=== PATIENT | female | born 1955 | race Hispanic/Latino ===

== ENCOUNTER 2017-05-06 10:00 | Outpatient (CLI) | payer MEDICARE, BC ==
[2017-05-06] MEDS ORDERED: Lidocaine 4% Topical Sol 50 ML BOT ONE (11:11)
[2017-05-06] MEDS ORDERED: Sodium Chloride 0.9% 15 ML NEB ONE (11:11)
--- NOTE | 2017-05-06 12:04 | PRG ---
DATE OF SERVICE: 05/06/2017 HISTORY: Ms. Vickie Fontenot is a very pleasant 62-year-old who presents to the [facility] for evaluation of an ulceration of the dorsum of the right foot. The patient stated at the time of her initial presentation to the Wound Center that approximately 1 month previously, her grandson jumped up in the air and the heel of his foot landed on the dorsum of the patient's right foot. She stated that the injury occurred in the evening and the following morning, she noted swelling over the dors um of her right foot. The patient was eventually seen by Dr. Mittal and placed on a course of p.o. antibiotics. She stated that the following week because of \\\\"leaking\\\\" associated with the lesio n of the dorsum of her right foot, she was seen in Urgent Care. She stated that the wound was clean ed. She stated that at a followup appointment in Urgent Care, she was told to keep an eye on her wo und. At the time, the patient was seen by Dr. Mittal. Ms. Fontenot was referred to the Wound Cent er for further evaluation and treatment. After being seen in the Wound Center, the patient was plac ed on dressing changes of Aquacel AG on a daily basis after cleansing and irrigation. The patient s tates that she has also applying antibiotic ointment to the wound at the time of her dressing change s. PHYSICAL EXAMINATION: VITAL SIGNS: Temperature 97.7, pulse 63, respirations 18, blood pressure 193/81, Accu-Chek 117. EXTREMITIES: An ulceration over the dorsum of the right foot is present which measures approximatel y 0.3 x 0.4 cm. The dimensions of the wound at the time of the patient's last visit were approximat yohannes 0.7 x 0.8 cm. Granulation tissue is visible within the wound margins. Necrotic and nonviable t issue present within the wound margins was debrided with an excisional full-thickness debridement wi th the use of a curette. No purulent drainage is associated with the wound. No cellulitis of the r ight foot is appreciated. No maceration of the skin of the periwound is noted. A dorsalis pedis pu lse is easily palpable on the right. No significant edema of the right foot is present on exam debora sandoval ASSESSMENT AND PLAN: 1. Ulceration of dorsum of right foot. Dressing changes of Aquacel AG will be continued on a daily basis after cleansing and irrigation. The patient has been instructed to discontinue the use of an tibiotic ointment at the time of dressing changes. I will see Ms. Fontenot again in one week. The patient understands and is in agreement with the preceding treatment plan. 2. Diabetes mellitus. The patient's Accu-Chek in clinic today is 117. The patient has been remind ed that for optimal wound healing, her blood glucoses should remain below 150. 3. Hypertension. 4. Coronary artery disease. 5. Osteoarthritis. 6. Chronic back pain. 7. End-stage renal disease. 8. Hypothyroidism. 9. Anemia. 10. Paroxysmal atrial fibrillation.
== END 2017-05-06 10:01 | disposition home or self-care (01) ==
LOC: WCC 10:00
PROVIDERS: ATTEND Family Medicine
DX: L97.519 Non-pressure chronic ulcer of other part of right foot with unspecified severity (principal); E11.621 Type 2 diabetes mellitus with foot ulcer; I12.0 Hypertensive chronic kidney disease with stage 5 chronic kidney disease or end stage renal disease; E11.22 Type 2 diabetes mellitus with diabetic chronic kidney disease; N18.6 End stage renal disease; E03.9 Hypothyroidism, unspecified; D63.1 Anemia in chronic kidney disease; I48.0 Paroxysmal atrial fibrillation; I25.10 Atherosclerotic heart disease of native coronary artery without angina pectoris; M19.90 Unspecified osteoarthritis, unspecified site
CPT/HCPCS: 11042; A4218; J2001

== ENCOUNTER 2017-05-07 08:38 | Emergency (ER) | payer MEDICARE, BC ==
[2017-05-07 09:48] LABS: #Eosinphils 0.1 thou/uL (0.0-0.7); #Monocytes 0.3 thou/uL (0.11-0.59); #Neutrophils 4.6 thou/uL (1.40-6.50); %Basophils 0.1 % (0.0-1.0); %Eosinophils 1.1 % (0.0-10.0); %Lymphocytes 17.2 % (21.0-51.0); %Monocytes 4.9 % (0.0-10.0); Hematocrit 35.7 % (36.0-47.0); Mean Platelet Volume 6.6 fL (7.4-10.4); Red Blood Cell (RBC) Count 3.39 mill/uL (4.20-5.40)
[2017-05-07 09:56] LABS: ALT (SGPT) 12 U/L (8-55); AST (SGOT) 20 U/L (5-34); Alkaline Phosphatase 132 U/L (40-150); Anion Gap 20 mmol/L (10-20); BUN (Urea Nitrogen) 67 mg/dL (9.8-20.1); Bilirubin, Total 0.4 mg/dL (0.2-1.2); Calc. Creatinine Clearance 0 mL/min (70-130); Calcium 9.2 mg/dL (7.8-10.44); Carbon Dioxide 23 mmol/L (23-31); Chloride 100 mmol/L (98-107); Estimated GFR-MDRD 5; Globulin 3.8 g/dL (2.4-3.5)
[2017-05-07 10:49] LABS: Lactic Acid - Sepsis 0.6 mmol/L (0.5-2.2)
--- NOTE | 2017-05-07 10:49 | RAD ---
LUMBAR SPINE 3 VIEWS: Date: 05/07/17 HISTORY: Back pain. FINDINGS/IMPRESSION: There are degenerative changes with levoscoliosis of the lumbar spine. There is compression of T12 v ertebral body, likely old. No subluxation is identified. Vascular calcifications are noted. POS: [facility]
[2017-05-07] MEDS ORDERED: Ondansetron HCl/PF 4 MG/2 ML Vial ONE (11:20)
[2017-05-07] MEDS ORDERED: cefTRIAXone\\ROCEPHIN 1 GM VIAL ONE (11:56)
[2017-05-07] MEDS ORDERED: Sodium Chloride 0.9% 100 ML ONE (11:57)
== END 2017-05-07 13:00 | disposition home or self-care (01) ==
LOC: ERS 08:38
DX: N39.0 Urinary tract infection, site not specified (principal); E87.5 Hyperkalemia; I25.2 Old myocardial infarction; E11.9 Type 2 diabetes mellitus without complications; E03.9 Hypothyroidism, unspecified; E78.5 Hyperlipidemia, unspecified; I10 Essential (primary) hypertension; Z87.891 Personal history of nicotine dependence
CPT/HCPCS: 36415; 36416; 72100; 80053; 83605; 83690; 85025; 93005; 94760; 96365; 96375; 96376; J0696; J2270; J2405; J7050

== ENCOUNTER 2017-05-09 18:38 | Emergency (ER) | payer MEDICARE, BC ==
[2017-05-09 19:21] LABS: #Eosinphils 0.1 thou/uL (0.0-0.7); #Lymphocytes 1.3 thou/uL (1.20-3.40); #Monocytes 0.3 thou/uL (0.11-0.59); #Neutrophils 4.8 thou/uL (1.40-6.50); %Basophils 0.7 % (0.0-1.0); %Eosinophils 1.9 % (0.0-10.0); %Lymphocytes 19.1 % (21.0-51.0); Hematocrit 38.9 % (36.0-47.0); Mean Platelet Volume 6.6 fL (7.4-10.4); Red Blood Cell (RBC) Count 3.71 mill/uL (4.20-5.40); White Blood Cell (WBC) Count 6.6 thou/uL (4.8-10.8)
[2017-05-09 20:01] LABS: ALT (SGPT) 12 U/L (8-55); AST (SGOT) 19 U/L (5-34); Alkaline Phosphatase 112 U/L (40-150); Anion Gap 18 mmol/L (10-20); BUN (Urea Nitrogen) 53 mg/dL (9.8-20.1); Bilirubin, Total 0.4 mg/dL (0.2-1.2); Calc. Creatinine Clearance 0 mL/min (70-130); Calcium 9.1 mg/dL (7.8-10.44); Carbon Dioxide 27 mmol/L (23-31); Chloride 97 mmol/L (98-107); Estimated GFR-MDRD 6; Globulin 3.7 g/dL (2.4-3.5); Lipase 5 U/L (8-78); Protein, Total 8.1 g/dL (6.0-8.3)
[2017-05-09 20:05] LABS: Troponin I 0.016 ng/mL (< 0.028)
[2017-05-09] MEDS ORDERED: Ondansetron HCl/PF 4 MG/2 ML Vial ONE (20:30)
--- NOTE | 2017-05-09 21:17 | RAD ---
ONE VIEW CHEST: Comparison: 10-07-16 History: Bilateral numbness, emesis, hypoglycemia. FINDINGS: Stable sternotomy wires and stable cardiac silhouette. The pulmonary vessels and hilum are normal. C ostophrenic angles are clear. Chronic changes, without consolidation or mass. No pneumothorax. Chron ic changes along the proximal right humerus. Posterior right 4th rib fracture. IMPRESSION: No acute cardiopulmonary process. POS: [facility]
== END 2017-05-09 20:55 | disposition home or self-care (01) ==
LOC: ERS 18:38
DX: R11.2 Nausea with vomiting, unspecified (principal); G62.9 Polyneuropathy, unspecified; I25.2 Old myocardial infarction; E11.9 Type 2 diabetes mellitus without complications; E03.9 Hypothyroidism, unspecified; E78.5 Hyperlipidemia, unspecified; I10 Essential (primary) hypertension; Z87.891 Personal history of nicotine dependence
CPT/HCPCS: 36416; 71010; 80053; 82553; 83690; 83735; 83880; 84484; 85025; 93005; 96374; J2405

== ENCOUNTER 2017-05-27 10:44 | Outpatient (CLI) | payer MEDICARE, BC ==
--- NOTE | 2017-05-27 13:31 | MRI ---
LUMBAR SPINE MRI: DATE: 05/27/17. PROVIDED CLINICAL HISTORY: Back pain. FINDINGS: Five lumbar vertebral bodies are noted. Vertebral body heights appear preserved. Lumbar alignment appears normal. No focal concerning regional marrow signal abnormality is evident. The conus medul [place] is normal in signal and terminates at an appropriate level. The visualized extraspinal soft t issues appear unremarkable. There is evidence for sclerosis involving each sacral alae, incompletel y visualized and incompletely characterized on the basis of this study, but possibly reflecting prio r sacral insufficiency fractures. No definite associated edema is evident. At L1-2, there is no significant central canal or foraminal narrowing apparent. At L2-3, there is no significant central canal or foraminal narrowing apparent. At L3-4, there is bilateral facet arthritis without significant central canal or foraminal narrowing apparent. At L4-5, there is disk desiccation and loss of disk space height with end plate degenerative change. There is a broad-based disk bulge and bilateral facet arthritis which combine to produce severe ce ntral canal narrowing. There is moderate right and mild left foraminal narrowing. At L5-S1, there is bilateral facet arthritis and a broad-based disk bulge. There is a synovial cyst emanating from the medial aspect of the L5-S1 facet joint to the left of midline which produces mod erate compression of the thecal sac. There is moderate to severe and mild right foraminal narrowing . IMPRESSION: 1. Lumbar disk and facet degenerative changes producing areas of canal and foraminal narrowing as d escribed above. 2. Areas of presumed sclerosis within each sacral ala may reflect sequelae of prior sacral insuffic iency fractures. Consider dedicated imaging of the pelvis as clinically indicated. POS: [facility]
== END 2017-05-27 10:45 | disposition home or self-care (01) ==
LOC: TBSIIMAG 10:44
PROVIDERS: ATTEND Orthopaedic Surgery
DX: M54.16 Radiculopathy, lumbar region (principal); M47.816 Spondylosis without myelopathy or radiculopathy, lumbar region; G95.89 Other specified diseases of spinal cord
CPT/HCPCS: 72148

== ENCOUNTER 2017-07-13 10:00 | Inpatient (IN) | payer MEDICARE, BC ==
[2017-07-13 10:54] VITALS: BMI 28.3
[2017-07-20] MEDS ORDERED: CEFAZOLIN/Water 2 GM/20 ML SYRINGE ONE (09:39)
[2017-07-20] MEDS ORDERED: Phenylephrine 10 MG/NS 250 ML 250 ML ONE (11:39)
[2017-07-20] MEDS ORDERED: Albumin 5% 500 ML ONE (11:39)
[2017-07-20] MEDS ORDERED: Bacitracin Zinc Ointment 30 gm TUBE ONE (11:43)
[2017-07-20] MEDS ORDERED: Sodium Chloride 0.9% 10 ML ONE (11:43)
[2017-07-20] MEDS ORDERED: Thrombin 5000 UNITS/5 ML VIAL ONE (11:43)
[2017-07-20] MEDS ORDERED: Fentanyl 250 MCG/5 ML VIAL ONE (12:00)
[2017-07-20] MEDS ORDERED: Meperidine HCl/PF 25 MG/ML VIAL SLOW IVP PRN (13:27)
[2017-07-20] MEDS ORDERED: Morphine Sulfate 2 MG/ML SYRINGE SLOW IVP PRN (13:27)
[2017-07-20] MEDS ORDERED: Promethazine HCl 25 MG/ML VIAL SLOW IVP PRN (13:27)
[2017-07-20] MEDS ORDERED: Ondansetron HCl/PF 4 MG/2 ML Vial IVP PRN (13:27)
[2017-07-20] MEDS ORDERED: HYDROmorphone 2 MG/ML VIAL SLOW IVP PRN (13:27)
[2017-07-20] MEDS ORDERED: Promethazine HCl 25 MG/ML VIAL IM PRN (13:27)
[2017-07-20] MEDS ORDERED: PHENYLEPHRINE-NS 100 MCG/ML 10 ML SYRINGE ONE (14:28)
[2017-07-20] MEDS ORDERED: Glycopyrrolate 0.2 MG/ML 5 ML SYRINGE ONE (14:28)
[2017-07-20] MEDS ORDERED: Vecuronium 10 MG VIAL ONE (14:28)
[2017-07-20] MEDS ORDERED: ePHEDrine/0.9% NaCl/PF SYRINGE 50 mg/10 ml ONE (14:28)
[2017-07-20] MEDS ORDERED: Ondansetron HCl/PF 4 MG/2 ML Vial ONE (14:28)
[2017-07-20] MEDS ORDERED: Lidocaine 1% PF 5 ML VIAL ONE (14:28)
[2017-07-20] MEDS ORDERED: Dexamethasone 20 MG/5 ML VIAL ONE (14:28)
[2017-07-20] MEDS ORDERED: Propofol 200 MG/20 ML VIAL ONE (14:28)
[2017-07-20] MEDS ORDERED: Fentanyl 100 MCG/2 ML VIAL ONE ×2 (14:38→16:08)
[2017-07-20] MEDS ORDERED: Acetaminophen/Codeine 30-300mg Tablet PO PRN (14:50)
[2017-07-20] MEDS ORDERED: Acetaminophen 325 MG TAB PO PRN (14:50)
[2017-07-20] MEDS ORDERED: traMADol HCl 50 MG TAB PO PRN (14:50)
[2017-07-20] MEDS ORDERED: Milk Of Magnesia 30 ML UDCUP PO PRN (14:50)
[2017-07-20] MEDS ORDERED: Bisacodyl 10 MG SUPP PR PRN (14:50)
[2017-07-20] MEDS ORDERED: Nitroglycerin 0.4 MG TAB (25 Tab Bottle) SL PRN (14:53)
[2017-07-20] MEDS ORDERED: Methocarbamol 500 MG TAB PO PRN (15:21)
[2017-07-20] MEDS ORDERED: Morphine 4 MG/ML VIAL ONE (17:35)
--- NOTE | 2017-07-20 18:43 | OP ---
DATE OF SERVICE: 07/20/2017 OR: 12. WOUND TYPE: Type 1 wound. SURGEON: Gregory Encarnacion M.D. TABLE TENDER: Alexx Hubbard PA-C. PREPROCEDURE DIAGNOSES: L4-L5 severe stenosis with low back and leg pain with L5-S1 synovial cyst wi th low back and leg pain. PROCEDURE: 1. L4-L5 laminectomy, partial facetectomy, and foraminotomies over the L4-L5 nerve roots. 2. L5-S1 laminectomy for synovial cyst resection. DESCRIPTION OF PROCEDURE: After informed consent was obtained from the patient, the patient was brou ght to OR 12. Proper patient pause and identification was carried out. [facility] and positioned prone on the operating room table. All appropriate points were padded. We identified the L4, L5, S1 dorsal spines and lamina, a linear jesse was made o jasvir this region and this area was sterilely cleansed, prepared, and draped. Proper patient pause and identification was carried out. The wound was then opened with a combination of sharp, monopolar an d blunt dissection. The L4, L5 and S1 dorsal spines and lamina were exposed. Localization film conf irmed our area of interest. We then performed an L4-L5 laminectomy, partial facetectomy, and foramin otomies over the L4-L5 nerve roots. We then turned our attention to the L5-S1 segment where there wa s a synovial cyst and L5-S1 laminectomy was performed and a left-sided synovial cyst was identified a nd freed to maximize decompression of the common dural tube and the nerve roots. We had excellent de compression from L4 all the way to S1. We maximized hemostasis throughout. The wound was then close d in anatomic layers following the sprinkling of vancomycin powder and after copious irrigation and m eticulous hemostasis. The patient then emerged from anesthesia.
[2017-07-20] MEDS: Morphine 4 MG/ML VIAL SLOW IVP PRN (18:53)
[2017-07-20] MEDS: HumaLOG 300 UNITS/3 ML VIAL SC SCH (18:53)
[2017-07-20] MEDS ORDERED: hydrALAZINE 20 MG/ML VIAL SLOW IVP PRN (19:12)
[2017-07-20] MEDS: Insulin Detemir 100 UNITS/ML 30 UNITS in Pre-Filled Syringe 1 EACH SC SCH (20:42)
[2017-07-20] MEDS: CEFAZOLIN/Water 2 GM/20 ML SYRINGE SLOW IVP SCH (20:42)
[2017-07-20] MEDS: Carvedilol 6.25 MG TAB PO SCH (20:43)
[2017-07-20] MEDS: Gabapentin 300 MG CAP PO SCH (20:43)
[2017-07-20] MEDS: Amlodipine 10 MG TAB PO SCH (20:43)
[2017-07-20] MEDS ORDERED: Non-Formulary Item 1 EACH (Insulin Glargine [Lantus Vial] 30 UNITS) SC SCH (21:00)
[2017-07-20] MEDS: Sodium Chloride 0.9% 1,000 ML IV SCH (21:03)
[2017-07-20] MEDS: HYDROcodone/Acetaminophen 7.5/325 mg Tablet PO PRN (22:21)
[2017-07-21] MEDS: Sodium Chloride 0.9% 1,000 ML IV SCH (02:12)
[2017-07-21] MEDS: CEFAZOLIN/Water 2 GM/20 ML SYRINGE SLOW IVP SCH (03:51)
[2017-07-21] MEDS: HYDROcodone/Acetaminophen 7.5/325 mg Tablet PO PRN ×3 (03:52→20:28)
[2017-07-21 05:33] LABS: #Basophils 0.1 thou/uL (0.0-0.2); #Lymphocytes 0.8 thou/uL (1.20-3.40); #Monocytes 0.4 thou/uL (0.11-0.59); %Eosinophils 0.1 % (0.0-10.0); %Lymphocytes 9.5 % (21.0-51.0); Hematocrit 32.1 % (36.0-47.0); Mean Platelet Volume 6.6 fL (7.4-10.4); Red Blood Cell (RBC) Count 3.06 mill/uL (4.20-5.40); White Blood Cell (WBC) Count 8.3 thou/uL (4.8-10.8)
[2017-07-21 05:44] LABS: Hemoglobin A1c 5.7 % (4.0-6.0)
[2017-07-21 05:52] LABS: Anion Gap 18 mmol/L (10-20); BUN (Urea Nitrogen) 51 mg/dL (9.8-20.1); Calc. Creatinine Clearance 9 mL/min (70-130); Calcium 9.1 mg/dL (7.8-10.44); Carbon Dioxide 22 mmol/L (23-31); Chloride 101 mmol/L (98-107); Estimated GFR-MDRD 6; Magnesium 1.9 mg/dL (1.6-2.6)
[2017-07-21] MEDS ORDERED: Dextrose 50% Abboject 50 ML SYRINGE SLOW IVP SCH (06:45)
[2017-07-21] MEDS ORDERED: HumaLOG 300 UNITS/3 ML VIAL IVP SCH (06:45)
[2017-07-21] MEDS ORDERED: Potassium Chloride 8 MEQ TAB PO SCH (06:45)
[2017-07-21] MEDS: Dextrose 5 % And 0.9 % NaCl 1,000 ML IV SCH ×2 (07:04→07:07)
[2017-07-21] MEDS: HumaLOG 300 UNITS/3 ML VIAL SC SCH ×3 (07:30→18:06)
[2017-07-21] MEDS: Levothyroxine Sodium 100 MCG TAB PO SCH (09:00)
--- NOTE | 2017-07-21 09:06 | PRG ---
DATE OF SERVICE: 07/21/2017 Ms. Fontenot is postoperative day 1 from L4-S1 decompression and synovial cyst removal. She is down at dialysis, now and as such, I am not able to see her this morning.
--- NOTE | 2017-07-21 12:04 | PDOC.PN ---
- Subjective Encounter Start Date: 07/21/17 Encounter Start Time: 07:00 Pt had elevated K+ today, due for HD, sent to HD here in the hospital prior to discharge. Did okay overnight, pain controlled, no F/C, no N/V/D/C. Deneis CP or SOB, no cough or sputum production. Discussed with Dr lockhart's PA, plan to discharge after HD 10 point ROS performed and neg for all systems except as per hPI - Objective Resuscitation Status: FULL MAR Reviewed: Yes Vital Signs & Weight: Vital Signs (12 hours) Temp Pulse Resp BP Pulse Ox 07/21/17 08:30 97.8 F 63 18 07/21/17 04:43 97.8 F 63 18 149/68 H 99 07/21/17 00:16 98.1 F 72 19 154/69 H 100 Weight Weight 165 lb I&O: 07/20/17 07/21/17 07/22/17 06:59 06:59 06:59 Intake Total 460 Balance 460 Result Diagrams: 07/21/17 05:09 07/21/17 05:09 Additional Labs: Accuchecks 07/20/17 07/20/17 18:53 17:42 POC Glucose 153 H 118 H Radiology Reviewed by me: Yes EKG Reviewed by me: Yes Phys Exam - Physical Examination Constitutional: NAD HEENT: PERRLA, moist MMs, sclera anicteric, oral pharynx no lesions Neck: no nodes, no JVD, supple, full ROM Respiratory: no wheezing, no rales, no rhonchi, clear to auscultation bilateral Cardiovascular: RRR, no rub HSM stable Gastrointestinal: soft, non-tender, no distention, positive bowel sounds Musculoskeletal: pulses present, edema present Neurological: non-focal, normal sensation, moves all 4 limbs Lymphatic: no nodes Psychiatric: normal affect, A&O x 3 Skin: no rash, normal turgor, cap refill <2 seconds Dx/Plan (1) Status post lumbar laminectomy Code(s): Z98.890 - OTHER SPECIFIED POSTPROCEDURAL STATES Status: Acute Comment: doing well, dispo per Neurosurgery (2) CAD (coronary artery disease) Code(s): I25.10 - ATHSCL HEART DISEASE OF [place] CORONARY ARTERY W/O ANG PCTRS Status: Chronic Qualifiers: Coronary Disease-Associated Artery/Lesion type: bypass graft [place] vs. transplanted heart: [place] heart Associated angina: without angina Qualified Code(s): I25.810 - Atherosclerosis of coronary artery bypass graft(s) without angina pectoris (3) Diabetes type 2, controlled Code(s): E11.9 - TYPE 2 DIABETES MELLITUS WITHOUT COMPLICATIONS Status: Chronic Qualifiers: Diabetes mellitus complication status: with circulatory complication Diabetes mellitus complication detail: with other circulatory complications Diabetes mellitus fpc insulin use: with manager terminal use Qualified Code(s) : E11.59 - Type 2 diabetes mellitus with other circulatory complications; Z79.4 - terminal worker (current) use of insulin; Z79.4 - [facility] (current) use of insulin ; Z79.4 - [facility] (current) use of insulin; Z79.4 - [facility] (current) use of insulin (4) Dyslipidemia Code(s): E78.5 - HYPERLIPIDEMIA, UNSPECIFIED Status: Chronic (5) ESRD (end stage renal disease) on dialysis Code(s): N18.6 - END STAGE RENAL DISEASE; Z99.2 - DEPENDENCE ON RENAL DIALYSIS Status: Chronic Comment: to hD this morning prior to D/C (6) Hypertension Code(s): I10 - ESSENTIAL (PRIMARY) HYPERTENSION Status: Chronic Qualifiers: Hypertension type: essential hypertension Qualified Code(s): I10 - Essential (primary) hypertension (7) Hypothyroidism Code(s): E03.9 - HYPOTHYROIDISM, UNSPECIFIED Status: Chronic Qualifiers: Hypothyroidism type: acquired Qualified Code(s): E03.9 - Hypothyroidism, unspecified (8) Paroxysmal atrial fibrillation Code(s): I48.0 - PAROXYSMAL ATRIAL FIBRILLATION Status: Chronic Comment: in NSR (9) Secondary hyperparathyroidism of renal origin Code(s): N25.81 - SECONDARY HYPERPARATHYROIDISM OF RENAL ORIGIN Status: Chronic - Plan cont current plan of care, PT/OT * . will sign off in anticiaption of D/C. If still here in the morning, will re- visit
[2017-07-21] MEDS: Carvedilol 6.25 MG TAB PO SCH ×2 (13:33→20:30)
[2017-07-21] MEDS: Fish Oil 1,000 MG CAP PO SCH (13:33)
[2017-07-21] MEDS: Gabapentin 300 MG CAP PO SCH ×3 (13:33→20:30)
[2017-07-21] MEDS: Amlodipine 10 MG TAB PO SCH ×2 (13:33→20:29)
[2017-07-21] MEDS: Folic Acid/Vit B Comp W-C PO SCH (13:33)
[2017-07-21] MEDS: Morphine 4 MG/ML VIAL SLOW IVP PRN (13:40)
--- NOTE | 2017-07-21 16:38 | CON ---
DATE OF CONSULTATION: 07/21/2017 TIME OF SERVICE: 1900. PRIMARY CARE PHYSICIAN: Dr. Fly Vargas. REQUESTING PHYSICIAN: Dr. Encarnacion. REASON FOR CONSULTATION: Medical management post-lumbar laminectomy. HISTORY OF PRESENT ILLNESS: Ms. Fontenot is a pleasant 62-year-old white female with history of obes ity, hypertension, coronary artery disease, diabetes, hypothyroidism, and paroxysmal atrial fibrillat ion who is postop day 0 from L4-L5 laminectomy, partial facetectomy, at L4-L5 foraminotomy as well as an L5-S1 laminectomy with synovial cyst resection. Currently, she is complaining of her left leg being numb and not feeling right. She denies any nause a. No fevers or chills. No chest pain or difficulty breathing. She does have history of end-stage renal disease on Wednesday, Wednesday, Wednesday hemodialysis, managed b y Dr. Coffey and sees Dr. Carlos for her heart issues. She denies any current complaints. PAST MEDICAL HISTORY: 1. Atrial fibrillation, paroxysmal. 2. Hypertension, essential. 3. Coronary artery disease, without angina. 4. Hyperlipidemia, unspecified. 5. Diabetes mellitus type 2, on long-term insulin. 6. Peripheral neuropathy. 7. Hypothyroidism. PAST SURGICAL HISTORY: 1. Bilateral cataracts. 2. Appendectomy. 3. Four-vessel CABG. 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 5. Right hip johnathan placement. 5. HD catheter placement and removal, and right forearm hemodialysis shunt creation. HOME MEDICATIONS: 1. [place] 3 tablets 1 daily. 2. Coreg 12.5 mg p.o. b.i.d. 3. Captopril 12.5 mg p.o. b.i.d. 4. Aspirin 81 mg daily. 5. Norvasc 5 mg p.o. b.i.d. 6. Amiodarone 100 mg daily. 7. Tylenol as needed. 8. Crestor 40 mg p.o. at bedtime. 9. Coumadin 5 mg p.o. q.p.m. 10. Tramadol as needed. 11. Methocarbamol 750 mg p.o. q.4 hours p.r.n. 12. Levothyroxine 100 mcg daily. 13. Lantus 30 units subcu at bedtime. 14. Humalog 12 units subcu a.c. 15. Nitroglycerin 0.4 mg sublingual p.r.n. chest pain. 16. Gabapentin 300 mg p.o. b.i.d. 17. Nephro-Gina 1 tablet daily. ALLERGIES: NKDA. FAMILY HISTORY: Negative for clotting or bleeding disorder, no immune dysfunction. SOCIAL HISTORY: She denies any alcohol, drug or tobacco use. REVIEW OF SYSTEMS: A 10-point review of systems was performed and negative for all other systems exc ept as stated as per HPI. PHYSICAL EXAMINATION: VITAL SIGNS: Temperature 97.9, pulse 75, blood pressure 181/75, respiratory rate 18, satting 100% on 2 liters nasal cannula. GENERAL: She is awake. She is alert. She is oriented x3. She is an obese white female, appears to be in no acute distress, although she does appear uncomfortable. HEENT: Normocephalic and atraumatic. Pupils equal, reactive bilaterally, mucous membranes are moist without visible lesions or thrush. NECK: Supple. She has no lymphadenopathy, JVD or thyromegaly. LUNGS: Clear anteriorly. She has no wheezes, no rales or rhonchi. CARDIOVASCULAR: She has normal S1 and S2. She does have a 2/6 holosystolic murmur best heard at the apex. ABDOMEN: Soft, it is nontender, nondistended. No rebound, rigidity or guarding with normoactive bow el sounds. EXTREMITIES: No cyanosis, no clubbing. She has trace edema in the left lower extremity. SKIN: Warm, moist well perfused. Her back has a postop dressing is clean, dry, and intact without a ny strike through. Her cranial nerves II-XII are grossly intact. Left leg is not moving well. Bila teral upper extremities and right leg have 5/5 strength. MUSCULOSKELETAL: Shows her large joints to be noninflamed within normal to inspection with no palpab le effusions. LABORATORY DATA: CBC showed a white count of major metabolic profile on 07/13/2017 showed sodium 140 , potassium 4.0, chloride 100, bicarbonate 32, BUN 37, creatinine 5.85, calcium 9.2, and glucose 165. CBC showed a white count of 4.7, hemoglobin 10.1, hematocrit 31.7, platelets of 205,000. INR is 1.3. ASSESSMENT AND PLAN: 1. Paroxysmal atrial fibrillation, currently in sinus rhythm. 2. Essential hypertension, controlled. 3. History of coronary artery disease, stable without angina. 4. Hyperlipidemia, on Crestor. 5. Diabetes mellitus type 2, on Lantus and NovoLog. There Peripheral neuropathy, on gabapentin. 6. Hypothyroidism on replacement levothyroxine. 7. End-stage renal disease on hemodialysis with Dr. Coffey. 8. Anemia of chronic renal disease, hemoglobin 10.1. We will watch this postoperatively. We will continue home medications. The [facility] Nurses call the neurosurgical PA due to the left leg c omplaints. We will manage her medical problems. We will follow along with you.
[2017-07-21] MEDS: Insulin Detemir 100 UNITS/ML 30 UNITS in Pre-Filled Syringe 1 EACH SC SCH (21:40)
[2017-07-22] MEDS: HYDROcodone/Acetaminophen 7.5/325 mg Tablet PO PRN ×2 (04:39→09:40)
[2017-07-22 08:12] VITALS: TEMP 98.6
[2017-07-22] MEDS: Carvedilol 6.25 MG TAB PO SCH (09:42)
[2017-07-22] MEDS: Gabapentin 300 MG CAP PO SCH (09:42)
[2017-07-22] MEDS: Amlodipine 10 MG TAB PO SCH (09:42)
[2017-07-22] MEDS: Folic Acid/Vit B Comp W-C PO SCH (09:42)
[2017-07-22] MEDS: Levothyroxine Sodium 100 MCG TAB PO SCH (09:43)
[2017-07-22] MEDS: Fish Oil 1,000 MG CAP PO SCH (09:43)
--- NOTE | 2017-07-22 09:50 | PRG ---
DATE OF SERVICE: 07/22/2017 Ms. Fontenot is postoperative day 1 from L4-S1 decompression and synovial cyst removal. She is doing well with certainly improvement in her leg pain. She has good strength in her lower extremity, she was dialyzed yesterday. She has met criteria for dismissal. We will dismiss her. We went over intr aoperative and postoperative issues.
--- NOTE | 2017-07-22 10:19 | PDOC.PN ---
- Subjective Encounter Start Date: 07/22/17 Encounter Start Time: 10:18 feelign better. pain controlled, left leg pain much better. no F/c, no n/V/D/ c, no CP or sOB, K+ post HD yesterday 3.0 seen by NSG today, cleared to go home 10 point ROs performed and neg for all systems except as per HPI - Objective MAR Reviewed: Yes Vital Signs & Weight: Vital Signs (12 hours) Temp Pulse Resp BP Pulse Ox 07/22/17 08:00 98.6 F 67 18 150/67 H 98 07/22/17 03:30 98.5 F 67 18 131/60 98 07/21/17 23:33 98.5 F 57 L 16 133/62 98 Weight Weight 168 lb 14.4 oz I&O: 07/21/17 07/22/17 07/23/17 06:59 06:59 06:59 Intake Total 460 480 230 Balance 460 480 230 Result Diagrams: 07/21/17 05:09 07/21/17 11:53 Additional Labs: Accuchecks 07/22/17 07/22/17 07/21/17 09:56 05:53 22:03 POC Glucose 205 H 158 H 177 H Radiology Reviewed by me: Yes EKG Reviewed by me: Yes Phys Exam - Physical Examination Constitutional: NAD HEENT: PERRLA, moist MMs, sclera anicteric, oral pharynx no lesions Neck: no nodes, no JVD, supple, full ROM Respiratory: no wheezing, no rales, no rhonchi, clear to auscultation bilateral Cardiovascular: RRR, no significant murmur, no rub Gastrointestinal: soft, non-tender, no distention, positive bowel sounds Musculoskeletal: no edema, pulses present Neurological: non-focal, normal sensation, moves all 4 limbs Lymphatic: no nodes Psychiatric: normal affect, A&O x 3 Skin: no rash, normal turgor, cap refill <2 seconds Dx/Plan (1) Status post lumbar laminectomy Code(s): Z98.890 - OTHER SPECIFIED POSTPROCEDURAL STATES Status: Acute Comment: doing well, discharge today (2) CAD (coronary artery disease) Code(s): I25.10 - ATHSCL HEART DISEASE OF [place] CORONARY ARTERY W/O ANG PCTRS Status: Chronic Qualifiers: Coronary Disease-Associated Artery/Lesion type: bypass graft [place] vs. transplanted heart: [place] heart Associated angina: without angina Qualified Code(s): I25.810 - Atherosclerosis of coronary artery bypass graft(s) without angina pectoris (3) Diabetes type 2, controlled Code(s): E11.9 - TYPE 2 DIABETES MELLITUS WITHOUT COMPLICATIONS Status: Chronic Qualifiers: Diabetes mellitus complication status: with circulatory complication Diabetes mellitus complication detail: with other circulatory complications Diabetes mellitus alf insulin use: with herbologist use Qualified Code(s) : E11.59 - Type 2 diabetes mellitus with other circulatory complications; Z79.4 - jail (current) use of insulin; Z79.4 - informatics spec (current) use of insulin ; Z79.4 - informatics spec (current) use of insulin; Z79.4 - jail (current) use of insulin (4) Dyslipidemia Code(s): E78.5 - HYPERLIPIDEMIA, UNSPECIFIED Status: Chronic (5) ESRD (end stage renal disease) on dialysis Code(s): N18.6 - END STAGE RENAL DISEASE; Z99.2 - DEPENDENCE ON RENAL DIALYSIS Status: Chronic Comment: HD yesterday, outpatient tomorrow. Follow with Dr Coffey as scheduled (6) Hypertension Code(s): I10 - ESSENTIAL (PRIMARY) HYPERTENSION Status: Chronic Qualifiers: Hypertension type: essential hypertension Qualified Code(s): I10 - Essential (primary) hypertension (7) Hypothyroidism Code(s): E03.9 - HYPOTHYROIDISM, UNSPECIFIED Status: Chronic Qualifiers: Hypothyroidism type: acquired Qualified Code(s): E03.9 - Hypothyroidism, unspecified (8) Paroxysmal atrial fibrillation Code(s): I48.0 - PAROXYSMAL ATRIAL FIBRILLATION Status: Chronic Comment: in NSR (9) Secondary hyperparathyroidism of renal origin Code(s): N25.81 - SECONDARY HYPERPARATHYROIDISM OF RENAL ORIGIN Status: Chronic - Plan cont current plan of care * . will sign off in anticipation of discharge
[2017-07-22] MEDS: HumaLOG 300 UNITS/3 ML VIAL SC SCH (11:59)
[2017-07-22 13:23] VITALS: BP 155/70
== END 2017-07-22 13:04 | disposition home or self-care (01) | DRG 515 ==
LOC: SURG A 07-20 08:42 → 2SE 07-21 08:11
PROVIDERS: ADMIT Surgery; ATTEND Surgery
PROC: 01NB0ZZ Release Lumbar Nerve, Open Approach (ICD-10-PCS; principal; 2017-07-20)
PROC: 5A1D70Z Performance of Urinary Filtration, Intermittent, Less than 6 Hours Per Day (ICD-10-PCS; 2017-07-21)
DX: M48.061 Spinal stenosis, lumbar region without neurogenic claudication (principal); N18.6 End stage renal disease; I12.0 Hypertensive chronic kidney disease with stage 5 chronic kidney disease or end stage renal disease; E11.42 Type 2 diabetes mellitus with diabetic polyneuropathy; N25.81 Secondary hyperparathyroidism of renal origin; E11.59 Type 2 diabetes mellitus with other circulatory complications; E03.9 Hypothyroidism, unspecified; I48.0 Paroxysmal atrial fibrillation; E78.5 Hyperlipidemia, unspecified; I25.10 Atherosclerotic heart disease of native coronary artery without angina pectoris; M71.38 Other bursal cyst, other site; M54.16 Radiculopathy, lumbar region; D63.1 Anemia in chronic kidney disease; Z79.4 Long term (current) use of insulin; Z95.1 Presence of aortocoronary bypass graft; Z95.5 Presence of coronary angioplasty implant and graft; Z99.2 Dependence on renal dialysis
CPT/HCPCS: 36415; 36416; 76000; 80048; 83036; 83735; 85025; 87340; A4216; G8978-GP-CL; G8979-GP-CJ; J1100; J1815; J2001; J2270; J2405; J2704; J3010; J3370; J3490; P9045

== ENCOUNTER 2017-07-13 10:23 | Outpatient (CLI) | payer MEDICARE, BC ==
[2017-07-13 11:23] LABS: Hematocrit 31.7 % (36.0-47.0); Mean Platelet Volume 6.5 fL (7.4-10.4); Red Blood Cell (RBC) Count 3.03 mill/uL (4.20-5.40); White Blood Cell (WBC) Count 4.7 thou/uL (4.8-10.8)
[2017-07-13 11:28] LABS: PTT 34.1 SEC (22.9-36.1); Prothrombin Time 16.8 SEC (12.0-14.7)
[2017-07-13 11:41] LABS: Anion Gap 12 mmol/L (10-20); BUN (Urea Nitrogen) 37 mg/dL (9.8-20.1); Calc. Creatinine Clearance 0 mL/min (70-130); Calcium 9.2 mg/dL (7.8-10.44); Carbon Dioxide 32 mmol/L (23-31); Chloride 100 mmol/L (98-107); Estimated GFR-MDRD 7
== END 2017-07-13 10:24 | disposition home or self-care (01) ==
LOC: LABBT 10:23
PROVIDERS: ATTEND Surgery
DX: Z01.818 Encounter for other preprocedural examination (principal); M48.061 Spinal stenosis, lumbar region without neurogenic claudication; M54.16 Radiculopathy, lumbar region
CPT/HCPCS: 80048; 85027; 85610; 85730

== ENCOUNTER → 2017-08-21 | Day surgery (SDC) | payer MEDICARE, BC ==
[~2017-08-21] MED LIST: Bacitracin Zinc 1 Packet ONE; Lidocaine 1% w/Epinephrine 1:100K 20 ML VIAL ONE
== END ==
LOC: ER/OP 16:31
PROVIDERS: ATTEND Physician Assistant
DX: Z51.89 Encounter for other specified aftercare (principal); E66.9 Obesity, unspecified; I25.10 Atherosclerotic heart disease of native coronary artery without angina pectoris; E03.9 Hypothyroidism, unspecified; I48.0 Paroxysmal atrial fibrillation; E11.22 Type 2 diabetes mellitus with diabetic chronic kidney disease; I12.0 Hypertensive chronic kidney disease with stage 5 chronic kidney disease or end stage renal disease; N18.6 End stage renal disease; E78.5 Hyperlipidemia, unspecified; E11.42 Type 2 diabetes mellitus with diabetic polyneuropathy; D63.1 Anemia in chronic kidney disease; Z99.2 Dependence on renal dialysis; Z79.01 Long term (current) use of anticoagulants; Z79.82 Long term (current) use of aspirin; Z79.4 Long term (current) use of insulin; Z79.899 Other long term (current) drug therapy; Z98.42 Cataract extraction status, left eye; Z98.41 Cataract extraction status, right eye; Z95.1 Presence of aortocoronary bypass graft; Z90.49 Acquired absence of other specified parts of digestive tract; Z98.890 Other specified postprocedural states; Z87.891 Personal history of nicotine dependence
CPT/HCPCS: J2001

== ENCOUNTER 2017-11-09 09:11 | Outpatient (CLI) | payer MEDICARE, BC | END 2017-11-09 09:12 | disposition home or self-care (01) | LOC: BICMAMMO 09:11 | PROVIDERS: ATTEND Family Medicine | DX: Z12.31 Encounter for screening mammogram for malignant neoplasm of breast (principal); R92.1 Mammographic calcification found on diagnostic imaging of breast | CPT/HCPCS: 77063; 77067 ==

== ENCOUNTER 2018-01-11 13:33 | Inpatient (IN) | payer MEDICARE, BC ==
[2018-01-11 14:12] LABS: #Eosinphils 0.1 thou/uL (0.0-0.7); #Lymphocytes 1.2 thou/uL (1.20-3.40); #Monocytes 0.5 thou/uL (0.11-0.59); #Neutrophils 2.2 thou/uL (1.40-6.50); %Basophils 0.5 % (0.0-1.0); %Lymphocytes 29.1 % (21.0-51.0); %Monocytes 11.9 % (0.0-10.0); %Neutrophils 56.6 % (42.0-75.0); Hemoglobin 9.4 g/dL (12.0-16.0); Mean Corpuscular HGB CONC 33.8 g/dL (32.0-36.0); Mean Corpuscular Hemoglobin 34.4 pg (27.0-31.0); Mean Platelet Volume 7.2 fL (7.4-10.4); Platelet Count 168 thou/uL (130-400); RBC Distribution Width 14.5 % (11.5-14.5); Red Blood Cell (RBC) Count 2.72 mill/uL (4.20-5.40)
[2018-01-11] MEDS ORDERED: metroNIDAZOLE 500 MG in Premix Bag 1 BAG IVPB SCH ×2 (14:15→23:59)
[2018-01-11 14:38] LABS: ALT (SGPT) 18 U/L (8-55); AST (SGOT) 27 U/L (5-34); Albumin 3.6 g/dL (3.4-4.8); Alkaline Phosphatase 74 U/L (40-150); Anion Gap 22 mmol/L (10-20); BUN (Urea Nitrogen) 78 mg/dL (9.8-20.1); Bilirubin, Total 0.4 mg/dL (0.2-1.2); CK (CPK) 150 U/L (29-168); Calc. Creatinine Clearance 0 mL/min (70-130); Calcium 8.4 mg/dL (7.8-10.44); Carbon Dioxide 17 mmol/L (23-31); Chloride 107 mmol/L (98-107); Estimated GFR-MDRD 3; Globulin 3.3 g/dL (2.4-3.5); Glucose 134 mg/dL (80-115); Lipase 37 U/L (8-78); Protein, Total 6.9 g/dL (6.0-8.3); Sodium 141 mmol/L (136-145)
[2018-01-11] MEDS ORDERED: ISOVUE-370 76%-LOCM 1 ML ONE (15:08)
--- NOTE | 2018-01-11 15:42 | CT ---
CT ABDOMEN AN PELVIS WITH CONTRAST: 01/11/18 Multiple axial tomograms obtained through the abdomen and pelvis with IV enhancement. Oral contrast w as not administered. INDICATIONS: Abdominal pain. Diarrhea. FINDINGS: Lung bases clear. Liver, spleen, pancreas and adrenal glands unremarkable. Both kidneys show cortical thinning. No hydronephrosis or urinary calculus identified. Urinary bladder is mildly distended. There is mild urinary bladder wall thickening. Small bowel loops are normal caliber. Evidence of mild mural thickening involving the terminal ileum and cecum. This is nonspecific but enteritis or colitis cannot be excluded. There is diverticulosis of the left colon and sigmoid. Nonspecific haziness is seen in the lower left descending colon and upper sigmoid. This could potentially represent early changes of diverticulitis . There is no evidence of focal abscess or extraluminal fluid. Patient appears to be post hysterectomy. The aorta is calcified but normal caliber. Deformity of the left pubic bone and pubic symphysis suggests old fracture. Degenerative changes of the hips with prio r internal fixation of the right hip. IMPRESSION: 1. Mild mural thickening involving the terminal ileum and cecum. Enteritis or colitis not exclud ed. 2. Diverticulosis of the left colon and sigmoid. Nonspecific haziness in the lower left colon an d upper sigmoid could potentially represent early changes of diverticulitis. No evidence of focal div erticulitis, extraluminal fluid, abscess, or extraluminal gas identified. 3. Mild urinary bladder wall thickening. Rule out cystitis. 4. Bilateral renal cortical thinning. Correlate with renal function tests. POS: [facility]
[2018-01-11] MEDS ORDERED: Dextrose 50% Abboject 50 ML SYRINGE SLOW IVP PRN (16:16)
[2018-01-11] MEDS ORDERED: Nitroglycerin 0.4 MG TAB (25 Tab Bottle) PO PRN (16:16)
[2018-01-11] MEDS ORDERED: Dextrose 5% in Water 1,000 ML IV PRN (16:16)
[2018-01-11] MEDS ORDERED: Loperamide HCl 2 MG CAP PO PRN (16:16)
[2018-01-11] MEDS ORDERED: Insulin Regular 300 UNITS/3 ML VIAL SC PRN (16:16)
[2018-01-11] MEDS ORDERED: Calcium Carbonate 500 MG ChewTAB PO PRN (16:16)
[2018-01-11] MEDS ORDERED: Ondansetron ODT 4 MG TAB PO PRN (16:16)
[2018-01-11] MEDS ORDERED: Ondansetron HCl/PF 4 MG/2 ML Vial IVP PRN (16:16)
[2018-01-11] MEDS ORDERED: Sodium Chloride 0.9% 1,000 ML IV SCH (16:30)
[2018-01-11 16:40] LABS: Prothrombin Time 32.6 SEC (12.0-14.7)
[2018-01-11 16:41] LABS: PTT 87.5 SEC (22.9-36.1)
[2018-01-11] MEDS ORDERED: Warfarin Sodium 5 MG TAB PO SCH (17:00)
--- NOTE | 2018-01-11 17:19 | HP ---
DATE OF ADMISSION: 01/11/2018 PRIMARY CARE PHYSICIAN: Fly Vargas D.O. PRIMARY MUSIC JOURNALIST: Dr. Nitin Coffey. CHIEF COMPLAINT: Diarrhea of 1-week duration. HISTORY OF PRESENT ILLNESS: The patient is a 62-year-old white female with end-stage renal disease o n hemodialysis, paroxysmal atrial fibrillation on anticoagulation, hypertension, diabetes mellitus ty pe 2, and coronary artery disease who presented to the hospital with diarrhea of 1-week duration. Th e diarrhea is profuse, watery, associated with abdominal cramping. It is foul smelling without any b lood. She also had some nausea without any vomiting. She denies eating outside; however, she had ma de some salad approximately 8-9 days ago. She was also on clindamycin for 1 week, 15 days ago. She denies any fever or chills. Denies any weight loss or change in bowel habits prior to this. PAST MEDICAL HISTORY: 1. Paroxysmal atrial fibrillation, on warfarin. 2. Hypertension. 3. Coronary artery disease. 4. Hyperlipidemia. 5. Diabetes mellitus type 2. 6. Hypothyroidism. 7. End-stage renal disease, on hemodialysis. 8. Chronic anemia of renal insufficiency. PAST SURGICAL HISTORY: 1. Coronary artery bypass grafting. 2. Bilateral cataract surgery. 3. Appendectomy. 4. Back surgery. 5. Right hip surgery. 6. Dialysis access. 7. Coronary stent placement. ALLERGIES: No known drug allergies. CURRENT HOME MEDICATIONS: Patient does not remember all of her home medications. She states that sh bar takes captopril, carvedilol, amiodarone, fish oil, warfarin, Lantus, Humalog, and gabapentin. SOCIAL HISTORY: Patient currently ambulates with the help of a cane. She currently makes her own de cision with the help of her family. No current use of smoking, alcohol or drug use. FAMILY HISTORY: Negative for GI malignancies or heart disease. REVIEW OF SYSTEMS: The following complete review of systems was negative, unless otherwise mentioned in the HPI or below: Constitutional: Weight loss or gain, ability to conduct usual activities. Sk in: Rash, itching. Eyes: Double vision, pain. ENT/Mouth: Nose bleeding, neck stiffness, pain, te nderness. Cardiovascular: Palpitations, dyspnea on exertion, orthopnea. Respiratory: Shortness of breath, wheezing, cough, hemoptysis, fever or night sweats. Gastrointestinal: Poor appetite, abdom inal pain, heartburn, nausea, vomiting, constipation, or diarrhea. Genitourinary: Urgency, frequenc y, dysuria, nocturia. Musculoskeletal: Pain, swelling. Neurologic/Psychiatric: Anxiety, depressio n. Allergy/Immunologic: Skin rash, bleeding tendency. PHYSICAL EXAMINATION: VITAL SIGNS: Temperature 98.1, respirations 18, pulse rate of 60, blood pressure of 118/42 with O2 s aturation of 96% on room air. GENERAL: A 62-year-old female, ill appearing. HEENT: Head atraumatic, normocephalic. Sclerae anicteric. Dry mucous membranes. No oral lesion. NECK: Supple, no JVD appreciated. No carotid bruit. LUNGS: Show decreased air entry at bilateral bases with scattered rales, no wheezing or significant use of accessory muscles of respiration. HEART: S1, S2 present. No significant rubs or gallops. Healed midline scar from previous CABG. A 2/6 systolic murmur over the mitral area. ABDOMEN: Soft. There is generalized tenderness, without any rebound, guarding, no costovertebral an gle tenderness. The tenderness was more pronounced in the left lower quadrant. SKIN: Warm and dry. LYMPH NODES: No palpable lymph nodes in the neck. PERIPHERAL VASCULAR: Radial pulses palpable bilaterally. MUSCULOSKELETAL: No joint swelling or tenderness. NEUROLOGIC: Grossly nonfocal, moves all four extremities. PSYCHIATRIC: Alert, awake, oriented x3. LYMPH NODES: No palpable lymph nodes in the neck. LABORATORY AND X-RAY FINDINGS: CBC showed WBC 4.0 with hemoglobin 9.4, hematocrit 27.7, platelets 16 8. INR is 3.0. Chemistry showed sodium 141, potassium 5, chloride 107, bicarbonate 17, BUN 78, crea tinine 13.92, glucose of 134. LFTs in normal range. CT scan of the abdomen and pelvis by my review showed changes consistent with colitis. It also showed left colon and sigmoid diverticulosis, suspec emma diverticulitis is also a possibility per radiologist. There was also mild urinary bladder wall t hickening. Telemetry monitoring by my review showed sinus rhythm. IMPRESSION: 1. Infectious colitis with suspected acute diverticulitis. Rule out Clostridium difficile colitis. 2. End-stage renal disease with last hemodialysis approximately 1 week ago. 3. Metabolic acidosis secondary to missed hemodialysis. 4. Dehydration. 5. Paroxysmal atrial fibrillation, on anticoagulation. INR is therapeutic. 6. Chronic anemia secondary to renal insufficiency. 7. Urinary bladder wall thickening, rule out cystitis. 8. Hypertension. 9. Coronary artery disease, status post coronary artery bypass graft. 10. Hyperlipidemia. 11. Diabetes mellitus type 2. 12. Hypothyroidism. PLAN: Patient will be monitored on the medical floor. I discussed with Dr. Nitin Coffey. She guille l undergo hemodialysis today. We will start her on ceftriaxone, Flagyl with oral vancomycin. GI guille l be consulted. Stool workup will be sent. We will add probiotics. We will start her on insulin sl iding scale. Lantus 20 units at bedtime. We will resume other home medications once confirmed. We will consult walking program. We will get vitals every 4 hourly. Plan of care was discussed with the patient in detail. She stated understanding.
[2018-01-11] MEDS ORDERED: cefTRIAXone\\ROCEPHIN 1 GM in Sodium Chloride 0.9% 100 ML IVPB SCH ×2 (18:00→23:30)
[2018-01-11] MEDS ORDERED: Vancomycin HCl 25 MG/ML Oral PO SCH (18:00)
[2018-01-11 18:20] LABS: HBSAg Index 0.25 S/CO (0-0.99); Hep B Surf Ag Non-Reactive S/CO (NonReactive)
[2018-01-11] MEDS ORDERED: Carvedilol 3.125 MG TAB PO SCH ×2 (21:00→23:45)
[2018-01-11] MEDS ORDERED: Famotidine 20 MG TAB PO SCH ×3 (21:00→23:45)
[2018-01-11] MEDS ORDERED: Insulin Glargine 20 UNITS in Pre-Filled Syringe 1 EACH SC SCH (21:00)
[2018-01-11] MEDS ORDERED: Amiodarone 200 MG TAB PO SCH ×2 (21:00→23:45)
[2018-01-11] MEDS ORDERED: Gabapentin 300 MG CAP PO SCH ×2 (21:00→23:45)
[2018-01-11] MEDS ORDERED: Warfarin Sodium 2.5 MG TAB PO SCH (23:45)
[2018-01-12] MEDS: cefTRIAXone\\ROCEPHIN 1 GM in Sodium Chloride 0.9% 100 ML IVPB SCH ×2 (00:57→23:17)
[2018-01-12] MEDS: Saccharomyces boulardii 250 MG CAP PO SCH ×3 (01:19→22:11)
[2018-01-12] MEDS: Vancomycin HCl 25 MG/ML Oral PO SCH ×4 (01:21→17:56)
[2018-01-12 02:34] LABS: Bilirubin Negative (Negative); Blood, Urine Moderate (Negative); Clarity CLEAR (Clear); Glucose, Urine (Dipstick) Negative (Negative); Leukocyte Trace (Negative); Nitrite Negative (Negative); Protein, Urine (Dipstick) 100 mg/dL (Neg-Trace); Specific Gravity, Urine 1.013 (1.002-1.036); Urobilinogen 0.2 mg/dL (0.2-1.0); pH, Urine 7.5 (5.0-9.0)
[2018-01-12 02:36] LABS: Bacteria/HPF 1+ HPF (None Seen); Hyaline Casts/LPF 0-3 HYALINE CAST LPF (0-3 Hyaline); Pathc Cast-AUWi Flag 0.29 (0-2.49); WBC/HPF 0-3 HPF (0-3)
[2018-01-12] MEDS: metroNIDAZOLE 500 MG in Premix Bag 1 BAG IVPB SCH ×3 (03:02→17:56)
[2018-01-12 04:59] LABS: #Eosinphils 0.1 thou/uL (0.0-0.7); #Lymphocytes 1.2 thou/uL (1.20-3.40); #Monocytes 0.4 thou/uL (0.11-0.59); #Neutrophils 2.1 thou/uL (1.40-6.50); %Lymphocytes 31.6 % (21.0-51.0); %Monocytes 10.6 % (0.0-10.0); %Neutrophils 54.8 % (42.0-75.0); Hemoglobin 9.4 g/dL (12.0-16.0); Mean Corpuscular HGB CONC 33.2 g/dL (32.0-36.0); Mean Corpuscular Hemoglobin 33.9 pg (27.0-31.0); Mean Platelet Volume 6.6 fL (7.4-10.4); Platelet Count 160 thou/uL (130-400); RBC Distribution Width 14.2 % (11.5-14.5); Red Blood Cell (RBC) Count 2.77 mill/uL (4.20-5.40); White Blood Cell (WBC) Count 3.8 thou/uL (4.8-10.8)
[2018-01-12 05:18] LABS: INR-International Normal Ratio 2.8; Prothrombin Time 31.1 SEC (12.0-14.7)
[2018-01-12 05:19] LABS: PTT 87.8 SEC (22.9-36.1)
[2018-01-12 05:26] LABS: ALT (SGPT) 21 U/L (8-55); AST (SGOT) 25 U/L (5-34); Albumin 3.3 g/dL (3.4-4.8); Alkaline Phosphatase 71 U/L (40-150); Anion Gap 14 mmol/L (10-20); BUN (Urea Nitrogen) 18 mg/dL (9.8-20.1); Bilirubin, Total 0.3 mg/dL (0.2-1.2); Calc. Creatinine Clearance 0 mL/min (70-130); Calcium 8.2 mg/dL (7.8-10.44); Carbon Dioxide 25 mmol/L (23-31); Chloride 104 mmol/L (98-107); Estimated GFR-MDRD 8; Globulin 2.8 g/dL (2.4-3.5); Glucose 57 mg/dL (80-115); Potassium 3.1 mmol/L (3.5-5.1); Protein, Total 6.1 g/dL (6.0-8.3); Sodium 140 mmol/L (136-145)
[2018-01-12] MEDS ORDERED: Dextrose 5 % And 0.9 % NaCl 1,000 ML IV SCH (06:00)
[2018-01-12] MEDS ORDERED: Potassium Chloride 20 MEQ TAB PO SCH ×2 (08:30→16:45)
[2018-01-12] MEDS: Carvedilol 3.125 MG TAB PO SCH ×2 (08:46→22:10)
[2018-01-12] MEDS ORDERED: Gabapentin 300 MG CAP PO SCH (09:00)
[2018-01-12 11:41] VITALS: BMI 31.4
[2018-01-12] MEDS ORDERED: FLUoxetine HCl 20 MG CAP ONE (12:16)
[2018-01-12] MEDS ORDERED: traMADol HCl 50 MG TAB PO PRN (16:30)
--- NOTE | 2018-01-12 16:33 | PDOC.PN ---
- Subjective Encounter Start Date: 01/12/18 Encounter Start Time: 11:00 Patient seen and examined for Gen weakness/Colitis/diarrhea. No new complaints. No overnight events. Feels gen weak. Diarrhea improving. Still has lower abd discomfort. - Objective Resuscitation Status: Resuscitation Status FULL:Full Resuscitation MAR Reviewed: Yes Vital Signs & Weight: Vital Signs (12 hours) Temp Pulse Resp BP Pulse Ox 01/12/18 11:00 97.9 F 61 16 125/67 96 01/12/18 08:00 98.1 F 62 16 96 01/12/18 07:58 98.1 F 62 16 127/68 96 Weight Admit Weight 189 lb 3.2 oz Weight 189 lb 3.2 oz Result Diagrams: 01/12/18 03:49 01/12/18 03:49 Additional Labs: Accuchecks 01/12/18 01/12/18 01/12/18 12:16 05:56 05:22 POC Glucose 136 H 201 H 62 L 01/12/18 01:05 POC Glucose 61 L Laboratory Tests 01/12/18 03:49 INR 2.8 Radiology Reviewed by me: Yes (CT abd - Colitis/ ?diverticulitis) Phys Exam - Physical Examination Constitutional: NAD Respiratory: no wheezing, no rales, no rhonchi, clear to auscultation bilateral Cardiovascular: RRR, no rub no heaves/pulsations Gastrointestinal: soft, no distention, positive bowel sounds lower abd tenderness, No rebound/guarding Musculoskeletal: no edema, pulses present Neurological: moves all 4 limbs Psychiatric: A&O x 3 Dx/Plan - Plan IMPRESSION: 1. Infectious colitis with suspected acute diverticulitis. Rule out Clostridium difficile colitis. 2. End-stage renal disease with last hemodialysis approximately 1 week ago. 3. Metabolic acidosis secondary to missed hemodialysis. 4. Dehydration. 5. Paroxysmal atrial fibrillation, on anticoagulation. INR is therapeutic. 6. Chronic anemia secondary to renal insufficiency. 7. Urinary bladder wall thickening, rule out cystitis. 8. Hypertension. 9. Coronary artery disease, status post coronary artery bypass graft. 10. Hyperlipidemia. 11. Diabetes mellitus type 2. 12. Hypothyroidism. 13. Hypokalemia PLAN: * Cont Ceftriaxone/Flagyl/PO Vancomycin * Await Stool w/u * Dialysis per Nephro * Cont low dose Coreg (Pt takes 12.5 BID) * Resume Captopril * Replace Potassium * AM labs * Cont other meds as below * Amlodipine on hold Review of Systems - Review of Systems Respiratory: negative: Cough, Dry, Shortness of Breath, Hemoptysis, SOB with Excertion, Pleuritic Pain, Sputum, Wheezing Cardiovascular: negative: chest pain, palpitations, orthopnea, paroxysmal nocturnal dyspnea, edema, light headedness, other - Medications/Allergies Allergies/Adverse Reactions: Allergies Allergy/AdvReac Type Severity Reaction Status Date / Time No Known Drug Allergies Allergy Verified 01/12/18 06:28 Medications: Current Medications Acetaminophen (Tylenol) 650 mg PO Q4H PRN PRN Reason: Headache/Fever or Pain Amiodarone HCl (Cordarone) 100 mg PO HS [facility] Calcium Carbonate (Tums) 1,000 mg PO Q4H PRN PRN Reason: Heartburn or Indigestion Captopril (Capoten) 12.5 mg PO DAILY [facility] Carvedilol (Coreg) 3.125 mg PO BID [facility] Last Admin: 01/12/18 08:46 Dose: 3.125 mg Dextrose/Water (Dextrose 50%) 25 gm SLOW IVP PRN PRN PRN Reason: Hypoglycemia Last Admin: 01/12/18 05:32 Dose: 25 gm Famotidine (Pepcid) 20 mg PO 2100 [facility] Gabapentin (Neurontin) 300 mg PO BID [facility] Last Admin: 01/12/18 08:46 Dose: 300 mg Gabapentin (Neurontin) 600 mg PO QAM [facility] Glucagon (Glucagon) 1 mg IM PRN PRN PRN Reason: Hypoglycemia Dextrose/Water (D5w) 1,000 mls @ 0 mls/hr IV .Q0M PRN; As Directed PRN Reason: Hypoglycemia Ceftriaxone Sodium 1 gm/ (Sodium Chloride) 100 mls @ 200 mls/hr IVPB Q24HR [facility] Last Admin: 01/12/18 00:57 Dose: 100 mls Metronidazole 500 mg/ Device 100 mls @ 100 mls/hr IVPB 0300,1100,1900 [facility] Last Admin: 01/12/18 12:10 Dose: 100 mls Insulin Glargine 10 units/ (Miscellaneous Medication) 0.1 mls @ 0 mls/hr SC HS [facility] Insulin Human Regular (Humulin R) 0 units SC .MODERATE SLIDING SC PRN PRN Reason: Moderate Correctional Scale Insulin Human Regular (Humulin R) 0 units SC .BEDTIME SLIDING SC PRN PRN Reason: Bedtime Correctional Scale Levothyroxine Sodium (Synthroid) 88 mcg PO 0600 [facility] Loperamide HCl (Imodium) 2 mg PO PRN PRN PRN Reason: Diarrhea/Loose Stools Miscellaneous Medication (Pharmacy To Dose) 0 each PO PRN PRN PRN Reason: WARFARIN Pharmacy to Dose Miscellaneous Medication (Pharmacy To Dose) 1 each IVPB ONE PRN PRN Reason: Pharmacy to dose Nitroglycerin (Nitrostat) 0.4 mg PO Q5MIN PRN PRN Reason: Chest Pain Non-Formulary Medication (Gabapentin [Gabapentin]) 300 mg PO QPM [facility] Non-Formulary Medication (Rosuvastatin Calcium [Crestor]) 40 mg PO HS [facility] Saccharomyces Boulardii (Florastor) 250 mg PO BID [facility] Last Admin: 01/12/18 08:46 Dose: 250 mg Sodium Chloride (Flush - Normal Saline) 10 ml IVF Q12HR [facility] Last Admin: 01/12/18 08:47 Dose: Not Given Sodium Chloride (Flush - Normal Saline) 10 ml IVF PRN PRN PRN Reason: Saline Flush Tramadol HCl (Ultram) 50 mg PO QID PRN PRN Reason: Mild-Moderate Pain (1-5) Vancomycin HCl (First Vancomycin) 250 mg PO Q6HR [facility] Last Admin: 01/12/18 12:18 Dose: 250 mg Warfarin Sodium (Coumadin) 5 mg PO 1700 [facility]
[2018-01-12 16:48] LABS: Potassium 4.2 mmol/L (3.5-5.1)
[2018-01-12] MEDS ORDERED: Warfarin Sodium 5 MG TAB PO SCH (17:00)
[2018-01-12] MEDS ORDERED: GoLYTELY 4,000 ml Bottle PO SCH (18:00)
--- NOTE | 2018-01-12 18:23 | CON ---
DATE OF CONSULTATION: 01/12/2018 HISTORY OF PRESENT ILLNESS: Patient is a 62-year-old female who presented with a one-week h istory of crampy abdominal pain. She had severe diarrhea without blood. She had no nausea, vomiting . She had no fever or chills. She has had no recent weight loss. She was seen by Dr. Green in 2016 at that time with vomiting blood and was recommended she undergo an EGD and colonoscopy that was not performed. She also had a history of polyps. PAST MEDICAL HISTORY: Significant for end-stage renal disease on hemodialysis, diabetes mellitus, hy pertension, atrial fibrillation on Coumadin, hyperlipidemia. PAST MEDICAL/SURGICAL HISTORY: Includes coronary artery bypass, appendectomy, back surgery, right hi p surgery, coronary stent placement. ALLERGIES: No known allergies. MEDICATIONS: Gabapentin 600 mg p.o. q.a.m., insulin 12 units subq before meals, gabapentin 300 mg p. o. q.p.m., amiodarone 100 mg p.o. at bedtime, Synthroid 88 mcg p.o. daily, Norvasc 5 mg p.o. b.i.d., Coreg 6.25 mg p.o. b.i.d., captopril 12.5 mg p.o. b.i.d., aspirin 81 mg p.o. daily, warfarin 5 mg p.o . q.p.m. SOCIAL HISTORY: She is a former smoker, does not drink. FAMILY HISTORY: Negative for GI or liver disease. REVIEW OF SYSTEMS: Constitutional: No fever, chills, no weight loss. Eyes: No blurred vision or d ouble vision. ENT: No sore throat or earaches. Cardiovascular: No chest pain or palpitation. Pul monary: No shortness of breath, cough, or wheezing. Skin: No rashes. GI: See above. : No hem aturia or dysuria. Musculoskeletal: No joint pain. Neurologic: No numbness or seizure activity. PHYSICAL EXAMINATION: VITAL SIGNS: Temperature 98.1, pulse 63, respiratory rate 18, blood pressure 145/72. HEENT: Unremarkable. NECK: Supple. CHEST: Clear. CARDIOVASCULAR: Regular rate and rhythm. ABDOMEN: Soft, nontender, without organomegaly or masses. EXTREMITIES: Normal. NEUROLOGIC: Nonfocal. LABORATORY DATA: Shows a white blood cell count of 5.3, hemoglobin 9.4, hematocrit 28.3 with MCV of 102. PT is 31.1 with an INR of 2.8. Chemistries: Potassium 3.1, creatinine 5.45, glucose 57. Abdo norma and pelvic CT showed mild mural thickening involving the terminal ileum, cecum. Diverticulosis on the left colon and sigmoid with some nonspecific haziness in the lower left colon and upper sigmo id, mild urinary bladder thickening. Stool for Giardia and cryptosporidium were negative. Stool for lactoferrin showed a positive result. Campylobacter and Shigella are negative. Stool culture is pe nding. Stool for C. difficile showed antigen and toxin negative. ASSESSMENT: 1. Severe crampy abdominal pain. 2. Abnormal CT and terminal ileum. 3. History of colon polyps. 4. End-stage renal disease, on hemodialysis. 5. Diabetes mellitus. RECOMMENDATIONS: Colonoscopy in a.m.
[2018-01-12] MEDS: Famotidine 20 MG TAB PO SCH (22:10)
[2018-01-12] MEDS: Rosuvastatin 20 MG TAB PO SCH (22:10)
[2018-01-12] MEDS: Gabapentin 300 MG CAP PO SCH (22:10)
[2018-01-12] MEDS: Insulin Glargine 10 UNITS in Pre-Filled Syringe 1 EACH SC SCH (22:11)
[2018-01-12] MEDS: Amiodarone 200 MG TAB PO SCH (23:18)
[2018-01-13] MEDS: Vancomycin HCl 25 MG/ML Oral PO SCH ×5 (00:29→21:06)
[2018-01-13] MEDS: metroNIDAZOLE 500 MG in Premix Bag 1 BAG IVPB SCH ×2 (03:29→12:01)
[2018-01-13 04:25] LABS: #Eosinphils 0.2 thou/uL (0.0-0.7); #Lymphocytes 1.5 thou/uL (1.20-3.40); #Monocytes 0.5 thou/uL (0.11-0.59); #Neutrophils 2.6 thou/uL (1.40-6.50); %Basophils 0.3 % (0.0-1.0); %Eosinophils 3.8 % (0.0-10.0); %Lymphocytes 31.4 % (21.0-51.0); %Monocytes 9.8 % (0.0-10.0); %Neutrophils 54.7 % (42.0-75.0); Hemoglobin 10.8 g/dL (12.0-16.0); Mean Corpuscular HGB CONC 33.4 g/dL (32.0-36.0); Mean Corpuscular Hemoglobin 34.4 pg (27.0-31.0); Mean Platelet Volume 6.4 fL (7.4-10.4); Platelet Count 195 thou/uL (130-400); RBC Distribution Width 14.3 % (11.5-14.5); Red Blood Cell (RBC) Count 3.16 mill/uL (4.20-5.40); White Blood Cell (WBC) Count 4.8 thou/uL (4.8-10.8)
[2018-01-13 04:27] LABS: INR-International Normal Ratio 3.4; Prothrombin Time 36.3 SEC (12.0-14.7)
[2018-01-13 04:40] LABS: Anion Gap 18 mmol/L (10-20); BUN (Urea Nitrogen) 18 mg/dL (9.8-20.1); Calc. Creatinine Clearance 11 mL/min (70-130); Calcium 8.3 mg/dL (7.8-10.44); Carbon Dioxide 22 mmol/L (23-31); Chloride 103 mmol/L (98-107); Estimated GFR-MDRD 6; Glucose 93 mg/dL (80-115); Potassium 3.8 mmol/L (3.5-5.1); Sodium 139 mmol/L (136-145)
[2018-01-13] MEDS: Carvedilol 3.125 MG TAB PO SCH ×2 (06:31→21:04)
[2018-01-13] MEDS: Levothyroxine Sodium 88 MCG TAB PO SCH (06:43)
[2018-01-13] MEDS: Gabapentin 300 MG CAP PO SCH ×2 (10:54→21:05)
[2018-01-13] MEDS: Saccharomyces boulardii 250 MG CAP PO SCH (10:54)
[2018-01-13] MEDS ORDERED: metroNIDAZOLE 500 MG/100 ML BAG ONE (11:34)
[2018-01-13] MEDS ORDERED: PROPOFOL 200 MG/20 ML VIAL ONE (14:41)
[2018-01-13] MEDS ORDERED: Lidocaine 1% PF 5 ML VIAL ONE (14:41)
[2018-01-13] MEDS ORDERED: Warfarin Sodium 2.5 MG TAB PO SCH (17:00)
--- NOTE | 2018-01-13 20:20 | OP ---
PREOPERATIVE DIAGNOSES: 1. Acute diarrheal illness for 5 days before admission. 2. CAT scan showing some possible inflammation in the ileum, cecum, and sigmoid colon. 3. Stool positive for lactoferrin, negative for C. difficile, negative for culture, negative for ova and parasite. POSTOPERATIVE DIAGNOSES: 1. Findings suggestive of acute colitis with submucosal hemorrhage in the sigmoid and descending col on. 2. Terminal ileum normal. 3. Diverticulosis coli without diverticulitis. 4. Biopsies taken randomly in the ascending, transverse, descending, and sigmoid colon and submitted to Pathology. RECOMMENDATIONS: Lactose-free diet, probiotic, and observation. I suspect this is an acute colitis and will resolve on its own. ANESTHESIA: TIVA. PROCEDURE IN DETAIL: After the patient was informed of the risks, benefits, and possible complicatio ns of endoscopy including perforation, reactions to medication, aspiration, informed consent was obta ined. The patient was brought to endoscopy suite, where she was sedated in gradual fashion. Once sh e was comfortable, a rectal exam was performed. The endoscope was advanced through the anal canal to the colon and cecum, which was identified by the ileocecal valve and appendiceal orifice. The termi nal ileum was entered and found to be normal. The scope was then slowly removed. There was no evide nce of ulcerations or erosions in the colon. There were some areas of loss of vascular pattern and s ome areas of submucosal edema and hemorrhage, which was mild in the sigmoid and descending colon. Ra ndom biopsies were taken from the ascending, transverse, sigmoid colon and submitted to Pathology. T erminal ileum was entered and found to be normal. Retroflexed views in the rectum were normal. The scope was removed. The patient tolerated the procedure well with no complications.
[2018-01-13] MEDS: Insulin Glargine 10 UNITS in Pre-Filled Syringe 1 EACH SC SCH (20:58)
[2018-01-13] MEDS: Famotidine 20 MG TAB PO SCH (21:03)
[2018-01-13] MEDS: Rosuvastatin 20 MG TAB PO SCH (21:03)
[2018-01-13] MEDS: Amiodarone 200 MG TAB PO SCH (21:05)
--- NOTE | 2018-01-13 21:53 | PDOC.PN ---
- Subjective Encounter Start Date: 01/13/18 Encounter Start Time: 15:00 Subjective: pt up in bed no complains - Objective Resuscitation Status: Resuscitation Status FULL:Full Resuscitation Vital Signs & Weight: Vital Signs (12 hours) Temp Pulse Resp BP BP Pulse Ox 01/13/18 20:00 98.8 F 70 20 146/58 H 95 01/13/18 16:10 97.3 F L 145/70 H 01/13/18 16:00 97.3 F L 65 20 97 01/13/18 15:40 97.3 F L 68 18 172/70 H 97 Weight Admit Weight 189 lb 3.2 oz Weight 179 lb 12.8 oz I&O: 01/12/18 01/13/18 01/14/18 06:59 06:59 06:59 Intake Total 1117 Balance 1117 Result Diagrams: 01/13/18 03:42 01/13/18 03:42 Additional Labs: Accuchecks 01/13/18 01/12/18 16:36 20:13 POC Glucose 109 155 H Phys Exam - Physical Examination HEENT: PERRLA, moist MMs, sclera anicteric, TM's clear, oral pharynx no lesions , 2+ tonsils Neck: no nodes, no JVD, supple, full ROM Respiratory: no wheezing, no rales, no rhonchi, wheezing present, clear to auscultation bilateral Cardiovascular: RRR, no significant murmur, no rub, gallop, irregular Gastrointestinal: soft mild tenderness on palpation of lower abd Musculoskeletal: no edema, pulses present, edema present Dx/Plan (1) Colitis Code(s): K52.9 - NONINFECTIVE GASTROENTERITIS AND COLITIS, UNSPECIFIED Status : Acute (2) Metabolic acidosis Code(s): E87.2 - ACIDOSIS Status: Acute (3) Dehydration Code(s): E86.0 - DEHYDRATION Status: Acute (4) Diabetes type 2, controlled Code(s): E11.9 - TYPE 2 DIABETES MELLITUS WITHOUT COMPLICATIONS Status: Chronic Qualifiers: Diabetes mellitus longterm insulin use: with 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 Infectious colitis with suspected acute diverticulitis. Rule out Clostridium difficile colitis. 2) metabolic acidosis 3) dehydration 4) ESRD 5) electrolyte abnormalities 6) paroxysmal afib PLAN: s/p colonosocpy which indicated acute colitis with some submucosal hemorrhage in sigmoid and descending colon * Cont Ceftriaxone/Flagyl/PO Vancomycin * Await Stool w/u * Dialysis per Nephro * Cont low dose Coreg (Pt takes 12.5 BID) * Resume Captopril * Replace Potassium * AM labs * Cont other meds as below * will resume amlodipine * on coumadin will ask pharmacy to dose Review of Systems - Review of Systems ENT: negative: Ear Pain, Ear Discharge, Nose Pain, Nose Discharge, Nose Congestion, Mouth Pain, Mouth Swelling, Throat Pain, Throat Swelling, Other Respiratory: negative: Cough, Dry, Shortness of Breath, Hemoptysis, SOB with Excertion, Pleuritic Pain, Sputum, Wheezing Cardiovascular: negative: chest pain, palpitations, orthopnea, paroxysmal nocturnal dyspnea, edema, light headedness, other Gastrointestinal: Abdominal Pain Genitourinary: negative: Dysuria, Frequency, Incontinence, Hematuria, Retention , Other - Medications/Allergies Allergies/Adverse Reactions: Allergies Allergy/AdvReac Type Severity Reaction Status Date / Time No Known Drug Allergies Allergy Verified 01/12/18 06:28 Medications: Current Medications Acetaminophen (Tylenol) 650 mg PO Q4H PRN PRN Reason: Headache/Fever or Pain Amiodarone HCl (Cordarone) 100 mg PO HS [facility] Last Admin: 01/13/18 21:05 Dose: 100 mg Calcium Carbonate (Tums) 1,000 mg PO Q4H PRN PRN Reason: Heartburn or Indigestion Captopril (Capoten) 12.5 mg PO DAILY [facility] Last Admin: 01/13/18 10:54 Dose: Not Given Carvedilol (Coreg) 3.125 mg PO BID [facility] Last Admin: 01/13/18 21:04 Dose: 3.125 mg Dextrose/Water (Dextrose 50%) 25 gm SLOW IVP PRN PRN PRN Reason: Hypoglycemia Last Admin: 01/12/18 05:32 Dose: 25 gm Famotidine (Pepcid) 20 mg PO 2100 [facility] Last Admin: 01/13/18 21:03 Dose: 20 mg Gabapentin (Neurontin) 600 mg PO QAM [facility] Last Admin: 01/13/18 10:54 Dose: Not Given Gabapentin (Neurontin) 300 mg PO QPM [facility] Last Admin: 01/13/18 21:05 Dose: 300 mg Glucagon (Glucagon) 1 mg IM PRN PRN PRN Reason: Hypoglycemia Dextrose/Water (D5w) 1,000 mls @ 0 mls/hr IV .Q0M PRN; As Directed PRN Reason: Hypoglycemia Insulin Glargine 10 units/ (Miscellaneous Medication) 0.1 mls @ 0 mls/hr SC [facility] Last Admin: 01/13/18 20:58 Dose: Not Given Insulin Human Regular (Humulin R) 0 units SC .MODERATE SLIDING SC PRN PRN Reason: Moderate Correctional Scale Insulin Human Regular (Humulin R) 0 units SC .BEDTIME SLIDING SC PRN PRN Reason: Bedtime Correctional Scale Levothyroxine Sodium (Synthroid) 88 mcg PO 0600 [facility] Last Admin: 01/13/18 06:43 Dose: Not Given Loperamide HCl (Imodium) 2 mg PO PRN PRN PRN Reason: Diarrhea/Loose Stools Miscellaneous Medication (Pharmacy To Dose) 0 each PO PRN PRN PRN Reason: WARFARIN Pharmacy to Dose Miscellaneous Medication (Pharmacy To Dose) 1 each IVPB ONE PRN PRN Reason: Pharmacy to dose Stop: 02/11/18 16:31 Nitroglycerin (Nitrostat) 0.4 mg PO Q5MIN PRN PRN Reason: Chest Pain Rosuvastatin Calcium (Crestor) 40 mg PO [facility] Last Admin: 01/13/18 21:03 Dose: 40 mg Saccharomyces Boulardii (Florastor) 250 mg PO DAILY [facility] Sodium Chloride (Flush - Normal Saline) 10 ml IVF Q12HR [facility] Last Admin: 01/13/18 21:06 Dose: 10 ml Sodium Chloride (Flush - Normal Saline) 10 ml IVF PRN PRN PRN Reason: Saline Flush Tramadol HCl (Ultram) 50 mg PO QID PRN PRN Reason: Mild-Moderate Pain (1-5) Last Admin: 01/13/18 21:08 Dose: 50 mg Vancomycin HCl (First Vancomycin) 125 mg PO QID [facility] Stop: 01/23/18 17:01 Last Admin: 01/13/18 21:06 Dose: 125 mg Warfarin Sodium (Coumadin) 2.5 mg PO 1700 [facility]
[2018-01-14 04:58] LABS: Prothrombin Time 43.1 SEC (12.0-14.7)
[2018-01-14 04:59] LABS: PTT 97.1 SEC (22.9-36.1)
[2018-01-14] MEDS: Levothyroxine Sodium 88 MCG TAB PO SCH (05:23)
[2018-01-14 05:26] LABS: INR-International Normal Ratio 4.3
--- NOTE | 2018-01-14 09:53 | PDOC.PN ---
- Subjective Encounter Start Date: 01/14/18 Encounter Start Time: 08:00 -: old records requested/rev Patient seen and examined for colitis. her diarrhoea reduced, no fever. No overnight events - Objective Resuscitation Status: Resuscitation Status FULL:Full Resuscitation MAR Reviewed: Yes Vital Signs & Weight: Vital Signs (12 hours) Temp Pulse Resp BP BP Pulse Ox 01/14/18 08:00 98.1 F 60 16 162/67 H 98 01/14/18 04:51 97.9 F 65 20 160/72 H 97 01/14/18 00:30 98.3 F 69 20 149/80 H 97 Weight Admit Weight 189 lb 3.2 oz Weight 175 lb 7.807 oz I&O: 01/13/18 01/14/18 01/15/18 06:59 06:59 06:59 Intake Total 1117 120 Balance 1117 120 Result Diagrams: 01/13/18 03:42 01/13/18 03:42 Additional Labs: Accuchecks 01/14/18 01/13/18 01/13/18 05:02 20:07 16:36 POC Glucose 144 H 193 H 109 Phys Exam - Physical Examination Constitutional: NAD HEENT: PERRLA, moist MMs, sclera anicteric Neck: no JVD, supple Respiratory: no wheezing, no rales, no rhonchi Cardiovascular: RRR, no significant murmur, no rub Gastrointestinal: soft, non-tender, no distention, positive bowel sounds Musculoskeletal: no edema, pulses present Neurological: non-focal, normal sensation, moves all 4 limbs Lymphatic: no nodes Psychiatric: normal affect, A&O x 3 Skin: no rash, normal turgor Dx/Plan (1) Colitis Code(s): K52.9 - NONINFECTIVE GASTROENTERITIS AND COLITIS, UNSPECIFIED Status : Acute (2) Dehydration Code(s): E86.0 - DEHYDRATION Status: Acute (3) Metabolic acidosis Code(s): E87.2 - ACIDOSIS Status: Acute (4) Supratherapeutic INR Code(s): R79.1 - ABNORMAL COAGULATION PROFILE Status: Acute (5) CAD (coronary artery disease) Code(s): I25.10 - ATHSCL HEART DISEASE OF [place] CORONARY ARTERY W/O ANG PCTRS Status: Chronic Qualifiers: Coronary Disease-Associated Artery/Lesion type: bypass graft [place] vs. transplanted heart: [place] heart Associated angina: without angina Qualified Code(s): I25.810 - Atherosclerosis of coronary artery bypass graft(s) without angina pectoris (6) Chronic anticoagulation Code(s): Z79.01 - SPECIMEN TRANSPORTER (CURRENT) USE OF ANTICOAGULANTS Status: Chronic (7) Diabetes type 2, controlled Code(s): E11.9 - TYPE 2 DIABETES MELLITUS WITHOUT COMPLICATIONS Status: Chronic Qualifiers: Diabetes mellitus clinical quality rn insulin use: with group home use Diabetes mellitus complication status: with circulatory complication Diabetes mellitus complication detail: with other circulatory complications Qualified Code(s): E11.59 - Type 2 diabetes mellitus with other circulatory complications; Z79.4 - classified advertising supervisor (current) use of insulin; Z79.4 - [facility] (current) use of insulin; Z79.4 - [facility] (current) use of insulin; Z79.4 - [facility] (current) use of insulin (8) Diverticulosis of colon Code(s): K57.30 - DVRTCLOS OF LG INT W/O PERFORATION OR ABSCESS W/O BLEEDING Status: Chronic (9) Dyslipidemia Code(s): E78.5 - HYPERLIPIDEMIA, UNSPECIFIED Status: Chronic (10) ESRD (end stage renal disease) on dialysis Code(s): N18.6 - END STAGE RENAL DISEASE; Z99.2 - DEPENDENCE ON RENAL DIALYSIS Status: Chronic Comment: (11) Hypertension Code(s): I10 - ESSENTIAL (PRIMARY) HYPERTENSION Status: Chronic Qualifiers: Hypertension type: essential hypertension Qualified Code(s): I10 - Essential (primary) hypertension (12) Hypothyroidism Code(s): E03.9 - HYPOTHYROIDISM, UNSPECIFIED Status: Chronic Qualifiers: Hypothyroidism type: acquired Qualified Code(s): E03.9 - Hypothyroidism, unspecified (13) Macrocytic anemia Code(s): D53.9 - NUTRITIONAL ANEMIA, UNSPECIFIED Status: Chronic (14) Paroxysmal atrial fibrillation Code(s): I48.0 - PAROXYSMAL ATRIAL FIBRILLATION Status: Chronic Comment: in NSR (15) Secondary hyperparathyroidism of renal origin Code(s): N25.81 - SECONDARY HYPERPARATHYROIDISM OF RENAL ORIGIN Status: Chronic - Plan cont current plan of care, continue antibiotics * continue oral vancomycin * medication reviewed as below * symptomatic treatment * will plan for discharge tomorrow. Review of Systems - Review of Systems Eyes: negative: Pain, Vision Change, Conjunctivae Inflammation, Eyelid Inflammation, Redness, Other ENT: negative: Ear Pain, Ear Discharge, Nose Pain, Nose Discharge, Nose Congestion, Mouth Pain, Mouth Swelling, Throat Pain, Throat Swelling, Other Respiratory: negative: Cough, Dry, Shortness of Breath, Hemoptysis, SOB with Excertion, Pleuritic Pain, Sputum, Wheezing Cardiovascular: negative: chest pain, palpitations, orthopnea, paroxysmal nocturnal dyspnea, edema, light headedness, other Gastrointestinal: Diarrhea. negative: Nausea, Vomiting, Abdominal Pain, Constipation, Melena, Hematochezia, Other Genitourinary: negative: Dysuria, Frequency, Incontinence, Hematuria, Retention , Other Musculoskeletal: negative: Neck Pain, Shoulder Pain, Arm Pain, Back Pain, Hand Pain, Leg Pain, Foot Pain, Other Skin: negative: Rash, Lesions, Shabbir, Bruising, Other - Medications/Allergies Allergies/Adverse Reactions: Allergies Allergy/AdvReac Type Severity Reaction Status Date / Time No Known Drug Allergies Allergy Verified 01/12/18 06:28 Medications: Current Medications Acetaminophen (Tylenol) 650 mg PO Q4H PRN PRN Reason: Headache/Fever or Pain Amiodarone HCl (Cordarone) 100 mg PO HS [facility] Last Admin: 01/13/18 21:05 Dose: 100 mg Amiodarone HCl (Cordarone) 100 mg PO [facility] Amlodipine Besylate (Norvasc) 5 mg PO BID [facility] Calcium Carbonate (Tums) 1,000 mg PO Q4H PRN PRN Reason: Heartburn or Indigestion Captopril (Capoten) 12.5 mg PO DAILY [facility] Last Admin: 01/13/18 10:54 Dose: Not Given Carvedilol (Coreg) 3.125 mg PO BID [facility] Last Admin: 01/13/18 21:04 Dose: 3.125 mg Dextrose/Water (Dextrose 50%) 25 gm SLOW IVP PRN PRN PRN Reason: Hypoglycemia Last Admin: 01/12/18 05:32 Dose: 25 gm Famotidine (Pepcid) 20 mg PO 2100 [facility] Last Admin: 01/13/18 21:03 Dose: 20 mg Gabapentin (Neurontin) 600 mg PO QAM [facility] Last Admin: 01/13/18 10:54 Dose: Not Given Gabapentin (Neurontin) 300 mg PO QPM [facility] Last Admin: 01/13/18 21:05 Dose: 300 mg Glucagon (Glucagon) 1 mg IM PRN PRN PRN Reason: Hypoglycemia Dextrose/Water (D5w) 1,000 mls @ 0 mls/hr IV .Q0M PRN; As Directed PRN Reason: Hypoglycemia Insulin Glargine 10 units/ (Miscellaneous Medication) 0.1 mls @ 0 mls/hr SC [facility] Last Admin: 01/13/18 20:58 Dose: Not Given Insulin Human Regular (Humulin R) 0 units SC .MODERATE SLIDING SC PRN PRN Reason: Moderate Correctional Scale Insulin Human Regular (Humulin R) 0 units SC .BEDTIME SLIDING SC PRN PRN Reason: Bedtime Correctional Scale Levothyroxine Sodium (Synthroid) 88 mcg PO 0600 [facility] Last Admin: 01/14/18 05:23 Dose: 88 mcg Loperamide HCl (Imodium) 2 mg PO PRN PRN PRN Reason: Diarrhea/Loose Stools Miscellaneous Medication (Pharmacy To Dose) 0 each PO PRN PRN PRN Reason: WARFARIN Pharmacy to Dose Miscellaneous Medication (Pharmacy To Dose) 1 each IVPB ONE PRN PRN Reason: Pharmacy to dose Stop: 02/11/18 16:31 Miscellaneous Medication (Pharmacy To Dose) 1 each PO ONE PRN PRN Reason: Pharmacy to dose Stop: 02/12/18 22:01 Nitroglycerin (Nitrostat) 0.4 mg PO Q5MIN PRN PRN Reason: Chest Pain Rosuvastatin Calcium (Crestor) 40 mg PO [facility] Last Admin: 01/13/18 21:03 Dose: 40 mg Saccharomyces Boulardii (Florastor) 250 mg PO DAILY [facility] Sodium Chloride (Flush - Normal Saline) 10 ml IVF Q12HR [facility] Last Admin: 01/13/18 21:06 Dose: 10 ml Sodium Chloride (Flush - Normal Saline) 10 ml IVF PRN PRN PRN Reason: Saline Flush Tramadol HCl (Ultram) 50 mg PO QID PRN PRN Reason: Mild-Moderate Pain (1-5) Last Admin: 01/13/18 21:08 Dose: 50 mg Vancomycin HCl (First Vancomycin) 125 mg PO QID [facility] Stop: 01/23/18 17:01 Last Admin: 01/13/18 21:06 Dose: 125 mg
[2018-01-14] MEDS: Vancomycin HCl 25 MG/ML Oral PO SCH ×4 (09:54→20:41)
[2018-01-14] MEDS: Amlodipine 5 MG TAB PO SCH ×2 (09:55→20:33)
[2018-01-14] MEDS: Saccharomyces boulardii 250 MG CAP PO SCH (09:55)
[2018-01-14] MEDS: Gabapentin 300 MG CAP PO SCH ×2 (09:55→20:34)
[2018-01-14] MEDS: Carvedilol 3.125 MG TAB PO SCH ×2 (09:58→20:33)
[2018-01-14] MEDS ORDERED: Phytonadione 10 MG/ML AMP PO SCH (11:45)
[2018-01-14] MEDS: Insulin Regular 300 UNITS/3 ML VIAL SC PRN ×2 (12:31→17:11)
--- NOTE | 2018-01-14 12:32 | PRG ---
DATE OF SERVICE: 01/14/2018 SUBJECTIVE: The patient is continuing to have diarrhea. She has a small amount of blood with her di arrhea yesterday. She denies any abdominal pain. She is tolerating a diet fairly well. OBJECTIVE: VITAL SIGNS: Temperature 98.1, pulse 62, respiratory rate 16, blood pressure 158/72. CHEST: Clear. CARDIOVASCULAR: Regular rate and rhythm. ABDOMEN: Soft, nontender, without organomegaly or masses. LABORATORY DATA: Shows a PT of 43.1 with an INR of 4.3. White blood cell count of 4.5, hemoglobin 1 0.8, hematocrit 32.4. Dr. Mario's operative note showed finding suggestive of acute colitis with antunez bmucosal hemorrhage in the sigmoid and descending colon, normal terminal ileum and diverticulosis. H istopathology is pending. ASSESSMENT: 1. Infectious colitis. 2. Coagulopathy secondary to Coumadin. 3. End-stage renal disease. RECOMMENDATIONS: 1. We will give 5 mg of vitamin K orally. 2. Recheck PT, INR and CBC. 3. Hold Coumadin. 4. Continue p.o. vancomycin.
[2018-01-14] MEDS: Acetaminophen 325 MG TAB PO PRN (14:33)
[2018-01-14 18:45] LABS: Hemoglobin 10.2 g/dL (12.0-16.0)
[2018-01-14] MEDS: Famotidine 20 MG TAB PO SCH (20:33)
[2018-01-14] MEDS: Amiodarone 200 MG TAB PO SCH (20:33)
[2018-01-14] MEDS: Rosuvastatin 20 MG TAB PO SCH (20:33)
[2018-01-14] MEDS: Insulin Glargine 10 UNITS in Pre-Filled Syringe 1 EACH SC SCH (20:35)
[2018-01-14] MEDS ORDERED: Amiodarone 200 MG TAB PO SCH (21:00)
[2018-01-15 04:44] LABS: INR-International Normal Ratio 1.5; PTT 42.4 SEC (22.9-36.1); Prothrombin Time 18.9 SEC (12.0-14.7)
[2018-01-15 04:48] LABS: #Eosinphils 0.2 thou/uL (0.0-0.7); #Lymphocytes 1.5 thou/uL (1.20-3.40); #Monocytes 0.6 thou/uL (0.11-0.59); #Neutrophils 4.4 thou/uL (1.40-6.50); %Basophils 0.2 % (0.0-1.0); %Eosinophils 3.7 % (0.0-10.0); %Lymphocytes 22.1 % (21.0-51.0); %Monocytes 8.5 % (0.0-10.0); %Neutrophils 65.5 % (42.0-75.0); Hemoglobin 9.8 g/dL (12.0-16.0); Mean Platelet Volume 6.2 fL (7.4-10.4); Platelet Count 215 thou/uL (130-400); White Blood Cell (WBC) Count 6.7 thou/uL (4.8-10.8)
[2018-01-15] MEDS: Levothyroxine Sodium 88 MCG TAB PO SCH (05:30)
[2018-01-15 05:42] LABS: Anion Gap 14 mmol/L (10-20); BUN (Urea Nitrogen) 20 mg/dL (9.8-20.1); Calc. Creatinine Clearance 11 mL/min (70-130); Calcium 8.2 mg/dL (7.8-10.44); Carbon Dioxide 26 mmol/L (23-31); Chloride 105 mmol/L (98-107); Estimated GFR-MDRD 6; Glucose 149 mg/dL (80-115); Potassium 3.9 mmol/L (3.5-5.1); Sodium 141 mmol/L (136-145)
[2018-01-15] MEDS: Acetaminophen 325 MG TAB PO PRN ×2 (08:36→15:32)
--- NOTE | 2018-01-15 09:38 | PDOC.PN ---
- Subjective Encounter Start Date: 01/15/18 Encounter Start Time: 08:50 Patient seen and examined for colitis, diarrhoea is improving, she is asking for neurosurgeon to see for laminectomy site wound which is not healing. No new complaints. No overnight events - Objective Resuscitation Status: Resuscitation Status FULL:Full Resuscitation MAR Reviewed: Yes Vital Signs & Weight: Vital Signs (12 hours) Temp Pulse Resp BP Pulse Ox 01/15/18 08:00 97.1 F L 66 16 139/70 99 01/15/18 04:00 97.8 F 71 18 146/70 H 98 01/15/18 00:00 97.7 F 68 18 150/64 H 98 Weight Admit Weight 189 lb 3.2 oz Weight 173 lb 4.8 oz I&O: 01/14/18 01/15/18 01/16/18 06:59 06:59 06:59 Intake Total 120 300 Balance 120 300 Result Diagrams: 01/15/18 04:18 01/15/18 04:18 Additional Labs: Accuchecks 01/15/18 01/15/18 01/14/18 08:44 05:59 20:14 POC Glucose 128 H 150 H 190 H 01/14/18 01/14/18 16:26 11:14 POC Glucose 183 H 180 H Phys Exam - Physical Examination Constitutional: NAD HEENT: PERRLA, moist MMs, sclera anicteric Neck: no JVD, supple Respiratory: no wheezing, no rales, no rhonchi Cardiovascular: RRR, no significant murmur, no rub Gastrointestinal: soft, non-tender, no distention, positive bowel sounds Musculoskeletal: no edema, pulses present laminectomy site wound packed with dressing Neurological: non-focal, normal sensation, moves all 4 limbs Lymphatic: no nodes Psychiatric: normal affect, A&O x 3 Skin: no rash, normal turgor Dx/Plan (1) Colitis Code(s): K52.9 - NONINFECTIVE GASTROENTERITIS AND COLITIS, UNSPECIFIED Status : Acute (2) Dehydration Code(s): E86.0 - DEHYDRATION Status: Resolved (3) Metabolic acidosis Code(s): E87.2 - ACIDOSIS Status: Resolved (4) Supratherapeutic INR Code(s): R79.1 - ABNORMAL COAGULATION PROFILE Status: Resolved (5) CAD (coronary artery disease) Code(s): I25.10 - ATHSCL HEART DISEASE OF [place] CORONARY ARTERY W/O ANG PCTRS Status: Chronic Qualifiers: Coronary Disease-Associated Artery/Lesion type: bypass graft [place] vs. transplanted heart: [place] heart Associated angina: without angina Qualified Code(s): I25.810 - Atherosclerosis of coronary artery bypass graft(s) without angina pectoris (6) Chronic anticoagulation Code(s): Z79.01 - FPC (CURRENT) USE OF ANTICOAGULANTS Status: Chronic (7) Diabetes type 2, controlled Code(s): E11.9 - TYPE 2 DIABETES MELLITUS WITHOUT COMPLICATIONS Status: Chronic Qualifiers: Diabetes mellitus terminal carman insulin use: with terminal carman use Diabetes mellitus complication status: with circulatory complication Diabetes mellitus complication detail: with other circulatory complications Qualified Code(s): E11.59 - Type 2 diabetes mellitus with other circulatory complications; Z79.4 - 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; Z79.4 - care home (current) use of insulin; Z79.4 - care home (current) use of insulin; Z79.4 - care home (current) use of insulin (8) Diverticulosis of colon Code(s): K57.30 - DVRTCLOS OF LG INT W/O PERFORATION OR ABSCESS W/O BLEEDING Status: Chronic (9) Dyslipidemia Code(s): E78.5 - HYPERLIPIDEMIA, UNSPECIFIED Status: Chronic (10) ESRD (end stage renal disease) on dialysis Code(s): N18.6 - END STAGE RENAL DISEASE; Z99.2 - DEPENDENCE ON RENAL DIALYSIS Status: Chronic Comment: (11) Hypertension Code(s): I10 - ESSENTIAL (PRIMARY) HYPERTENSION Status: Chronic Qualifiers: Hypertension type: essential hypertension Qualified Code(s): I10 - Essential (primary) hypertension (12) Hypothyroidism Code(s): E03.9 - HYPOTHYROIDISM, UNSPECIFIED Status: Chronic Qualifiers: Hypothyroidism type: acquired Qualified Code(s): E03.9 - Hypothyroidism, unspecified (13) Macrocytic anemia Code(s): D53.9 - NUTRITIONAL ANEMIA, UNSPECIFIED Status: Chronic (14) Paroxysmal atrial fibrillation Code(s): I48.0 - PAROXYSMAL ATRIAL FIBRILLATION Status: Chronic Comment: in NSR (15) Secondary hyperparathyroidism of renal origin Code(s): N25.81 - SECONDARY HYPERPARATHYROIDISM OF RENAL ORIGIN Status: Chronic - Plan cont current plan of care, continue antibiotics * continue oral vancomycin * will consult neurosurgeon for lumbar wound which is not healing, wound care also recommended * medication reviewed as below * symptomatic treatment * HD as per nephrology. Review of Systems - Review of Systems Constitutional: negative: fever, chills, sweats, weakness, malaise, other Eyes: negative: Pain, Vision Change, Conjunctivae Inflammation, Eyelid Inflammation, Redness, Other ENT: negative: Ear Pain, Ear Discharge, Nose Pain, Nose Discharge, Nose Congestion, Mouth Pain, Mouth Swelling, Throat Pain, Throat Swelling, Other Respiratory: negative: Cough, Dry, Shortness of Breath, Hemoptysis, SOB with Excertion, Pleuritic Pain, Sputum, Wheezing Cardiovascular: negative: chest pain, palpitations, orthopnea, paroxysmal nocturnal dyspnea, edema, light headedness, other Gastrointestinal: Diarrhea. negative: Nausea, Vomiting, Abdominal Pain, Constipation, Melena, Hematochezia, Other Genitourinary: negative: Dysuria, Frequency, Incontinence, Hematuria, Retention , Other Musculoskeletal: negative: Neck Pain, Shoulder Pain, Arm Pain, Back Pain, Hand Pain, Leg Pain, Foot Pain, Other Skin: negative: Rash, Lesions, Shabbir, Bruising, Other Neurological: negative: Weakness, Numbness, Incoordination, Change in Speech, Confusion, Seizures, Other - Medications/Allergies Allergies/Adverse Reactions: Allergies Allergy/AdvReac Type Severity Reaction Status Date / Time No Known Drug Allergies Allergy Verified 01/12/18 06:28 Medications: Current Medications Acetaminophen (Tylenol) 650 mg PO Q4H PRN PRN Reason: Headache/Fever or Pain Last Admin: 01/15/18 08:36 Dose: 650 mg Amiodarone HCl (Cordarone) 100 mg PO HS [facility] Last Admin: 01/14/18 20:33 Dose: 100 mg Amlodipine Besylate (Norvasc) 5 mg PO BID [facility] Last Admin: 01/14/18 20:33 Dose: 5 mg Calcium Carbonate (Tums) 1,000 mg PO Q4H PRN PRN Reason: Heartburn or Indigestion Captopril (Capoten) 12.5 mg PO DAILY [facility] Last Admin: 01/14/18 09:58 Dose: 12.5 mg Carvedilol (Coreg) 3.125 mg PO BID [facility] Last Admin: 06/08/18 20:33 Dose: 3.125 mg Dextrose/Water (Dextrose 50%) 25 gm SLOW IVP PRN PRN PRN Reason: Hypoglycemia Last Admin: 01/12/18 05:32 Dose: 25 gm Famotidine (Pepcid) 20 mg PO 2100 [facility] Last Admin: 01/14/18 20:33 Dose: 20 mg Gabapentin (Neurontin) 600 mg PO QAM [facility] Last Admin: 01/14/18 09:55 Dose: 600 mg Gabapentin (Neurontin) 300 mg PO QPM [facility] Last Admin: 01/14/18 20:34 Dose: 300 mg Glucagon (Glucagon) 1 mg IM PRN PRN PRN Reason: Hypoglycemia Dextrose/Water (D5w) 1,000 mls @ 0 mls/hr IV .Q0M PRN; As Directed PRN Reason: Hypoglycemia Insulin Glargine 10 units/ (Miscellaneous Medication) 0.1 mls @ 0 mls/hr SC [facility] Last Admin: 01/14/18 20:35 Dose: 0.1 mls Insulin Human Regular (Humulin R) 0 units SC .MODERATE SLIDING SC PRN PRN Reason: Moderate Correctional Scale Last Admin: 01/14/18 17:11 Dose: 2 unit Insulin Human Regular (Humulin R) 0 units SC .BEDTIME SLIDING SC PRN PRN Reason: Bedtime Correctional Scale Levothyroxine Sodium (Synthroid) 88 mcg PO 0600 [facility] Last Admin: 01/15/18 05:30 Dose: 88 mcg Loperamide HCl (Imodium) 2 mg PO PRN PRN PRN Reason: Diarrhea/Loose Stools Miscellaneous Medication (Pharmacy To Dose) 0 each PO PRN PRN PRN Reason: WARFARIN Pharmacy to Dose Miscellaneous Medication (Pharmacy To Dose) 1 each IVPB ONE PRN PRN Reason: Pharmacy to dose Stop: 02/11/18 16:31 Miscellaneous Medication (Pharmacy To Dose) 1 each PO ONE PRN PRN Reason: Pharmacy to dose Stop: 02/12/18 22:01 Nitroglycerin (Nitrostat) 0.4 mg PO Q5MIN PRN PRN Reason: Chest Pain Rosuvastatin Calcium (Crestor) 40 mg PO [facility] Last Admin: 01/14/18 20:33 Dose: 40 mg Saccharomyces Boulardii (Florastor) 250 mg PO DAILY [facility] Last Admin: 01/14/18 09:55 Dose: 250 mg Sodium Chloride (Flush - Normal Saline) 10 ml IVF Q12HR [facility] Last Admin: 01/14/18 20:34 Dose: 10 ml Sodium Chloride (Flush - Normal Saline) 10 ml IVF PRN PRN PRN Reason: Saline Flush Tramadol HCl (Ultram) 50 mg PO QID PRN PRN Reason: Mild-Moderate Pain (1-5) Last Admin: 01/13/18 21:08 Dose: 50 mg Vancomycin HCl (First Vancomycin) 125 mg PO QID [facility] Stop: 01/23/18 17:01 Last Admin: 01/14/18 20:41 Dose: 125 mg
[2018-01-15] MEDS: Gabapentin 300 MG CAP PO SCH ×2 (10:29→20:36)
[2018-01-15] MEDS: Amlodipine 5 MG TAB PO SCH ×2 (10:29→20:35)
[2018-01-15] MEDS: Carvedilol 3.125 MG TAB PO SCH ×2 (10:29→20:35)
[2018-01-15] MEDS: Vancomycin HCl 25 MG/ML Oral PO SCH ×2 (10:30→13:57)
[2018-01-15] MEDS: Saccharomyces boulardii 250 MG CAP PO SCH (10:30)
[2018-01-15 14:29] LABS: Troponin I 0.021 ng/mL (< 0.028)
[2018-01-15] MEDS ORDERED: Mag-Al Plus 1200 MG/1200 MG/120 MG/30 ML UDCUP PO PRN (14:30)
[2018-01-15] MEDS: Insulin Regular 300 UNITS/3 ML VIAL SC PRN (16:59)
[2018-01-15 17:31] LABS: CKMB 1.7 ng/mL (0-6.6); Troponin I 0.018 ng/mL (< 0.028)
--- NOTE | 2018-01-15 18:45 | PRG ---
DATE OF SERVICE: 01/14/2018 SUBJECTIVE: Ms. Fontenot notes that she had one dark stool yesterday. Dr. Sousa informed me that her INR was elevated, so they went ahead and gave her some vitamin K in light of the biopsies that were taken for chronic diarrhea of unexplained etiology. She has had no further bleeding today or bowel m ovements today. She notes that on dialysis today, she begin to have chest pressure in her left chest . She has had an EKG performed and received some nitroglycerin although pain persists. She is not d iaphoretic or short of breath. MEDICATIONS: Tylenol, amiodarone, Norvasc, Tums, Pepcid, Neurontin, insulin sliding scale, rosuvasta tin, Florastor, and vancomycin 125 q.i.d. REVIEW OF SYSTEMS: She does not feel like this is reflux or heartburn. She has no regurgitation. PHYSICAL EXAMINATION: VITAL SIGNS: Temperature is 97, pulse 73, O2 sat 100% on room air, respirations 16, and blood pressu re 158/72. LUNGS: Clear. Chest wall is nontender. CARDIAC: Heart regular, without clicks or murmurs. ABDOMEN: Soft, nontender, without any palpable hepatosplenomegaly. EXTREMITIES: No clubbing, cyanosis or edema. LABORATORY STUDIES: White count 6.9, hemoglobin 9.8, platelet count 215. INR is 1.5 today. Sodium 141, potassium 3.9. BUN and creatinine are 20 and 6.6. Microbiology: Stool occult blood yesterday was negative. Stool studies on admission and parasite screen negative. Lactoferrin positive. Campy lobacter, Shiga toxins negative. Stool culture moderate normal stella. C. diff antigen toxin negativ e. Biopsies from colonoscopy showed acute colitis with no signs of pseudomembranes or chronic coliti s. There are no signs of granulomas. There are no signs of microscopic colitis such as lymphocytic or collagenous colitis. ASSESSMENT: 1. Chest pain. Patient has a cardiac history and is dialysis patient, I have asked the nurse to go and start her on oxygen and notify the hospitalist physician. If she does not have an improvement in her chest pain. We will go ahead and give her some Maalox now. Troponins have been ordered. 2. Diarrhea. This seems to be an antibiotic-associated diarrhea. She was on the antibiotics before she came in. We would continue the probiotic and we will stop the vancomycin. At this time, the C. diff has been negative. We will give her a little bit of Imodium as well.
[2018-01-15] MEDS: Famotidine 20 MG TAB PO SCH (20:35)
[2018-01-15] MEDS: Amiodarone 200 MG TAB PO SCH (20:35)
[2018-01-15] MEDS: Rosuvastatin 20 MG TAB PO SCH (20:35)
[2018-01-15] MEDS: Insulin Glargine 10 UNITS in Pre-Filled Syringe 1 EACH SC SCH (20:36)
[2018-01-15 20:50] LABS: CKMB 1.6 ng/mL (0-6.6); Troponin I 0.015 ng/mL (< 0.028)
[2018-01-16 04:18] LABS: #Eosinphils 0.3 thou/uL (0.0-0.7); #Monocytes 0.5 thou/uL (0.11-0.59); #Neutrophils 4.1 thou/uL (1.40-6.50); %Basophils 0.2 % (0.0-1.0); %Eosinophils 4.2 % (0.0-10.0); %Lymphocytes 29.3 % (21.0-51.0); %Monocytes 6.9 % (0.0-10.0); %Neutrophils 59.4 % (42.0-75.0); Hemoglobin 10.4 g/dL (12.0-16.0); INR-International Normal Ratio 1.2; Mean Corpuscular Hemoglobin 34.1 pg (27.0-31.0); Mean Platelet Volume 6.3 fL (7.4-10.4); PTT 32.6 SEC (22.9-36.1); Platelet Count 203 thou/uL (130-400); Prothrombin Time 15.3 SEC (12.0-14.7); RBC Distribution Width 13.9 % (11.5-14.5); Red Blood Cell (RBC) Count 3.04 mill/uL (4.20-5.40); White Blood Cell (WBC) Count 6.8 thou/uL (4.8-10.8)
[2018-01-16] MEDS: Levothyroxine Sodium 88 MCG TAB PO SCH (05:45)
[2018-01-16] MEDS ORDERED: Artificial Tears 18 DROP/0.9 ML EA EYE PRN (06:33)
[2018-01-16] MEDS ORDERED: Loratadine 10 MG TAB PO PRN (06:33)
[2018-01-16] MEDS ORDERED: Sodium Chloride 0.65% Nasal 44 ML BOT EA NARE PRN (06:33)
[2018-01-16] MEDS ORDERED: Diabetic Tussin 200 MG/10 ML UDCUP PO PRN (06:33)
[2018-01-16] MEDS ORDERED: hydrALAZINE 20 MG/ML VIAL SLOW IVP PRN (06:33)
[2018-01-16] MEDS ORDERED: Mag-Al 1200 mg/1200 mg/30 ML UDCUP PO PRN (06:33)
[2018-01-16] MEDS ORDERED: Eucerin (Mineral Oil/Petrolatum,White) 30 gm Jar TOP PRN (06:33)
[2018-01-16] MEDS ORDERED: Ondansetron ODT 4 MG TAB PO PRN (06:33)
[2018-01-16] MEDS ORDERED: Zolpidem Tartrate 5 MG TAB PO PRN (06:33)
[2018-01-16] MEDS ORDERED: Ondansetron HCl/PF 4 MG/2 ML Vial IVP PRN (06:33)
[2018-01-16] MEDS ORDERED: Chloraseptic Spray 180 ml Bottle PO PRN (06:33)
[2018-01-16 07:44] VITALS: BP 128/72
[2018-01-16] MEDS: Carvedilol 3.125 MG TAB PO SCH (08:44)
[2018-01-16] MEDS: Saccharomyces boulardii 250 MG CAP PO SCH (08:44)
[2018-01-16] MEDS: Gabapentin 300 MG CAP PO SCH (08:45)
[2018-01-16] MEDS: Amlodipine 5 MG TAB PO SCH (08:45)
--- NOTE | 2018-01-16 08:52 | PDOC.PN ---
- Subjective Encounter Start Date: 01/16/18 Encounter Start Time: 08:10 Patient seen and examined for colitis, no chest pain. No new complaints. No overnight events - Objective Resuscitation Status: Resuscitation Status FULL:Full Resuscitation MAR Reviewed: Yes Vital Signs & Weight: Vital Signs (12 hours) Temp Pulse Resp BP BP Pulse Ox 01/16/18 08:45 98 128/72 01/16/18 07:43 98 F 98 16 128/72 97 01/16/18 05:45 97.8 F 66 16 123/68 96 01/16/18 00:00 98 F 67 18 128/73 98 01/15/18 20:53 98 F 80 18 133/66 100 Weight Admit Weight 189 lb 3.2 oz Weight 170 lb 8 oz I&O: 01/15/18 01/16/18 01/17/18 06:59 06:59 06:59 Intake Total 300 4605 Output Total 5075 Balance 300 -470 Result Diagrams: 01/16/18 03:54 01/15/18 04:18 Additional Labs: Accuchecks 01/16/18 01/15/18 01/15/18 05:45 20:32 16:42 POC Glucose 162 H 234 H 187 H 01/15/18 01/13/18 08:44 03:30 POC Glucose 128 H 108 Phys Exam - Physical Examination Constitutional: NAD HEENT: PERRLA, moist MMs, sclera anicteric Neck: no JVD, supple Respiratory: no wheezing, no rales, no rhonchi Cardiovascular: RRR, no significant murmur, no rub Gastrointestinal: soft, non-tender, no distention, positive bowel sounds Musculoskeletal: no edema, pulses present Neurological: non-focal, normal sensation, moves all 4 limbs Psychiatric: normal affect, A&O x 3 Skin: no rash, normal turgor Dx/Plan (1) Colitis Code(s): K52.9 - NONINFECTIVE GASTROENTERITIS AND COLITIS, UNSPECIFIED Status : Acute (2) Dehydration Code(s): E86.0 - DEHYDRATION Status: Resolved (3) Metabolic acidosis Code(s): E87.2 - ACIDOSIS Status: Resolved (4) Supratherapeutic INR Code(s): R79.1 - ABNORMAL COAGULATION PROFILE Status: Resolved (5) CAD (coronary artery disease) Code(s): I25.10 - ATHSCL HEART DISEASE OF [place] CORONARY ARTERY W/O ANG PCTRS Status: Chronic Qualifiers: Coronary Disease-Associated Artery/Lesion type: bypass graft [place] vs. transplanted heart: [place] heart Associated angina: without angina Qualified Code(s): I25.810 - Atherosclerosis of coronary artery bypass graft(s) without angina pectoris (6) Chronic anticoagulation Code(s): Z79.01 - ASSISTED (CURRENT) USE OF ANTICOAGULANTS Status: Chronic (7) Diabetes type 2, controlled Code(s): E11.9 - TYPE 2 DIABETES MELLITUS WITHOUT COMPLICATIONS Status: Chronic Qualifiers: Diabetes mellitus senior living insulin use: with superintendent marine oil terminal use Diabetes mellitus complication status: with circulatory complication Diabetes mellitus complication detail: with other circulatory complications Qualified Code(s): E11.59 - Type 2 diabetes mellitus with other circulatory complications; Z79.4 - terminal worker (current) use of insulin; Z79.4 - terminal worker (current) use of insulin; Z79.4 - penitentiary (current) use of insulin; Z79.4 - terminal worker (current) use of insulin (8) Diverticulosis of colon Code(s): K57.30 - DVRTCLOS OF LG INT W/O PERFORATION OR ABSCESS W/O BLEEDING Status: Chronic (9) Dyslipidemia Code(s): E78.5 - HYPERLIPIDEMIA, UNSPECIFIED Status: Chronic (10) ESRD (end stage renal disease) on dialysis Code(s): N18.6 - END STAGE RENAL DISEASE; Z99.2 - DEPENDENCE ON RENAL DIALYSIS Status: Chronic Comment: (11) Hypertension Code(s): I10 - ESSENTIAL (PRIMARY) HYPERTENSION Status: Chronic Qualifiers: Hypertension type: essential hypertension Qualified Code(s): I10 - Essential (primary) hypertension (12) Hypothyroidism Code(s): E03.9 - HYPOTHYROIDISM, UNSPECIFIED Status: Chronic Qualifiers: Hypothyroidism type: acquired Qualified Code(s): E03.9 - Hypothyroidism, unspecified (13) Macrocytic anemia Code(s): D53.9 - NUTRITIONAL ANEMIA, UNSPECIFIED Status: Chronic (14) Paroxysmal atrial fibrillation Code(s): I48.0 - PAROXYSMAL ATRIAL FIBRILLATION Status: Chronic Comment: in NSR (15) Secondary hyperparathyroidism of renal origin Code(s): N25.81 - SECONDARY HYPERPARATHYROIDISM OF RENAL ORIGIN Status: Chronic - Plan cont current plan of care * pt will need to follow up with neurosurgeon for lambar wound * medication reviewed as below * symptomatic treatment * stable for discharge today. Review of Systems - Review of Systems Eyes: negative: Pain, Vision Change, Conjunctivae Inflammation, Eyelid Inflammation, Redness, Other ENT: negative: Ear Pain, Ear Discharge, Nose Pain, Nose Discharge, Nose Congestion, Mouth Pain, Mouth Swelling, Throat Pain, Throat Swelling, Other Respiratory: negative: Cough, Dry, Shortness of Breath, Hemoptysis, SOB with Excertion, Pleuritic Pain, Sputum, Wheezing Cardiovascular: negative: chest pain, palpitations, orthopnea, paroxysmal nocturnal dyspnea, edema, light headedness, other Gastrointestinal: negative: Nausea, Vomiting, Abdominal Pain, Diarrhea, Constipation, Melena, Hematochezia, Other Genitourinary: negative: Dysuria, Frequency, Incontinence, Hematuria, Retention , Other Musculoskeletal: negative: Neck Pain, Shoulder Pain, Arm Pain, Back Pain, Hand Pain, Leg Pain, Foot Pain, Other Skin: negative: Rash, Lesions, Shabbir, Bruising, Other - Medications/Allergies Allergies/Adverse Reactions: Allergies Allergy/AdvReac Type Severity Reaction Status Date / Time No Known Drug Allergies Allergy Verified 01/12/18 06:28 Medications: Current Medications Acetaminophen (Tylenol) 650 mg PO Q4H PRN PRN Reason: Headache/Fever or Pain Last Admin: 01/15/18 15:32 Dose: 650 mg Al Hydroxide/Mg Hydroxide (Maalox Plus) 30 ml PO DAILYPRN PRN PRN Reason: Heartburn or Indigestion Last Admin: 01/15/18 15:32 Dose: 30 ml Al Hydroxide/Mg Hydroxide (Maalox) 15 ml PO Q4H PRN PRN Reason: Heartburn or Indigestion Amiodarone HCl (Cordarone) 100 mg PO HS [facility] Last Admin: 01/15/18 20:35 Dose: 100 mg Amlodipine Besylate (Norvasc) 5 mg PO BID [facility] Last Admin: 01/16/18 08:45 Dose: 5 mg Artificial Tears (Tears Naturale) 0 drop EA EYE PRN PRN PRN Reason: Dry Eyes Calcium Carbonate (Tums) 1,000 mg PO Q4H PRN PRN Reason: Heartburn or Indigestion Last Admin: 01/15/18 21:16 Dose: 1,000 mg Carvedilol (Coreg) 3.125 mg PO BID [facility] Last Admin: 01/16/18 08:44 Dose: 3.125 mg Dextrose/Water (Dextrose 50%) 25 gm SLOW IVP PRN PRN PRN Reason: Hypoglycemia Last Admin: 01/12/18 05:32 Dose: 25 gm Famotidine (Pepcid) 20 mg PO 2100 [facility] Last Admin: 01/15/18 20:35 Dose: 20 mg Gabapentin (Neurontin) 600 mg PO QAM [facility] Last Admin: 01/16/18 08:45 Dose: 600 mg Gabapentin (Neurontin) 300 mg PO QPM [facility] Last Admin: 01/15/18 20:36 Dose: 300 mg Glucagon (Glucagon) 1 mg IM PRN PRN PRN Reason: Hypoglycemia Guaifenesin (Robitussin Sf) 200 mg PO Q4H PRN PRN Reason: Cough Hydralazine HCl (Apresoline) 10 mg SLOW IVP Q4H PRN PRN Reason: SBP Greater Than 170 Dextrose/Water (D5w) 1,000 mls @ 0 mls/hr IV .Q0M PRN; As Directed PRN Reason: Hypoglycemia Insulin Glargine 10 units/ (Miscellaneous Medication) 0.1 mls @ 0 mls/hr [facility] Last Admin: 01/15/18 20:36 Dose: 0.1 mls Insulin Human Regular (Humulin R) 0 units SC .MODERATE SLIDING SC PRN PRN Reason: Moderate Correctional Scale Last Admin: 01/15/18 16:59 Dose: 2 unit Insulin Human Regular (Humulin R) 0 units SC .BEDTIME SLIDING SC PRN PRN Reason: Bedtime Correctional Scale Last Admin: 01/15/18 20:37 Dose: 2 unit Levothyroxine Sodium (Synthroid) 88 mcg PO 0600 [facility] Last Admin: 01/16/18 05:45 Dose: 88 mcg Loperamide HCl (Imodium) 2 mg PO PRN PRN PRN Reason: Diarrhea/Loose Stools Last Admin: 01/15/18 21:15 Dose: 2 mg Loratadine (Claritin) 10 mg PO DAILYPRN PRN PRN Reason: Sinus Symptoms Mineral Oil/White Petrolatum (Eucerin Cream) 0 gm TOP BIDPRN PRN PRN Reason: Dry Skin Miscellaneous Medication (Pharmacy To Dose) 0 each PO PRN PRN PRN Reason: WARFARIN Pharmacy to Dose Miscellaneous Medication (Pharmacy To Dose) 1 each IVPB ONE PRN PRN Reason: Pharmacy to dose Stop: 02/11/18 16:31 Miscellaneous Medication (Pharmacy To Dose) 1 each PO ONE PRN PRN Reason: Pharmacy to dose Stop: 02/12/18 22:01 Nitroglycerin (Nitrostat) 0.4 mg PO Q5MIN PRN PRN Reason: Chest Pain Last Admin: 01/15/18 13:57 Dose: 0.4 mg Ondansetron HCl (Zofran Odt) 4 mg PO Q6H PRN PRN Reason: Nausea/Vomiting Ondansetron HCl (Zofran) 4 mg IVP Q6H PRN PRN Reason: Nausea/Vomiting Phenol (Chloraseptic [place] 180 Ml Bot) 0 ml PO PRN PRN PRN Reason: Sore Throat Rosuvastatin Calcium (Crestor) 40 mg PO HS [facility] Last Admin: 01/15/18 20:35 Dose: 40 mg Saccharomyces Boulardii (Florastor) 250 mg PO DAILY [facility] Last Admin: 01/16/18 08:44 Dose: 250 mg Sodium Chloride (Flush - Normal Saline) 10 ml IVF Q12HR [facility] Last Admin: 01/16/18 08:46 Dose: 10 ml Sodium Chloride (Flush - Normal Saline) 10 ml IVF PRN PRN PRN Reason: Saline Flush Sodium Chloride ([place] Nasal [place] 0.65%) 0 ml EA NARE QIDPRN PRN PRN Reason: Nasal Congestion Tramadol HCl (Ultram) 50 mg PO QID PRN PRN Reason: Mild-Moderate Pain (1-5) Last Admin: 01/13/18 21:08 Dose: 50 mg Zolpidem Tartrate (Ambien) 5 mg PO HSPRN PRN PRN Reason: Insomnia
[2018-01-16 09:39] VITALS: TEMP 98
--- NOTE | 2018-01-16 11:20 | DIS ---
DATE OF ADMISSION: 01/11/2018 DATE OF DISCHARGE: 01/16/2018 PRIMARY CARE PHYSICIAN: Fly Vargas D.O. DISCHARGE DISPOSITION: Home. PRIMARY DISCHARGE DIAGNOSES: 1. Acute colitis, ruled out infection. 2. Supratherapeutic INR, resolved. 3. Metabolic acidosis, corrected. 4. Dehydration, corrected. 5. Chest pain, ruled out acute coronary syndrome. SECONDARY DISCHARGE DIAGNOSES: Coronary artery disease, chronic anticoagulation, diabetes type 2, di verticulosis of colon, dyslipidemia, end-stage renal disease on hemodialysis, hypertension, hypothyro idism, macrocytic anemia, paroxysmal atrial fibrillation, secondary hyperparathyroidism of renal orig in. PRIMARY PROCEDURE/OPERATION: Colonoscopy was performed by Dr. Mario and finding suggestive of acute colitis with submucosal hemorrhage in sigmoid and descending colon, diverticulosis. Pathology repor t from biopsy came back as active colitis. Stool for infection workup came back negative. RADIOLOGICAL INVESTIGATION: Abdomen and pelvis CT scan on admission showed findings suggestive of co litis, diverticulosis. SIGNIFICANT LABORATORY DATA: WBC 6.8, hemoglobin 10.4, MCV 103, platelet 203. INR 1.2, sodium 141, potassium 3.9, BUN 20, creatinine 6.66. Cardiac enzymes negative x3. LFT normal. Urinalysis: Leuk ocyte esterase trace. Hepatitis B surface antigen negative. Stool for infection workup negative. DISCHARGE MEDICATIONS: Amiodarone 100 mg p.o. at bedtime, Norvasc 5 mg p.o. b.i.d., aspirin 81 mg p. o. daily, captopril 12.5 mg p.o. b.i.d., Coreg 6.25 mg p.o. b.i.d., gabapentin 600 mg in the morning and 300 mg in evening, Humalog insulin 12 units subcu a.c. as directed, Lantus insulin 30 units subcu taneously at bedtime, Synthroid 88 mcg p.o. daily, fish oil 1 capsule p.o. daily, Crestor 40 mg p.o. at bedtime, Florastor 250 mg p.o. daily, tramadol 50 mg p.o. q.i.d. p.r.n., warfarin 5 mg p.o. daily. CONTRAINDICATIONS: None. CODE STATUS: FULL CODE. INPATIENT CONSULTANTS: Dr. Mario was following while in hospital. TEST RESULTS PENDING ON DISCHARGE: None. ALLERGIES: No known drug allergy. DISCHARGE PLAN: Post hospital, the patient is instructed to follow up with Dr. Mario as instructed. The patient will make appointment with Dr. Fly Vargas. Dr. Kenny was consulted while in hospital because patient had lumbar wound. HOSPITAL COURSE: The patient is a 62-year-old female with above-mentioned medical problem who was ad mitted on 01/11/[address] Moo Vallejo. Please see his H&P for further detail. The patient was adm itted for diarrhea for about 1 week. She had a stool workup while in hospital, which was negative fo r any infection. Dr. Mario was consulted and he did a colonoscopy and colonoscopy finding was consi stent with colitis. She was started empirically on p.o. vancomycin, but subsequently Dr. Mario paris mmended to discontinue vancomycin as her stool for C. diff was negative. She was given antidiarrheal medication and probiotics with improvement. While in hospital, she was getting maintenance hemodialysis through Dr. Nitin Coffey. While in [facility], she also complained of chest pain and that is why we did EKG which was normal and cardiac etio logy ruled out with serial cardiac enzymes. She had supratherapeutic INR, which was corrected with v itamin K and subsequently we reinstituted warfarin therapy upon discharge. While in hospital, we con tinued all her home medication as well as upon discharge. At this point, her diarrhea significantly improving. Her infectious etiology ruled out. She does not need any antibiotic therapy upon dischar ge as per GI. The patient will follow up with credentialing analyst for further evaluation if needed. The patient is overall medically stable for discharge. She is ambulatory, tolerating p.o. well. The patient is seen and examined at bedside today. Please see my progress note from today for further d etail.
--- NOTE | 2018-01-16 11:56 | PRG ---
DATE OF SERVICE: 01/16/2018 NEUROSURGERY NOTE I personally interviewed and examined the patient and agree with documentation of PA-C dated . Briefly, Ms. Vickie Fontenot is the patient who underwent laminectomy with Dr. Encarnacion in 07/2017. She has had wound healing troubles and still has a dehiscence in the center of her wound measuring about a cm, which is being treated by the wound care team with a wet to dry packing. Our Neurosurgery team was consulted during this admission for colitis/gastritis to evaluate her wound . Thankfully, the neurological examination has been stable. The wound looks like it is being treated a ppropriately. A wound VAC could be used, as the wound care team thinks it would be beneficial. Dr. Encarnacion service will be back tomorrow to see her.
--- NOTE | 2018-01-17 12:47 | EKG ---
Test Reason : Blood Pressure : / mmHG Vent. Rate : 074 BPM Atrial Rate : 074 BPM P-R Int : 148 ms QRS Dur : 110 ms QT Int : 484 ms P-R-T Axes : 039 -30 047 degrees QTc Int : 537 ms Poor data quality, interpretation may be adversely affected Normal sinus rhythm Left axis deviation Incomplete left bundle branch block Moderate voltage criteria for LVH, may be normal variant Prolonged QT Abnormal ECG No previous ECGs available Confirmed by LACY BAIRES M.D. ([id number]), senior editor JAZZMINE HARRELL ([id number]) on 01/17/2018 12:46:53 PM Referred By: Confirmed By:LACY BAIRES M.D.
== END 2018-01-16 12:50 | disposition home or self-care (01) | DRG 391 ==
LOC: ERS 13:33 → T4-B 16:06
PROVIDERS: ADMIT Internal Medicine; ATTEND Internal Medicine
PROC: 5A1D70Z Performance of Urinary Filtration, Intermittent, Less than 6 Hours Per Day (ICD-10-PCS; 2018-01-11)
PROC: 0DBK8ZX Excision of Ascending Colon, Via Natural or Artificial Opening Endoscopic, Diagnostic (ICD-10-PCS; principal; 2018-01-13)
PROC: 0DBL8ZX Excision of Transverse Colon, Via Natural or Artificial Opening Endoscopic, Diagnostic (ICD-10-PCS; 2018-01-13)
PROC: 0DBN8ZX Excision of Sigmoid Colon, Via Natural or Artificial Opening Endoscopic, Diagnostic (ICD-10-PCS; 2018-01-13)
PROC: 0DBM8ZX Excision of Descending Colon, Via Natural or Artificial Opening Endoscopic, Diagnostic (ICD-10-PCS; 2018-01-13)
PROC: 5A1D70Z Performance of Urinary Filtration, Intermittent, Less than 6 Hours Per Day (ICD-10-PCS; 2018-01-13)
PROC: 5A1D70Z Performance of Urinary Filtration, Intermittent, Less than 6 Hours Per Day (ICD-10-PCS; 2018-01-15)
DX: K52.9 Noninfective gastroenteritis and colitis, unspecified (principal); N18.6 End stage renal disease; I12.0 Hypertensive chronic kidney disease with stage 5 chronic kidney disease or end stage renal disease; E87.2 Acidosis; N25.81 Secondary hyperparathyroidism of renal origin; T81.31XA Disruption of external operation (surgical) wound, not elsewhere classified, initial encounter; E11.22 Type 2 diabetes mellitus with diabetic chronic kidney disease; Z99.2 Dependence on renal dialysis; E86.0 Dehydration; I48.0 Paroxysmal atrial fibrillation; D63.1 Anemia in chronic kidney disease; I25.10 Atherosclerotic heart disease of native coronary artery without angina pectoris; E78.5 Hyperlipidemia, unspecified; E03.9 Hypothyroidism, unspecified; K57.30 Diverticulosis of large intestine without perforation or abscess without bleeding; R79.1 Abnormal coagulation profile; E87.6 Hypokalemia; R07.9 Chest pain, unspecified; Z87.891 Personal history of nicotine dependence; Z79.01 Long term (current) use of anticoagulants; Z79.4 Long term (current) use of insulin; Z79.899 Other long term (current) drug therapy; Z95.1 Presence of aortocoronary bypass graft; Z95.5 Presence of coronary angioplasty implant and graft; Y83.8 Other surgical procedures as the cause of abnormal reaction of the patient, or of later complication, without mention of misadventure at the time of the procedure
CPT/HCPCS: 36415; 36416; 74177; 80048; 80053; 81001; 82274; 82550; 82553; 83630; 83690; 84484; 85014; 85018; 85025; 85610; 85730; 87045; 87046; 87081; 87324; 87328; 87329; 87340; 87449; 87899; 88305; 90935; 93005; 93010; 94760; 96361; 96365; A4216; G0257; J0696; J1815; J2001; J2704; J3430; J7050

== ENCOUNTER 2018-03-10 19:47 | Inpatient (IN) | payer MEDICARE, BC ==
[2018-03-10 20:35] LABS: Hemoglobin 11.7 g/dL (12.0-16.0); Mean Corpuscular HGB CONC 32.3 g/dL (32.0-36.0); Mean Corpuscular Hemoglobin 33.6 pg (27.0-31.0); Mean Platelet Volume 6.7 fL (7.4-10.4); Platelet Count 176 thou/uL (130-400); Red Blood Cell (RBC) Count 3.48 mill/uL (4.20-5.40); White Blood Cell (WBC) Count 5.7 thou/uL (4.8-10.8)
[2018-03-10 20:55] LABS: Band 36 % (5-11); Lymphocytes 8 % (21-51); MDiff Complete? YES; Metamyelocyte 1 % (0-0); Monocytes 5 % (0-10); Neutrophil 50 % (42-75); PLT Morphology Comment Appears Adequate
[2018-03-10 20:57] LABS: Alcohol Less than 10 mg/dL (Less than 10); CK (CPK) 81 U/L (29-168); Salicylate Less than 8.0 mg/dL (15.0-30.0)
[2018-03-10 20:58] LABS: ALT (SGPT) 13 U/L (8-55); AST (SGOT) 21 U/L (5-34); Albumin 4.2 g/dL (3.4-4.8); Alkaline Phosphatase 55 U/L (40-150); Anion Gap 20 mmol/L (10-20); BUN (Urea Nitrogen) 30 mg/dL (9.8-20.1); Bilirubin, Total 0.6 mg/dL (0.2-1.2); Calc. Creatinine Clearance 0 mL/min (70-130); Calcium 9.6 mg/dL (7.8-10.44); Carbon Dioxide 24 mmol/L (23-31); Chloride 98 mmol/L (98-107); Estimated GFR-MDRD 5; Globulin 3.3 g/dL (2.4-3.5); Glucose 152 mg/dL (80-115); Potassium 4.1 mmol/L (3.5-5.1); Protein, Total 7.5 g/dL (6.0-8.3); Sodium 138 mmol/L (136-145)
[2018-03-10 21:00] LABS: CKMB 0.8 ng/mL (0-6.6); Troponin I 0.068 ng/mL (< 0.028)
--- NOTE | 2018-03-10 21:24 | CT ---
CT BRAIN WITHOUT CONTRAST: 03/10/18 HISTORY: Altered mental status. Patient on dialysis. FINDINGS: Comparison made with exam of 06/16/17. 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 The ventricular size is stable and the basilar cisterns patent. No evidence of acute infarct, hemorrhage, midline shift or abnormal extra-axial fluid collections are seen. The bony jose m rium is intact. The visualized paranasal sinuses are well aerated. IMPRESSION: No CT evidence of acute intracranial process. POS: [facility]
--- NOTE | 2018-03-10 21:44 | CT ---
CT ABDOMEN AND PELVIS WITHOUT CONTRAST: 03/10/18 HISTORY: Abdominal pain. Patient on dialysis. FINDINGS: Comparison is made with exam of 09/18/11. Absence of oral and IV contrast reduces the sensitivity of the exam, particularly for the evaluation of solid organs and bowel. The lung bases are unremarkable. No free air or free fluid is seen in the abdomen or pelvis. No calcified gallstones are identified. The kidneys are bilaterally atrophic. Punc botello calculus seen in the right kidney. No calculi seen in the left kidney, either ureter or the urin lorraine bladder. No hydroureteronephrosis noted on either side. There are vascular calcifications without evidence of aneurysmal dilatation of the abdominal aorta. T here are degenerative changes in the spine. There are postop changes with metallic hardware in the ri ght proximal femur. There is colonic diverticulosis without diverticulitis. There are old fractures o f the right superior and inferior pubic rami and the left medial pubic bone. IMPRESSION: 1. Punctate nonobstructing right renal calculus. 2. Colonic diverticulosis. POS: [facility]
--- NOTE | 2018-03-10 22:09 | RAD ---
PORTABLE CHEST ONE VIEW: 03/10/18 at 8:59 p.m. HISTORY: Altered mental status. FINDINGS: Comparison made with exam of 05/09/17. There are changes of median sternotomy. The heart size is normal. The lungs are expanded without foca l areas of consolidation, pneumothorax or pleural effusions. Chronic changes in the right proximal hu merus are again seen. IMPRESSION: No acute process. POS: [facility]
[2018-03-10 22:50] LABS: Bilirubin Negative (Negative); Blood, Urine Trace (Negative); Clarity CLEAR (Clear); Glucose, Urine (Dipstick) 100 mg/dL (Negative); Leukocyte Negative (Negative); Nitrite Negative (Negative); Protein, Urine (Dipstick) 300 mg/dL (Neg-Trace); Specific Gravity, Urine 1.011 (1.002-1.036); Urobilinogen 0.2 mg/dL (0.2-1.0)
[2018-03-10 22:52] LABS: Bacteria/HPF None Seen HPF (None Seen); Hyaline Casts/LPF 0-3 HYALINE CAST LPF (0-3 Hyaline); Pathc Cast-AUWi Flag 0.29 (0-2.49); RBC/HPF 0-3 HPF (0-3); Squamous Epithelial 0-3 HPF (0-3); WBC/HPF 0-3 HPF (0-3)
[2018-03-10] MEDS ORDERED: Cefepime 1 GM VIAL ONE (23:17)
[2018-03-10] MEDS ORDERED: Acetaminophen 500 MG TAB ONE (23:59)
[2018-03-11 00:16] LABS: Troponin I 0.099 ng/mL (< 0.028)
[2018-03-11] MEDS ORDERED: metroNIDAZOLE 500 MG in Premix Bag 1 BAG IVPB SCH (00:30)
[2018-03-11 02:52] LABS: Troponin I 0.101 ng/mL (< 0.028)
[2018-03-11] MEDS ORDERED: Acetaminophen 325 MG TAB PO PRN (03:12)
[2018-03-11] MEDS ORDERED: Ondansetron ODT 4 MG TAB SL PRN (03:12)
[2018-03-11] MEDS ORDERED: Ondansetron HCl/PF 4 MG/2 ML Vial IVP PRN (03:12)
[2018-03-11 03:27] VITALS: BMI 30.1
[2018-03-11] MEDS ORDERED: Vancomycin HCl 1 GM in Premix Bag 1 BAG IVPB SCH ×2 (08:00→08:30)
[2018-03-11] MEDS ORDERED: Bisacodyl 5 MG TAB PO PRN (08:03)
[2018-03-11] MEDS ORDERED: Acetaminophen 650 MG Suppository PR PRN (08:03)
[2018-03-11] MEDS ORDERED: Vancomycin HCl 1.25 GM in Sodium Chloride 0.9% 250 ML 250 ML IVPB SCH (08:30)
[2018-03-11] MEDS ORDERED: Vancomycin HCl 500 MG in Sodium Chloride 0.9% 100 ML IVPB SCH (08:30)
[2018-03-11] MEDS ORDERED: HOLD VANCOMYCIN FOR LEVEL >20 FS SCH (08:30)
[2018-03-11] MEDS ORDERED: Vancomycin HCl 750 MG in Sodium Chloride 0.9% 250 ML 250 ML IVPB SCH (08:30)
--- NOTE | 2018-03-11 09:50 | CON ---
DATE OF CONSULTATION: 03/11/2018 CARDIOLOGY CONSULTATION REASON FOR CONSULTATION: Slight increase in troponin levels in the setting of probable sepsis. HISTORY OF PRESENT ILLNESS: Ms. Fontenot is a 62-year-old woman who presented to the hospital last n ight predominantly with mental status changes. There is no chest pain or pressure. She has had diar gloria, vomiting and altered mental status. There is no chest pain or pressure initially, but then marilin arently when she was asked specifically, she did report some chest pain. Now she tells me she does n ot have chest pain, but her mental status still not normalized. She also complained of some abdomina l pain. Patient feels weak and fatigued. Does not answer many questions. REVIEW OF SYSTEMS: Patient is really unable to give me a review of systems other than saying she is not having chest pain or shortness of breath. Otherwise, her mental status has not recovered. PAST MEDICAL HISTORY: She has history of coronary artery bypass grafting. She subsequently underwen t cardiac catheterization in 2014 and was found to have patent internal mammary to the LAD, vein haley t to an obtuse marginal, vein graft to the posterior descending artery. She had an occluded graft to the diagonal branch. Medical therapy was appropriate. She has history of bypass surgery done here at this institution in 2011, I believe they will need to be confirmed. History of end-stage renal disease on dialysis. MEDICATIONS: Please see nursing notes. Currently, she is on multiple antibiotics. Previously had b een on aspirin. OTHER MEDICINES: 1. Levothyroxine. 2. Insulin. 3. Captopril. 4. Carvedilol. 5. Amlodipine. 6. Coumadin for paroxysmal atrial fibrillation. 7. Amiodarone. 8. Rosuvastatin. 9. Tramadol. PHYSICAL EXAMINATION: GENERAL: On examination, this is an ill-appearing 62-year-old woman who is unable to give me much hi story other than outlined above. VITAL SIGNS: Her blood pressure 130/60, pulse is 111, it is sinus on the monitor. EYES: Sclerae nonicteric. MOUTH: Mucous membranes moist. NECK: Supple, no lymphadenopathy. LUNGS: Clear anteriorly and laterally. CARDIAC: She is tachycardic for rest. There is no murmur, rub or gallop. ABDOMEN: Soft, nontender. She is obese. No hepatosplenomegaly. EXTREMITIES: Warm and dry. No clubbing or cyanosis. There is no edema. PERTINENT LABORATORY DATA: Hemoglobin is 11.7. Troponin 0.101. Lactic acid was 3. Hemoglobin is 1 1.7. IMAGING DATA: EKG, sinus tachycardia. No acute changes. ASSESSMENT: 1. Previous bypass surgery. 2. Catheterization in 2014 as outlined above, adequately vascularized. Medical therapy being approp riate. 3. End-stage renal disease. 4. Slight increased troponin level related to demand ischemia in the setting of end-stage renal dise ase. Demand ischemia is likely related to fever and sepsis. PLAN: 1. Continue antibiotics. 2. Echocardiogram to evaluate left ventricular function. 3. We will resume aspirin. 4. Resume other medicines, cardiac medicines as tolerated.
[2018-03-11] MEDS: metroNIDAZOLE 500 MG in Premix Bag 1 BAG IVPB SCH ×2 (10:24→18:18)
[2018-03-11] MEDS ORDERED: Cefepime 1 GM in Sodium Chloride 0.9% 100 ML IVPB SCH (12:00)
[2018-03-11] MEDS: Vancomycin HCl 25 MG/ML Oral PO SCH ×3 (12:43→21:14)
[2018-03-11] MEDS: Acetaminophen 325 MG TAB PO PRN ×2 (12:43→18:18)
--- NOTE | 2018-03-11 13:15 | HP ---
PRIMARY CARE PROVIDER: Dr. Fly Vargas. RESTAURANT AND BAR MANAGER: Dr. Nitin Coffey. CHIEF COMPLAINT: Altered mental status. HISTORY OF PRESENT ILLNESS: Ms. Fontenot is a pleasant 62-year-old lady who was seen at [facility] on 03/11/2018. Patient is unable to provide any significant history. She reports having diarrhea in the recent past . Otherwise, she does not know why she is in the hospital. She denies any shortness of breath. She reports having diarrhea for a few days. She also reports having chest pain, but is unable to descri be it further. She reports that she does not have chest pain at this time. She denies any nausea or vomiting. Collateral history was obtained from review of medical record. REVIEW OF SYSTEMS: All other systems reviewed and found to be negative. PAST MEDICAL HISTORY: Paroxysmal atrial fibrillation on warfarin, hypertension, coronary artery dise ase, dyslipidemia, diabetes mellitus type 2, hypothyroidism, end-stage renal disease on hemodialysis Wednesday, Wednesday, and Wednesday, chronic anemia of renal insufficiency. PAST SURGICAL HISTORY: Coronary artery bypass graft, bilateral cataract surgery, appendectomy, back surgery, right hip surgery, dialysis access and coronary stent placement. ALLERGIES: No known drug allergies. CURRENT MEDICATIONS: Amlodipine 5 mg 2 times a day, aspirin 81 mg daily, captopril 25 mg daily, carv edilol 6.25 mg 2 times a day, fish oil omega 1 capsule daily, Lantus insulin, dose unknown, levothyro xine 88 mcg daily. SOCIAL HISTORY: No history of tobacco use, alcohol use or recreational drug use. FAMILY HISTORY: Could not obtain. PHYSICAL EXAMINATION: GENERAL: Ms. Fontenot is sleepy, but arousable, not in acute distress. VITAL SIGNS: Blood pressure is 130/59, pulse 109, respiratory rate 18, and oxygen saturation 97% on room air. She has a temperature of 99.4 degrees Fahrenheit. The T-max in the emergency room was 103 .2 degrees Fahrenheit. EYES: No scleral icterus. No conjunctival pallor. ENT: Dry mucosal membranes, no oropharyngeal erythema or exudates. NECK: Supple, nontender. Trachea is midline. RESPIRATORY: Accessory muscles of breathing are not active. Chest wall movements are symmetric bila terally. LUNGS: Clear to auscultation without wheeze, rhonchi or crepitations. CARDIOVASCULAR: S1 and S2 are heard, tachycardic and regular. Peripheral pulses palpable. No carot id bruit, no pericardial rub. ABDOMEN: Mild diffuse tenderness, no guarding or rigidity, bowel sounds heard, no hepatomegaly, no s plenomegaly. SKIN: No rashes or subcutaneous nodules. NEUROLOGIC: Full neurologic examination not possible secondary to patient's noncooperation. No faci al droop. Deep tendon reflexes 2+. MUSCULOSKELETAL: The patient is moving all four extremities. LYMPHATIC: No cervical lymphadenopathy. PSYCHIATRIC: Unable to assess mood, affect and orientation to person, place or time. LABORATORY DATA AND IMAGING: Ms. Fontenot's labs and investigations were reviewed. I reviewed her e lectrocardiogram, which shows sinus tachycardia, no ST changes to suggest an acute coronary syndrome. I also reviewed her chest x-ray, which does not show any pulmonary infiltrates. She also had nonco ntrast CT scan of the brain, which did not reveal any acute intracranial process. She also had CT sc an of the abdomen and pelvis without contrast, which showed colonic diverticulosis, punctate nonobstr ucting right renal calculus. She has normal white count, but elevated bands of 36% and a neutrophil count of 50%, macrocytic anemia with hemoglobin 11.7, normal platelet count, indeterminate troponin I , normal electrolytes, elevated blood urea nitrogen of 30, elevated creatinine of 7.72 and an unremar kable liver profile. Urinalysis is positive for protein, glucose and blood. Plasma alcohol level is less than 10. ASSESSMENT AND PLAN: Ms. Fontenot is a pleasant 62-year-old lady who was seen at [facility] on 03/11/2018. Her problem list includes: 1. Acute encephalopathy: Ms. Fontenot is presenting with acute encephalopathy. At this point, diff erential is wide and includes metabolic as well as infectious causes. 2. Sepsis: The patient is presenting with sepsis. Source of infection is unknown at this time, cou ld be related to gastrointestinal, given history of diarrhea or could be related to bloodstream infec tion. She will be admitted to the hospital and started on broad spectrum antibiotics. We will check stool for Clostridium difficile infection. Blood cultures have been sent, we will follow cultures. We will start empiric broad spectrum antibiotics. 3. End-stage renal disease on dialysis. Nephrology service will be consulted for maintenance dialys is. 4. Elevated troponin: She has a history of coronary artery disease. Elevated troponin could be sec ondary to end-stage renal disease or demand ischemia. We will consult Cardiology Service for opinion . 5. Diabetes mellitus type 2: Start Accu-Cheks, insulin sliding scale. 6. Hypothyroidism: Continue Synthroid. 7. Hypertension: Monitor vital signs, titrate antihypertensives as needed. 8. Paroxysmal atrial fibrillation: The patient's home medications do not include warfarin at this t vickie. We will clarify home medications prior to restarting. Many thanks for allowing me to participate in your patient's care. Please feel free to contact me wi th any questions or concerns. LEVEL OF RISK: High. LEVEL OF COMPLEXITY: High.
[2018-03-11] MEDS ORDERED: Indomethacin 25 mg Capsule PO PRN (13:30)
[2018-03-11] MEDS ORDERED: Ibuprofen 200 MG TAB PO SCH (16:00)
[2018-03-11] MEDS ORDERED: Carvedilol 6.25 MG TAB PO SCH (17:00)
[2018-03-11] MEDS ORDERED: Gentamicin Sulfate 320 MG in Sodium Chloride 0.9% 100 ML IVPB SCH (17:45)
[2018-03-11] MEDS: Sevelamer Carbonate 800 MG TAB PO SCH (17:48)
[2018-03-11] MEDS ORDERED: tiZANidine HCl 4 MG TAB PO PRN (21:00)
[2018-03-11] MEDS: Amiodarone 200 MG TAB PO SCH (21:13)
[2018-03-11] MEDS: Gabapentin 300 MG CAP PO SCH (21:13)
[2018-03-11] MEDS: Rosuvastatin 10 MG TAB PO SCH (21:14)
[2018-03-11] MEDS ORDERED: Sodium Chloride 0.9% 250 ML 250 ML IVPB SCH (21:15)
[2018-03-11] MEDS: Carvedilol 6.25 MG TAB PO SCH (21:15)
[2018-03-11] MEDS ORDERED: Sodium Chloride 0.9% 250 ML IVPB SCH (21:45)
[2018-03-11] MEDS: Cefepime 0.5 GM, Admixture Fee 1 EACH in Sodium Chloride 0.9% 100 ML IVPB SCH (23:17)
--- NOTE | 2018-03-11 23:41 | CON ---
DATE OF CONSULTATION: 03/11/2018 REASON FOR CONSULTATION: Bacteremia, Clostridium difficile colitis. HISTORY OF PRESENT ILLNESS: A 62-year-old patient with history of atrial fibrillation, on warfarin; coronary artery disease; hypertension; type 2 diabetes; and end-stage renal disease, on hemodialysis through an AV fistula in the right upper extremity, admitted this time with altered mental status and diarrhea. There was some chest pain, which was not typical. There had been no nausea or vomiting. According to the history obtained at the emergency room from the family, she did have an episode of nausea and vomiting the night before and was found in bed at 6:00 p.m. yesterday with altered mental status. There was some reported abdominal pain as well, which had persisted since the night before. No headaches, no respiratory symptoms, no genitourinary symptoms. Some back pain. No joint symptoms outside the back area and no skin disorder. PAST MEDICAL HISTORY: Type 2 diabetes; end-stage renal disease, on hemodialysis with an AV fistula in right upper extremity; coronary artery disease; hyperlipidemia; prior DC; hypertension; L4-L5 laminectomy in 2017. ALLERGIES: None. CURRENT MEDICATIONS: Norvasc, aspirin, captopril, Coreg, Lantus insulin, levothyroxine. MEDICATIONS: Tylenol, Cordarone, Norvasc, Ecotrin, Dulcolax, Capoten, Coreg, cefepime, gabapentin, metronidazole, vancomycin sliding scale and oral vancomycin. FAMILY HISTORY: Noncontributory. SOCIAL HISTORY: Never a smoker. PHYSICAL EXAMINATION: VITAL SIGNS: T-max 103, blood pressure 140/60, pulse 115, respiratory rate 26, O2 sat 96%. GENERAL: When I arrived at the bedside, she was shivering with quite intense rigors. She was awake nonetheless and oriented. The patient still has some urinary output. She does not have a Esquivel catheter. The dialysis access is fistula. LYMPHATICS: No lymphadenopathy noticeable. HEENT: Ocular movements conjugate. Pupils are equal. Oral cavity moist with no lesions. NECK: Supple. No jugular vein distention. LUNGS: With symmetric air entry. No obvious crackles or wheezing. HEART: S1, S2 regular rate with a soft aortic murmur. No S3. ABDOMEN: Soft, nondistended. Some tenderness in the suprapubic area. She is able to move extremities on command. MUSCULOSKELETAL: No joint inflammatory activity. BACK: Some back tenderness in lower back region. EXTREMITIES: Pulses 1+ in dorsalis pedis. No clonus. NEUROLOGIC: Plantar responses are flexor. Awake, oriented, follows commands. LABORATORY DATA: White cell count 5.7, hemoglobin 11.7, platelets 176, 50% neutrophils, and 36% bands. Chemistry was not remarkable except for the creatinine is expected at 7.72, glucose 152. Remainder aspects of her chemistry are within normal limits. She did have some elevation of troponin as expected. Urinalysis obtained yesterday with essentially normal findings except for proteinuria and glycosuria. Toxicology was negative. Microbiology: We have now 2/2 sets of blood cultures positive for a gram-negative johnathan. The early identification attempt with Getonic was negative for various gram- negatives, so we are still waiting on the full identification, hopefully tomorrow. IMAGING STUDIES: Included an abdomen and pelvis CT scan. There is a punctate nonobstructing right renal calculus and colonic diverticulosis. Chest x-ray with no acute process. Brain CT scan with no CT evidence of an acute intracranial process. ASSESSMENT: 1. End-stage renal disease secondary to type 2 diabetes, on hemodialysis with an arteriovenous fistula. 2. Prior episode of colitis in January this year. At that time, she had a negative Clostridium difficile tests. Colonoscopy was done and showed colitis, with nonspecific biopsy results. All the assays and cultures were negative. 3. Gram-negative johnathan bacteremia associated with concurrent Clostridium difficile colitis. DISCUSSION: Quite unusual case in reference to these successive episodes of diarrhea with colitis documented in the first episode, now with a positive C. difficile assay which was negative first time around. In addition to that, she has this gram-negative johanthan, which will have to be further worked up for full identification. The identification may provide a clue as to what the origin of this organism is. The patients with C. difficile colitis will have increased permeability of the gastrointestinal mucosa and may experience episodes of bacteremia associated with the C. difficile colitis episode, but we will have to rule out other alternate intraabdominal inflammatory processes. May need a full CT of abdomen and pelvis with contrast depending on the identification of the organism and clinical progress. Other sources that could potentially be associated with this would include oral cavity-associated bacteria such as haemophilus species. Finally, a genitourinary tract source is not yet ruled out either, although cystitis is very unlikely. I find that genitourinary source a less tenable possibility. So basically, we are dealing with active C. diff with bacteremia, which may be related to the C. diff colitis or to an alternate process and we may need to carry out repeat CT abdomen and pelvis with contrast at this time pending on the identification of the organism. She is on cefepime. We will give her a dose of gentamicin until we get the final results of susceptibility profile of this organism. Discontinue vancomycin intravenously. Continue oral vancomycin and discontinue Flagyl. MTDD
[2018-03-12] MEDS ORDERED: Sodium Chloride 0.9% 500 ML IVPB SCH (00:15)
[2018-03-12] MEDS: metroNIDAZOLE 500 MG in Premix Bag 1 BAG IVPB SCH ×3 (00:54→16:37)
[2018-03-12] MEDS ORDERED: Sodium Chloride 0.9% 500 ML IV SCH (01:30)
[2018-03-12 06:02] LABS: Prothrombin Time 31.1 SEC (12.0-14.7)
[2018-03-12 06:24] LABS: Anion Gap 20 mmol/L (10-20); BUN (Urea Nitrogen) 23 mg/dL (9.8-20.1); Calc. Creatinine Clearance 13 mL/min (70-130); Calcium 7.9 mg/dL (7.8-10.44); Carbon Dioxide 21 mmol/L (23-31); Chloride 102 mmol/L (98-107); Estimated GFR-MDRD 8; Glucose 146 mg/dL (80-115); Potassium 3.4 mmol/L (3.5-5.1); Sodium 140 mmol/L (136-145)
[2018-03-12] MEDS: Levothyroxine Sodium 100 MCG TAB PO SCH (06:35)
[2018-03-12 07:51] LABS: Band 62 % (5-11); Hemoglobin 10.6 g/dL (12.0-16.0); Lymphocytes 15 % (21-51); MDiff Complete? YES; Mean Corpuscular HGB CONC 33.4 g/dL (32.0-36.0); Mean Corpuscular Hemoglobin 34.9 pg (27.0-31.0); Metamyelocyte 4 % (0-0); Monocytes 2 % (0-10); Neutrophil 16 % (42-75); Platelet Count 115 thou/uL (130-400); RBC Distribution Width 15.1 % (11.5-14.5); Red Blood Cell (RBC) Count 3.03 mill/uL (4.20-5.40); White Blood Cell (WBC) Count 3.4 thou/uL (4.8-10.8)
[2018-03-12] MEDS: Sevelamer Carbonate 800 MG TAB PO SCH ×3 (08:11→16:37)
[2018-03-12] MEDS: Vancomycin HCl 25 MG/ML Oral PO SCH ×4 (08:11→21:33)
[2018-03-12] MEDS: Fish Oil 1,000 MG CAP PO SCH (08:12)
[2018-03-12] MEDS: Carvedilol 6.25 MG TAB PO SCH ×2 (08:12→21:34)
[2018-03-12] MEDS: Aspirin 81 mg Enteric Coated Tablet PO SCH (08:12)
[2018-03-12] MEDS: Amlodipine 10 MG TAB PO SCH (08:12)
[2018-03-12] MEDS: Saccharomyces boulardii 250 MG CAP PO SCH (08:12)
[2018-03-12] MEDS: Acetaminophen 325 MG TAB PO PRN (08:12)
[2018-03-12] MEDS: Gabapentin 300 MG CAP PO SCH ×2 (08:13→21:34)
[2018-03-12] MEDS ORDERED: Aspirin 81 mg Enteric Coated Tablet PO SCH (09:00)
[2018-03-12] MEDS ORDERED: Calcium Carbonate 500 MG ChewTAB PO PRN (11:21)
[2018-03-12] MEDS ORDERED: Ondansetron ODT 4 MG TAB SL PRN (11:22)
[2018-03-12] MEDS: Calcium Carbonate 500 MG ChewTAB PO PRN (12:00)
[2018-03-12] MEDS ORDERED: Potassium Chloride 20 MEQ TAB PO SCH (12:00)
[2018-03-12] MEDS ORDERED: ISOVUE-370 76%-LOCM 1 ML ONE (12:06)
--- NOTE | 2018-03-12 15:57 | PRG ---
DATE OF SERVICE: 03/12/2018 SUBJECTIVE: Still does not feel yet back to baseline, has moderate pain in the suprapubic area. No respiratory symptoms. Some loose stool intermittently. OBJECTIVE: VITAL SIGNS: T-max 99.5-99.6, blood pressure 118/58, pulse 76, respirations 18 , O2 saturation 98%. SKIN: Slight erythema in the gluteal region. Otherwise, no skin lesions. Peripheral IV access and she is voiding spontaneously. GENERAL: Chronically ill appearing. No distress. HEENT: Ocular movements are conjugate. Oral cavity normal. NECK: Supple. LUNGS: With symmetric clear breath sounds. HEART: S1, S2, regular rate. ABDOMEN: Soft with tenderness in the suprapubic area. LABORATORY DATA: White cell count 3.4, hemoglobin 10.6, MCV 104, platelets 115, 000, 62% bands, 16% neutrophils. Sodium 140, creatinine 5.37. Microbiology with gram negative johnathan, 2 out of 2 sets of blood cultures. ASSESSMENT AND DISCUSSION: End-stage renal disease secondary to type 2 diabetes mellitus with an arteriovenous fistula for hemodialysis, prior episode of colitis with a negative Clostridium difficile test at that time and colonoscopy showing colitis with a nonspecific biopsy pattern and now with Gram- negative johnathan bacteremia, 2 out of 2 sets with concomitant Clostridium difficile colitis. In view of the worsening bandemia and the persistence of pain, we will go ahead and order a CT of abdomen and pelvis with IV and oral contrast to evaluate those changes. Wait for the final identification and susceptibility profile of the gram-negative johnathan to give us further clues as to the origin of this pathogen. RODOLFO
--- NOTE | 2018-03-12 19:35 | CT ---
ABDOMEN AND PELVIC CT WITH CONTRAST: 03/12/18 COMPARISON: Noncontrast CT two days prior. INDICATION: Abdominal pain, gram negative johnathan bacteremia. FINDINGS: Punctate right nephrolithiasis is again demonstrated without hydronephrosis. The kidneys remain marke dly atrophic. No adrenal mass. the liver and spleen are grossly unremarkable. no peripancreatic infla mmation. Bowel is incompletely assessed without enteric contrast administration. No evidence of ascit es or pneumoperitoneum. Mild bibasilar atelectasis is partially visualized. Moderate distention of th e gallbladder is stable. Exam is otherwise grossly stable to the recent noncontrasted CT. The incidentally imaged thoracolumbar spine is grossly stable with a chronic compression of the T12 v ertebral body and chronic posttraumatic sequela of the pelvis is also seen. Colonic diverticulosis is redemonstrated. IMPRESSION: 1. Moderate distention of the gallbladder. 2. Colonic diverticulosis. 3. Diffuse vascular disease and bilateral renal atrophy. POS: [facility]
[2018-03-12] MEDS: Amiodarone 200 MG TAB PO SCH (21:33)
[2018-03-12] MEDS: Rosuvastatin 10 MG TAB PO SCH (21:35)
[2018-03-12] MEDS: Cholestyramine/Aspartame 4 gm Packet PO SCH (23:27)
[2018-03-12] MEDS: Cefepime 0.5 GM, Admixture Fee 1 EACH in Sodium Chloride 0.9% 100 ML IVPB SCH (23:27)
--- NOTE | 2018-03-12 23:33 | PDOC.PN ---
- Subjective Encounter Start Date: 03/12/18 Encounter Start Time: 13:35 Subjective: Seen and examined. Very talkertive. - Objective MAR Reviewed: Yes Vital Signs & Weight: Vital Signs (12 hours) Temp Pulse Resp BP BP Pulse Ox 03/12/18 21:34 138/63 03/12/18 19:54 98.3 F 77 18 138/63 98 03/12/18 15:25 97.5 F L 75 16 115/56 L 98 Weight Weight 175 lb 6.4 oz I&O: 03/11/18 03/12/18 03/13/18 06:59 06:59 06:59 Intake Total 0 2080 1160 Output Total 1000 Balance 0 1080 1160 Result Diagrams: 03/12/18 05:44 03/12/18 05:44 Additional Labs: Accuchecks 03/12/18 03/12/18 03/12/18 21:30 17:02 11:08 POC Glucose 174 H 159 H 137 H 03/12/18 06:01 POC Glucose 134 H Dx/Plan (1) C. difficile colitis Status: Acute Comment: Continue antibiotics. (2) Bacteremia Code(s): R78.81 - BACTEREMIA Status: Acute Comment: on antibiotics. will follow with ID (3) CAD (coronary artery disease) Code(s): I25.10 - ATHSCL HEART DISEASE OF [place] CORONARY ARTERY W/O ANG PCTRS Status: Chronic Qualifiers: Qualified Code(s): I25.810 - Atherosclerosis of coronary artery bypass graft( s) without angina pectoris (4) Diabetes type 2, controlled Code(s): E11.9 - TYPE 2 DIABETES MELLITUS WITHOUT COMPLICATIONS Status: Chronic Qualifiers: (5) Dyslipidemia Code(s): E78.5 - HYPERLIPIDEMIA, UNSPECIFIED Status: Chronic (6) ESRD (end stage renal disease) on dialysis Code(s): N18.6 - END STAGE RENAL DISEASE; Z99.2 - DEPENDENCE ON RENAL DIALYSIS Status: Chronic Comment: (7) Hypertension Code(s): I10 - ESSENTIAL (PRIMARY) HYPERTENSION Status: Chronic Qualifiers: (8) Hypothyroidism Code(s): E03.9 - HYPOTHYROIDISM, UNSPECIFIED Status: Chronic Qualifiers: (9) Macrocytic anemia Code(s): D53.9 - NUTRITIONAL ANEMIA, UNSPECIFIED Status: Chronic (10) Secondary hyperparathyroidism of renal origin Code(s): N25.81 - SECONDARY HYPERPARATHYROIDISM OF RENAL ORIGIN Status: Chronic - Plan * . Review of Systems - Review of Systems Constitutional: negative: fever, chills, sweats, weakness, malaise, other Eyes: negative: Pain, Vision Change, Conjunctivae Inflammation, Eyelid Inflammation, Redness, Other ENT: negative: Ear Pain, Ear Discharge, Nose Pain, Nose Discharge, Nose Congestion, Mouth Pain, Mouth Swelling, Throat Pain, Throat Swelling, Other Respiratory: negative: Cough, Dry, Shortness of Breath, Hemoptysis, SOB with Excertion, Pleuritic Pain, Sputum, Wheezing Cardiovascular: negative: chest pain, palpitations, orthopnea, paroxysmal nocturnal dyspnea, edema, light headedness, other Gastrointestinal: negative: Nausea, Vomiting, Abdominal Pain, Diarrhea, Constipation, Melena, Hematochezia, Other Genitourinary: negative: Dysuria, Frequency, Incontinence, Hematuria, Retention , Other Musculoskeletal: negative: Neck Pain, Shoulder Pain, Arm Pain, Back Pain, Hand Pain, Leg Pain, Foot Pain, Other Skin: negative: Rash, Lesions, Shabbir, Bruising, Other Neurological: negative: Weakness, Numbness, Incoordination, Change in Speech, Confusion, Seizures, Other - Medications/Allergies Allergies/Adverse Reactions: Allergies Allergy/AdvReac Type Severity Reaction Status Date / Time No Known Drug Allergies Allergy Verified 03/11/18 03:29 Medications: Current Medications Acetaminophen (Tylenol) 650 mg PO Q4H PRN PRN Reason: Headache/Fever or Pain Last Admin: 03/12/18 08:12 Dose: 650 mg Acetaminophen (Tylenol) 650 mg SD Q4H PRN PRN Reason: Headache/Fever or Pain Amiodarone HCl (Cordarone) 100 mg PO [facility] Last Admin: 03/12/18 21:33 Dose: 100 mg Amlodipine Besylate (Norvasc) 10 mg PO DAILY [facility] Last Admin: 03/12/18 08:12 Dose: 10 mg Aspirin (Ecotrin) 81 mg PO DAILY [facility] Last Admin: 03/12/18 08:12 Dose: 81 mg Bisacodyl (Dulcolax) 10 mg PO DAILYPRN PRN PRN Reason: Constipation Calcium Carbonate (Tums) 500 mg PO Q4H PRN PRN Reason: 1ST LINE Calcium Carbonate (Tums) 1,000 mg PO Q4H PRN PRN Reason: 2ND LINE Last Admin: 03/12/18 12:00 Dose: 1,000 mg Captopril (Capoten) 12.5 mg PO BID [facility] Last Admin: 03/12/18 21:34 Dose: 12.5 mg Carvedilol (Coreg) 6.25 mg PO BID [facility] Last Admin: 03/12/18 21:34 Dose: 6.25 mg Cholestyramine Resin (Questran Light) 4 gm PO 1000,2200 [facility] Last Admin: 03/12/18 23:27 Dose: 4 gm Fish Oil (Fish Oil) 1,000 mg PO DAILY [facility] Last Admin: 03/12/18 08:12 Dose: 1,000 mg Gabapentin (Neurontin) 600 mg PO QAM [facility] Last Admin: 03/12/18 08:13 Dose: 600 mg Gabapentin (Neurontin) 300 mg PO QPM [facility] Last Admin: 03/12/18 21:34 Dose: 300 mg Metronidazole 500 mg/ Device 100 mls @ 100 mls/hr IVPB 0100,0900,1700 [facility] Last Admin: 03/12/18 16:37 Dose: 100 mls Cefepime HCl 0.5 gm/Miscellaneous Medication 1 each/ Sodium Chloride 100 mls @ 200 mls/hr IVPB 2359 [facility] Last Admin: 03/12/18 23:27 Dose: 100 mls Indomethacin (Indocin) 50 mg PO Q12H PRN PRN Reason: INFLAMMATION Levothyroxine Sodium (Synthroid) 100 mcg PO 0600 [facility] Last Admin: 03/12/18 06:35 Dose: 100 mcg Ondansetron HCl (Zofran Odt) 4 mg SL Q6H PRN PRN Reason: Nausea/Vomiting Last Admin: 03/12/18 12:01 Dose: 4 mg Rosuvastatin Calcium (Crestor) 10 mg PO HS [facility] Last Admin: 03/12/18 21:35 Dose: 10 mg Saccharomyces Boulardii (Florastor) 250 mg PO DAILY [facility] Last Admin: 03/12/18 08:12 Dose: 250 mg Sevelamer Carbonate (Renvela) 3,200 mg PO TID-WM [facility] Last Admin: 03/12/18 16:37 Dose: 3,200 mg Tizanidine HCl (Zanaflex) 4 mg PO TIDPRN PRN PRN Reason: MUSCLE SPASMS. Vancomycin HCl (First Vancomycin) 125 mg PO QID [facility] Last Admin: 03/12/18 21:33 Dose: 125 mg
[2018-03-13] MEDS: metroNIDAZOLE 500 MG in Premix Bag 1 BAG IVPB SCH ×2 (02:35→09:46)
[2018-03-13] MEDS: Levothyroxine Sodium 100 MCG TAB PO SCH (06:13)
[2018-03-13 08:32] LABS: Anion Gap 17 mmol/L (10-20); BUN (Urea Nitrogen) 42 mg/dL (9.8-20.1); Calc. Creatinine Clearance 9 mL/min (70-130); Carbon Dioxide 24 mmol/L (23-31); Chloride 98 mmol/L (98-107); Estimated GFR-MDRD 5; Glucose 146 mg/dL (80-115); Potassium 3.9 mmol/L (3.5-5.1); Sodium 135 mmol/L (136-145)
[2018-03-13 08:39] LABS: Band 23 % (5-11); Hemoglobin 9.5 g/dL (12.0-16.0); Lymphocytes 17 % (21-51); MDiff Complete? YES; Mean Corpuscular HGB CONC 33.8 g/dL (32.0-36.0); Mean Corpuscular Hemoglobin 35.3 pg (27.0-31.0); Metamyelocyte 1 % (0-0); Monocytes 6 % (0-10); Neutrophil 53 % (42-75); PLT Morphology Comment Appears Decreased; Platelet Count 109 thou/uL (130-400); Poikilocytosis SLIGHT = 6-15 cells (100X) (0-5/hpf); Red Blood Cell (RBC) Count 2.68 mill/uL (4.20-5.40); White Blood Cell (WBC) Count 4.2 thou/uL (4.8-10.8)
[2018-03-13] MEDS: Sevelamer Carbonate 800 MG TAB PO SCH ×3 (09:42→17:25)
[2018-03-13] MEDS: Amlodipine 10 MG TAB PO SCH (09:43)
[2018-03-13] MEDS: Aspirin 81 mg Enteric Coated Tablet PO SCH (09:43)
[2018-03-13] MEDS: Saccharomyces boulardii 250 MG CAP PO SCH (09:45)
[2018-03-13] MEDS: Fish Oil 1,000 MG CAP PO SCH (09:45)
[2018-03-13] MEDS: Carvedilol 6.25 MG TAB PO SCH ×2 (09:45→21:58)
[2018-03-13] MEDS: Gabapentin 300 MG CAP PO SCH ×2 (09:45→21:57)
[2018-03-13] MEDS: Vancomycin HCl 25 MG/ML Oral PO SCH ×4 (09:46→21:57)
[2018-03-13] MEDS: Cholestyramine/Aspartame 4 gm Packet PO SCH ×2 (11:31→21:55)
--- NOTE | 2018-03-13 15:34 | PRG ---
DATE OF SERVICE: 03/13/2018 SUBJECTIVE: Ms. Fontenot denies any chest pain, no abdominal pain, no diarrhea. PHYSICAL EXAMINATION: VITAL SIGNS: Essentially normal. LUNGS: Clear. HEART: S1 and S2, regular rate. No S3 or S4. ABDOMEN: Soft, not distended or tender. LABORATORY DATA: White cell count 4.2, hemoglobin 9.5, platelets 109,000, 23% bands and creatinine 7 .45. She is currently receiving cefepime, Flagyl, and oral vancomycin. Microbiology shows Salmonell a group C susceptible to all the antimicrobials tested, and C. difficile was positive again. Abdomen and pelvis CT, moderate distention of the gallbladder, colonic diverticulosis, vascular disease. Ec hocardiogram, not remarkable. ASSESSMENT AND DISCUSSION: End-stage renal disease, secondary to type 2 diabetes mellitus with AV fi stula for dialysis, previous episode of colitis with a negative workup and nonspecific colitis on pat hology specimen and now with Salmonella bacteremia and positive Clostridium difficile test. Previous studies have shown an increase in propensity of patients with Salmonella gastroenteritis to develop Clostridium difficile colonization. This may be at the base of the association in this patient. In this regard, she may have had Salmonella before and then developed a Clostridium difficile colonizati on following that. Usually, Salmonella gastroenteritis does not require treatment, but in this case, which is bacteremic, so she would require treatment. The duration of therapy is not more than 7 day s. She has received 4 days and has now 3 days to go to complete therapy. After that she should cont inue with her Clostridium difficile treatment. She will be at risk for recurrence of the Clostridium difficile infection. Of note, her gallbladder is distended and some patients do develop colonizatio n of the gallbladder by Salmonella enteritidis, although it is more common with typhoid types of infe ction. Switch her to Rocephin for another 2 days and then discontinue antimicrobials. Continue oral vancomycin. Discontinue Flagyl.
[2018-03-13] MEDS: cefTRIAXone\\ROCEPHIN 1 GM in Sodium Chloride 0.9% 100 ML IVPB SCH (16:34)
--- NOTE | 2018-03-13 18:25 | PDOC.PN ---
- Subjective Encounter Start Date: 03/13/18 Encounter Start Time: 18:25 Patient seen and examined at bedside. States that she is much better. Tolerating her diet. NAD. - Objective MAR Reviewed: Yes Vital Signs & Weight: Vital Signs (12 hours) Temp Pulse Resp BP BP Pulse Ox 03/13/18 16:46 98.2 F 76 18 147/67 H 98 03/13/18 11:35 97.8 F 73 18 120/56 L 98 03/13/18 09:45 132/58 L 03/13/18 09:43 72 132/58 L 03/13/18 08:25 98.3 F 72 18 132/58 L 92 L Weight Weight 167 lb 12.348 oz I&O: 03/12/18 03/13/18 03/14/18 06:59 06:59 06:59 Intake Total 2080 1160 500 Output Total 1000 Balance 1080 1160 500 Result Diagrams: 03/14/18 04:42 03/14/18 04:42 Additional Labs: Accuchecks 03/13/18 03/13/18 03/13/18 16:35 10:49 06:12 POC Glucose 275 H 153 H 175 H 03/12/18 21:30 POC Glucose 174 H EKG Reviewed by me: Yes (sinus @ 70's) Phys Exam - Physical Examination Constitutional: NAD HEENT: PERRLA, moist MMs, sclera anicteric Neck: no JVD Respiratory: no wheezing, no rales, no rhonchi Cardiovascular: RRR, no significant murmur Gastrointestinal: soft, non-tender, no distention, positive bowel sounds Musculoskeletal: pulses present Neurological: non-focal, normal sensation, moves all 4 limbs Psychiatric: normal affect, A&O x 3 Dx/Plan (1) C. difficile colitis Status: Acute Comment: Continue antibiotics. (2) Bacteremia Code(s): R78.81 - BACTEREMIA Status: Acute Comment: on antibiotics. will follow with ID (3) CAD (coronary artery disease) Code(s): I25.10 - ATHSCL HEART DISEASE OF [place] CORONARY ARTERY W/O ANG PCTRS Status: Chronic Qualifiers: (4) Diabetes type 2, controlled Code(s): E11.9 - TYPE 2 DIABETES MELLITUS WITHOUT COMPLICATIONS Status: Chronic Qualifiers: (5) Dyslipidemia Code(s): E78.5 - HYPERLIPIDEMIA, UNSPECIFIED Status: Chronic (6) ESRD (end stage renal disease) on dialysis Code(s): N18.6 - END STAGE RENAL DISEASE; Z99.2 - DEPENDENCE ON RENAL DIALYSIS Status: Chronic Comment: (7) Hypertension Code(s): I10 - ESSENTIAL (PRIMARY) HYPERTENSION Status: Chronic Qualifiers: (8) Hypothyroidism Code(s): E03.9 - HYPOTHYROIDISM, UNSPECIFIED Status: Chronic Qualifiers: (9) Macrocytic anemia Code(s): D53.9 - NUTRITIONAL ANEMIA, UNSPECIFIED Status: Chronic (10) Secondary hyperparathyroidism of renal origin Code(s): N25.81 - SECONDARY HYPERPARATHYROIDISM OF RENAL ORIGIN Status: Chronic - Plan * . Review of Systems - Review of Systems Constitutional: negative: fever, chills, sweats, weakness, malaise, other Eyes: negative: Pain, Vision Change, Conjunctivae Inflammation, Eyelid Inflammation, Redness, Other ENT: negative: Ear Pain, Ear Discharge, Nose Pain, Nose Discharge, Nose Congestion, Mouth Pain, Mouth Swelling, Throat Pain, Throat Swelling, Other Respiratory: negative: Cough, Dry, Shortness of Breath, Hemoptysis, SOB with Excertion, Pleuritic Pain, Sputum, Wheezing Cardiovascular: negative: chest pain, palpitations, orthopnea, paroxysmal nocturnal dyspnea, edema, light headedness, other Gastrointestinal: negative: Nausea, Vomiting, Abdominal Pain, Diarrhea, Constipation, Melena, Hematochezia, Other Genitourinary: negative: Dysuria, Frequency, Incontinence, Hematuria, Retention , Other Musculoskeletal: negative: Neck Pain, Shoulder Pain, Arm Pain, Back Pain, Hand Pain, Leg Pain, Foot Pain, Other Neurological: negative: Weakness, Numbness, Incoordination, Change in Speech, Confusion, Seizures, Other - Medications/Allergies Allergies/Adverse Reactions: Allergies Allergy/AdvReac Type Severity Reaction Status Date / Time No Known Drug Allergies Allergy Verified 03/11/18 03:29 Medications: Current Medications Acetaminophen (Tylenol) 650 mg PO Q4H PRN PRN Reason: Headache/Fever or Pain Last Admin: 03/12/18 08:12 Dose: 650 mg Acetaminophen (Tylenol) 650 mg [place] Q4H PRN PRN Reason: Headache/Fever or Pain Amiodarone HCl (Cordarone) 100 mg PO HS [facility] Last Admin: 03/13/18 21:57 Dose: 100 mg Amlodipine Besylate (Norvasc) 10 mg PO DAILY [facility] Last Admin: 03/13/18 09:43 Dose: 10 mg Aspirin (Ecotrin) 81 mg PO DAILY [facility] Last Admin: 03/13/18 09:43 Dose: 81 mg Bisacodyl (Dulcolax) 10 mg PO DAILYPRN PRN PRN Reason: Constipation Calcium Carbonate (Tums) 500 mg PO Q4H PRN PRN Reason: 1ST LINE Calcium Carbonate (Tums) 1,000 mg PO Q4H PRN PRN Reason: 2ND LINE Last Admin: 03/12/18 12:00 Dose: 1,000 mg Captopril (Capoten) 12.5 mg PO BID [facility] Last Admin: 03/13/18 21:57 Dose: 12.5 mg Carvedilol (Coreg) 6.25 mg PO BID [facility] Last Admin: 03/13/18 21:58 Dose: 6.25 mg Cholestyramine Resin (Questran Light) 4 gm PO 1000,2200 [facility] Last Admin: 03/13/18 21:55 Dose: 4 gm Fish Oil (Fish Oil) 1,000 mg PO DAILY [facility] Last Admin: 03/13/18 09:45 Dose: 1,000 mg Gabapentin (Neurontin) 600 mg PO QAM [facility] Last Admin: 03/13/18 09:45 Dose: 600 mg Gabapentin (Neurontin) 300 mg PO QPM [facility] Last Admin: 03/13/18 21:57 Dose: 300 mg Ceftriaxone Sodium 1 gm/ (Sodium Chloride) 100 mls @ 200 mls/hr IVPB Q24HR@ 1600 [facility] Last Admin: 03/13/18 16:34 Dose: 100 mls Indomethacin (Indocin) 50 mg PO Q12H PRN PRN Reason: INFLAMMATION Levothyroxine Sodium (Synthroid) 100 mcg PO 0600 [facility] Last Admin: 03/14/18 05:46 Dose: 100 mcg Ondansetron HCl (Zofran Odt) 4 mg SL Q6H PRN PRN Reason: Nausea/Vomiting Last Admin: 03/12/18 12:01 Dose: 4 mg Rosuvastatin Calcium (Crestor) 10 mg PO HS [facility] Last Admin: 03/13/18 21:57 Dose: 10 mg Saccharomyces Boulardii (Florastor) 250 mg PO DAILY [facility] Last Admin: 03/13/18 09:45 Dose: 250 mg Sevelamer Carbonate (Renvela) 3,200 mg PO TID-[facility] Last Admin: 03/13/18 17:25 Dose: 3,200 mg Tizanidine HCl (Zanaflex) 4 mg PO TIDPRN PRN PRN Reason: MUSCLE SPASMS. Vancomycin HCl (First Vancomycin) 125 mg PO QID [facility] Last Admin: 03/13/18 21:57 Dose: 125 mg
[2018-03-13] MEDS: Rosuvastatin 10 MG TAB PO SCH (21:57)
[2018-03-13] MEDS: Amiodarone 200 MG TAB PO SCH (21:57)
[2018-03-14] MEDS: Levothyroxine Sodium 100 MCG TAB PO SCH (05:46)
[2018-03-14 06:05] LABS: Anion Gap 16 mmol/L (10-20); BUN (Urea Nitrogen) 54 mg/dL (9.8-20.1); Calc. Creatinine Clearance 8 mL/min (70-130); Calcium 8.1 mg/dL (7.8-10.44); Carbon Dioxide 21 mmol/L (23-31); Chloride 99 mmol/L (98-107); Estimated GFR-MDRD 4; Glucose 163 mg/dL (80-115); Potassium 3.9 mmol/L (3.5-5.1); Sodium 132 mmol/L (136-145)
[2018-03-14 06:24] LABS: Band 20 % (5-11); Hemoglobin 9.2 g/dL (12.0-16.0); Lymphocytes 20 % (21-51); MDiff Complete? YES; Macrocytosis SLIGHT = 6-15 cells (100X) (0-5/hpf); Mean Corpuscular HGB CONC 33.2 g/dL (32.0-36.0); Mean Corpuscular Hemoglobin 34.7 pg (27.0-31.0); Mean Platelet Volume 8.2 fL (7.4-10.4); Monocytes 6 % (0-10); Neutrophil 52 % (42-75); PLT Morphology Comment Appears Decreased; Platelet Count 99 thou/uL (130-400); RBC Distribution Width 14.9 % (11.5-14.5); Reactive Lymphocytes 2 % (0-10); Red Blood Cell (RBC) Count 2.64 mill/uL (4.20-5.40); White Blood Cell (WBC) Count 4.2 thou/uL (4.8-10.8)
[2018-03-14] MEDS: Sevelamer Carbonate 800 MG TAB PO SCH ×3 (08:36→18:34)
[2018-03-14] MEDS: Fish Oil 1,000 MG CAP PO SCH (08:36)
[2018-03-14] MEDS: Amlodipine 10 MG TAB PO SCH (08:36)
[2018-03-14] MEDS: Gabapentin 300 MG CAP PO SCH ×2 (08:36→19:52)
[2018-03-14] MEDS: Carvedilol 6.25 MG TAB PO SCH ×2 (08:36→19:52)
[2018-03-14] MEDS: Vancomycin HCl 25 MG/ML Oral PO SCH ×4 (08:37→19:53)
[2018-03-14] MEDS: Aspirin 81 mg Enteric Coated Tablet PO SCH (08:37)
[2018-03-14] MEDS: Saccharomyces boulardii 250 MG CAP PO SCH (08:37)
[2018-03-14] MEDS: Cholestyramine/Aspartame 4 gm Packet PO SCH ×2 (10:09→20:07)
--- NOTE | 2018-03-14 11:08 | PDOC.PN ---
- Subjective Encounter Start Date: 03/14/18 Encounter Start Time: 11:07 Subjective: no diarrhea, etc - Objective Vital Signs & Weight: Vital Signs (12 hours) Temp Pulse Resp BP BP BP Pulse Ox 03/14/18 08:37 98.7 F 73 16 147/67 H 98 03/14/18 08:36 73 147/67 H 03/14/18 08:34 98.7 F 73 16 147/67 H 98 03/14/18 04:00 98.4 F 71 20 115/57 L 98 03/14/18 00:00 97.8 F 71 16 130/59 L 94 L Weight Weight 173 lb 1.006 oz I&O: 03/13/18 03/14/18 03/15/18 06:59 06:59 06:59 Intake Total 1160 1340 Balance 1160 1340 Result Diagrams: 03/14/18 04:42 03/14/18 04:42 Additional Labs: Accuchecks 03/14/18 03/13/18 05:45 16:35 POC Glucose 164 H 275 H Phys Exam - Physical Examination Neck: no JVD Respiratory: clear to auscultation bilateral Cardiovascular: RRR 2/6 sys murmur Gastrointestinal: soft, positive bowel sounds Musculoskeletal: no edema Dx/Plan (1) Pancytopenia Code(s): D61.818 - OTHER PANCYTOPENIA Status: Acute (2) ESRD (end stage renal disease) Code(s): N18.6 - END STAGE RENAL DISEASE Status: Acute (3) Bacteremia Code(s): R78.81 - BACTEREMIA Status: Acute Comment: on antibiotics. will follow with ID (4) C. difficile colitis Status: Acute Comment: Continue antibiotics. (5) CAD (coronary artery disease) Code(s): I25.10 - ATHSCL HEART DISEASE OF [place] CORONARY ARTERY W/O ANG PCTRS Status: Chronic Qualifiers: Coronary Disease-Associated Artery/Lesion type: [place] artery [place] vs. transplanted heart: [place] heart Associated angina: without angina Qualified Code(s): I25.10 - Atherosclerotic heart disease of [place] coronary artery without angina pectoris (6) Chronic anticoagulation Code(s): Z79.01 - HALFWAY (CURRENT) USE OF ANTICOAGULANTS Status: Chronic (7) Diabetes type 2, controlled Code(s): E11.9 - TYPE 2 DIABETES MELLITUS WITHOUT COMPLICATIONS Status: Chronic Qualifiers: Diabetes mellitus complication status: with kidney complications Diabetes mellitus complication detail: with chronic kidney disease Chronic kidney disease stage: on chronic dialysis (8) Dyslipidemia Code(s): E78.5 - HYPERLIPIDEMIA, UNSPECIFIED Status: Chronic - Plan cont iv antibx x 48hrs -: cont vancomycin po -: selected home meds * .
[2018-03-14] MEDS: cefTRIAXone\\ROCEPHIN 1 GM in Sodium Chloride 0.9% 100 ML IVPB SCH (18:34)
[2018-03-14] MEDS: Acetaminophen 325 MG TAB PO PRN (19:51)
[2018-03-14] MEDS: Amiodarone 200 MG TAB PO SCH (19:52)
[2018-03-14] MEDS: Rosuvastatin 10 MG TAB PO SCH (19:52)
[2018-03-14] MEDS: Calcium Carbonate 500 MG ChewTAB PO PRN (19:52)
[2018-03-15] MEDS: Levothyroxine Sodium 100 MCG TAB PO SCH (05:21)
[2018-03-15] MEDS: Vancomycin HCl 25 MG/ML Oral PO SCH ×3 (09:00→17:25)
[2018-03-15] MEDS: Sevelamer Carbonate 800 MG TAB PO SCH ×3 (10:06→17:25)
[2018-03-15] MEDS: Aspirin 81 mg Enteric Coated Tablet PO SCH (10:07)
[2018-03-15] MEDS: Carvedilol 6.25 MG TAB PO SCH (10:07)
[2018-03-15] MEDS: Saccharomyces boulardii 250 MG CAP PO SCH (10:07)
[2018-03-15] MEDS: Gabapentin 300 MG CAP PO SCH (10:07)
[2018-03-15] MEDS: Fish Oil 1,000 MG CAP PO SCH (10:07)
[2018-03-15] MEDS: Amlodipine 10 MG TAB PO SCH (10:08)
--- NOTE | 2018-03-15 10:15 | PDOC.PN ---
- Subjective Encounter Start Date: 03/15/18 Encounter Start Time: 10:14 Subjective: 1 episode loose stools - Objective MAR Reviewed: Yes Vital Signs & Weight: Vital Signs (12 hours) Temp Pulse Resp BP Pulse Ox 03/15/18 08:16 97.8 F 66 18 145/66 H 100 03/15/18 04:00 97.0 F L 64 18 127/61 100 Weight Weight 173 lb 1.006 oz I&O: 03/14/18 03/15/18 03/16/18 06:59 06:59 06:59 Intake Total 1340 Output Total 1999 Balance 134 -1999 Result Diagrams: 03/14/18 04:42 03/14/18 04:42 Additional Labs: Accuchecks 03/15/18 03/14/18 03/14/18 05:25 20:50 11:00 POC Glucose 174 H 174 H 216 H 03/14/18 03/13/18 03/13/18 05:45 22:01 20:50 POC Glucose 164 H 186 H 206 H Phys Exam - Physical Examination Neck: no JVD Respiratory: clear to auscultation bilateral Cardiovascular: RRR, no significant murmur Gastrointestinal: soft, non-tender, positive bowel sounds Musculoskeletal: no edema Dx/Plan (1) Pancytopenia Code(s): D61.818 - OTHER PANCYTOPENIA Status: Acute (2) ESRD (end stage renal disease) Code(s): N18.6 - END STAGE RENAL DISEASE Status: Acute (3) Bacteremia Code(s): R78.81 - BACTEREMIA Status: Acute Comment: on antibiotics. will follow with ID (4) C. difficile colitis Status: Acute Comment: Continue antibiotics. (5) CAD (coronary artery disease) Code(s): I25.10 - ATHSCL HEART DISEASE OF [place] CORONARY ARTERY W/O ANG PCTRS Status: Chronic Qualifiers: Coronary Disease-Associated Artery/Lesion type: [place] artery [place] vs. transplanted heart: [place] heart Associated angina: without angina Qualified Code(s): I25.10 - Atherosclerotic heart disease of [place] coronary artery without angina pectoris (6) Chronic anticoagulation Code(s): Z79.01 - RESIDENTIAL (CURRENT) USE OF ANTICOAGULANTS Status: Chronic (7) Diabetes type 2, controlled Code(s): E11.9 - TYPE 2 DIABETES MELLITUS WITHOUT COMPLICATIONS Status: Chronic Qualifiers: Diabetes mellitus complication status: with kidney complications Diabetes mellitus complication detail: with chronic kidney disease Chronic kidney disease stage: on chronic dialysis (8) Dyslipidemia Code(s): E78.5 - HYPERLIPIDEMIA, UNSPECIFIED Status: Chronic - Plan cont iv rocephin 1 more day -: cont po vancomycin -: cont captopril, coreg, amiodarone * .
[2018-03-15] MEDS: Cholestyramine/Aspartame 4 gm Packet PO SCH (12:52)
--- NOTE | 2018-03-15 17:08 | DIS ---
PRIMARY CARE PROVIDER: Dr. Fly Vargas. DATE OF ADMISSION: 03/11/2018 DATE OF DISCHARGE: 03/15/2018 FINAL DIAGNOSES: Clostridium difficile colitis, salmonella bacteremia, sensitive to ceftriaxone, end -stage renal disease on hemodialysis, pancytopenia, coronary artery disease, chronic anticoagulation, diabetes mellitus type 2, dyslipidemia, hypertension, hypothyroidism, and paroxysmal atrial fibrilla tion. DISCHARGE MEDICATIONS: Sevelamer 3200 mg 3 times a day, tizanidine 4 mg t.i.d. p.r.n., gabapentin 60 0 mg in the morning and 300 at bedtime, amlodipine 10 mg a day, Cordarone 10 mg at bedtime, Coreg 6.2 5 mg p.o. b.i.d., captopril 12.5 mg p.o. b.i.d., aspirin 81 mg a day, and Crestor 20 mg a day, fish o [place] omega 3 soft gel 1 cap daily, Synthroid 100 mcg a day, insulin glargine 30 units at bedtime, Couma din 7.5 mg a day, Florastor 250 mg a day, tramadol 50 mg 3 times a day, Rocephin 1 gram IV piggyback through 03/16/2018, which will be tomorrow, vancomycin 125 mg p.o. q.i.d., Zofran oral dissolving tab let 4 mg sublingual q.4 hours at bedtime p.r.n., and Tylenol 650 mg p.o. q.4 hours p.r.n. ALLERGIES: No known drug allergies. CODE STATUS: FULL. PENDING AT THE TIME OF DISCHARGE: Nothing. HOSPITAL COURSE: The patient admitted to [facility] through [facility]. S he was admitted with an altered mental status, some diarrhea. Chest x-ray showed no infiltrates. CT of the brain showed nothing remarkable. CT scan of the abdomen was done revealing normal white coun t, but bands 36% and a neutrophil count of 50%, indeterminate troponin, creatinine 7.7. The patient' s blood culture started. C. diff was started. IV antibiotics were started. Accu-Cheks, sliding sca le were started. Her INR was elevated and her warfarin was held. She was seen in consultation by Dr Karen Carlos, Cardiology, who recommended echocardiogram, continue aspirin, resume cardiac medicin es. Echocardiogram revealed EF of 50% to 55%, mild mitral regurgitation. Dr. Santiago Cherry, Infecti ous Disease saw the patient. The patient's blood cultures grew 2/2 salmonella, which eventually was determined to be sensitive to Rocephin. Her antibiotics for that point deescalated to Rocephin. She finishes her IV dose was suggested by Dr. Cherry tomorrow 03/16/2018. She was started on vancomycin 125 mg p.o. q.i.d. Her diarrhea improved dramatically. Her final electrolytes on 03/14/2018, sodium 132, potassium 3.9, CO2 of 21, BUN 54, creatinine 8.9. Blood sugars were modestly elevated in the 1 00-200 range. Her warfarin had not been restarted and I restarted it now discharge. She is being di scharged to rehab under the care of Dr. Yan, PT/OT etc. She will get her last dose of Rocephin at the rehab. She will need monitoring of PT/INR every other day over the next several days for her Coumadin. She will also require before meal and at bedtime Accu-Cheks for monitoring her diabet es. The patient has done quite well during her hospital stay. Currently, she is alert, oriented. C ardiorespiratory and abdominal exam is normal. Vital signs are stable. I have discussed transfer wi th her and she is agreeable. Thirty-five minutes preparing this discharge.
[2018-03-15] MEDS: cefTRIAXone\\ROCEPHIN 1 GM in Sodium Chloride 0.9% 100 ML IVPB SCH (17:25)
[2018-03-15 17:31] VITALS: BP 141/67; TEMP 98.5
== END 2018-03-15 19:10 | DRG 871 ==
LOC: ERS 19:47 → 2NO 23:00
PROVIDERS: ADMIT Hospitalist; ATTEND Hospitalist
PROC: 5A1D70Z Performance of Urinary Filtration, Intermittent, Less than 6 Hours Per Day (ICD-10-PCS; principal; 2018-03-11)
PROC: 5A1D70Z Performance of Urinary Filtration, Intermittent, Less than 6 Hours Per Day (ICD-10-PCS; 2018-03-14)
DX: A41.9 Sepsis, unspecified organism (principal); N18.6 End stage renal disease; G93.40 Encephalopathy, unspecified; I12.0 Hypertensive chronic kidney disease with stage 5 chronic kidney disease or end stage renal disease; A04.72 Enterocolitis due to Clostridium difficile, not specified as recurrent; A02.9 Salmonella infection, unspecified; N25.81 Secondary hyperparathyroidism of renal origin; D61.818 Other pancytopenia; I48.0 Paroxysmal atrial fibrillation; I25.10 Atherosclerotic heart disease of native coronary artery without angina pectoris; E78.5 Hyperlipidemia, unspecified; E03.9 Hypothyroidism, unspecified; E11.22 Type 2 diabetes mellitus with diabetic chronic kidney disease; Z99.2 Dependence on renal dialysis; D63.1 Anemia in chronic kidney disease; Z79.01 Long term (current) use of anticoagulants; Z79.82 Long term (current) use of aspirin; Z79.4 Long term (current) use of insulin; Z95.1 Presence of aortocoronary bypass graft; Z95.5 Presence of coronary angioplasty implant and graft
CPT/HCPCS: 36415; 36416; 51701; 70450; 71045; 74176; 74177; 80048; 80053; 80307; 81003; 81015; 82553; 83605; 83735; 84484; 85025; 85610; 87040; 87077; 87149; 87186; 87324; 87449; 87493; 93005; 93010; 93306; 96361; 96365; 96367; A4353; G8978-GP-CK; G8979-GP-CI; J0692; J0696; J1580; J3370; J7050; Q0162

== ENCOUNTER 2018-05-27 10:22 | Inpatient (IN) | payer MEDICARE, BC ==
[2018-05-27 11:09] LABS: #Eosinphils 0.1 thou/uL (0.0-0.7); #Lymphocytes 0.9 thou/uL (1.20-3.40); #Monocytes 0.2 thou/uL (0.11-0.59); #Neutrophils 3.2 thou/uL (1.40-6.50); %Basophils 0.5 % (0.0-1.0); %Eosinophils 3.2 % (0.0-10.0); %Monocytes 5.2 % (0.0-10.0); Hemoglobin 8.4 g/dL (12.0-16.0); Mean Corpuscular HGB CONC 32.6 g/dL (32.0-36.0); Mean Corpuscular Hemoglobin 32.1 pg (27.0-31.0); Mean Corpuscular Volume 98.3 fL (78.0-98.0); Mean Platelet Volume 7.4 fL (7.4-10.4); Platelet Count 201 thou/uL (130-400); Red Blood Cell (RBC) Count 2.61 mill/uL (4.20-5.40); White Blood Cell (WBC) Count 4.5 thou/uL (4.8-10.8)
[2018-05-27 11:14] LABS: INR-International Normal Ratio 3.4; Prothrombin Time 34.5 SEC (12.0-14.7)
[2018-05-27 11:15] LABS: PTT 93.5 SEC (22.9-36.1)
[2018-05-27 11:27] LABS: ALT (SGPT) 18 U/L (8-55); AST (SGOT) 21 U/L (5-34); Albumin 3.6 g/dL (3.4-4.8); Alkaline Phosphatase 111 U/L (40-150); Anion Gap 16 mmol/L (10-20); BUN (Urea Nitrogen) 52 mg/dL (9.8-20.1); Bilirubin, Total 0.7 mg/dL (0.2-1.2); CK (CPK) 111 U/L (29-168); Calc. Creatinine Clearance 0 mL/min (70-130); Calcium 8.8 mg/dL (7.8-10.44); Carbon Dioxide 25 mmol/L (23-31); Chloride 96 mmol/L (98-107); Estimated GFR-MDRD 5; Glucose 550 mg/dL (80-115); Potassium 4.3 mmol/L (3.5-5.1); Protein, Total 6.6 g/dL (6.0-8.3); Sodium 133 mmol/L (136-145)
[2018-05-27 11:32] LABS: Troponin I 0.019 ng/mL (< 0.028)
[2018-05-27] MEDS ORDERED: Insulin Regular 300 UNITS/3 ML VIAL ONE (12:06)
--- NOTE | 2018-05-27 15:01 | RAD ---
AP VIEW CHEST: HISTORY: Dyspnea. FINDINGS: AP view chest is obtained on 05/27/2018. Comparison is made to previous exam from 03/10/2018. AP view chest demonstrates sternotomy wires seen. Cardiomegaly is seen. Pulmonary vascular congesti on is noted. No evidence of effusion seen. No evidence of pneumothorax is seen. IMPRESSION: Cardiomegaly and pulmonary vascular congestion. There may be some component of diffuse airspace opac ities bilaterally and symmetrically. POS: [facility]
[2018-05-27] MEDS ORDERED: Dextrose 50% Abboject 50 ML SYRINGE SLOW IVP PRN (17:16)
[2018-05-27] MEDS ORDERED: Dextrose 5% in Water 1,000 ML IV PRN (17:16)
[2018-05-27 19:03] LABS: Troponin I 0.016 ng/mL (< 0.028)
[2018-05-27] MEDS: Acetaminophen 325 MG TAB PO PRN (19:44)
[2018-05-27] MEDS ORDERED: Famotidine 20 MG TAB PO SCH (21:00)
[2018-05-27 22:11] LABS: Actual Bicarbonate (HCO3a) 22.9 mEq/L (22-28); Base Excess (BEa) -1.5 mEq/L (-2.0 to +3.0); CO2 Tension 37.5 mmHg (35.0-45.0); Calcium, Ionized 1.11 mmol/L (1.12-1.30); Carboxyhemoglobin (COHb) 1.4 gm% (0.0-3.0); Hemoglobin (Hb) 9.9 g/dL (12.0-16.0); Potassium - ABG Lab 4.03 mmol/L (3.70-5.30)
[2018-05-27 22:12] LABS: O2 Tension (PaO2) 52.1 mmHg (> 80.0)
[2018-05-27 22:13] LABS: ALV-art Gradient 328.825 (0-20); Puncture Site L RADIAL
[2018-05-27] MEDS ORDERED: Fentanyl 100 MCG/2 ML VIAL ONE (22:28)
[2018-05-27] MEDS ORDERED: CCU Electrolyte Replacement 1 EACH IVPB SCH (22:49)
[2018-05-27] MEDS ORDERED: Norepinephrine 8 MG/0.9% NS 250 ML IVPB PRN (22:49)
[2018-05-27] MEDS ORDERED: Lacri-Lube Opth Oint 3.5 GM TUBE EA EYE PRN (22:49)
[2018-05-27] MEDS ORDERED: Ventilator Sedation Protocol 1 EACH FS SCH (22:56)
[2018-05-27 23:00] LABS: Actual Bicarbonate (HCO3a) 22.9 mEq/L (22-28); Base Excess (BEa) -1.3 mEq/L (-2.0 to +3.0); CO2 Tension 36.4 mmHg (35.0-45.0); Carboxyhemoglobin (COHb) 1.4 gm% (0.0-3.0); Hemoglobin (Hb) 10.7 g/dL (12.0-16.0); O2 Tension (PaO2) 85.2 mmHg (> 80.0); Potassium - ABG Lab 4.03 mmol/L (3.70-5.30); pH, Arterial 7.42 (7.35-7.45)
[2018-05-27] MEDS ORDERED: Fentanyl 100 MCG/2 ML VIAL SLOW IVP SCH (23:00)
[2018-05-27] MEDS ORDERED: methylPREDNISolone Sod Succ/PF 125 MG/2 ML VIAL IVP SCH (23:00)
[2018-05-27] MEDS ORDERED: Oseltamivir 6 MG/ML ORAL SUSP PO SCH (23:00)
[2018-05-27 23:05] LABS: Puncture Site LRA
[2018-05-27] MEDS ORDERED: Propofol 1,000 MG/100 ML VIAL IV ONE (23:08)
[2018-05-27] MEDS ORDERED: Potassium Chloride 40 MEQ in Premix Bag 1 BAG IVPB PRN (23:10)
[2018-05-27] MEDS ORDERED: Potassium Chloride 40 MEQ in Sodium Chloride 0.9% 250 ML 250 ML IVPB PRN (23:10)
[2018-05-27] MEDS ORDERED: Potassium Chloride 20 MEQ TAB PO PRN (23:10)
[2018-05-27] MEDS ORDERED: Potassium Phosphate 9 MMOL in Sodium Chloride 0.9% 100 ML IVPB PRN (23:10)
[2018-05-27] MEDS ORDERED: CCU ELECTROLYTE REPLACEMENT PROTOCOL FS PRN (23:10)
[2018-05-27] MEDS ORDERED: Magnesium 2 GM/NS 0.9% 100 ML 2 GM in Premix Bag 1 BAG IVPB PRN (23:10)
[2018-05-27] MEDS ORDERED: Potassium Phosphate 12 MMOL in Sodium Chloride 0.9% 250 ML 250 ML IV PRN (23:10)
[2018-05-27] MEDS ORDERED: Potassium Phosphate 15 MMOL in Sodium Chloride 0.9% 250 ML 250 ML IV PRN (23:10)
[2018-05-27] MEDS ORDERED: Magnesium Oxide 400 MG TAB PO PRN ×2 (23:10)
[2018-05-27] MEDS ORDERED: Propofol BOLUS 1,000 MG/100 ML VIAL IV PRN (23:11)
[2018-05-27] MEDS ORDERED: Fentanyl BOLUS 250 ML IVPB PRN (23:11)
[2018-05-27] MEDS ORDERED: fentaNYL Citrate/PF 2,000 MCG in Sodium Chloride 0.9% 60 ML IV SCH (23:11)
[2018-05-27] MEDS ORDERED: DISCONTINUE PREVIOUS NARCOTIC PAIN MEDICATIONS AND BENZODIAZEPINES FS SCH (23:11)
[2018-05-27] MEDS ORDERED: Heparin 5,000 UNITS/ML VIAL SC SCH (23:15)
[2018-05-27] MEDS: Heparin 5,000 UNITS/ML VIAL SC SCH (23:17)
[2018-05-27] MEDS: Propofol 1,000 MG/100 ML VIAL IV PRN (23:20)
--- NOTE | 2018-05-27 23:36 | RAD ---
CHEST ONE VIEW: 05/27/18 INDICATION: History of intubation. COMPARISON: Prior exam dated 05/27/18 at 1:44 p.m. FINDINGS: The patient has been intubated. The ET tube tip is seen 4 cm from the level of the rene. Gastric ca theter projects at the level of the left hemidiaphragm and beyond the field of view. There is worseni ng bilateral perihilar air space opacity suspicious for worsening edema. Cardiomegaly persists. There is small bilateral pleural effusions, left greater than right. IMPRESSION: 1. Interval intubation and gastric catheter placement. 2. Worsening bilateral pulmonary edema and small pleural effusions. POS: [facility]
[2018-05-28] MEDS: Lorazepam 2 MG/ML VIAL SLOW IVP PRN ×4 (00:35→22:48)
[2018-05-28 00:45] LABS: HBSAg Index 0.17 S/CO (0-0.99)
[2018-05-28 00:46] LABS: Hep B Surf Ag NonReactive S/CO (NonReactive)
[2018-05-28] MEDS ORDERED: Etomidate 20 MG/10 ML VIAL ONE (01:00)
[2018-05-28] MEDS ORDERED: Succinylcholine Chloride 20 MG/ML 10 ml SYRINGE FS ONE (01:00)
[2018-05-28] MEDS: methylPREDNISolone Sod Succ/PF 125 MG/2 ML VIAL IVP SCH ×2 (04:01→08:44)
[2018-05-28] MEDS: HumaLOG 300 UNITS/3 ML VIAL SC PRN ×4 (04:41→20:45)
[2018-05-28] MEDS: Propofol 1,000 MG/100 ML VIAL IV PRN (04:48)
--- NOTE | 2018-05-28 06:23 | PDOC.EVN ---
Event Note - Event Note Event Note: h&p dictation [id number]
[2018-05-28 06:37] LABS: ALV-art Gradient 323.125 (0-20); Actual Bicarbonate (HCO3a) 20.9 mEq/L (22-28); Base Excess (BEa) -1.2 mEq/L (-2.0 to +3.0); CO2 Tension 26.7 mmHg (35.0-45.0); Carboxyhemoglobin (COHb) 1.3 gm% (0.0-3.0); Hemoglobin (Hb) 10.4 g/dL (12.0-16.0); O2 Tension (PaO2) 71.3 mmHg (> 80.0); Potassium - ABG Lab 3.67 mmol/L (3.70-5.30); Puncture Site RRA; pH, Arterial 7.51 (7.35-7.45)
[2018-05-28 06:55] LABS: #Lymphocytes 0.6 thou/uL (1.20-3.40); #Neutrophils 6.6 thou/uL (1.40-6.50); %Basophils 0.3 % (0.0-1.0); %Eosinophils 0.3 % (0.0-10.0); %Lymphocytes 7.8 % (21.0-51.0); %Monocytes 0.4 % (0.0-10.0); %Neutrophils 91.2 % (42.0-75.0); Hemoglobin A1c 6.4 % (4.0-6.0); Mean Corpuscular HGB CONC 32.9 g/dL (32.0-36.0); Mean Corpuscular Hemoglobin 31.7 pg (27.0-31.0); Mean Corpuscular Volume 96.3 fL (78.0-98.0); Mean Platelet Volume 6.7 fL (7.4-10.4); Platelet Count 275 thou/uL (130-400); RBC Distribution Width 14.4 % (11.5-14.5); Red Blood Cell (RBC) Count 3.17 mill/uL (4.20-5.40); White Blood Cell (WBC) Count 7.2 thou/uL (4.8-10.8)
[2018-05-28 06:56] LABS: Anion Gap 22 mmol/L (10-20); BUN (Urea Nitrogen) 20 mg/dL (9.8-20.1); Calc. Creatinine Clearance 18 mL/min (70-130); Calcium 9.7 mg/dL (7.8-10.44); Carbon Dioxide 21 mmol/L (23-31); Cardiac Risk 3.9 (Less than 4.5); Chloride 97 mmol/L (98-107); Cholesterol 93 mg/dl (< 200 Desired); Estimated GFR-MDRD 12; Glucose 286 mg/dL (80-115); HDL Cholesterol 24 mg/dL (>60 Neg Risk); LDL Cholesterol, Calculated 17 mg/dL; Potassium 3.7 mmol/L (3.5-5.1); Sodium 136 mmol/L (136-145); Triglycerides 260 mg/dL (Less than 150)
--- NOTE | 2018-05-28 07:02 | PDOC.EVN ---
Event Note - Event Note Event Note: WARD ATTENDANT was called ~ 9:30pm Patient admitted for SOB, Cough, likely viral syndrome. Patient currently in respiratory distress. Saturation of 80's on non-rebreather. On evaluation: patient is in sever distress on non-rebreather, diaphoretic, using accessory muscles to breath. Course breath sound with wheezes bilaterally at anterior lung elaine with rales at the posterior lung bases. Vitals: BP 226/188 HR 92 O2 sat 92 on 100% fiO2 RR 35 Assessment and plan: Acute respiratory failure: - ABG ordered, solumedrol, duonebs treatment, basic labs, Tamiflu for viral syndrome, respiratory panel ordered, Transfer patient to ICU, Intubation, Central Service Tech called and acute hemodialysis scheduled after intubation, [facility] [employer] Operator made aware. critical care time ~ 75 mins.
[2018-05-28 07:09] LABS: INR-International Normal Ratio 2.6; Prothrombin Time 27.7 SEC (12.0-14.7)
[2018-05-28] MEDS: Aspirin 325 MG TAB PO SCH (08:44)
[2018-05-28] MEDS: Heparin 5,000 UNITS/ML VIAL SC SCH (08:44)
[2018-05-28] MEDS: Famotidine/PF 20 mg/2ml Vial SLOW IVP SCH (08:44)
--- NOTE | 2018-05-28 08:52 | PDOC.PN ---
- Subjective Encounter Start Date: 05/28/18 Encounter Start Time: 08:51 Ms. Fontenot was seen today in follow-up of acute respiratory failure. She is intubated and sedated. According to nursing staff she is responsive, and no problems noted. - Objective Resuscitation Status: Resuscitation Status FULL:Full Resuscitation MAR Reviewed: Yes Vital Signs & Weight: Vital Signs (12 hours) Temp Pulse Pulse Pulse Pulse Pulse Pulse 05/28/18 08:00 99.9 F H 05/28/18 07:47 05/28/18 06:52 82 05/28/18 06:00 05/28/18 04:00 98.9 F 05/28/18 02:34 93 05/28/18 02:00 05/28/18 01:00 98.7 F 05/27/18 22:52 119 H 05/27/18 22:30 05/27/18 21:51 91 95 98 96 96 Pulse Pulse Resp Resp Resp Resp Resp 05/28/18 08:00 16 05/28/18 07:47 16 05/28/18 06:52 05/28/18 06:00 21 H 05/28/18 04:00 18 05/28/18 02:34 05/28/18 02:00 16 05/28/18 01:00 05/27/18 22:52 05/27/18 22:30 16 05/27/18 21:51 102 H 95 36 H 34 H 36 H 36 H Resp Resp BP BP BP BP BP 05/28/18 08:00 05/28/18 07:47 05/28/18 06:52 149/73 H 05/28/18 06:00 05/28/18 04:00 05/28/18 02:34 204/78 H 05/28/18 02:00 05/28/18 01:00 05/27/18 22:52 191/97 H 05/27/18 22:30 05/27/18 21:51 38 H 36 H 226/88 H 222/88 H 183/85 H 221/95 H BP BP BP BP Pulse Ox Pulse Ox Pulse Ox 05/28/18 08:00 05/28/18 07:47 96 05/28/18 06:52 05/28/18 06:00 05/28/18 04:00 05/28/18 02:34 05/28/18 02:00 05/28/18 01:00 05/27/18 22:52 05/27/18 22:30 05/27/18 21:51 227/95 H 216/88 H 215/99 H 206/95 H 93 L 92 L Pulse Ox Pulse Ox Pulse Ox Pulse Ox Pulse Ox Pulse Ox 05/28/18 08:00 05/28/18 07:47 05/28/18 06:52 05/28/18 06:00 05/28/18 04:00 05/28/18 02:34 05/28/18 02:00 05/28/18 01:00 05/27/18 22:52 05/27/18 22:30 05/27/18 21:51 94 L 92 L 90 L 95 92 L 100 Weight Weight 170 lb 13.732 oz Most Recent Monitor Data Heart Rate from ECG 82 NIBP 114/59 NIBP BP-Mean 77 Respiration from ECG 16 SpO2 100 I&O: 05/27/18 05/28/18 05/29/18 06:59 06:59 06:59 Intake Total 182 Output Total 50 Balance 132 Result Diagrams: 05/28/18 06:31 05/28/18 06:31 Additional Labs: Accuchecks 05/28/18 05/27/18 05/27/18 04:37 21:09 14:50 POC Glucose 231 H 248 H 165 H 05/27/18 12:10 POC Glucose 435 H Radiology Reviewed by me: Yes (Cardiomegaly- Increased pulm. congestion) Phys Exam - Physical Examination HEENT: PERRLA, sclera anicteric Respiratory: no wheezing, clear to auscultation bilateral + rhonchi bilaterally, good air movement Cardiovascular: RRR, no significant murmur, no rub no gallop Gastrointestinal: soft, no distention, positive bowel sounds Musculoskeletal: no edema, pulses present Dx/Plan (1) Acute respiratory failure with hypoxemia Code(s): J96.01 - ACUTE RESPIRATORY FAILURE WITH HYPOXIA Status: Acute (2) Volume overload Code(s): E87.70 - FLUID OVERLOAD, UNSPECIFIED Status: Acute (3) Chronic anticoagulation Code(s): Z79.01 - LONGTERM (CURRENT) USE OF ANTICOAGULANTS Status: Chronic (4) Diabetes type 2, controlled Code(s): E11.9 - TYPE 2 DIABETES MELLITUS WITHOUT COMPLICATIONS Status: Chronic Qualifiers: Diabetes mellitus complication status: with kidney complications Diabetes mellitus complication detail: with chronic kidney disease Chronic kidney disease stage: on chronic dialysis (5) ESRD (end stage renal disease) on dialysis Code(s): N18.6 - END STAGE RENAL DISEASE; Z99.2 - DEPENDENCE ON RENAL DIALYSIS Status: Chronic Comment: (6) Hypertension Code(s): I10 - ESSENTIAL (PRIMARY) HYPERTENSION Status: Chronic Qualifiers: (7) Paroxysmal atrial fibrillation Code(s): I48.0 - PAROXYSMAL ATRIAL FIBRILLATION Status: Chronic Comment: in NSR - Plan * .Acute hypoxic respiratory failure- this is likely due to volume overload- She was dialyzed last night, and Chest X-ray does appear better- will also check a BNP to see if this is elevated, as well as Procalcitonin- to help determine if there is an infectious process as well. Await further recommendations from [facility]. Rapid Influenza screen was negative * DM- blood glucose is uncontrolled from IV steroids- will add a low dose long acting insulin * HTN- blood pressure is low normal * ESRD- continue as per Nephrology, and will discontinue the CCU electrolyte protocol * Nutritional support- may need to add tube feeds depending on how long she will require intubation * PAF- her heart rate is stable- and INR is in an acceptable range- continue to monitor PT/INR
[2018-05-28] MEDS: cefTRIAXone\\ROCEPHIN 1 GM in Sodium Chloride 0.9% 100 ML IVPB SCH (10:44)
--- NOTE | 2018-05-28 11:09 | RAD ---
FRONTAL VIEW CHEST: COMPARISON: Previous day. INDICATION: Evaluation of tube placement. FINDINGS: Endotracheal tube and enteric catheter remain, grossly stable. There i9s extensive opacification rem aining within the right lung, although slightly less confluent. Persistent patchy left perihilar opa city remains. There is right pleural fluid. No additional significant interval change. IMPRESSION: 1. Persistent bilateral parenchymal opacities, although slightly less confluent. 2. Progressing right pleural fluid. 3. Continued followup as warranted. POS: [facility]
--- NOTE | 2018-05-28 15:15 | CON ---
DATE OF CONSULTATION: 05/28/2018 DATE OF ADMISSION: 05/27/2018 INDICATION FOR CONSULTATION: A 63-year-old female with acute respiratory distress and volume overloa d. HISTORY OF PRESENT ILLNESS: This very unfortunate 63-year-old female who has end-stage renal disease and has been on hemodialysis on Wednesday, Wednesdays, Fridays, missed her dialysis yesterday because s he was not feeling well. She said she was hurting all over. She was short of breath. She thought s he was getting the flu. She then presented to the emergency room and was admitted to the hospital an d appears by chest x-ray that she has volume overload with congestive heart failure and also may have underlying right-sided pneumonia. I believe her flu evaluation done was negative for any acute flu syndrome. She has had a history of coronary artery disease in the past, underwent bypass surgery in 2011 with a MORENO to left anterior descending also saphenous vein graft to the obtuse marginal branch of the left circumflex, posterior descending artery of the right coronary artery and also saphenous v ein graft to a diagonal branch. She underwent cardiac catheterization in 2014, the bypasses were ope n except for there was a saphenous vein graft to the diagonal branch which was occluded. She has bee n doing relatively well from a cardiac standpoint. When she arrived at this time, EKG shows a sinus rhythm, but no acute changes. Her cardiac enzymes are negative. Her BNP was elevated at 1367. At t his time, she is on the ventilator. She has been intubated and appears to be relatively comfortable. She has a history of diabetes and this was very poorly controlled and her hypertension has improved . Last night, she did undergo dialysis and I believe several liters were removed, but she still by c hest x-ray appears to be wet this morning and remains on the ventilator. Her ABGs show a pH of 7.51, pCO2 of 26.5, pO2 of 71.3, and 93% saturation. PAST MEDICAL HISTORY: Significant for paroxysmal atrial fibrillation, hypertension, coronary artery disease, status post bypass surgery, dyslipidemia, type 2 diabetes, hypothyroidism, end-stage renal d isease, chronic anemia, kidney problems, due to her renal insufficiency. She has had bilateral catar act surgery, appendectomy, back surgery, right hip surgery. She has had dialysis accesses in the rig ht arm and she has had apparently some angioplasty and stent placements in the past. ALLERGIES: None. PRESENT MEDICATIONS: She has been recently just started on Rocephin for possible pneumonia. OTHER MEDICATIONS: Include methylprednisolone. She has also been given a dose of Tamiflu. She is o n aspirin 325 a day, Pepcid, heparin, Coumadin, Tylenol. She is on propofol. She has been given mag nesium as needed, p.r.n. medications. Previously, she was on REINIER inhibitors, beta blockers, insulin, Crestor, Coumadin and amiodarone. REVIEW OF SYSTEMS: Not obtainable at this time. SOCIAL HISTORY: She has children who are alive and well and are supportive care. There is no alcoho l or tobacco abuse at this time. FAMILY HISTORY: Noncontributory. PHYSICAL EXAMINATION: GENERAL: Reveals an elderly female who is in no acute distress at this time. She is slightly sedate d on the ventilator. VITAL SIGNS: Blood pressure 133/55, heart rate is 90 and regular, shows a sinus rhythm, temperature is 99.9, respiratory rate 16. HEENT: Shows head to be normocephalic and atraumatic. Carotid pulses are present. I did not hear a ny bruits. CHEST: Has right-sided rhonchi which are scattered coarse rales. CARDIOVASCULAR: Exam reveals a regular rate and rhythm with normal S1, S2. She has well-healed midl ine surgical incision after median sternotomy for bypass surgery. ABDOMEN: Obese with positive bowel sounds. EXTREMITIES: Show no clubbing, cyanosis or edema. She does have some mild discoloration on the righ t foot. Pedal pulses are present. NEUROLOGIC: The patient is somewhat sedated on the ventilator. SKIN: Warm and dry at this time. LABORATORY AND X-RAY FINDINGS: EKG shows normal sinus rhythm at this time, no acute ST segment zimmerman es are noted. Chest x-ray shows increased congestion, right-sided infiltrate which may be underlying pneumonia in conjunction with her congestive heart failure. Laboratory data showed a creatinine of 3.75, BUN is 20. Blood sugar was 286, earlier on admission was 550. Hemoglobin is 10 after dialysis . WBC is 7.2. Her LDL was 17, HDL 24, triglyceride level was 260. Her BNP was 1367, potassium 3.7. IMPRESSION: 1. Acute respiratory distress, most likely due to volume overload and also possible right-sided pneu monia. She has been given Rocephin. She is on dialysis. She may need further dialysis to alleviate the fluid. 2. History of chronic kidney disease for which she remains on dialysis for her end-stage renal disea se. We will continue this. 3. History of intermittent atrial fibrillation. She remains in sinus rhythm at this time. Once she is taking p.o., we will start her back on amiodarone. 4. Hypertension. This is stable at this time. 5. Anemia due to multifactorial, but mainly due to her end-stage renal disease. This is also stable at this time. 6. History of coronary artery disease, status post bypass surgery, possible stent placed in the past . This also remains stable at this time. Her enzymes are negative. She did not have any chest disc omfort when she presented, this may be just the shortness of breath and hopefully she will improve af ter she has had dialysis.
--- NOTE | 2018-05-28 15:42 | CON ---
DATE OF CONSULTATION: 05/28/2018 HISTORY OF PRESENT ILLNESS: Vickie Fontenot is a 63-year-old female, intubated on the vent. She pres ented last night to the ER with weakness, not feeling well. She missed her dialysis yesterday and ap parently was intubated with progressive respiratory failure. X-ray shows bilateral pulmonary edema. There is a daughter at the bedside, who is unable to give significant history. [facility] is able to give adequate history. Chest x-ray at 01:44 p.m. shows basically cephalization. X-ray subsequently did show worsening pulmo nary edema. Patient is a nonsmoker and nondrinker. She is weak, had a cough when she came in. Initial rapid influenza swab was negative. Dialysis on Wednesday, Wednesday and Fridays by Dr. Coffey. ADDITIONAL PAST MEDICAL HISTORY: As per the extensive previous medical records. It is pertinent for end-stage renal disease of longstanding duration, coronary artery disease, arthritis, previous MA, p revious hypothyroidism, hyperlipidemia, hypertension, hypothyroidism, diabetes. PAST SURGICAL HISTORY: Bypass and multiple hip surgeries done. ALLERGIES: Unknown. MEDICATIONS: List of medicines from home; captopril 12.5, Norvasc 10, gabapentin 300, Coreg 6.25, in sulin, Synthroid , Lantus 30, tizanidine 4, Cordarone 100. Otherwise, social history and family history unobtainable. PHYSICAL EXAMINATION: VITAL SIGNS: Sats are 100% on present vent settings 40% FiO2, pulse 75, blood pressure 155/61, respi ration 20. GENERAL APPEARANCE: She is still sedated, but minimally arousable. CHEST: Bilateral rhonchi and crackles. CARDIAC: Normal S1 and S2. No gallops. ABDOMEN: Soft. EXTREMITIES: No edema. IMAGING DATA: Chest x-ray still shows pulmonary edema. LABORATORY DATA: So far additional lab shows culture negative. She has Salmonella in 03/2018 in the blood culture and white count of 7,000, hemoglobin and hematocrit 10 and 30, platelet count 275, pO2 of 71, pCO2 26, pH of 7.51, rate of 16, creatinine is 3.75. IMPRESSION: 1. Respiratory failure, probably secondary to fluid overload from failure to dialyze. 2. Hypertension. 3. Diabetes. 4. Hypothyroidism. 5. Possibly pneumonia. PLAN: I started on empiric antibiotics until be able to assess her pulmonary status. She needs ongo ing dialysis, supportive care and neb treatments. We will follow. Forty-five minutes critical care time.
[2018-05-28] MEDS: Warfarin Sodium 2.5 MG TAB PO SCH (17:54)
[2018-05-28] MEDS ORDERED: Oseltamivir 6 MG/ML ORAL SUSP PO SCH (21:00)
[2018-05-28] MEDS: Haloperidol Lactate 5 MG/ML VIAL SLOW IVP PRN (21:33)
[2018-05-28] MEDS ORDERED: Metoprolol Tartrate 5 MG/5 ML VIAL IVP SCH (22:15)
[2018-05-28] MEDS ORDERED: Amiodarone HCl 450 MG, Admixture Fee 1 EACH in Dextrose 5% in Water 250 ML IVPB SCH (22:45)
[2018-05-29] MEDS: HumaLOG 300 UNITS/3 ML VIAL SC PRN ×4 (03:58→21:55)
[2018-05-29 05:17] LABS: #Lymphocytes 0.7 thou/uL (1.20-3.40); #Monocytes 0.3 thou/uL (0.11-0.59); #Neutrophils 12.7 thou/uL (1.40-6.50); %Basophils 0.1 % (0.0-1.0); %Eosinophils 0.1 % (0.0-10.0); %Monocytes 2.5 % (0.0-10.0); %Neutrophils 92.3 % (42.0-75.0); Hemoglobin 9.8 g/dL (12.0-16.0); Mean Corpuscular HGB CONC 32.2 g/dL (32.0-36.0); Mean Corpuscular Hemoglobin 31.8 pg (27.0-31.0); Mean Corpuscular Volume 98.7 fL (78.0-98.0); Mean Platelet Volume 7.1 fL (7.4-10.4); Platelet Count 325 thou/uL (130-400); RBC Distribution Width 15.1 % (11.5-14.5); White Blood Cell (WBC) Count 13.8 thou/uL (4.8-10.8)
[2018-05-29] MEDS: Haloperidol Lactate 5 MG/ML VIAL SLOW IVP PRN ×3 (05:38→17:41)
[2018-05-29 05:53] LABS: INR-International Normal Ratio 2.6; Prothrombin Time 27.8 SEC (12.0-14.7)
[2018-05-29 06:04] LABS: Anion Gap 23 mmol/L (10-20); BUN (Urea Nitrogen) 43 mg/dL (9.8-20.1); Calc. Creatinine Clearance 11 mL/min (70-130); Calcium 9.8 mg/dL (7.8-10.44); Carbon Dioxide 21 mmol/L (23-31); Chloride 100 mmol/L (98-107); Estimated GFR-MDRD 7; Glucose 363 mg/dL (80-115); Potassium 3.5 mmol/L (3.5-5.1); Sodium 140 mmol/L (136-145)
[2018-05-29] MEDS: Famotidine/PF 20 mg/2ml Vial SLOW IVP SCH (08:24)
--- NOTE | 2018-05-29 08:30 | EKG ---
Test Reason : WEAK Blood Pressure : / mmHG Vent. Rate : 054 BPM Atrial Rate : 054 BPM P-R Int : 188 ms QRS Dur : 112 ms QT Int : 562 ms P-R-T Axes : 014 -19 -21 degrees QTc Int : 532 ms Sinus bradycardia Minimal voltage criteria for LVH, may be normal variant Borderline ECG Confirmed by JAM PAULA ([id number]) on 05/29/2018 8:30:16 AM Referred By: Confirmed By:JAM PAULA
[2018-05-29] MEDS: Aspirin 325 MG TAB PO SCH (08:31)
--- NOTE | 2018-05-29 10:28 | RAD ---
CHEST 1 VIEW: HISTORY: Ventilated patient. COMPARISON: 05/28/2018. FINDINGS: Interval removal of endotracheal and nasogastric tubes. Sternotomy wires are noted. Normal cardiac silhouette. The pulmonary vessels are within normal limits. There are diffuse interstitial and alve olar infiltrates. No pneumothorax. IMPRESSION: 1. Diffuse interstitial and alveolar infiltrates. 2. Interval removal of nasogastric and endotracheal tubes. POS: [facility]
[2018-05-29] MEDS: Lorazepam 2 MG/ML VIAL SLOW IVP PRN ×3 (11:28→17:01)
[2018-05-29] MEDS ORDERED: Metoprolol Tartrate 5 MG/5 ML VIAL IVP SCH (11:54)
--- NOTE | 2018-05-29 11:56 | PDOC.PN ---
- Subjective Encounter Start Date: 05/29/18 Encounter Start Time: 11:54 Ms. Fontenot was seen today in follow-up of Acute respiratory failure. She has been extubated. She is a bit confused. She complains of being constipated. She denies chest pain or difficulty breathing. - Objective Resuscitation Status: Resuscitation Status FULL:Full Resuscitation MAR Reviewed: Yes Vital Signs & Weight: Vital Signs (12 hours) Temp Pulse Resp Pulse Ox 05/29/18 11:00 105 H 23 H 05/29/18 07:23 95 05/29/18 07:00 100.5 F H 05/29/18 06:42 115 H 28 H 05/29/18 04:00 99.1 F 96 05/29/18 00:00 99.1 F Weight Weight 160 lb 11.472 oz Most Recent Monitor Data Heart Rate from ECG 105 NIBP 200/93 NIBP BP-Mean 128 Respiration from ECG 24 SpO2 100 I&O: 05/28/18 05/29/18 05/30/18 06:59 06:59 06:59 Intake Total 182 471.6 Output Total 50 1 50 Balance 132 470.6 -50 Result Diagrams: 05/29/18 04:31 05/29/18 05:14 Additional Labs: Accuchecks 05/29/18 05/28/18 05/28/18 03:55 20:32 15:55 POC Glucose 377 H 280 H 315 H Phys Exam - Physical Examination HEENT: PERRLA Respiratory: no wheezing, no rales, clear to auscultation bilateral + coarse breath sounds at the bases Cardiovascular: no significant murmur, no rub, irregular Tachycardic, Gastrointestinal: soft, non-tender, no distention, positive bowel sounds Musculoskeletal: no edema, pulses present Neurological: moves all 4 limbs Deviation from normal: confused and a bit agitated Dx/Plan (1) Acute respiratory failure with hypoxemia Code(s): J96.01 - ACUTE RESPIRATORY FAILURE WITH HYPOXIA Status: Acute (2) Volume overload Code(s): E87.70 - FLUID OVERLOAD, UNSPECIFIED Status: Acute (3) Chronic anticoagulation Code(s): Z79.01 - CORRECTION (CURRENT) USE OF ANTICOAGULANTS Status: Chronic (4) Diabetes type 2, controlled Code(s): E11.9 - TYPE 2 DIABETES MELLITUS WITHOUT COMPLICATIONS Status: Chronic Qualifiers: Diabetes mellitus complication status: with kidney complications Diabetes mellitus complication detail: with chronic kidney disease Chronic kidney disease stage: on chronic dialysis (5) ESRD (end stage renal disease) on dialysis Code(s): N18.6 - END STAGE RENAL DISEASE; Z99.2 - DEPENDENCE ON RENAL DIALYSIS Status: Chronic Comment: (6) Hypertension Code(s): I10 - ESSENTIAL (PRIMARY) HYPERTENSION Status: Chronic Qualifiers: (7) Paroxysmal atrial fibrillation Code(s): I48.0 - PAROXYSMAL ATRIAL FIBRILLATION Status: Chronic Comment: in NSR - Plan * Acute respiratory failure- She has been extubated. This was likely related to volume overload. She is on empiric Rocephin for possible superimposed lung infection- Procalcitonin was in an equivocal ranger * ESRD- continue dialysis as per Nephrology * AFIB- HR is uncontrolled- she appears to have intermittent episodes of AFIB with RVR- She has been given Lopressor, and will give an additional dose now due to elevated heart rate. Will also re-start Amiodarone * Chronic anticoagulation- her INR is 2.6 today- continue coumadin- Pharmacy dosing * DM- uncontrolled- will re-start her Lantus, and continue SSI * HTN- blood pressure is uncontrolled- will re-start Coreg and Amlodipine
[2018-05-29] MEDS: cefTRIAXone\\ROCEPHIN 1 GM in Sodium Chloride 0.9% 100 ML IVPB SCH (14:41)
[2018-05-29] MEDS ORDERED: Metoprolol Tartrate 5 MG/5 ML VIAL IVP PRN (16:23)
[2018-05-29] MEDS: Warfarin Sodium 2.5 MG TAB PO SCH (17:27)
[2018-05-29] MEDS: Amiodarone 200 MG TAB PO SCH (21:50)
[2018-05-29] MEDS: Carvedilol 6.25 MG TAB PO SCH (21:50)
[2018-05-29] MEDS: Insulin Glargine 30 UNITS in Pre-Filled Syringe 1 EACH SC SCH (21:55)
[2018-05-29] MEDS: tiZANidine HCl 4 MG TAB PO PRN (22:07)
[2018-05-29] MEDS: Acetaminophen 325 MG TAB PO PRN (22:08)
[2018-05-30] MEDS: Haloperidol Lactate 5 MG/ML VIAL SLOW IVP PRN ×3 (01:01→17:48)
[2018-05-30 05:43] LABS: Prothrombin Time 23.2 SEC (12.0-14.7)
[2018-05-30 05:52] LABS: #Basophils 0.1 thou/uL (0.0-0.2); #Lymphocytes 1.2 thou/uL (1.20-3.40); #Monocytes 0.9 thou/uL (0.11-0.59); #Neutrophils 7.5 thou/uL (1.40-6.50); %Basophils 0.6 % (0.0-1.0); %Eosinophils 0.1 % (0.0-10.0); %Lymphocytes 12.2 % (21.0-51.0); %Monocytes 9.5 % (0.0-10.0); %Neutrophils 77.7 % (42.0-75.0); Hemoglobin 10.1 g/dL (12.0-16.0); Mean Corpuscular HGB CONC 31.7 g/dL (32.0-36.0); Mean Corpuscular Hemoglobin 31.3 pg (27.0-31.0); Mean Corpuscular Volume 98.6 fL (78.0-98.0); Mean Platelet Volume 7.1 fL (7.4-10.4); Platelet Count 298 thou/uL (130-400); RBC Distribution Width 15.4 % (11.5-14.5); Red Blood Cell (RBC) Count 3.24 mill/uL (4.20-5.40); White Blood Cell (WBC) Count 9.7 thou/uL (4.8-10.8)
[2018-05-30 05:55] LABS: Anion Gap 16 mmol/L (10-20); BUN (Urea Nitrogen) 29 mg/dL (9.8-20.1); Calc. Creatinine Clearance 14 mL/min (70-130); Calcium 9.8 mg/dL (7.8-10.44); Carbon Dioxide 26 mmol/L (23-31); Chloride 101 mmol/L (98-107); Estimated GFR-MDRD 10; Glucose 100 mg/dL (80-115); Potassium 3.4 mmol/L (3.5-5.1); Sodium 140 mmol/L (136-145)
--- NOTE | 2018-05-30 07:51 | PRG ---
DATE OF SERVICE: 05/30/2018 This morning she is awake and responsive, less agitated. She was given Haldol and Ativan for her con fusion. She says she is feeling better. No chest pain or difficulty breathing. PHYSICAL EXAMINATION: VITAL SIGNS: Her sats are 98 on supplemental oxygen, blood pressure 150/70, respirations 18, she is afebrile. CHEST: Chest reveals decreased breath sounds, no wheezing. CARDIAC: Normal S1, S2. ABDOMEN: Soft, no masses. Creatinine 4.3. White count 9000. Chest x-ray shows CHF. She is due for dialysis today. PLAN: Continue supportive care. Continue PT. Continue dialysis. She can probably be transferred o ny of the ICU when okay with Cardiology.
[2018-05-30] MEDS: Famotidine/PF 20 mg/2ml Vial SLOW IVP SCH (08:46)
[2018-05-30] MEDS: Levothyroxine Sodium 100 MCG TAB PO SCH (08:47)
[2018-05-30] MEDS: Aspirin 325 MG TAB PO SCH (08:47)
[2018-05-30] MEDS: tiZANidine HCl 4 MG TAB PO PRN ×2 (08:47→17:48)
--- NOTE | 2018-05-30 08:52 | HP ---
CHIEF COMPLAINT: Feeling weak and fatigue. HISTORY OF PRESENT ILLNESS: This is a 63-year-old female with a prior history of end-stage renal disease on Wednesday, Wednesday, Wednesday hemodialysis with Dr. Nitin Coffey, paroxysmal atrial fibrillation, coronary artery disease, insulin -dependent type 2 diabetes, who presents with a nonspecific chief complaint of generalized weakness and fatigue over the last week. The patient states that over the last week she has been feeling generally poorly with decreased oral intake, easy fatigability, and chest heaviness. She has been going to receive her hemodialysis since her last session was on Wednesday. She is unable to make her Wednesday appointment, because she was feeling so poorly and she was in the emergency department. The patient also notes that on Wednesday, she was told by one of the nurses when she was receiving dialysis that maybe she needs a blood transfusion because her blood level was so low and that she may feel better post-transfusion. The patient ultimately did not receive a blood product transfusion during dialysis and none so far during her hospital stay. The patient who presented today with specifically worsening chest heaviness and tightness with some shortness of breath during ambulation of short distances, which is atypical for her. The patient denies any known sick contacts. She does reside with her daughter and her three grandsons and who are actively ill at this point in time. REVIEW OF SYSTEMS: As per HPI. Constitutional: The patient denies any fevers , but does endorse intermittent chills over the last week with increasing frequency. Easy generalized fatigability as noted above. HEENT: Denies any new headaches, lightheadedness or dizziness. Denies any vision changes. Cardiovascular: Chest tightness and discomfort as above, typically worse with exertion and relieved with rest. Denies any left-sided arm numbness or tingling. Denies any lower extremity swelling. Respiratory: Increasing fatigability along with increased shortness of breath. The patient has had intermittent cough that has been nonproductive. Gastrointestinal: Decreased appetite with early satiety. Denies any black tarry stools or blood in her stools. Endorses self-limited episodes of diarrhea earlier on during the week, which is currently resolved. Denies any nausea or abdominal pain. Genitourinary: The patient states that she still does make some scant urine. Denies any dysuria or change in the amount of scant urine she is able to make. Musculoskeletal: No focal myalgias or arthralgias, just generalized weakness and fatigue as noted above. The remainder of the review of systems is otherwise negative. PAST MEDICAL AND SURGICAL HISTORY: As per HPI, significant for, 1. End-stage renal disease which the patient undergoes Wednesday, Wednesday, Wednesday hemodialysis with Dr. Coffey. 2. Paroxysmal atrial fibrillation with anticoagulation on warfarin. The patient states Dr. 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 3. Hypertension. 4. Insulin-dependent diabetes. 5. Hypothyroidism. 6. Status post coronary artery bypass graft. 7. Status post appendectomy. 8. Status post dialysis catheter placement. 9. Status post orthopedic surgery of the back and right hip. 10. Status post left heart catheterization with PCI. HOME MEDICATIONS: Please see the EMR for full details and the patient's list includes the following: Renvela 3200 mg p.o. t.i.d., captopril 12.5 mg p.o. b.i.d., amlodipine 10 mg p.o. daily, Gabapentin 300 mg p.o. q.p.m., carvedilol 6.25 mg p.o. b.i.d., Humalog 12 units subcu q.a.c., rosuvastatin 20 mg p.o. at bedtime, levothyroxine 100 mcg p.o. daily, Lantus insulin 30 units subcu at bedtime, tizanidine 4 mg p.o. t.i.d., Florastor 250 mg p.o. daily, tramadol 50 mg p.o. t.i.d. p.r.n., amiodarone 100 mg p.o. at bedtime. ALLERGIES: No known drug allergies. FAMILY HISTORY: The patient denies any known family history of other family members with significant cardiovascular disease or end-stage renal disease requiring hemodialysis. SOCIAL HISTORY: Patient denies any active tobacco, alcohol or illicit drug use. Patient is a former smoker who quit more than 10 years ago and her heaviest tobacco usage reports 5-6 cigarettes a day. The patient states she wishes to be full code and designates her daughter as her medical decision maker if she is unable to make her own medical decisions. PHYSICAL EXAMINATION: GENERAL: The patient is awake, conversant, appears uncomfortable, but no overt acute distress, sitting in hospital bed. VITAL SIGNS: Stable. Systolic blood pressure 150, respiration 16, satting 96% on 2 liters nasal cannula. HEENT: Normocephalic, atraumatic. Slightly dry mucous membranes. CARDIOVASCULAR: S1, S2. Soft heart tones. Pulses 2+ bilateral in upper extremities. RESPIRATORY: Diminished throughout with some scattered bilateral basilar crackles. Poor air movements. No conversational dyspnea. ABDOMEN: Positive bowel sounds, soft. Grossly nontender to palpation. IMAGING: On 05/27/2018, chest x-ray obtained at 1440. Impression " cardiomegaly and pulmonary vascular congestion". There may be some component of diffuse airspace opacities bilaterally and symmetrically. LABORATORY DATA: WBC 4.5, hemoglobin of 8.4, hematocrit 25.7, platelets of 201. PT 34.5, INR 3.4. Sodium 133, potassium 4.3, chloride 96, bicarbonate 25 , BUN is 52, creatinine is 7.46, glucose 550, calcium 8.8, total bilirubin 0.7, AST 21, ALT 18, alkaline phosphatase 18, creatinine kinase 111, troponin 0.019. Total protein 6.6, albumin 3.6. ASSESSMENT AND PLAN: A 63-year-old female who presented with a chief complaint of easy fatigability, shortness of breath and chest discomfort. 1. Easy fatigability, chest discomfort and shortness of breath with ambulation of 20 feet. Concern for possibility of cardiac etiology either episodic paroxysmal atrial fibrillation with lack of rate and rhythm control that is under diagnosed. The patient also has a known history of coronary artery disease, so there is always a concern that could be also there is a cardiovascular disease. The patient also reports a tobacco history, so the question is whether or not there is any diagnosed chronic obstructive pulmonary disease along with exacerbation is also present; however, the patient denies ever being diagnosed with chronic obstructive pulmonary disease in the past. Also, in the differential, there is a possibility of a viral mediated infection that is providing the patient's systemic symptoms over the last week. I am also concerned that since the patient received 500 mL of IV fluid in the emergency department post not receiving her standard hemodialysis that she is at risk for pulmonary edema. We will admit the patient to continue to closely monitor her hemodynamics. Check for influenza swab. Consult Cardiology. Consult Nephrology. 2. Diet: As tolerated, low sodium, renal, cardiac. 3. Activity as tolerated. 4. Deep venous thrombosis prophylaxis with heparin. 5. CODE STATUS: The patient is FULL CODE as well as the components of CPR, cardioversion, shocks, and ventilatory support including intubation, we discussed with the patient. RODOLFO
--- NOTE | 2018-05-30 09:33 | RAD ---
CHEST 1 VIEW: Date: 05/30/18 HISTORY: Ventilated patient. Altered mental status. COMPARISON: Radiograph prior day. FINDINGS: Heart size is enlarged. Mild edema, slightly worsening. Small left effusion. No pneumothorax. IMPRESSION: 1. Slight worsening pulmonary edema. 2. Subacute, likely healing fracture right humeral neck. POS: [facility]
--- NOTE | 2018-05-30 10:34 | PDOC.PN ---
- Subjective Encounter Start Date: 05/30/18 Encounter Start Time: 10:33 Ms. Fontenot was seen today in follow-up of respiratory failure. She is a bit confused. She does not have any complaints. She is currently undergoing dialysis. - Objective Resuscitation Status: Resuscitation Status FULL:Full Resuscitation MAR Reviewed: Yes Vital Signs & Weight: Vital Signs (12 hours) Temp Pulse Resp Pulse Ox 05/30/18 10:10 73 20 98 05/30/18 08:00 100 05/30/18 07:58 94 21 H 98 05/30/18 07:00 98.7 F 05/30/18 04:00 98.5 F 05/30/18 00:00 98.5 F Weight Weight 151 lb 7.321 oz Most Recent Monitor Data Heart Rate from ECG 122 NIBP 216/148 NIBP BP-Mean 170 Respiration from ECG 18 SpO2 100 I&O: 05/29/18 05/30/18 05/31/18 06:59 06:59 06:59 Intake Total 471.6 457 Output Total 1 52 Balance 470.6 405 Result Diagrams: 05/30/18 04:42 05/30/18 04:42 Additional Labs: Accuchecks 05/30/18 05/29/18 05/29/18 04:30 21:53 16:25 POC Glucose 97 301 H 236 H 05/29/18 12:24 POC Glucose 210 H Phys Exam - Physical Examination HEENT: PERRLA Respiratory: no wheezing, no rhonchi + rales at the bases, good air movement Cardiovascular: no significant murmur, no rub, irregular 2/6 systolic murmur Gastrointestinal: soft, non-tender, no distention, positive bowel sounds Musculoskeletal: edema present trace leg edema Dx/Plan (1) Acute respiratory failure with hypoxemia Code(s): J96.01 - ACUTE RESPIRATORY FAILURE WITH HYPOXIA Status: Acute (2) Volume overload Code(s): E87.70 - FLUID OVERLOAD, UNSPECIFIED Status: Acute (3) Chronic anticoagulation Code(s): Z79.01 - MIXER OPERATOR HOT METAL (CURRENT) USE OF ANTICOAGULANTS Status: Chronic (4) Diabetes type 2, controlled Code(s): E11.9 - TYPE 2 DIABETES MELLITUS WITHOUT COMPLICATIONS Status: Chronic Qualifiers: Diabetes mellitus complication status: with kidney complications Diabetes mellitus complication detail: with chronic kidney disease Chronic kidney disease stage: on chronic dialysis (5) ESRD (end stage renal disease) on dialysis Code(s): N18.6 - END STAGE RENAL DISEASE; Z99.2 - DEPENDENCE ON RENAL DIALYSIS Status: Chronic Comment: (6) Hypertension Code(s): I10 - ESSENTIAL (PRIMARY) HYPERTENSION Status: Chronic Qualifiers: (7) Paroxysmal atrial fibrillation Code(s): I48.0 - PAROXYSMAL ATRIAL FIBRILLATION Status: Chronic Comment: in NSR - Plan * Acute respiratory failure due to volume overload ( CHF with preserved EF ?)- her chest X-ray was reviewed by me. She appears to continue to have volume overload. She is receiving dialysis now. * Possible Pneumonia- continue Rocephin * AFIB on chronic anticoagulation- her heart rate is better * INR- is now 2.0- can re-start coumadin today * ESRD- continue Dialysis as per Nephrology * DM- better- continue SSI. * Agree with transfer out of the ICU
[2018-05-30] MEDS: cefTRIAXone\\ROCEPHIN 1 GM in Sodium Chloride 0.9% 100 ML IVPB SCH (15:10)
[2018-05-30] MEDS: Sevelamer Carbonate 800 MG TAB PO SCH ×2 (15:11→17:48)
[2018-05-30] MEDS: Carvedilol 6.25 MG TAB PO SCH ×2 (15:12→17:48)
[2018-05-30] MEDS: Amlodipine 10 MG TAB PO SCH (15:13)
[2018-05-30] MEDS: Warfarin Sodium 2.5 MG TAB PO SCH (17:49)
[2018-05-30] MEDS: Insulin Glargine 30 UNITS in Pre-Filled Syringe 1 EACH SC SCH (21:26)
[2018-05-30] MEDS: Rosuvastatin 20 MG TAB PO SCH (21:27)
[2018-05-30] MEDS: Amiodarone 200 MG TAB PO SCH (21:27)
[2018-05-30] MEDS: HumaLOG 300 UNITS/3 ML VIAL SC PRN (21:28)
[2018-05-31 05:52] LABS: INR-International Normal Ratio 1.4; Prothrombin Time 17.7 SEC (12.0-14.7)
[2018-05-31 06:35] VITALS: BMI 26.5
[2018-05-31] MEDS: Sevelamer Carbonate 800 MG TAB PO SCH ×3 (09:06→16:55)
[2018-05-31] MEDS: Amlodipine 10 MG TAB PO SCH (09:07)
[2018-05-31] MEDS: Levothyroxine Sodium 100 MCG TAB PO SCH (09:07)
[2018-05-31] MEDS: Carvedilol 6.25 MG TAB PO SCH ×2 (09:07→20:24)
[2018-05-31] MEDS: Famotidine/PF 20 mg/2ml Vial SLOW IVP SCH (09:08)
[2018-05-31] MEDS: Aspirin 325 MG TAB PO SCH (09:08)
--- NOTE | 2018-05-31 09:16 | PRG ---
DATE OF SERVICE: 05/31/2018 This morning she is awake, alert, responsive, still weak, still encephalopathic, but better. PHYSICAL EXAMINATION: VITAL SIGNS: Sats 97% on room air, blood pressure is 157/77, respiration rate 18. CHEST: Chest revealed no wheezing. CARDIAC: Normal S1, S2. ABDOMEN: Soft, no masses. IMPRESSION: 1. Congestive heart failure. 2. Chronic renal failure on dialysis. 3. Severe deconditioning. 4. Metabolic encephalopathy. PLAN: She has improved. X-ray are back to her baseline. She can be transferred out of the ICU to a n unmonitored bed. Discontinue antibiotics, PT. Continue dialysis. One-half hour critical care time.
--- NOTE | 2018-05-31 09:25 | PRG ---
DATE OF SERVICE: 05/31/2018 Ms. Fontenot is more awake and alert today. She is sitting up in bed, no complaints. PHYSICAL EXAMINATION: VITAL SIGNS: Heart rate is in the 80s. It looks like it is intermittently in sinus rhythm. LUNGS: Clear. CARDIAC: Normal S1, normal S2 with occasional premature contraction. ABDOMEN: Soft, nontender. EXTREMITIES: No edema. ASSESSMENT: 1. Atrial fibrillation appears to be paroxysmal. 2. Coronary artery disease, stable. 3. End-stage renal disease. PLAN: 1. Increase amiodarone to 200 mg at bedtime. 2. She is on Coumadin. 3. Reduce aspirin.
--- NOTE | 2018-05-31 09:41 | RAD ---
PORTABLE CHEST: History: CCU follow up. Comparison: 05-30-18 FINDINGS/IMPRESSION: Mild cardiomegaly with post op sternotomy change. Lungs appear well aerated and clear of focal infilt rate. No significant vascular congestion. No significant interval change. POS: [facility]
[2018-05-31] MEDS: cefTRIAXone\\ROCEPHIN 1 GM in Sodium Chloride 0.9% 100 ML IVPB SCH (12:30)
[2018-05-31] MEDS: HumaLOG 300 UNITS/3 ML VIAL SC PRN ×2 (12:30→16:55)
--- NOTE | 2018-05-31 12:48 | PDOC.PN ---
- Subjective Encounter Start Date: 05/31/18 Encounter Start Time: 12:47 Ms. Fontenot was seen today in follow-up of Acute respiratory distress. She is breathing much better. She is at her baseline mental status. She does not have any complaints other than feeling weak. - Objective Resuscitation Status: Resuscitation Status FULL:Full Resuscitation MAR Reviewed: Yes Vital Signs & Weight: Vital Signs (12 hours) Temp Pulse Resp BP BP Pulse Ox 05/31/18 12:00 98.8 F 05/31/18 10:24 84 23 H 95 05/31/18 09:07 70 157/77 H 05/31/18 08:00 98.6 F 98 05/31/18 06:32 70 18 05/31/18 04:00 98.7 F 05/31/18 03:03 100 05/31/18 02:00 73 16 147/74 H 95 05/31/18 01:00 98 15 151/68 H 96 Weight Weight 154 lb 12.232 oz Most Recent Monitor Data Heart Rate from ECG 77 NIBP 148/60 NIBP BP-Mean 89 Respiration from ECG 19 SpO2 97 I&O: 05/30/18 05/31/18 06/01/18 06:59 06:59 06:59 Intake Total 457 1140 340 Output Total 52 50 0 Balance 405 1090 340 Result Diagrams: 05/30/18 04:42 05/30/18 04:42 Additional Labs: Accuchecks 05/31/18 05/30/18 05/30/18 05:38 21:24 17:27 POC Glucose 97 197 H 134 H Phys Exam - Physical Examination HEENT: PERRLA Respiratory: no wheezing, no rales, clear to auscultation bilateral Cardiovascular: RRR, no significant murmur, no rub Gastrointestinal: soft, non-tender, no distention, positive bowel sounds Musculoskeletal: edema present trace pedal edema Neurological: non-focal, moves all 4 limbs Psychiatric: normal affect, A&O x 3 Dx/Plan (1) Acute respiratory failure with hypoxemia Code(s): J96.01 - ACUTE RESPIRATORY FAILURE WITH HYPOXIA Status: Acute (2) Volume overload Code(s): E87.70 - FLUID OVERLOAD, UNSPECIFIED Status: Acute (3) Chronic anticoagulation Code(s): Z79.01 - [facility] (CURRENT) USE OF ANTICOAGULANTS Status: Chronic (4) Diabetes type 2, controlled Code(s): E11.9 - TYPE 2 DIABETES MELLITUS WITHOUT COMPLICATIONS Status: Chronic Qualifiers: Diabetes mellitus complication status: with kidney complications Diabetes mellitus complication detail: with chronic kidney disease Chronic kidney disease stage: on chronic dialysis (5) ESRD (end stage renal disease) on dialysis Code(s): N18.6 - END STAGE RENAL DISEASE; Z99.2 - DEPENDENCE ON RENAL DIALYSIS Status: Chronic Comment: (6) Hypertension Code(s): I10 - ESSENTIAL (PRIMARY) HYPERTENSION Status: Chronic Qualifiers: (7) Paroxysmal atrial fibrillation Code(s): I48.0 - PAROXYSMAL ATRIAL FIBRILLATION Status: Chronic Comment: in NSR - Plan * Acute on chronic respiratory failure- improved * Volume overload- she is back to euvolemia * ? presumed Pneumonia- consider de-escalating antibiotics * AFIB- her heart rate is stable * DM- blood glucose is stable * INR- slightly sybtherapueatic- dosing per Pharmacy * She is stable for transfer out of the ICU .
[2018-05-31] MEDS: Ondansetron PF 4 MG/2 ML Vial IVP PRN (15:02)
[2018-05-31] MEDS ORDERED: Warfarin Sodium 5 MG TAB PO SCH (17:00)
[2018-05-31] MEDS: Insulin Glargine 30 UNITS in Pre-Filled Syringe 1 EACH SC SCH (20:24)
[2018-05-31] MEDS: Amiodarone 200 MG TAB PO SCH (20:25)
[2018-05-31] MEDS: Rosuvastatin 20 MG TAB PO SCH (20:25)
[2018-05-31] MEDS: Haloperidol Lactate 5 MG/ML VIAL SLOW IVP PRN (22:17)
[2018-06-01 04:48] LABS: INR-International Normal Ratio 1.4; Prothrombin Time 17.2 SEC (12.0-14.7)
[2018-06-01 04:52] LABS: Hemoglobin 11.3 g/dL (12.0-16.0); Platelet Count 306 thou/uL (130-400)
[2018-06-01 05:14] LABS: Anion Gap 17 mmol/L (10-20); BUN (Urea Nitrogen) 36 mg/dL (9.8-20.1); Calc. Creatinine Clearance 10 mL/min (70-130); Calcium 9.5 mg/dL (7.8-10.44); Carbon Dioxide 31 mmol/L (23-31); Chloride 97 mmol/L (98-107); Estimated GFR-MDRD 7; Glucose 113 mg/dL (80-115); Potassium 3.8 mmol/L (3.5-5.1); Sodium 141 mmol/L (136-145)
--- NOTE | 2018-06-01 08:28 | PRG ---
DATE OF SERVICE: 06/01/2018 SUBJECTIVE: This morning, she is less encephalopathic. OBJECTIVE: VITAL SIGNS: Sats are 97% on room air, respiration 20, temperature 97, blood pressure 150/75. CHEST: Reveals decreased breath sounds, no wheezing. CARDIAC: Normal S1, S2. No gallops. ABDOMEN: Soft, no masses. LABORATORY DATA: Creatinine is 5, H&H is stable. IMPRESSION: 1. Respiratory failure secondary to congestive heart failure, cardiomyopathy. 2. Encephalopathy. 3. Marked weakness. PLAN: She appears to be at her baseline. I would suggest continued aggressive PT and supportive car e. Eventually placement.
[2018-06-01] MEDS: Levothyroxine Sodium 100 MCG TAB PO SCH (11:25)
[2018-06-01] MEDS: Amlodipine 10 MG TAB PO SCH (11:25)
[2018-06-01] MEDS: Carvedilol 6.25 MG TAB PO SCH ×2 (11:27→21:08)
[2018-06-01] MEDS: Sevelamer Carbonate 800 MG TAB PO SCH ×3 (11:27→17:14)
--- NOTE | 2018-06-01 13:52 | PQF ---
CLINICAL DOCUMENTATION IMPROVEMENT CLARIFICATION FORM: ICD-10 Updated PLEASE DO AN ADDENDUM TO THE PROGRESS NOTE WITH ANY DOCUMENTATION UPDATES OR ADDITIONS AND CARRY THROUGH TO DC SUMMARY. THANK YOU. DATE: 06/01/18 Attn: Dr. Harman Please exercise your independent, professional judgment in responding to the clarification form. Clinical indicators are provided on the bottom of this form for your review Please check appropriate box(s): HEART FAILURE: A. TYPE: [ ] Systolic / HFrEF [ ] Diastolic / HFpEF [ ] Combined Systolic / Diastolic B. ACUITY [ ] Acute [ ] Acute on Chronic [ ] Chronic [ ] Other diagnosis [ ] Unable to determine In addition, please specify: Present on Admission (POA): [ ] Yes [ ] No [ ] Unable to determine For continuity of documentation, please document condition throughout progress notes and discharge summary. Thank You. CLINICAL INDICATORS - SIGNS / SYMPTOMS / LABS PULMONOLOGY PN 06/01/18: RESPIRATORY FAILURE SECONDARY TO CONGESTIVE HEART FAILURE, CARDIOMYOPATHY. PN 05/31/18: VOLUME OVERLOAD - SHE IS BACK TO EUVOLEMIA. RISKS: H&P 05/27: HX OF ESRD. PAF, CAD, IDDM. S/P CABG CHEST XRY: CARDIOMEGALY AND PULMONARY VASCULAR CONGESTION. TREATMENT: ICU ORDER 05/27: RESP: VENT CONTINUOUS CARDIOLOGY CONSULT: SHE MAY NEED FURTHER DIALYSIS TO ALLEVIATE THE FLUID. ORDER 05/29: COREG 6.25 MG PO BID -- Thank you, Radha (This form is maintained as a part of the permanent medical record) 2015 [employer]. All Rights Reserved Radha Rodriguez RN, BSN [email or web address] Office: [phone] MTDD
[2018-06-01] MEDS: Lorazepam 0.5 MG TAB PO PRN (13:57)
--- NOTE | 2018-06-01 15:24 | PDOC.PN ---
- Subjective Encounter Start Date: 06/01/18 Encounter Start Time: 15:23 Ms. Fontenot was seen today in follow-up of respiratory failure. She is breathing better, but had an episode of chest discomfort while on dialysis. she days it radiated into her back, and still has a little soreness as well. - Objective Resuscitation Status: Resuscitation Status FULL:Full Resuscitation MAR Reviewed: Yes Vital Signs & Weight: Vital Signs (12 hours) Temp Pulse Resp BP BP Pulse Ox 06/01/18 14:11 72 18 97 06/01/18 13:01 98.1 F 72 18 165/77 H 97 06/01/18 11:27 162/74 H 06/01/18 11:25 81 162/74 H 06/01/18 08:05 97.7 F 74 20 158/72 H 91 L 06/01/18 07:44 81 16 97 06/01/18 03:41 97.7 F 81 16 158/79 H 96 Weight Weight 154 lb 4 oz Most Recent Monitor Data Heart Rate from ECG 85 NIBP 171/63 NIBP BP-Mean 99 Respiration from ECG 16 SpO2 97 I&O: 05/31/18 06/01/18 06/02/18 06:59 06:59 06:59 Intake Total 1140 1160 Output Total 50 0 Balance 1090 1160 Result Diagrams: 06/01/18 04:00 06/01/18 04:00 Additional Labs: Accuchecks 06/01/18 06/01/18 05/31/18 11:36 05:38 19:45 POC Glucose 173 H 129 H 225 H 05/31/18 16:50 POC Glucose 195 H Phys Exam - Physical Examination Respiratory: no wheezing, no rales, no rhonchi, clear to auscultation bilateral Cardiovascular: RRR, no significant murmur, no rub Gastrointestinal: soft, non-tender, no distention, positive bowel sounds Musculoskeletal: edema present trace pedal edema Neurological: non-focal, moves all 4 limbs Dx/Plan (1) Acute respiratory failure with hypoxemia Code(s): J96.01 - ACUTE RESPIRATORY FAILURE WITH HYPOXIA Status: Acute (2) Volume overload Code(s): E87.70 - FLUID OVERLOAD, UNSPECIFIED Status: Acute Comment: This was likely due to CHF with preserved EF (3) Chronic anticoagulation Code(s): Z79.01 - CUSTODIAL (CURRENT) USE OF ANTICOAGULANTS Status: Chronic (4) Diabetes type 2, controlled Code(s): E11.9 - TYPE 2 DIABETES MELLITUS WITHOUT COMPLICATIONS Status: Chronic Qualifiers: Diabetes mellitus complication status: with kidney complications Diabetes mellitus complication detail: with chronic kidney disease Chronic kidney disease stage: on chronic dialysis (5) ESRD (end stage renal disease) on dialysis Code(s): N18.6 - END STAGE RENAL DISEASE; Z99.2 - DEPENDENCE ON RENAL DIALYSIS Status: Chronic Comment: (6) Hypertension Code(s): I10 - ESSENTIAL (PRIMARY) HYPERTENSION Status: Chronic Qualifiers: (7) Paroxysmal atrial fibrillation Code(s): I48.0 - PAROXYSMAL ATRIAL FIBRILLATION Status: Chronic Comment: in NSR (8) Heart failure with preserved ejection fraction Code(s): I50.30 - UNSPECIFIED DIASTOLIC (CONGESTIVE) HEART FAILURE Status: Acute - Plan * CHF exacerbation with preserved EF- compensated. Fluid removal with dialysis * Chest pain- EKG was done- reviewed, she may have a little deeper T wave inversion in in V1 and V2 as compared to her previous EKG- will trend her troponins * HTN- blood pressure is stable * DM- blood glucose is in acceptable range. * Paroxysmal AFIB- heart rate is stable- continue coumadin- INR is 1.4 today * Continue PT/OT * Hopefully home tomorrow if troponins are negative, and she is stable overnight
[2018-06-01] MEDS ORDERED: Warfarin Sodium 7.5 MG TAB PO SCH (17:00)
[2018-06-01] MEDS: HumaLOG 300 UNITS/3 ML VIAL SC PRN ×2 (17:17→21:09)
[2018-06-01] MEDS ORDERED: Nitroglycerin 2% Ointment 1 INCH/1 GM Packet TOP SCH (17:45)
[2018-06-01 19:45] LABS: Troponin I 0.114 ng/mL (< 0.028)
[2018-06-01] MEDS: Insulin Glargine 30 UNITS in Pre-Filled Syringe 1 EACH SC SCH (21:08)
[2018-06-01] MEDS: Rosuvastatin 20 MG TAB PO SCH (21:08)
[2018-06-01] MEDS: Amiodarone 200 MG TAB PO SCH (21:08)
[2018-06-01 21:29] LABS: Troponin I 0.081 ng/mL (< 0.028)
[2018-06-02] MEDS: Ondansetron PF 4 MG/2 ML Vial IVP PRN (04:44)
[2018-06-02 05:11] LABS: INR-International Normal Ratio 1.4; Prothrombin Time 17.6 SEC (12.0-14.7)
--- NOTE | 2018-06-02 06:00 | EKG ---
Test Reason : STAT Blood Pressure : / mmHG Vent. Rate : 092 BPM Atrial Rate : 092 BPM P-R Int : 166 ms QRS Dur : 100 ms QT Int : 400 ms P-R-T Axes : 061 -37 073 degrees QTc Int : 494 ms Normal sinus rhythm Poor baseline V2. Left axis deviation Nonspecific ST abnormality Prolonged QT Abnormal ECG When compared with ECG of 27-MAY-2018 10:33, (Unconfirmed) Vent. rate has increased BY 38 BPM T wave inversion no longer evident in Inferior leads Nonspecific T wave abnormality no longer evident in Anterior leads Confirmed by JAM PAULA ([id number]) on 06/02/2018 6:00:11 AM Referred By: Confirmed By:JAM PAULA
--- NOTE | 2018-06-02 06:01 | EKG ---
Test Reason : STAT Blood Pressure : / mmHG Vent. Rate : 093 BPM Atrial Rate : 093 BPM P-R Int : 170 ms QRS Dur : 100 ms QT Int : 408 ms P-R-T Axes : 041 -29 057 degrees QTc Int : 507 ms Normal sinus rhythm Nonspecific ST abnormality Prolonged QT Abnormal ECG When compared with ECG of 27-MAY-2018 21:04, (Unconfirmed) No significant change was found Confirmed by JAM PAULA ([id number]) on 06/02/2018 6:00:42 AM Referred By: Confirmed By:JAM PAULA
[2018-06-02] MEDS: Sevelamer Carbonate 800 MG TAB PO SCH ×3 (08:28→16:07)
[2018-06-02] MEDS: Nitroglycerin 2% Ointment 1 INCH/1 GM Packet TOP SCH ×2 (08:29→20:52)
[2018-06-02] MEDS: Amlodipine 10 MG TAB PO SCH (08:29)
[2018-06-02] MEDS: Carvedilol 6.25 MG TAB PO SCH ×2 (08:29→20:52)
[2018-06-02] MEDS: Levothyroxine Sodium 100 MCG TAB PO SCH (08:29)
[2018-06-02] MEDS ORDERED: Nitroglycerin 0.4 MG TAB (25 Tab Bottle) SL PRN (09:32)
--- NOTE | 2018-06-02 09:54 | PRG ---
DATE OF SERVICE: 06/02/2018 SUBJECTIVE: Ms. Fontenot is doing well today. She had an episode of angina during dialysis yesterda y. The dialysis had to be terminated. Reading the dialysis note, the blood pressure was not low at that point. She is doing well today. PHYSICAL EXAMINATION: VITAL SIGNS: Blood pressure 141/66, pulse is 60. LUNGS: Clear. CARDIAC: Normal S1, normal S2. ABDOMEN: Soft, nontender. EXTREMITIES: No edema. The troponin level was 0.114, likely not significant in view of the patient being on dialysis, end-st age renal disease, but indicative that this probably was an anginal episode. The patient did have pr evious bypass surgery and has had a cardiac catheterization done 07/2015 indicating the best treatmen t is medical therapy. ASSESSMENT: 1. Coronary artery disease. 2. Paroxysmal atrial fibrillation. 3. End-stage renal disease. 4. Episode of angina. PLAN: 1. Add p.r.n. nitroglycerin. 2. We will add daily nitrates. 3. Okay to proceed with dialysis, this is being planned.
--- NOTE | 2018-06-02 11:57 | PRG ---
DATE OF SERVICE: 06/02/2018 SUBJECTIVE: This morning, she is awake, alert, and responsive, in no distress. She is no longer confused or agitated. OBJECTIVE: VITAL SIGNS: Blood pressure 141/66, pulse 61, temperature 98, sats are 95% on room air. CHEST: No wheezing, no crackles. CARDIAC: Normal S1, S2. No gallops. ABDOMEN: Soft, no masses. IMPRESSION: 1. Respiratory failure, congestive heart failure, chronic obstructive pulmonary disease, pneumonia, pulmonary shaw. 2. Encephalopathy. Pulmonary shaw, much improved. 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 RODOLFO
[2018-06-02] MEDS: HumaLOG 300 UNITS/3 ML VIAL SC PRN ×2 (12:18→17:38)
--- NOTE | 2018-06-02 16:12 | PDOC.PN ---
- Subjective Encounter Start Date: 06/02/18 Encounter Start Time: 16:09 Ms. Fontenot was seen in today for follow-up of Chest pain and CHF exacerbation. She says the chest pain has improved. It is better with the nitropatch. She also feels less anxious. - Objective Resuscitation Status: Resuscitation Status FULL:Full Resuscitation MAR Reviewed: Yes Vital Signs & Weight: Vital Signs (12 hours) Temp Pulse Resp BP BP Pulse Ox 06/02/18 14:33 77 16 94 L 06/02/18 12:00 98.3 F 76 16 148/75 H 96 06/02/18 11:03 67 16 94 L 06/02/18 08:29 61 141/66 H 06/02/18 08:13 98.5 F 61 16 141/66 H 94 L 06/02/18 07:21 68 16 96 Weight Weight 154 lb 4 oz Most Recent Monitor Data Heart Rate from ECG 85 NIBP 171/63 NIBP BP-Mean 99 Respiration from ECG 16 SpO2 97 I&O: 06/01/18 06/02/18 06/03/18 06:59 06:59 06:59 Intake Total 1160 Output Total 0 Balance 1160 Result Diagrams: 06/01/18 04:00 06/01/18 04:00 Additional Labs: Accuchecks 06/02/18 06/02/18 06/01/18 12:03 04:48 21:09 POC Glucose 191 H 87 232 H 06/01/18 16:28 POC Glucose 245 H Phys Exam - Physical Examination HEENT: PERRLA, sclera anicteric Respiratory: no wheezing, no rales, no rhonchi, clear to auscultation bilateral Cardiovascular: RRR, no significant murmur, no rub Gastrointestinal: soft, non-tender, no distention, positive bowel sounds Musculoskeletal: edema present + pedal edema both lower extremities Neurological: non-focal, moves all 4 limbs Dx/Plan (1) Chest pain Code(s): R07.9 - CHEST PAIN, UNSPECIFIED Status: Acute (2) Heart failure with preserved ejection fraction Code(s): I50.30 - UNSPECIFIED DIASTOLIC (CONGESTIVE) HEART FAILURE Status: Acute (3) Acute respiratory failure with hypoxemia Code(s): J96.01 - ACUTE RESPIRATORY FAILURE WITH HYPOXIA Status: Acute (4) Volume overload Code(s): E87.70 - FLUID OVERLOAD, UNSPECIFIED Status: Acute Comment: This was likely due to CHF with preserved EF (5) Chronic anticoagulation Code(s): Z79.01 - LENGTH CONTROL TESTER (CURRENT) USE OF ANTICOAGULANTS Status: Chronic (6) Diabetes type 2, controlled Code(s): E11.9 - TYPE 2 DIABETES MELLITUS WITHOUT COMPLICATIONS Status: Chronic Qualifiers: Diabetes mellitus complication status: with kidney complications Diabetes mellitus complication detail: with chronic kidney disease Chronic kidney disease stage: on chronic dialysis (7) ESRD (end stage renal disease) on dialysis Code(s): N18.6 - END STAGE RENAL DISEASE; Z99.2 - DEPENDENCE ON RENAL DIALYSIS Status: Chronic Comment: (8) Hypertension Code(s): I10 - ESSENTIAL (PRIMARY) HYPERTENSION Status: Chronic Qualifiers: (9) Paroxysmal atrial fibrillation Code(s): I48.0 - PAROXYSMAL ATRIAL FIBRILLATION Status: Chronic Comment: in NSR - Plan * Chest pain- this has improved with nitropaste . Cardiology recommendations were noted * Acute on chronic CHF with preserved EF- she is clinically uevolemic * ESRD- continue Dialysis as per Nephrology * HTN- blood pressure is controlled * DM- blood glucose is a bit labile- but in an acceptable ranger * Hopefully home tomorrow.
[2018-06-02] MEDS ORDERED: Warfarin Sodium 10 MG TAB PO SCH (17:00)
[2018-06-02] MEDS: Rosuvastatin 20 MG TAB PO SCH (20:51)
[2018-06-02] MEDS: Amiodarone 200 MG TAB PO SCH (20:52)
[2018-06-02] MEDS: Insulin Glargine 30 UNITS in Pre-Filled Syringe 1 EACH SC SCH (20:53)
[2018-06-03] MEDS ORDERED: Melatonin 3 MG TAB PO SCH (00:45)
[2018-06-03] MEDS: Acetaminophen 325 MG TAB PO PRN (02:32)
[2018-06-03 06:00] LABS: Hemoglobin 10.5 g/dL (12.0-16.0); Platelet Count 261 thou/uL (130-400)
[2018-06-03 06:03] LABS: INR-International Normal Ratio 1.7
[2018-06-03] MEDS: Sevelamer Carbonate 800 MG TAB PO SCH ×2 (07:43→12:43)
[2018-06-03] MEDS: Levothyroxine Sodium 100 MCG TAB PO SCH (07:43)
--- NOTE | 2018-06-03 08:20 | PRG ---
DATE OF SERVICE: 06/03/2018 SUBJECTIVE: Ms. Fontenot is doing well today, no complaints. PHYSICAL EXAMINATION: VITAL SIGNS: Her blood pressure has been within normal limits. Last recorded 137/70. LUNGS: Clear. CARDIAC: Normal S1, normal S2. ASSESSMENT: 1. Coronary artery disease with intermittent angina. 2. End-stage renal disease. 3. Paroxysmal atrial fibrillation. PLAN: 1. Continue Coumadin aiming for INR of 2-3. She needs to follow up to [facility], she has been doing that prior to admission, she may have been going to the Coumadin C linic versus having the software test manager adjusted. I am not certain how she is doing that, but she needs to continue having Coumadin adjusted. 2. Go ahead and reduce the amiodarone back to 100 mg a day. Try to reduce risk of toxicity. The frederick montiel had very little atrial fibrillation during this hospitalization only with a slightly increased ventricular response.
--- NOTE | 2018-06-03 09:32 | PRG ---
DATE OF SERVICE: 06/03/2018 Ms. Fontenot is being dialyzed today. PHYSICAL EXAMINATION: VITAL SIGNS: Sats are 97% on room air, respiration rate 18, temperature 98, blood pressure 130/80. She is no longer confused. CHEST: Chest revealed decreased breath sounds, no wheezing. CARDIAC: Normal S1-S2. No gallops. ABDOMEN: Soft. No masses. INR is 1.7. IMPRESSION: 1. Respiratory failure. 2. Congestive heart failure. 3. Renal failure. 4. Encephalopathy. DISPOSITION: As per Nephrology, Cardiology. Pulmonary will follow at a distance.
[2018-06-03] MEDS: Lorazepam 0.5 MG TAB PO PRN (09:55)
[2018-06-03] MEDS: Nitroglycerin 2% Ointment 1 INCH/1 GM Packet TOP SCH (09:55)
[2018-06-03] MEDS: Carvedilol 6.25 MG TAB PO SCH (12:43)
[2018-06-03] MEDS: Amlodipine 10 MG TAB PO SCH (12:44)
[2018-06-03] MEDS: HumaLOG 300 UNITS/3 ML VIAL SC PRN (12:45)
[2018-06-03 12:50] VITALS: TEMP 97.6
--- NOTE | 2018-06-03 15:23 | PDOC.PN ---
- Subjective Encounter Start Date: 06/03/18 Encounter Start Time: 15:21 Ms. Fontenot was seen today in follow-up of CHF exacerbation. She is does not have any complaints, and wants to go home. - Objective Resuscitation Status: Resuscitation Status FULL:Full Resuscitation MAR Reviewed: Yes Vital Signs & Weight: Vital Signs (12 hours) Temp Pulse Resp BP BP BP Pulse Ox 06/03/18 12:44 89 140/68 06/03/18 12:43 140/68 06/03/18 12:40 97.6 F 89 18 140/68 96 06/03/18 07:44 98.1 F 73 18 146/70 H 96 06/03/18 06:07 74 14 97 06/03/18 04:00 98.0 F 74 20 104/73 97 Weight Weight 155 lb 2 oz Most Recent Monitor Data Heart Rate from ECG 85 NIBP 171/63 NIBP BP-Mean 99 Respiration from ECG 16 SpO2 97 I&O: 06/02/18 06/03/18 06/04/18 06:59 06:59 06:59 Intake Total 1310 Balance 1310 Result Diagrams: 06/03/18 04:02 06/01/18 04:00 Additional Labs: Accuchecks 06/03/18 06/03/18 06/02/18 12:40 04:28 19:54 POC Glucose 176 H 96 175 H 06/02/18 16:34 POC Glucose 156 H Phys Exam - Physical Examination HEENT: PERRLA Respiratory: no wheezing, no rales, no rhonchi, clear to auscultation bilateral Cardiovascular: RRR, no significant murmur, no rub Gastrointestinal: soft, non-tender, no distention, positive bowel sounds Musculoskeletal: edema present Psychiatric: normal affect, A&O x 3 Dx/Plan (1) Heart failure with preserved ejection fraction Code(s): I50.30 - UNSPECIFIED DIASTOLIC (CONGESTIVE) HEART FAILURE Status: Acute (2) Chest pain Code(s): R07.9 - CHEST PAIN, UNSPECIFIED Status: Resolved (3) Acute respiratory failure with hypoxemia Code(s): J96.01 - ACUTE RESPIRATORY FAILURE WITH HYPOXIA Status: Resolved (4) Volume overload Code(s): E87.70 - FLUID OVERLOAD, UNSPECIFIED Status: Resolved Comment: This was likely due to CHF with preserved EF (5) Chronic anticoagulation Code(s): Z79.01 - LOW HEEL BUILDER (CURRENT) USE OF ANTICOAGULANTS Status: Chronic (6) Diabetes type 2, controlled Code(s): E11.9 - TYPE 2 DIABETES MELLITUS WITHOUT COMPLICATIONS Status: Chronic Qualifiers: Diabetes mellitus complication status: with kidney complications Diabetes mellitus complication detail: with chronic kidney disease Chronic kidney disease stage: on chronic dialysis (7) ESRD (end stage renal disease) on dialysis Code(s): N18.6 - END STAGE RENAL DISEASE; Z99.2 - DEPENDENCE ON RENAL DIALYSIS Status: Chronic Comment: (8) Hypertension Code(s): I10 - ESSENTIAL (PRIMARY) HYPERTENSION Status: Chronic Qualifiers: (9) Paroxysmal atrial fibrillation Code(s): I48.0 - PAROXYSMAL ATRIAL FIBRILLATION Status: Chronic Comment: in NSR - Plan * Patient is clinically improved and euvolemic * Chest pain has resolved * She is stable for discharge home..
[2018-06-03 16:28] VITALS: BP 96/51
[2018-06-03] MEDS ORDERED: Amiodarone 200 MG TAB PO SCH (21:00)
--- NOTE | 2018-06-03 23:05 | DIS ---
DATE OF ADMISSION: 05/27/2018 DATE OF DISCHARGE: 06/03/2018 PRIMARY CARE PHYSICIAN: Fly Vargas D.O. DISCHARGE DISPOSITION: Home. PRIMARY DISCHARGE DIAGNOSES: 1. Acute on chronic heart failure with preserved ejection fraction. 2. Metabolic encephalopathy, resolved. 3. End-stage renal disease on hemodialysis. 4. Chronic atrial fibrillation. 5. Diabetes mellitus, type 2. CODE STATUS: FULL CODE. ALLERGIES: No known drug allergies. DISCHARGE MEDICATIONS: Include amlodipine 10 mg daily, aspirin 81 mg daily, carvedilol 6.25 mg twice a day, levothyroxine 100 mcg daily, Crestor 20 mg at bedtime, Renvela 3200 mg t.i.d., tizanidine 4 m g t.i.d. as needed, tramadol 50 mg t.i.d., acetaminophen 650 mg as needed, amiodarone 100 mg at bedti me, isosorbide mononitrate 30 mg daily, Zofran 4 mg sublingual p.r.n., Coumadin 7.5 mg daily. The frederick montiel was instructed to have the PT/INR checked on Wednesday at [facility], where she normally has her PT and INRs check. She has already an established patient. HOSPITAL COURSE: Ms. Fontenot is a 63-year-old female that presented to the emergency room with comp laints of shortness of breath, feeling weak and fatigued. She was found to be in respiratory failure secondary to volume overload. She was initially placed on BiPAP and was dialyzed. After removal of fluid with dialysis, she was able to be weaned off of BiPAP. Cardiology and Pulmonology were consul emma to rewinder operator helper in her management. She had what appeared to be fluid overload initially on chest x-r ay; however, a superimposed infiltrate could not be ruled out and for this reason she was treated emp irically with antibiotics. While in the ICU, she did have an episode of confusion thought to be due to metabolic encephalopathy likely due to the acute illness. This later resolved completely. She wa s dialyzed for the next several days with the cautious removal of fluid. Also seen with physical the rapy and occupational therapy for severe deconditioning, which also improved and her medications for coronary artery disease were altered or adjusted and she was placed on oral nitrates to aid in compla ints of chest pain which she had off and on during her hospital stay. Once stabilized, she was able to be discharged home in stable condition with close outpatient followup.
== END 2018-06-03 16:56 | disposition home or self-care (01) | DRG 208 ==
LOC: ERS 10:22 → OBSVTOIN 16:55 → 2SW 16:55 → CCU 22:21 → T4-A 05-31 18:37
PROVIDERS: ADMIT Internal Medicine; ATTEND Internal Medicine
PROC: 5A1935Z Respiratory Ventilation, Less than 24 Consecutive Hours (ICD-10-PCS; principal; 2018-05-27)
PROC: 5A1D70Z Performance of Urinary Filtration, Intermittent, Less than 6 Hours Per Day (ICD-10-PCS; 2018-05-27)
DX: J96.01 Acute respiratory failure with hypoxia (principal); I50.33 Acute on chronic diastolic (congestive) heart failure; G93.41 Metabolic encephalopathy; J18.9 Pneumonia, unspecified organism; I13.2 Hypertensive heart and chronic kidney disease with heart failure and with stage 5 chronic kidney disease, or end stage renal disease; Z99.2 Dependence on renal dialysis; E11.22 Type 2 diabetes mellitus with diabetic chronic kidney disease; Z79.899 Other long term (current) drug therapy; Z79.82 Long term (current) use of aspirin; Z79.01 Long term (current) use of anticoagulants; I25.10 Atherosclerotic heart disease of native coronary artery without angina pectoris; M19.90 Unspecified osteoarthritis, unspecified site; I25.2 Old myocardial infarction; E03.9 Hypothyroidism, unspecified; E78.5 Hyperlipidemia, unspecified; Z79.4 Long term (current) use of insulin; I48.0 Paroxysmal atrial fibrillation; D63.1 Anemia in chronic kidney disease; Z95.5 Presence of coronary angioplasty implant and graft
CPT/HCPCS: 36415; 36416; 71045; 80048; 80053; 80061; 82550; 82553; 82805; 83036; 83880; 84145; 84443; 84484; 85014; 85018; 85025; 85049; 85610; 85730; 86850; 86900; 86901; 87070; 87205; 87340; 87804; 90935; 93005; 93010; 94002; 94640; 94760; 96361; 96374; G0257; G8978-GP-CL; G8979-GP-CJ; J0282; J0696; J1630; J1644; J1815; J2060; J2405; J2704; J2920; J2930; J3010; J7050; J7070; J7620; S0028

== ENCOUNTER 2018-06-13 10:12 | Inpatient (IN) | payer MEDICARE, BC ==
[2018-06-13] MEDS ORDERED: Ondansetron PF 4 MG/2 ML Vial ONE (10:18)
[2018-06-13 10:58] LABS: ALT (SGPT) 40 U/L (8-55); AST (SGOT) 63 U/L (5-34); Albumin 2.9 g/dL (3.4-4.8); Alkaline Phosphatase 125 U/L (40-150); Anion Gap 19 mmol/L (10-20); BUN (Urea Nitrogen) 78 mg/dL (9.8-20.1); Bilirubin, Total 0.5 mg/dL (0.2-1.2); CK (CPK) 35 U/L (29-168); CKMB 2.7 ng/mL (0-6.6); Calc. Creatinine Clearance 0 mL/min (70-130); Calcium 8.6 mg/dL (7.8-10.44); Carbon Dioxide 16 mmol/L (23-31); Chloride 105 mmol/L (98-107); Estimated GFR-MDRD 5; Glucose 442 mg/dL (80-115); Magnesium 1.6 mg/dL (1.6-2.6); Phosphorus 5.2 mg/dL (2.3-4.7); Protein, Total 4.9 g/dL (6.0-8.3); Sodium 132 mmol/L (136-145); Troponin I Less than 0.010 ng/mL (< 0.028)
[2018-06-13 11:07] LABS: Potassium 7.6 mmol/L (3.5-5.1)
[2018-06-13] MEDS ORDERED: Naloxone HCl 0.4 mg/ml Vial ONE (11:11)
[2018-06-13] MEDS ORDERED: Insulin Regular 300 UNITS/3 ML VIAL ONE (11:14)
--- NOTE | 2018-06-13 11:21 | RAD ---
PORTABLE CHEST 1 VIEW: DATE: 06/13/2018. TIME: 9:33 p.m. HISTORY: Chest pain, bradycardia, hyperglycemia. FINDINGS: Comparison is made with the exam of 05/31/2018. Changes of median sternotomy are again seen. The heart is enlarged. There is mild pulmonary vascula r congestion. No lobar consolidation, pneumothoraces, or large effusions are seen. POS: C
[2018-06-13 11:22] LABS: #Basophils 0.1 thou/uL (0.0-0.2); #Eosinphils 0.1 thou/uL (0.0-0.7); #Lymphocytes 1.6 thou/uL (1.20-3.40); #Monocytes 0.4 thou/uL (0.11-0.59); #Neutrophils 4.8 thou/uL (1.40-6.50); %Basophils 0.9 % (0.0-1.0); %Eosinophils 1.8 % (0.0-10.0); %Lymphocytes 22.7 % (21.0-51.0); %Monocytes 5.7 % (0.0-10.0); %Neutrophils 68.9 % (42.0-75.0); MDiff Complete? YES; Macrocytosis SLIGHT = 6-15 cells (100X) (0-5/hpf); Mean Corpuscular HGB CONC 29.8 g/dL (32.0-36.0); Mean Corpuscular Hemoglobin 31.3 pg (27.0-31.0); Mean Platelet Volume 7.9 fL (7.4-10.4); PLT Morphology Comment Appears Adequate; Platelet Count 140 thou/uL (130-400); Polychromasia MODERATE = 3-4 cells (100X) (0-2/hpf); RBC Distribution Width 15.7 % (11.5-14.5); Red Blood Cell (RBC) Count 2.57 mill/uL (4.20-5.40)
[2018-06-13 11:24] LABS: Base Excess-Venous -6.8 mmol/L (0 (+/- 2.5)); Bicarbonate (HCO3v) 19.9 mmol/L (1.0-85.0); CO2 Tension (PvCO2) 44.4 mmHg (41.0-51.0); Calcium, Ionized 1.16 mmol/L (1.12-1.32); Hemoglobin - Calc 7.8 g/dL (12.0-18.0); O2 Tension (PvO2) 46.6 mmHg (35.0-45.0); Potassium 7.7 mmol/L (3.4-4.7); T. Carbon Dioxide 21.2 mmol/L (1.0-85.0); pH (Venous) 7.258 (7.35-7.45); vO2 Saturation-calc 75.5 % (94-98)
[2018-06-13] MEDS ORDERED: Albuterol Sulfate 2.5 mg/0.5 ml Neb ONE (11:24)
[2018-06-13] MEDS ORDERED: Albuterol Sulfate 2.5 mg/3 ml Neb ONE (11:24)
--- NOTE | 2018-06-13 11:55 | CT ---
BRAIN CT WITHOUT IV CONTRAST: HISTORY: A 63-year-old female with a history of altered mental status and bradycardia, hyperglycemia. FINDINGS: There is some atrophy and chronic white matter ischemic changes with some periventricular and centrum semiovale infarct changes which appear stable. IMPRESSION: Stable brain CT. 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 No mass or bleed or other acute process . POS: ANURADHA
[2018-06-13] MEDS ORDERED: Ondansetron ODT 4 MG TAB SL PRN (13:00)
[2018-06-13 13:29] LABS: INR-International Normal Ratio 3.2; Prothrombin Time 32.6 SEC (12.0-14.7)
[2018-06-13 13:47] LABS: INR-International Normal Ratio 3.3; PTT 45.2 SEC (22.9-36.1); Prothrombin Time 33.2 SEC (12.0-14.7)
[2018-06-13] MEDS ORDERED: Dextrose 50% Abboject 50 ML SYRINGE IVP PRN (14:35)
[2018-06-13] MEDS ORDERED: Dextrose 5% in Water 1,000 ML IV PRN (14:35)
[2018-06-13] MEDS: Sodium Chloride 0.9% 1,000 ML IV SCH (14:40)
[2018-06-13] MEDS ORDERED: Heparin 5,000 UNITS/ML VIAL SC SCH (15:00)
[2018-06-13] MEDS: HumaLOG 300 UNITS/3 ML VIAL SC PRN (15:47)
[2018-06-13] MEDS ORDERED: Insulin Glargine 12 UNITS in Pre-Filled Syringe 1 EACH SC SCH (16:00)
[2018-06-13] MEDS: Sevelamer Carbonate 800 MG TAB PO SCH (17:31)
--- NOTE | 2018-06-13 17:41 | CON ---
DATE OF CONSULTATION: 06/13/2018 SERVICE: Pulmonary Medicine. REASON FOR CONSULTATION: ICU patient. HISTORY OF PRESENT ILLNESS: The patient is a 63-year-old white female with past medical history significant for end-stage renal disease. She was in her usual state of health last night when she went to bed. This morning, she woke up and was found to be altered by family members. She had garbled speech. She was confused. Blood sugar was checked, which was elevated to 400. As such, EMS services were called to come to her house. When they arrived, her mentation was waxing and waning. Her heart rate was episodically in the 20s. As such, they gave her 0.5 mg of atropine and subsequently brought her to the emergency department. Pacer pads were placed, but she did not require any additional interventions. In the ER, her potassium was noted to be 7.7. She cannot provide additional elements of the history at this time. Currently, she is concerned about her grandchildren who are currently in school and well attentive. They do have rides to available pick them up. Her speech is less garbled than it was previously. PAST MEDICAL HISTORY: 1. End-stage renal disease. 2. Atrial fibrillation, paroxysmal. 3. Hypertension. 4. Type 2 diabetes mellitus. 5. Hypothyroidism. 6. Dyslipidemia. PAST SURGICAL HISTORY: 1. Coronary artery bypass graft. 2. Appendectomy. 3. Dialysis catheter placement. 4. Back surgery. 5. Hip surgery. 6. Left heart catheterization with history of PCI. ALLERGIES: No known drug allergies. MEDICATIONS: Lists of her inpatient medications were reviewed. No specific updates were made at this time. FAMILY HISTORY: Noncontributory. SOCIAL HISTORY: Negative for current alcohol, tobacco or illicit drug use. She has a [id number] history of smoking, but quit over 10 years ago. She has no exposure to chemicals, dust asbestos or tuberculosis, otherwise. REVEIW OF SYSTEMS: General, Head, Ears, Eyes, Nose, Throat, Cardiovascular, Respiratory, GI, , Musculoskeletal, Neurologic, and Skin are negative except as mentioned in the HPI. PHYSICAL EXAMINATION: VITAL SIGNS: Afebrile, pulse 72, blood pressure 144/68, respirations 15, saturation 99% on 2 liters nasal cannula. GENERAL: The patient is awake, alert, in no apparent distress. LUNGS: Excellent air entry. There is no prolonged expiratory phase, wheezing, rhonchi or crackles. HEART: Normal rate, regular. ABDOMEN: Soft, nontender, nondistended. Bowel sounds are positive. MUSCULOSKELETAL: No cyanosis or clubbing. There is no pitting in the bilateral lower extremities. NEUROLOGIC: Grossly nonfocal. She is moving all 4 extremities. Her speech is a little bit garbled, but the rate which she speaks, repetition, and understanding of speech is actually quite good. LABORATORY DATA: WBC 7.0, hemoglobin 8.0 and below baseline, however platelets 140. INR 3.3. PH 7.25, pCO2 of 44, pO2 of 46. Potassium 7.7, creatinine 8.14 , BUN 78, glucose 400, magnesium and phosphorus fall within the normal limits. Liver function studies are unremarkable otherwise. Troponin is negative, TSH is unremarkable. IMAGING DATA: 1. CT of the brain demonstrates no acute intracranial abnormality. 2. Chest x-ray demonstrates no acute cardiothoracic abnormality. ASSESSMENT: 1. Metabolic encephalopathy. 2. Hypokalemia. 3. Bradyarrhythmia secondary to #2. 4. End-stage renal disease. 5. Type 2 diabetes mellitus, DISCUSSION AND PLAN: Clinically, the patient is a little volume down. As such , I do agree with the IV fluids that are being initiated. She is currently on dialysis. She has not required any additional doses of atropine. Her heart rate is in the mid 70s and she demonstrates a narrow complex. We will watch her on telemetry over the next 24 hours and monitor for increasing signs of systemic inflammatory response. If we see these things, santa culture, empiric antibiotics will be considered. For now, we will put her back on her home dose long-acting insulin, and interrupt the heparin therapy. Pulmonary or Critical Care will continue to follow along in this location. 70 minutes have been devoted to this patient in various activities. I personally reviewed all imaging studies and laboratory data noted within this document. For fifty percent of this time, I was interacting with the patient at the bedside or coordinating care with the care team. For the remainder of the time I was immediately available to the patient in the hospital unit. RODOLFO
[2018-06-13] MEDS: Rosuvastatin 20 MG TAB PO SCH (20:06)
[2018-06-13] MEDS: Amiodarone 200 MG TAB PO SCH (20:07)
[2018-06-13] MEDS: Carvedilol 6.25 MG TAB PO SCH (20:07)
[2018-06-13] MEDS: Acetaminophen 325 MG TAB PO PRN (20:08)
[2018-06-13] MEDS ORDERED: tiZANidine HCl 4 MG TAB PO PRN (21:00)
[2018-06-14] MEDS: Sodium Chloride 0.9% 1,000 ML IV SCH (02:04)
[2018-06-14 03:53] LABS: INR-International Normal Ratio 2.7
[2018-06-14 03:56] LABS: #Eosinphils 0.1 thou/uL (0.0-0.7); #Lymphocytes 1.1 thou/uL (1.20-3.40); #Monocytes 0.4 thou/uL (0.11-0.59); #Neutrophils 4.1 thou/uL (1.40-6.50); %Basophils 0.8 % (0.0-1.0); %Eosinophils 2.5 % (0.0-10.0); %Lymphocytes 19.2 % (21.0-51.0); %Monocytes 6.2 % (0.0-10.0); %Neutrophils 71.4 % (42.0-75.0); Hemoglobin 8.6 g/dL (12.0-16.0); Mean Corpuscular HGB CONC 31.7 g/dL (32.0-36.0); Mean Corpuscular Hemoglobin 31.9 pg (27.0-31.0); Platelet Count 170 thou/uL (130-400); RBC Distribution Width 16.1 % (11.5-14.5); Red Blood Cell (RBC) Count 2.71 mill/uL (4.20-5.40); White Blood Cell (WBC) Count 5.7 thou/uL (4.8-10.8)
[2018-06-14 04:08] LABS: ALT (SGPT) 45 U/L (8-55); AST (SGOT) 51 U/L (5-34); Albumin 3.2 g/dL (3.4-4.8); Alkaline Phosphatase 116 U/L (40-150); Anion Gap 13 mmol/L (10-20); BUN (Urea Nitrogen) 25 mg/dL (9.8-20.1); Bilirubin, Total 0.4 mg/dL (0.2-1.2); Calc. Creatinine Clearance 17 mL/min (70-130); Calcium 8.4 mg/dL (7.8-10.44); Carbon Dioxide 26 mmol/L (23-31); Chloride 104 mmol/L (98-107); Estimated GFR-MDRD 11; Globulin 2.6 g/dL (2.4-3.5); Glucose 99 mg/dL (80-115); Potassium 4.5 mmol/L (3.5-5.1); Protein, Total 5.8 g/dL (6.0-8.3); Sodium 138 mmol/L (136-145)
[2018-06-14 04:09] LABS: Hemoglobin A1c 6.4 % (4.0-6.0)
[2018-06-14] MEDS: Warfarin Sodium 7.5 MG TAB PO SCH ×2 (06:37→16:33)
[2018-06-14] MEDS: Levothyroxine Sodium 100 MCG TAB PO SCH (06:37)
[2018-06-14 07:14] VITALS: BMI 33.5
[2018-06-14] MEDS: Sevelamer Carbonate 800 MG TAB PO SCH ×3 (08:09→16:33)
[2018-06-14] MEDS: Amlodipine 10 MG TAB PO SCH (08:56)
[2018-06-14] MEDS: Carvedilol 6.25 MG TAB PO SCH ×2 (08:56→20:27)
[2018-06-14] MEDS: Aspirin 81 mg Enteric Coated Tablet PO SCH (08:56)
[2018-06-14] MEDS ORDERED: Insulin Glargine 12 UNITS in Pre-Filled Syringe 1 EACH SC SCH (09:00)
[2018-06-14] MEDS ORDERED: Epoetin (ESRD) 20,000 UNITS/ML SC SCH (09:00)
[2018-06-14] MEDS: HumaLOG 300 UNITS/3 ML VIAL SC PRN (16:15)
--- NOTE | 2018-06-14 17:12 | RAD ---
SINGLE VIEW CHEST: Date: 06/14/18 COMPARISON: 06/13/18. HISTORY: Hypoxia and respiratory failure. FINDINGS: Single view of the chest shows an enlarged but stable cardiomediastinal silhouette. The patient is st atus post sternotomy. There is no evidence of consolidation, mass, or pleural effusion. IMPRESSION: Stable exam. POS: TPC
--- NOTE | 2018-06-14 17:39 | PRG ---
DATE OF SERVICE: 06/14/2018 SERVICE: Pulmonary Medicine. INTERVAL HISTORY: Overnight, the patient had increasing respiratory difficulties. She was placed on a Ventimask. This morning, she is breathing comfortably without accessory muscle use. Dialysis is going to be initiated today. Otherwise, there has been no interval change to her condition. PHYSICAL EXAMINATION: VITALS: Afebrile, pulse 77, blood pressure 143/77, respirations 15, saturation 97% on 50% FiO2. GENERAL: The patient is awake and alert. No apparent distress. LUNGS: Bilateral crackles are present. There is no prolonged expiratory phase or wheezing appreciat ed. HEART: Normal rate, regular. ABDOMEN: Soft, nontender, nondistended. Bowel sounds are positive. MUSCULOSKELETAL: No cyanosis or clubbing. There is trace pitting in the bilateral lower extremities . NEUROLOGIC: Grossly nonfocal. LABORATORY DATA: WBC 5.7, hemoglobin 8.6, platelets 170,000. INR 2.7. PH 7.25, pCO2 of 44, pO2 of 46. Basic metabolic profile is unremarkable except for creatinine of 4.12. Liver function studies a re unremarkable. Hemoglobin A1c 6.4, glucose 100. Blood cultures x2 are unremarkable. ASSESSMENT: 1. Metabolic encephalopathy, resolved. 2. Hyperkalemia, resolved. 3. Bradyarrhythmia, resolved. 4. Acute hypoxic respiratory failure secondary to volume overload. 5. End-stage renal disease. 6. Type 2 diabetes mellitus. PLAN: We will interrupt IV fluids. She will be on dialysis either today or tomorrow. In the meanti me, we will provide her with some oxygen. She remained in the ICU for the next 24 hours and if her o xygen requirements increase, noninvasive ventilation will be considered. In the meantime, work on mo bilizing her through time. Pulmonary Critical Care will continue to follow. I will get a repeat [facility] st x-ray.
--- NOTE | 2018-06-14 19:31 | HP ---
DATE OF ADMISSION: 06/13/2018 CHIEF COMPLAINT: High blood sugars. HISTORY OF PRESENT ILLNESS: This patient is a 63-year-old female who has end-stage renal diseases an d is on dialysis. The patient apparently is having some altered mental status at home. Her family w as apparently involved at that time and was able to check her blood sugar which read high on the mach ine. Subsequently, EMS was called and the patient was evaluated by paramedics. The patient was havi ng some altered mental status as reported. Her evaluation also revealed significant bradycardia. Jc montiel received a half dose of atropine and was brought to the emergency department. En route, appare ntly the patient did have some decline in her blood pressure after receiving some fentanyl and board operator al pacer pads placed with some external pacing, apparently, her heart rate got up to the 80s by the t vickie she arrived in the emergency department. There, the patient's assessment was significant for the finding of a potassium level of 7.7. The patient was still somewhat somnolent in the emergency depa rtment and was difficult to obtain significantly more history from the patient at that time. REVIEW OF SYSTEMS: Not obtainable given the patient's mental status. PAST MEDICAL HISTORY: Patient was just admitted to the hospital in May. She has a history of en d-stage renal disease on dialysis Wednesday, Wednesday, and Wednesday, followed by Dr. Nitin Coffey. His tory of paroxysmal atrial fibrillation with anticoagulation, followed by Dr. Carlos, hypertension, in sulin-dependent diabetes, hypothyroidism. PAST SURGICAL HISTORY: History of coronary artery bypass grafting, appendectomy, dialysis catheter p lacement, orthopedic surgery to back and right hip and a history of left heart catheterization with P CI. FAMILY HISTORY: Notable for coronary artery disease and renal disease. SOCIAL HISTORY: No alcohol, tobacco or drug use. She is a former smoker, but quit 10 years ago. Sh bar has been FULL CODE previously, will remain that way. Her daughter was previously identified as her surrogate decision maker. ALLERGIES: None. MEDICATIONS: Tramadol 50 mg t.i.d., tizanidine 4 mg t.i.d., warfarin 7.5 mg p.o. every day, Renvela 3200 mg p.o. t.i.d., Crestor 20 mg at bedtime, Zofran p.r.n., nitroglycerin p.r.n., Synthroid 100 mcg daily, isosorbide mononitrate 30 mg p.o. every day, Coreg 6.25 b.i.d., aspirin 81 mg every day, Norv asc 10 mg every day, amiodarone 10 mg at bedtime, Tylenol regular strength p.r.n. PHYSICAL EXAMINATION: VITAL SIGNS: Temperature is actually initially 96.6, pulse 58, respirations 24, O2 sat 100% on 2 lit ers nasal cannula. GENERAL APPEARANCE: Age appropriate female. She is a bit obtunded. She will answer questions, bit difficult to understand with some dysarthria. HEENT: Pupils are sluggish but is reactive. She has no OP lesions. NECK: Supple and symmetric. CARDIOVASCULAR: Azael but regular, without murmurs. LUNGS: Clear bilaterally, breathing is a bit shallow. ABDOMEN: Soft, nontender, nondistended, positive bowel sounds. No masses, no organomegaly. SKIN: Warm and dry without edema. LABORATORY DATA: White count 7.0, hemoglobin 8.0, MCV is 105, platelets 140. INR is 3.2. Sodium is 132, potassium 7.6, chloride 105, CO2 16, BUN 78, creatinine is 8.14, glucose 442, calcium 8.6, phos phorus 5.2, magnesium 1.6, AST 63, ALT 40, alkaline phosphatase 125. Troponin less than 0.01, albumi n 2.9. TSH 4.355. Chest x-ray, median sternotomy, mild pulmonary vascular congestion. Brain CT sta ble brain atrophy and bilateral old cortical infarct changes. IMPRESSION AND PLAN: 1. Severe bradycardia likely secondary to severe hyperkalemia. Patient's rate is presently somewhat recovered. She needs urgent dialysis in order to resolve the hyperkalemia. she has further bradyca rdia, would require external pacing or further atropine. 2. Severe hyperkalemia. The patient is followed by Dr. Nitin Coffey, he has been contacted for ar ranging urgent dialysis for the hyperkalemia now. 3. Metabolic encephalopathy. This appeared to be present prior to the administration of the fentany l, likely secondary to hyperkalemia and the bradycardia. Appears to be getting somewhat better. I w ill continue to monitor through dialysis. 4. End-stage renal disease, on hemodialysis as above. The patient will be receiving urgent dialysis . 5. Type 2 diabetes. We will continue Accu-Cheks, sliding scale as needed. 6. Hypertension. We will resume her meds as tolerated. 7. Dyslipidemia. We will continue her usual outpatient regimen.
[2018-06-14] MEDS: Rosuvastatin 20 MG TAB PO SCH (20:27)
[2018-06-14] MEDS: Amiodarone 200 MG TAB PO SCH (20:28)
[2018-06-15] MEDS: Nitroglycerin 0.4 MG TAB (25 Tab Bottle) SL PRN ×2 (04:29→04:44)
[2018-06-15] MEDS: HumaLOG 300 UNITS/3 ML VIAL SC PRN ×2 (04:48→08:42)
[2018-06-15] MEDS: Levothyroxine Sodium 100 MCG TAB PO SCH (05:04)
[2018-06-15 05:13] LABS: #Eosinphils 0.1 thou/uL (0.0-0.7); #Monocytes 0.4 thou/uL (0.11-0.59); #Neutrophils 2.9 thou/uL (1.40-6.50); %Basophils 0.4 % (0.0-1.0); %Eosinophils 2.8 % (0.0-10.0); %Lymphocytes 23.2 % (21.0-51.0); %Monocytes 7.8 % (0.0-10.0); %Neutrophils 65.9 % (42.0-75.0); Hemoglobin 8.1 g/dL (12.0-16.0); Mean Corpuscular HGB CONC 30.7 g/dL (32.0-36.0); Mean Corpuscular Hemoglobin 31.9 pg (27.0-31.0); Mean Platelet Volume 7.4 fL (7.4-10.4); Platelet Count 157 thou/uL (130-400); Red Blood Cell (RBC) Count 2.54 mill/uL (4.20-5.40); White Blood Cell (WBC) Count 4.4 thou/uL (4.8-10.8)
[2018-06-15 05:14] LABS: INR-International Normal Ratio 2.7; Prothrombin Time 28.8 SEC (12.0-14.7)
[2018-06-15 05:35] LABS: ALT (SGPT) 32 U/L (8-55); AST (SGOT) 27 U/L (5-34); Albumin 3.1 g/dL (3.4-4.8); Alkaline Phosphatase 97 U/L (40-150); Anion Gap 13 mmol/L (10-20); BUN (Urea Nitrogen) 38 mg/dL (9.8-20.1); Bilirubin, Total 0.5 mg/dL (0.2-1.2); Calc. Creatinine Clearance 12 mL/min (70-130); Calcium 8.3 mg/dL (7.8-10.44); Carbon Dioxide 24 mmol/L (23-31); Chloride 103 mmol/L (98-107); Estimated GFR-MDRD 7; Globulin 2.5 g/dL (2.4-3.5); Glucose 153 mg/dL (80-115); Potassium 4.7 mmol/L (3.5-5.1); Protein, Total 5.6 g/dL (6.0-8.3); Sodium 135 mmol/L (136-145)
--- NOTE | 2018-06-15 07:51 | PDOC.PN ---
- Subjective Encounter Start Date: 06/14/18 Encounter Start Time: 11:35 Feeling better. Still a little sleepy. - Objective Resuscitation Status: Resuscitation Status FULL:Full Resuscitation Vital Signs & Weight: Vital Signs (12 hours) Temp BP Pulse Ox 06/15/18 04:00 98.7 F 06/15/18 00:00 98.7 F 93 L 06/14/18 20:27 127/45 L 06/14/18 20:00 98.4 F 95 Weight Weight 175 lb 11.335 oz Most Recent Monitor Data Heart Rate from ECG 64 NIBP 133/51 NIBP BP-Mean 78 Respiration from ECG 23 SpO2 98 I&O: 06/14/18 06/15/18 06/16/18 06:59 06:59 06:59 Intake Total 1121 60 Output Total 895 415 Balance 226 -355 Result Diagrams: 06/15/18 04:45 06/15/18 04:45 Additional Labs: Accuchecks 06/15/18 06/14/18 06/14/18 04:45 20:31 16:01 POC Glucose 162 H 175 H 192 H Phys Exam - Physical Examination Constitutional: NAD Respiratory: no wheezing, no rales, no rhonchi, clear to auscultation bilateral Cardiovascular: RRR, no significant murmur Gastrointestinal: soft, non-tender, no distention, positive bowel sounds Musculoskeletal: no edema Dx/Plan (1) Symptomatic bradycardia Code(s): R00.1 - BRADYCARDIA, UNSPECIFIED Status: Acute Comment: Secondary to the hyperkalemia. Resolved with improved potassium. (2) Hyperkalemia Code(s): E87.5 - HYPERKALEMIA Status: Acute Comment: Required urgent HD. Improved. (3) ESRD (end stage renal disease) Code(s): N18.6 - END STAGE RENAL DISEASE Status: Acute Comment: Had urgent HD. Followed by Dr. Nitin Coffey. Continuing HD schedule. (4) CAD (coronary artery disease) Code(s): I25.10 - ATHSCL HEART DISEASE OF [place] CORONARY ARTERY W/O ANG PCTRS Status: Chronic Qualifiers: (5) Hypertension Code(s): I10 - ESSENTIAL (PRIMARY) HYPERTENSION Status: Chronic Qualifiers: Comment: Coreg, Norvasc. (6) Hypothyroidism Code(s): E03.9 - HYPOTHYROIDISM, UNSPECIFIED Status: Chronic Qualifiers: Comment: Levothyroxine. (7) Paroxysmal atrial fibrillation Code(s): I48.0 - PAROXYSMAL ATRIAL FIBRILLATION Status: Chronic Comment: in NSR. Had significant amount of ectopy when potassium was so high. Better now. Therapeutic INR. Continue warfarin. (8) Metabolic encephalopathy Code(s): G93.41 - METABOLIC ENCEPHALOPATHY Status: Acute Comment: Improved, but not entirely resolved. - Plan * Much better. Still slightly encephalopathic. HD again tomorrow. If improved , may be able to move out of unit and possibly discharge.
[2018-06-15] MEDS: Sevelamer Carbonate 800 MG TAB PO SCH ×3 (08:38→16:13)
[2018-06-15] MEDS: Aspirin 81 mg Enteric Coated Tablet PO SCH (08:40)
[2018-06-15] MEDS: Amlodipine 10 MG TAB PO SCH (08:40)
[2018-06-15] MEDS: Carvedilol 6.25 MG TAB PO SCH ×2 (08:41→20:39)
[2018-06-15] MEDS ORDERED: Heparin 10,000 UNITS/ 10 ML VIAL ONE (10:00)
--- NOTE | 2018-06-15 12:41 | EKG ---
Test Reason : Blood Pressure : / mmHG Vent. Rate : 067 BPM Atrial Rate : 067 BPM P-R Int : 154 ms QRS Dur : 090 ms QT Int : 450 ms P-R-T Axes : 035 -19 001 degrees QTc Int : 475 ms Normal sinus rhythm Poor anterior R wave progression When compared with ECG of 13-JUN-2018 11:27, (Unconfirmed) Sinus rhythm has replaced Atrial fibrillation Incomplete left bundle branch block is no longer Present Confirmed by DR. Migel PARIS ([id number]) on 06/15/2018 12:40:43 PM Referred By: TONY Confirmed By:DR. Migel PARIS
[2018-06-15] MEDS: traMADol HCl 50 MG TAB PO PRN ×2 (14:44→17:44)
[2018-06-15] MEDS ORDERED: PARoxetine 20 MG TAB PO SCH (15:00)
[2018-06-15 15:26] LABS: Troponin I 0.031 ng/mL (< 0.028)
[2018-06-15] MEDS: Warfarin Sodium 7.5 MG TAB PO SCH (16:14)
--- NOTE | 2018-06-15 16:46 | PDOC.PN ---
- Subjective Encounter Start Date: 06/15/18 Encounter Start Time: 02:30 Feeling better in general. She does not recall the events surrounding her admission. She had an episode of chest pain this morning around 6:30. No EKG changes per nursing. No change on the monitor. Pain migrated from the chest to the left upper abdomen/lower, lateral chest area. Still present. - Objective Resuscitation Status: Resuscitation Status FULL:Full Resuscitation Vital Signs & Weight: Vital Signs (12 hours) Temp Pulse Pulse Pulse BP BP BP 06/15/18 09:45 72 69 162/56 H 132/58 L 06/15/18 08:41 147/52 H 06/15/18 08:40 69 147/52 H 06/15/18 08:00 06/15/18 07:00 98.2 F Pulse Ox Pulse Ox Pulse Ox 06/15/18 09:45 95 93 L 06/15/18 08:41 06/15/18 08:40 06/15/18 08:00 96 06/15/18 07:00 Weight Weight 175 lb 11.335 oz Most Recent Monitor Data Heart Rate from ECG 75 NIBP 153/56 NIBP BP-Mean 88 Respiration from ECG 18 SpO2 97 I&O: 06/14/18 06/15/18 06/16/18 06:59 06:59 06:59 Intake Total 1121 60 480 Output Total 895 415 0 Balance 226 -355 480 Result Diagrams: 06/15/18 04:45 06/15/18 04:45 Additional Labs: Accuchecks 06/15/18 06/15/18 06/15/18 14:41 08:37 04:45 POC Glucose 147 H 193 H 162 H 06/14/18 20:31 POC Glucose 175 H Phys Exam - Physical Examination Constitutional: NAD Respiratory: no wheezing, no rales, no rhonchi, clear to auscultation bilateral Cardiovascular: RRR, no significant murmur Gastrointestinal: soft, non-tender, no distention, positive bowel sounds Musculoskeletal: no edema TTP in the Left lower, lateral ribs. Psychiatric: normal affect, A&O x 3 Dx/Plan (1) Symptomatic bradycardia Code(s): R00.1 - BRADYCARDIA, UNSPECIFIED Status: Acute Comment: Secondary to the hyperkalemia. Resolved with improved potassium. (2) Hyperkalemia Code(s): E87.5 - HYPERKALEMIA Status: Acute Comment: Required urgent HD. Improved. (3) ESRD (end stage renal disease) Code(s): N18.6 - END STAGE RENAL DISEASE Status: Acute Comment: Had urgent HD. Followed by Dr. Nitin Coffey. Continuing HD schedule. (4) CAD (coronary artery disease) Code(s): I25.10 - ATHSCL HEART DISEASE OF [place] CORONARY ARTERY W/O ANG PCTRS Status: Chronic Qualifiers: (5) Hypertension Code(s): I10 - ESSENTIAL (PRIMARY) HYPERTENSION Status: Chronic Qualifiers: Comment: Coreg, Norvasc. (6) Hypothyroidism Code(s): E03.9 - HYPOTHYROIDISM, UNSPECIFIED Status: Chronic Qualifiers: Comment: Levothyroxine. (7) Paroxysmal atrial fibrillation Code(s): I48.0 - PAROXYSMAL ATRIAL FIBRILLATION Status: Chronic Comment: in NSR. Had significant amount of ectopy when potassium was so high. Better now. Therapeutic INR. Continue warfarin. (8) Metabolic encephalopathy Code(s): G93.41 - METABOLIC ENCEPHALOPATHY Status: Acute Comment: Improved, but not entirely resolved. (9) Chest pain Code(s): R07.9 - CHEST PAIN, UNSPECIFIED Status: Resolved Comment: Atypical. Check troponins. - Plan cont current plan of care * Continue HD as scheduled. Likely move out of the CCU to floor. Increase activity.
--- NOTE | 2018-06-15 17:51 | PRG ---
DATE OF SERVICE: 06/15/2018 SERVICE: Pulmonary Medicine. INTERVAL HISTORY: The patient is doing fine from Respiratory standpoint, breathing comfortably. She is on 1-liter nasal cannula. Her saturations are just fine. She tolerated dialysis without difficulties. She has not been out of bed since she has been in the ICU for the past 2 days. Otherwise, there has been no interval change to her condition. PHYSICAL EXAMINATION: VITAL SIGNS: Afebrile, pulse 69, blood pressure 147/52, respirations 20, saturation 98% on 1 liter nasal cannula. GENERAL: The patient is awake, alert, in no apparent distress. LUNGS: Excellent air entry with no prolonged expiratory phase or wheezing present. HEART: Normal rate, regular. ABDOMEN: Soft, nontender, nondistended. Bowel sounds positive. MUSCULOSKELETAL: No cyanosis or clubbing. There is no pitting in the bilateral lower extremities. NEUROLOGIC: Grossly nonfocal. LABORATORY DATA: WBC 4.4, hemoglobin 8.1, platelets 157,000. INR 2.7, creatinine 5.99, BUN 38. Basic metabolic profile and liver function studies are essentially unremarkable. Blood cultures x2 are negative. IMAGING: Chest x-ray demonstrates no evidence of acute cardiopulmonary abnormality is present. ASSESSMENT: 1. Acute hypoxic respiratory failure, resolved. 2. Metabolic encephalopathy, resolved. 3. Bradyarrhythmia secondary to hyperkalemia, resolved. 4. End-stage renal disease. DISCUSSION AND PLAN: We will start mobilizing the patient. We will enlist the help of physical therapy and get her into a chair multiple times on a daily basis. We will transition her out of the ICU to the telemetry unit. From my perspective, if she remains stable until tomorrow, she will be a candidate for transition out of the hospital. Laboratory holiday will be provided. RODOLFO
[2018-06-15] MEDS: Rosuvastatin 20 MG TAB PO SCH (20:40)
[2018-06-15] MEDS: Acetaminophen 325 MG TAB PO PRN (20:40)
[2018-06-15] MEDS: Amiodarone 200 MG TAB PO SCH (20:40)
[2018-06-15 20:57] LABS: Troponin I 0.023 ng/mL (< 0.028)
[2018-06-16] MEDS: traMADol HCl 50 MG TAB PO PRN ×2 (02:38→14:14)
[2018-06-16 05:22] LABS: #Eosinphils 0.1 thou/uL (0.0-0.7); #Lymphocytes 0.7 thou/uL (1.20-3.40); #Monocytes 0.3 thou/uL (0.11-0.59); %Basophils 0.9 % (0.0-1.0); %Lymphocytes 23.3 % (21.0-51.0); %Monocytes 8.3 % (0.0-10.0); %Neutrophils 63.5 % (42.0-75.0); Hemoglobin 7.8 g/dL (12.0-16.0); Mean Corpuscular HGB CONC 31.8 g/dL (32.0-36.0); Mean Corpuscular Hemoglobin 31.9 pg (27.0-31.0); Mean Platelet Volume 7.4 fL (7.4-10.4); Platelet Count 144 thou/uL (130-400); RBC Distribution Width 15.4 % (11.5-14.5); Red Blood Cell (RBC) Count 2.46 mill/uL (4.20-5.40); White Blood Cell (WBC) Count 3.1 thou/uL (4.8-10.8)
[2018-06-16 05:48] LABS: Anion Gap 11 mmol/L (10-20); BUN (Urea Nitrogen) 16 mg/dL (9.8-20.1); Calc. Creatinine Clearance 20 mL/min (70-130); Calcium 8.1 mg/dL (7.8-10.44); Carbon Dioxide 27 mmol/L (23-31); Chloride 99 mmol/L (98-107); Estimated GFR-MDRD 13; Glucose 264 mg/dL (80-115); Potassium 3.8 mmol/L (3.5-5.1); Sodium 133 mmol/L (136-145)
[2018-06-16] MEDS: Levothyroxine Sodium 100 MCG TAB PO SCH (05:50)
[2018-06-16] MEDS: Amlodipine 10 MG TAB PO SCH (07:58)
[2018-06-16] MEDS: Sevelamer Carbonate 800 MG TAB PO SCH ×3 (07:58→17:33)
[2018-06-16] MEDS: Aspirin 81 mg Enteric Coated Tablet PO SCH (07:59)
[2018-06-16] MEDS: Carvedilol 6.25 MG TAB PO SCH (07:59)
[2018-06-16] MEDS: HumaLOG 300 UNITS/3 ML VIAL SC PRN (07:59)
[2018-06-16 08:57] LABS: INR-International Normal Ratio 3.3; Prothrombin Time 33.4 SEC (12.0-14.7)
[2018-06-16] MEDS ORDERED: PARoxetine 20 MG TAB PO SCH (09:00)
--- NOTE | 2018-06-16 14:56 | PRG ---
DATE OF SERVICE: 06/16/2018 SERVICE: Pulmonary Medicine. INTERVAL HISTORY: The patient is doing great from a respiratory standpoint. She denies any current chest pain, fevers, chills, nausea, vomiting or shortness of breath. Otherwise, there has been no in terval change in the patient's condition. She is actually breathing much improved and she has been w eaned down to room air. PHYSICAL EXAMINATION: VITAL SIGNS: Afebrile, pulse 66, blood pressure 170/73, respirations 15, saturation 95% on 4 liters nasal cannula. GENERAL: The patient is awake, alert, no apparent distress. LUNGS: Excellent air entry. There is no prolonged expiratory phase, wheezing, rhonchi, or crackles present. HEART: Normal rate, regular. ABDOMEN: Soft, nontender, nondistended. Bowel sounds are positive. MUSCULOSKELETAL: No cyanosis or clubbing. There is no pitting in the bilateral lower extremities. NEUROLOGIC: Grossly nonfocal. LABORATORY DATA: WBC 3.1, hemoglobin 7.8, and platelets 144,000. INR 3.3. Basic metabolic profile is essentially unremarkable with a down trending creatinine of 3.61. Troponin is 0.023. Blood cultu res x2 are unremarkable. ASSESSMENT: 1. Acute hypoxic respiratory failure, resolved. 2. Metabolic encephalopathy, resolved. 3. End-stage renal disease. 4. Bradyarrhythmia secondary to hyperkalemia, resolved. DISCUSSION AND PLAN: At this point, the patient has made a significant improvement and is essentiall y back to baseline. She has no further inpatient requirements for Pulmonary or Critical Care opinion , and I will sign off. Call with additional questions or concerns moving forward. Esquivel catheter ca n be removed today.
[2018-06-16 15:49] VITALS: BP 155/67; TEMP 98.6
[2018-06-16] MEDS: Acetaminophen 325 MG TAB PO PRN (16:18)
[2018-06-16] MEDS ORDERED: Warfarin Sodium 7.5 MG TAB PO SCH (17:00)
[2018-06-17] MEDS ORDERED: Lidocaine 5% Patch TD SCH (09:00)
[2018-06-17] MEDS ORDERED: Lidocaine Patch Removal TOP SCH (21:00)
== END 2018-06-16 18:35 | disposition home or self-care (01) | DRG 640 ==
LOC: ERS 10:12 → CCU 12:27 → 2NO 06-15 21:18
PROVIDERS: ADMIT Internal Medicine; ATTEND Internal Medicine
PROC: 5A1D70Z Performance of Urinary Filtration, Intermittent, Less than 6 Hours Per Day (ICD-10-PCS; 2018-06-13)
PROC: 5A1D70Z Performance of Urinary Filtration, Intermittent, Less than 6 Hours Per Day (ICD-10-PCS; principal; 2018-06-15)
DX: E87.5 Hyperkalemia (principal); N18.6 End stage renal disease; G93.41 Metabolic encephalopathy; J96.01 Acute respiratory failure with hypoxia; I12.0 Hypertensive chronic kidney disease with stage 5 chronic kidney disease or end stage renal disease; E11.22 Type 2 diabetes mellitus with diabetic chronic kidney disease; Z99.2 Dependence on renal dialysis; I48.0 Paroxysmal atrial fibrillation; Z79.01 Long term (current) use of anticoagulants; E03.9 Hypothyroidism, unspecified; Z95.1 Presence of aortocoronary bypass graft; Z87.891 Personal history of nicotine dependence; E78.5 Hyperlipidemia, unspecified
CPT/HCPCS: 36415; 36416; 70450; 71045; 80048; 80053; 82330; 82550; 82553; 82803; 83036; 83735; 84100; 84443; 84484; 85025; 85610; 85730; 87040; 90935; 93005; 93010; 94640; 96361; 96374; 96375; 96376; G0257; G8978-GP-CK; G8979-GP-CI; J1644; J1815; J2310; J2405; J7611; Q4081

== ENCOUNTER 2018-07-28 11:45 | Day surgery (SDC) | payer MEDICARE, BC ==
[2018-07-27 09:05] VITALS: BMI 27.9
--- NOTE | 2018-07-28 21:09 | OP ---
DATE OF PROCEDURE: 07/28/2018 PROCEDURES PERFORMED: Esophagogastroduodenoscopy with biopsy. PREPROCEDURE DIAGNOSES: 1. Severe iron deficiency anemia. 2. Chronic renal failure, on hemodialysis. 3. History of chronic Coumadin use for atrial fibrillation. 4. History of chronic Indocin use for gout. POSTPROCEDURE DIAGNOSES: 1. Exam to second portion of duodenum. 2. Grossly normal-appearing esophagus with a mildly irregular Z-line. 3. Mild erosive gastritis, distal body and antrum, biopsied. 4. Normal duodenum, biopsied. 5. No evidence of ulcer, mass, or active bleeding site. PROCEDURE IN DETAIL: Written informed consent was obtained. The patient was brought to the endoscopy suite. Total intravenous anesthesia was administered by Dr. Marco Antonio Lara. The patient was placed in the left lateral decubitus position. A bite block was inserted into the mouth. When adequate sedation was achieved, a Pentax video diagnostic gastroscope was introduced into the oral cavity and the esophagus was carefully intubated. The gastroscope was advanced under direct visualization to the second portion of the duodenum. Endoscopic findings revealed a grossly normal appearing esophagus with the Z-line estimated at 38 cm. It was mildly irregular. There was no evidence of esophageal ulcer or hiatal hernia. The stomach was entered and carefully examined. This included a careful retroflexed view of the cardia and fundus. Mild patchy erythema with some scattered superficial erosions was noted in the distal body and antrum. Biopsies were obtained for histology. There was no evidence of ulcer or active bleeding. The duodenum from the bulb to the second portion appeared normal. No angio-ectasias were identified. Biopsies were obtained in the proximal duodenum to evaluate for any microscopic changes. The stomach was decompressed as the endoscope was removed from the patient. She was transferred to the Day Stay surgery area for postprocedure monitoring. There were no immediate complications. RECOMMENDATIONS: 1. Resume previous diet and medications. 2. Cautioned the patient about the use of Indocin as it may increase her risk for gastrointestinal bleeding. 3. For ulcer prophylaxis, I suggested a low dose of Prilosec 20 mg daily. 4. Schedule video capsule endoscopy of the small intestine. 5. Follow up in GI clinic in about 6 weeks after the capsule endoscopy study is performed. Job ID: [id number]
[2018-07-28] MEDS ORDERED: PROPOFOL 200 MG/20 ML VIAL ONE (22:28)
== END 2018-07-28 15:40 | disposition home or self-care (01) ==
LOC: SDC 11:45
PROVIDERS: ATTEND Internal Medicine Gastroenterology
PROC: 0DB98ZX Excision of Duodenum, Via Natural or Artificial Opening Endoscopic, Diagnostic (ICD-10-PCS; principal; 2018-07-28)
PROC: 0DB68ZX Excision of Stomach, Via Natural or Artificial Opening Endoscopic, Diagnostic (ICD-10-PCS; 2018-07-28)
DX: K29.60 Other gastritis without bleeding (principal); D50.9 Iron deficiency anemia, unspecified; N18.9 Chronic kidney disease, unspecified; I48.91 Unspecified atrial fibrillation; M10.9 Gout, unspecified; Z99.2 Dependence on renal dialysis; Z79.01 Long term (current) use of anticoagulants; Z79.899 Other long term (current) drug therapy; Z79.4 Long term (current) use of insulin; Z79.82 Long term (current) use of aspirin
CPT/HCPCS: 36416; 88305; 88312; J2704

== ENCOUNTER 2018-09-29 13:37 | Outpatient (CLI) | payer MEDICARE, BC ==
--- NOTE | 2018-09-29 15:52 | ULT ---
LEFT LOWER EXTREMITY ARTERIAL DOPPLER: 09/29/18 HISTORY: M79.605 - left leg pain. COMPARISON: None. TECHNIQUE: Real time ward scale, color doppler and spectral analysis of the left lower extremity arterial system is performed. Common femoral artery peak systolic velocity 126 cm/s with biphasic waveform. Deep femoral artery peak systolic velocity is 107 cm/s with biphasic waveform. Proximal femoral artery peak systolic velocity is 74 cm/s with biphasic waveform. Mid femoral artery peak systolic velocity is 82 cm/s with biphasic waveform. Distal femoral artery peak systolic velocity is 106 cm/s with biphasic waveform. Popliteal artery peak systolic velocity is 122 cm/s with biphasic waveform and spectral broadening. Posterior tibial artery peak systolic velocity is 24 cm/s with biphasic waveform. The anterior tibial artery peak systolic velocity is 73 cm/s with biphasic waveform. Dorsalis pedis artery peak systolic velocity is 91 cm/s with spectral broadening. IMPRESSION: 1. Focal elevation of peak systolic velocity in dorsalis pedis artery suggesting of a hemodynami issac significant stenosis. 2. Abnormally low peak systolic velocity in the posterior tibial artery suggesting a hemodynamic ally significant stenosis. Conventional angiogram may be beneficial. POS: ANURADHA
== END 2018-09-29 13:38 | disposition home or self-care (01) ==
LOC: ULT 13:37
PROVIDERS: ATTEND Family Medicine
DX: M79.605 Pain in left leg (principal); R93.7 Abnormal findings on diagnostic imaging of other parts of musculoskeletal system
CPT/HCPCS: 93923

== ENCOUNTER 2018-11-24 12:31 | Outpatient (CLI) | payer MEDICARE, BC ==
--- NOTE | 2018-11-24 15:45 | MMO ---
Bilateral MAMMO Bilat Screen DDI+GENE. CLINICAL HISTORY: Patient is 63 years old and is seen for screening. The patient has no family history of breast cancer. The patient has no personal history of cancer. VIEWS: The views performed were: bilateral craniocaudal with tomosynthesis and bilateral mediolateral oblique with tomosynthesis. FILMS COMPARED: The present examination has been compared to prior imaging studies performed at [facility] on 01/09/2003, 06/23/2005, 09/15/2006, 10/11/2007, 12/13/2009, 12/18/2010, 12/30/2011, 01/17/2013, 01/29/2014, 05/21/2015, 10/19/2016 and 11/09/2017. MAMMOGRAM FINDINGS: There are scattered fibroglandular densities. Benign calcifications are noted bilaterally. There is a new mass like density in the left lower inner breast. In the right breast, there are no suspicious masses, calcifications or areas of architectural distortion. IMPRESSION: FINDING IN THE LEFT BREAST REQUIRES ADDITIONAL EVALUATION. SPOT COMPRESSION IS RECOMMENDED. AN ULTRASOUND EXAM IS RECOMMENDED. ADDITIONAL IMAGING. THE RESULTS OF THIS EXAM WERE SENT TO THE PATIENT. ACR BI-RADS Category 0 - Incomplete: Need additional imaging evaluation. [facility] will notify the patient of the need for additional imaging services. MAMMOGRAPHY NOTE: 1. A negative mammogram report should not delay a biopsy if a dominant of clinically suspicious mass is present. 2. Approximately 10% to 15% of breast cancers are not detected by mammography. 3. Adenosis and dense breasts may obscure an underlying neoplasm.
== END 2018-11-24 12:32 | disposition home or self-care (01) ==
LOC: BICMAMMO 12:31
PROVIDERS: ATTEND Family Medicine
DX: Z12.31 Encounter for screening mammogram for malignant neoplasm of breast (principal)
CPT/HCPCS: 77063; 77067

== ENCOUNTER 2018-11-25 13:42 | Observation (INO) | payer MEDICARE, BC ==
--- NOTE | 2018-11-25 13:58 | CT ---
CT Brain WO Con: 11/25/2018 12:00 AM CLINICAL HISTORY: Right facial droop, left arm drift. COMPARISON: 06/13/2018 FINDINGS: Hemorrhage: None. Ventricular system: Mild ex vacuo dilatation. Cerebral parenchyma: Multifocal deep white matter, and deep ward nuclei lacunar infarctions are prese nt, some of which have developed from comparison, 06/13/2018 exam. Midline shift: None. Mass: No mass effect. Calvarium: Normal. Visualized Paranasal sinuses: Clear. IMPRESSION: Multifocal deep white matter and deep ward nuclei lacunar infarction some of which are new from 2017 exam. Recommend noncontrast brain MRI for further evaluation Notification placed at 1351 hours to the ER physician, Brian Berg.
[2018-11-25 14:14] LABS: #Eosinphils 0.2 thou/uL (0.0-0.7); #Lymphocytes 0.9 thou/uL (1.20-3.40); #Monocytes 0.3 thou/uL (0.11-0.59); #Neutrophils 2.8 thou/uL (1.40-6.50); %Basophils 0.2 % (0.0-1.0); %Eosinophils 5.7 % (0.0-10.0); %Lymphocytes 21.9 % (21.0-51.0); %Monocytes 7.1 % (0.0-10.0); %Neutrophils 65.1 % (42.0-75.0); Hemoglobin 11.2 g/dL (12.0-16.0); Mean Corpuscular HGB CONC 32.1 g/dL (32.0-36.0); Mean Corpuscular Volume 99.8 fL (78.0-98.0); Mean Platelet Volume 6.9 fL (7.4-10.4); Platelet Count 145 thou/uL (130-400); RBC Distribution Width 14.4 % (11.5-14.5); Red Blood Cell (RBC) Count 3.51 mill/uL (4.20-5.40); White Blood Cell (WBC) Count 4.3 thou/uL (4.8-10.8)
[2018-11-25 14:21] LABS: PTT 41.7 SEC (22.9-36.1)
[2018-11-25 14:22] LABS: INR-International Normal Ratio 2.6
[2018-11-25 14:29] LABS: ALT (SGPT) 15 U/L (8-55); AST (SGOT) 18 U/L (5-34); Alkaline Phosphatase 89 U/L (40-150); Anion Gap 17 mmol/L (10-20); BUN (Urea Nitrogen) 20 mg/dL (9.8-20.1); Bilirubin, Total 0.5 mg/dL (0.2-1.2); Calc. Creatinine Clearance 0 mL/min (70-130); Calcium 9.3 mg/dL (7.8-10.44); Carbon Dioxide 26 mmol/L (23-31); Chloride 94 mmol/L (98-107); Estimated GFR-MDRD 10; Globulin 3.1 g/dL (2.4-3.5); Glucose 255 mg/dL (80-115); Potassium 4.1 mmol/L (3.5-5.1); Protein, Total 7.1 g/dL (6.0-8.3); Sodium 133 mmol/L (136-145)
[2018-11-25] MEDS ORDERED: Aspirin Chewable 81 MG TAB ONE (14:29)
[2018-11-25] MEDS ORDERED: hydrALAZINE 20 MG/ML VIAL SLOW IVP PRN (15:41)
[2018-11-25] MEDS ORDERED: Dextrose 5% in Water 1,000 ML IV PRN (15:58)
[2018-11-25] MEDS ORDERED: Dextrose 50% Abboject 50 ML SYRINGE SLOW IVP PRN (15:58)
[2018-11-25] MEDS ORDERED: HumaLOG 300 UNITS/3 ML VIAL SC PRN (15:58)
--- NOTE | 2018-11-25 16:24 | HP ---
PRIMARY CARE PROVIDER: Fly Vargas. CHIEF COMPLAINT: Weakness. HISTORY OF PRESENT ILLNESS: Ms. Fontenot is a pleasant 63-year-old lady at [facility] on November 25, 2018. She has hemodialysis on Wednesday, Wednesday, and Wednesday. She went for hemodialysis today. Hemodialysis was successfully completed. After the dialysis was over, dialysis staff noticed that she had left-sided weakness. The patient reports feeling left-sided weakness as well as left facial numbness. She also has a right-sided facial droop, but she reports that it is chronic, from prior stroke. Left arm weakness improved on the way to the emergency room. She also reports bilateral lower extremity numbness. At the Dialysis Center, she thought that her symptoms were secondary to hypoglycemia. She drank Sprite and took three candies. Symptoms did not improve. She also reports left-sided chest discomfort that she is unable to describe further. Discomfort lasted a few minutes. She took nitroglycerin. At this time, she denies having any chest discomfort. REVIEW OF SYSTEMS: All other systems reviewed and found to be negative. PAST MEDICAL HISTORY: End-stage renal disease, on hemodialysis; paroxysmal atrial fibrillation, on anticoagulation; hypertension; insulin-dependent diabetes mellitus; hypothyroidism. PAST SURGICAL HISTORY: Coronary artery bypass graft, appendectomy, dialysis catheter placement, back surgery, right hip surgery, cardiac catheterization with PCI. FAMILY HISTORY: Significant for coronary artery disease in her brother. SOCIAL HISTORY: The patient denies tobacco use, alcohol use, or recreational drug use. CODE STATUS: I discussed her code status. She is full code. ALLERGIES: NONE. CURRENT MEDICATIONS: 1. Amlodipine 5 mg two times a day. 2. Aspirin 81 mg daily. 3. Captopril 25 mg daily. 4. Carvedilol 6.25 mg 2 times a day. 5. Lantus insulin subcutaneously daily. 6. Levothyroxine 88 mcg daily. 7. [place]-3 fish oil one capsule daily. 8. Crestor 40 mg daily. 9. Humalog insulin 12 units three times a day. 10. Renvela two tablets three times a day. 11. Tramadol 50 mg 2 times a day. 12. Keflex 500 mg 3 times a day. 13. Tylenol No. 3 one to two tablets every 4 to 6 hours as needed. 14. Neurontin 600 mg 3 times a day. 15. Zanaflex 2 mg p.r.n. PHYSICAL EXAMINATION: GENERAL: On examination, Ms. Fontenot is awake and alert, not in acute distress. VITAL SIGNS: Blood pressure is 180/71, pulse 71, respiratory rate 14 and oxygen saturation 100% on room air. She is afebrile. EYES: No scleral icterus, no conjunctival pallor. ENT: Moist mucosal membranes. No oropharyngeal erythema or exudates. NECK: Supple, nontender, trachea is midline. RESPIRATORY: Accessory muscles of breathing are not active. Chest wall movements are symmetric bilaterally. Lungs are clear to auscultation without wheeze, rhonchi, or crepitations. CARDIOVASCULAR: S1 and S2 are heard, irregular. Pulses palpable. No carotid bruit. No pericardial rub. ABDOMEN: Soft, nontender, bowel sounds heard. NEUROLOGIC: She has right-sided facial droop. Otherwise, cranial nerves 2 through 12 are intact. No focal motor or sensory deficits. Power is 5/5 in all four extremities. Deep tendon reflexes are 2+, plantars downgoing bilaterally. MUSCULOSKELETAL: Power is 5/5 in all four extremities. The patient has reproducible tenderness over the left chest wall. SKIN: No rashes or subcutaneous nodules. LYMPHATIC: No cervical lymphadenopathy. PSYCHIATRIC: Normal mood, normal affect, the patient is oriented to person, place, and time. LABORATORY DATA: Ms. Fontenot's labs and investigations were reviewed. I reviewed her electrocardiogram, which shows atrial fibrillation with controlled ventricular response. No ST changes to suggest an acute coronary syndrome. I also reviewed noncontrast CT scan of the brain, which shows deep white matter and deep ward nuclei lacunar infarction. She has leukopenia with 4300 white cells, macrocytic anemia with hemoglobin 11.2, normal platelet count. INR 2.6, decreased sodium of 133, normal potassium, elevated creatinine of 4.25, normal blood urea nitrogen, unremarkable liver profile and mildly elevated CK of 171. ASSESSMENT AND PLAN: Ms. Fontenot is a pleasant 63-year-old lady, who was seen at [facility] on November 25, 2018. Her problem list includes: 1. Weakness: Ms. Fontenot is presenting with weakness. She also reportedly had slurred speech at Dialysis Center. Given her risk factors, she will be admitted to the hospital for ruling out stroke. We will order MRI of the brain, carotid Dopplers and 2D echocardiogram. We will consult Neurology Service. We will continue aspirin, Plavix, and warfarin. 2. End-stage renal disease, on dialysis: Ms. Fontenot completed her dialysis session today. She is not in volume overload at this time. We will continue to monitor. We will consult Nephrology if she needs dialysis while she is in the hospital. 3. Diabetes mellitus, type 2: We will start Accu-Cheks and insulin sliding scale. 4. Hypertension: We will monitor vital signs and titrate antihypertensives as needed. 5. Hypothyroidism: Continue Synthroid. Many thanks for allowing me to participate in your patient's care. Please feel free to contact me with any questions or concerns. LEVEL OF RISK: High. LEVEL OF COMPLEXITY: High. Job ID: [id number]
[2018-11-25] MEDS ORDERED: Warfarin Sodium 7.5 MG TAB PO SCH (17:00)
[2018-11-25 17:19] VITALS: BMI 28.5
[2018-11-25] MEDS: tiZANidine HCl 4 MG TAB PO PRN (21:27)
[2018-11-25] MEDS: traMADol HCl 50 MG TAB PO PRN (21:27)
[2018-11-26] MEDS: traMADol HCl 50 MG TAB PO PRN ×2 (03:26→10:00)
[2018-11-26 05:42] LABS: #Eosinphils 0.4 thou/uL (0.0-0.7); #Lymphocytes 1.4 thou/uL (1.20-3.40); #Monocytes 0.4 thou/uL (0.11-0.59); #Neutrophils 2.2 thou/uL (1.40-6.50); %Basophils 0.2 % (0.0-1.0); %Eosinophils 8.7 % (0.0-10.0); %Lymphocytes 31.1 % (21.0-51.0); %Monocytes 9.7 % (0.0-10.0); %Neutrophils 50.3 % (42.0-75.0); Hemoglobin 10.7 g/dL (12.0-16.0); Mean Corpuscular HGB CONC 33.5 g/dL (32.0-36.0); Mean Corpuscular Hemoglobin 33.1 pg (27.0-31.0); Mean Corpuscular Volume 98.7 fL (78.0-98.0); Mean Platelet Volume 7.2 fL (7.4-10.4); Platelet Count 139 thou/uL (130-400); RBC Distribution Width 14.3 % (11.5-14.5); Red Blood Cell (RBC) Count 3.22 mill/uL (4.20-5.40); White Blood Cell (WBC) Count 4.4 thou/uL (4.8-10.8)
[2018-11-26 06:01] LABS: Anion Gap 18 mmol/L (10-20); BUN (Urea Nitrogen) 32 mg/dL (9.8-20.1); Calc. Creatinine Clearance 12 mL/min (70-130); Calcium 8.7 mg/dL (7.8-10.44); Carbon Dioxide 25 mmol/L (23-31); Cardiac Risk 3.5 (Less than 4.5); Chloride 96 mmol/L (98-107); Cholesterol 108 mg/dl (< 200 Desired); Estimated GFR-MDRD 8; Glucose 121 mg/dL (80-115); HDL Cholesterol 31 mg/dL (>60 Neg Risk); LDL Cholesterol, Calculated 37 mg/dL; Potassium 5.9 mmol/L (3.5-5.1); Sodium 133 mmol/L (136-145); Triglycerides 199 mg/dL (Less than 150)
[2018-11-26] MEDS: tiZANidine HCl 4 MG TAB PO PRN (08:24)
[2018-11-26] MEDS ORDERED: Clopidogrel Bisulfate 75 MG TAB PO SCH (09:00)
[2018-11-26] MEDS ORDERED: Aspirin 81 mg Enteric Coated Tablet PO SCH (09:00)
--- NOTE | 2018-11-26 09:10 | ULT ---
CAROTID ULTRASOUND WITH GRAYSCALE AND DOPPLER DUPLEX COLORFLOW IMAGING SPECTRAL ANALYSIS PERFORMED: CLINICAL INDICATION: CVA. FINDINGS: There is scattered mild to moderate atherosclerotic calcification of the carotid arteries. PEAK SYSTOLIC VELOCITY (CM/S): Right CCA 59 Left CCA 89 Right ICA 125 Left ICA 103 There is antegrade flow within the visualized bilateral vertebral arteries. IMPRESSION: 1. Moderate stenosis of the right internal carotid artery. 2. No hemodynamically significant stenosis of the left internal carotid artery. POS: [facility]
[2018-11-26] MEDS ORDERED: Warfarin Sodium 7.5 MG TAB PO SCH (09:36)
[2018-11-26] MEDS ORDERED: Lorazepam 1 MG TAB PO SCH (09:45)
--- NOTE | 2018-11-26 11:49 | MRI ---
MRI Brain WO Con: 11/26/2018 3:42 PM CLINICAL HISTORY: Bilateral lower extremity weakness and upper extremity numbness. COMPARISON: Head CT previous day's referenced FINDINGS: Extra axial spaces: Mild prominence due to parenchymal volume loss. Hemorrhage: None. Ventricular system: Mild ex vacuo dilatation. Basal cisterns: Normal. Cerebral parenchyma: Microvascular ischemic changes. Midline shift: None. Cerebellum: Normal. Brainstem: Normal. Paranasal sinuses:Clear IMPRESSION:Multifocal white matter signal abnormalities indicative of microvascular ischemic disease, with superimposed lacunar infarctions. There is no acute territorial infarction.
[2018-11-26 11:52] VITALS: TEMP 98.4
--- NOTE | 2018-11-26 13:27 | DIS ---
DATE OF ADMISSION: 11/25/2018 DATE OF DISCHARGE: 11/26/2018 CONSULTING PHYSICIAN: Delio Franklin MD, Neurology. DISCHARGE DIAGNOSES: 1. Transient ischemic attack. 2. End-stage renal disease, on dialysis. 3. Type 2 diabetes mellitus. 4. Hypertension. 5. Hypothyroidism. HOSPITAL COURSE: Ms. Fontenot is a pleasant 63-year-old woman, who presented with left-sided weakness that occurred following dialysis on Wednesday. She had left facial numbness as well and has a history of residual right-sided facial droop from previous stroke. The patient has had complete resolution of her symptoms. She is on maximized therapy including Plavix 75 mg p.o. daily, warfarin 5 mg p.o. daily, and a baby aspirin daily. The patient has been compliant with her medications. She has undergone multiple investigations including a carotid ultrasound showing moderate stenosis of the right ICA. A CT brain showed multifocal deep white matter and deep ward nuclei lacunar infarction, some of which are new from an exam in June 2018. An MRI was advised. She has had an MRI of the brain done, which has shown multifocal white matter signal abnormalities indicative of microvascular ischemic disease with superimposed lacunar infarcts with no acute territorial infarction. The patient has been seen by Dr. Franklin, who advised the patient to continue on current medical therapy and felt there was no surgical intervention warranted for the moderate degree of stenosis involving the right CCA. She was cleared for discharge from a Neuro standpoint. The patient is doing very well today without any complaints. Her symptoms have improved significantly from yesterday. She has very mild numbness on the left side of her face and mild tingling in her left upper extremity. She is due for hemodialysis on Wednesday. Therefore, Nephrology consult not indicated at this present time. The patient has had lunch and has tolerated this without any difficulty. No nausea or vomiting. No difficulty swallowing. Denies having any chest pain, palpitations, or shortness of breath. No abdominal pain or cramping. REVIEW OF SYSTEMS: All other review of systems apart from those mentioned above in HPI are negative. PHYSICAL EXAMINATION: GENERAL: The patient appears well developed, well nourished. She is in no acute distress. VITAL SIGNS: Temperature 98.4, pulse 60, respirations 18, O2 saturation 99% on room air, and BP 176/75. HEENT: Normocephalic and atraumatic. Pupils are equal, round, and reactive to light. Sclerae are without icterus. Oropharynx is clear. NECK: Supple. LUNGS: Clear to auscultation bilaterally. CARDIAC: Regular rate and rhythm. ABDOMEN: Soft, nontender, and nondistended. Normoactive bowel sounds present. EXTREMITIES: Without edema. NEUROLOGIC: Alert and oriented x3. Notable right facial drooping, which is chronic. No focal deficits. SKIN: Without rash or jaundice. INVESTIGATIONS: As mentioned above in HPI. CONDITION: Stable at discharge. ACTIVITY: As tolerated. DIET: Heart healthy/diabetic diet. DISCHARGE MEDICATIONS: The patient advised to resume home medications including the current dose of Plavix and warfarin. She will continue with regular INR checks, the patient normally does for warfarin. FOLLOWUP: The patient will follow up with her primary care physician within 1 week. DISPOSITION: The patient medically cleared for discharge to home on 11/26/2018. The patient is seen and discussed with Dr. Garcia, who agrees with the plan of care as described above. Job ID: [id number]
--- NOTE | 2018-11-26 15:10 | CON ---
DATE OF CONSULTATION: 11/26/2018 CONSULTING PHYSICIAN: Hospitalist Services. IMPRESSION: 1. Transient ischemic attack with transient left-sided weakness and dysarthria. 2. Maximum medical therapy. PLAN: 1. Continue aspirin and Coumadin. 2. Echocardiogram. 3. MRI of the brain without contrast. HISTORY OF PRESENT ILLNESS: Ms. Fontenot is a 63-year-old white female with a past history of hypertension, diabetes, and end-stage renal disease on hemodialysis, who presented with left-sided weakness and dysarthria. Her INR was therapeutic at 2.6. She was admitted for further evaluation. Her symptoms cleared up last night. Carotid ultrasound shows some moderate stenosis on the right, which is not surgically significant. PAST MEDICAL HISTORY: As listed above. ALLERGIES: NONE. SOCIAL HISTORY: No tobacco or alcohol use. FAMILY HISTORY: Noncontributory. MEDICATIONS: Medication list was reviewed. REVIEW OF SYSTEMS: Ten-system review of systems is otherwise negative. PHYSICAL EXAMINATION: VITAL SIGNS: Blood pressure 186/77, pulse 69, respirations 18, and temperature 97.4. HEENT: Pupils are equal. Conjunctivae clear. Oropharynx clear. NECK: Supple. EXTREMITIES: No cyanosis. NEUROLOGIC: She is alert and appropriate. Her speech is fluent and clear. Her exam is nonfocal. SUMMARY: A 63-year-old woman with transient left-sided weakness, which appears to have cleared up. She is already on maximum medical therapy. I would continue her current treatment and she can be discharged at your discretion. Job ID: [id number]
[2018-11-26 15:40] VITALS: BP 160/70
[2018-11-26] MEDS ORDERED: Warfarin Sodium 5 MG TAB PO SCH (17:00)
== END 2018-11-26 16:35 | disposition home or self-care (01) ==
LOC: ERS 13:42 → 2SE 16:09
PROVIDERS: ADMIT Internal Medicine; ATTEND Internal Medicine
DX: G45.9 Transient cerebral ischemic attack, unspecified (principal); I13.11 Hypertensive heart and chronic kidney disease without heart failure, with stage 5 chronic kidney disease, or end stage renal disease; E11.22 Type 2 diabetes mellitus with diabetic chronic kidney disease; N18.6 End stage renal disease; E03.9 Hypothyroidism, unspecified; Z87.891 Personal history of nicotine dependence; Z79.4 Long term (current) use of insulin; Z79.82 Long term (current) use of aspirin; Z79.899 Other long term (current) drug therapy; Z99.2 Dependence on renal dialysis
CPT/HCPCS: 70450; 70551; 80048; 80053; 80061; 82550; 82962 ×2; 84484; 85025 ×2; 85610; 85730 ×2; 93005; 93306; 93880; 94760; 97139; 99291; G0378 ×2; 36415; 36416; J2997

== ENCOUNTER 2018-12-01 10:01 | Outpatient (CLI) | payer MEDICARE, BC ==
--- NOTE | 2018-12-01 11:38 | MMO ---
Left Breast MAMMO Unilat Diag DDI LT+GENE. CLINICAL HISTORY: Patient is 63 years old and is seen for diagnostic exam. The patient has no family history of breast cancer. The patient has no personal history of cancer. VIEWS: The views performed were: . FILMS COMPARED: The present examination has been compared to prior imaging studies performed at [facility] on 01/09/2003, 06/23/2005, 09/15/2006, 10/11/2007, 12/13/2009, 12/18/2010, 12/30/2011, 01/17/2013, 01/29/2014, 05/21/2015, 10/19/2016, 11/09/2017, 11/24/2018 and 12/01/2018. MAMMOGRAM FINDINGS: There are scattered fibroglandular densities. There is a new equal density, lobular mass measuring 14 millimeters seen in the anterior inner region of the left breast. IMPRESSION: NEW MASS IN THE LEFT BREAST IS SUSPICIOUS. AN ULTRASOUND-GUIDED BREAST BIOPSY IS RECOMMENDED. THE RESULTS OF THIS EXAM WERE SENT TO THE PATIENT. ACR BI-RADS Category 4 - Suspicious abnormality - biopsy should be considered MAMMOGRAPHY NOTE: 1. A negative mammogram report should not delay a biopsy if a dominant of clinically suspicious mass is present. 2. Approximately 10% to 15% of breast cancers are not detected by mammography. 3. Adenosis and dense breasts may obscure an underlying neoplasm.
--- NOTE | 2018-12-01 11:45 | ULT ---
SONOGRAM LEFT BREAST LIMITED: HISTORY: Left breast mass. FINDINGS: Sonographic evaluation of the 10 o'clock position left breast in region of palpable concern shows sca ttered fibroglandular densities. Two centimeters from the nipple, a lobular well-circumscribed predo minantly oval heterogeneous solid, predominantly hypoechoic mass measures up to 1.4 cm length x 1.1 c m width x 0.7 cm depth. Small cystic component. Posterior acoustic shadowing. No other masses are apparent. IMPRESSION: New heterogeneous solid mass at the 10 o'clock position left breast. BIRADS category 4, suspicious f indings. Tissue sampling is suggested. Findings were discussed with the patient and with Dr. Vargas. The patient is scheduled for sonograp hic-guided needle biopsy. CODE CR POS: ANURADHA
--- NOTE | 2018-12-01 14:01 | ULT ---
SONOGRAPHIC GUIDED LEFT BREAST MASS BIOPSY AND CLIP PLACEMENT: HISTORY: New left breast mass. FINDINGS: After explaining the procedure and answering all questions, the left breast was prepped and draped in the usual sterile fashion. Sterile technique, buffered local anesthesia, sonographic guidance, and an inferior medial approach were used to carefully advance the tip of a 14 biopsy needle to the level of the lobular hypoechoic mass. Position was confirmed with sonography. A total of three 14-gauge core biopsy specimens were obtained and eventually submitted to pathology for evaluation. A localiza tion clip was placed in the biopsy bed under sonographic control. The needle was removed. The patie nt tolerated the procedure well and was eventually dismissed in good condition. IMPRESSION: Technically successful sonographic-guided biopsy left breast mass. Pathology is pending. POS: ANURADHA
== END 2018-12-01 10:02 | disposition home or self-care (01) ==
LOC: BICMAMMO 10:01
PROVIDERS: ATTEND Family Medicine
DX: N61.0 Mastitis without abscess (principal); N63.22 Unspecified lump in the left breast, upper inner quadrant
CPT/HCPCS: 19083; 76642; 77065; 88305; 88341; 88342; G0279

== ENCOUNTER 2019-03-23 08:51 | Outpatient (CLI) | payer MEDICARE, BC ==
--- NOTE | 2019-03-23 10:34 | BD ---
Exam: DEXA Bone Density Indication: Osteoporosis screening. Comparison: 10-29-16 performed at [facility] [place] Lumbar Spine: BMD (g/cm2) L1 0.967 T-Score: -0.2 Z-Score: 1.4 L2 0.774 T-Score: -2.3 Z-Score: -0.5 L3 0.971 T-Score: -1.0 Z-Score: 0.9 L4 0.993 T-Score: -0.6 Z-Score: 1.3 L1-L4 0.934 T-Score: -1.0 Z-Score: 0.8 Femoral Neck: 0.536 T-Score: -2.8 Z-Score: 1.3 Total Femur: 0.624 T-Score: -2.6 Z-Score: -2.1 Impression: Based on WHO criteria, the patient's bone mineral density is osteoporotic. The bone mineral density o f the left hip region and left femoral neck region has declined from the previous examination dated . The patient is at high risk. POS: OFF
== END 2019-03-23 08:52 | disposition home or self-care (01) ==
LOC: BICMAMMO 08:51
PROVIDERS: ATTEND Physician Assistant
DX: M85.80 Other specified disorders of bone density and structure, unspecified site (principal); M81.0 Age-related osteoporosis without current pathological fracture
CPT/HCPCS: 77080

== ENCOUNTER 2019-05-11 11:28 | Observation (INO) | payer MEDICARE, BC ==
[2019-05-11 12:32] LABS: #Basophils 0.1 thou/uL (0.0-0.2); #Eosinphils 0.2 thou/uL (0.0-0.7); #Lymphocytes 0.8 thou/uL (1.20-3.40); #Monocytes 0.4 thou/uL (0.11-0.59); #Neutrophils 3.2 thou/uL (1.40-6.50); %Basophils 1.4 % (0.0-1.0); %Monocytes 8.1 % (0.0-10.0); %Neutrophils 68.6 % (42.0-75.0); Mean Corpuscular HGB CONC 31.7 g/dL (32.0-36.0); Mean Corpuscular Hemoglobin 34.9 pg (27.0-31.0); Mean Platelet Volume 7.8 fL (7.4-10.4); Platelet Count 132 thou/uL (130-400); RBC Distribution Width 16.4 % (11.5-14.5); Red Blood Cell (RBC) Count 2.85 mill/uL (4.20-5.40); White Blood Cell (WBC) Count 4.6 thou/uL (4.8-10.8)
[2019-05-11] MEDS ORDERED: hydrALAZINE 20 MG/ML VIAL ONE (12:32)
[2019-05-11 12:34] LABS: INR-International Normal Ratio 1.7; Prothrombin Time 19.9 SEC (12.0-14.7)
[2019-05-11 12:35] LABS: PTT 34.3 SEC (22.9-36.1)
[2019-05-11 12:50] LABS: Anisocytosis SLIGHT = 6-15 cells (100X) (0-5/hpf); Basophilic Stippling SLIGHT = 1-2 cells (100X) (None Seen); MDiff Complete? YES; Macrocytosis SLIGHT = 6-15 cells (100X) (0-5/hpf); Platelet Morphology Comment Appears Adequate; Polychromasia SLIGHT = 2-3 cells (100X) (0-2/hpf); Schistocytes SLIGHT = 2-5 cells (100X) (0-1/hpf); Spherocytes SLIGHT = 1-5 cells (100X) (None Seen)
[2019-05-11 12:51] LABS: ALT (SGPT) 25 U/L (8-55); AST (SGOT) 48 U/L (5-34); Albumin 3.8 g/dL (3.4-4.8); Alkaline Phosphatase 111 U/L (40-110); Anion Gap 16 mmol/L (10-20); BUN (Urea Nitrogen) 46 mg/dL (9.8-20.1); Bilirubin, Total 0.6 mg/dL (0.2-1.2); Calc. Creatinine Clearance 0 mL/min (70-130); Calcium 8.4 mg/dL (7.8-10.44); Carbon Dioxide 24 mmol/L (23-31); Chloride 104 mmol/L (98-107); Estimated GFR-MDRD 5; Globulin 2.6 g/dL (2.4-3.5); Glucose 69 mg/dL (80-115); Potassium 3.8 mmol/L (3.5-5.1); Protein, Total 6.4 g/dL (6.0-8.3); Sodium 140 mmol/L (136-145)
--- NOTE | 2019-05-11 13:23 | RAD ---
PORTABLE CHEST: Date: 05/11/19 HISTORY: Mental status change. COMPARISON: 06/14/18. FINDINGS/IMPRESSION: Mild cardiomegaly with postop sternotomy change. Mild vascular engorgement. Lungs otherwise appear cl ear. No evidence of acute process. POS: [facility]
--- NOTE | 2019-05-11 13:31 | CT ---
CT HEAD WITHOUT CONTRAST: Date: 05/11/19 INDICATINO: Mental status change. COMPARISON: CT head dated 11/25/18./ FINDINGS: Chronic ischemic white matter changes are again noted. There is increased lucency in the periventricu lar white matter on the left just above the left anterior horn when compared to the prior study. This may represent lacunar infarct in the white matter which has occurred since the prior study. It does not appear acute on today's exam. Numerous other lucencies throughout the white matter consistent wit h chronic ischemic white matter change and old lacunar infarcts. No evidence of acute cortical infarc t. No mass or hemorrhage apparent. IMPRESSION: Chronic ischemic changes. Evident of old lacunar infarcts. If there is evidence of new neurologic arnulfo nge, recommend MRI to assess for new lacunar infarcts that may not be apparent on CT. POS: ANURADHA
[2019-05-11 14:29] LABS: CKMB 7.4 ng/mL (0-6.6)
[2019-05-11 16:22] LABS: Troponin I 0.026 ng/mL (< 0.028)
[2019-05-11] MEDS ORDERED: Nitroglycerin 0.4 MG TAB 1 EACH ONE (16:52)
[2019-05-11] MEDS ORDERED: Nitroglycerin 2% Ointment 1 INCH/1 GM Packet ONE (17:39)
[2019-05-11 17:44] VITALS: BMI 29.8
[2019-05-11] MEDS ORDERED: tiZANidine HCl 4 MG TAB PO PRN (17:58)
[2019-05-11] MEDS ORDERED: Nitroglycerin 0.4 MG TAB (25 Tab Bottle) SL PRN (17:59)
[2019-05-11] MEDS: hydrALAZINE 20 MG/ML VIAL SLOW IVP PRN (18:12)
[2019-05-11] MEDS ORDERED: Dextrose 50% Abboject 50 ML SYRINGE SLOW IVP PRN (18:13)
[2019-05-11] MEDS ORDERED: Dextrose 5% in Water 1,000 ML IV PRN (18:13)
[2019-05-11] MEDS: traMADol HCl 50 MG TAB PO PRN (18:20)
[2019-05-11 18:35] LABS: Troponin I 0.023 ng/mL (< 0.028)
--- NOTE | 2019-05-11 19:34 | CT ---
CT BRAIN NONCONTRAST: DATE: 05/11/2019 7:17 PM HISTORY: 64-year-old female who just now experienced new onset left upper extremity weakness. This level 1 stroke alert protocol report was called by Dr. Henry to MERE Winkler at 7:28 AM on FINDINGS: There is no evidence of acute intra-axial or extra-axial hemorrhage. There is no midline shift or any other mass effect. There is no extra-axial fluid collection. There is no evidence of obstructive hydrocephalus. Calvarium is intact. Multiple small old lacunar infarctions are present, with involvem ent of bilateral basal ganglia and caudate bodies, right caudate head, and involvement of michael radiata and centrum semiovale. There is no significant interval change compared to 05/11/2019 at 12:48 PM earlier today. IMPRESSION: 1. No acute intracranial findings. 2. Multiple old lacunar infarctions of the bilateral corpus striatum and periventricular-deep cerebra l white matter.
[2019-05-11] MEDS ORDERED: Insulin Glargine 20 UNITS in Pre-Filled Syringe SC SCH (21:00)
[2019-05-11] MEDS ORDERED: Gabapentin 300 MG CAP PO SCH (21:00)
[2019-05-11] MEDS ORDERED: Rosuvastatin 10 MG TAB PO SCH (21:00)
[2019-05-11] MEDS: Nitroglycerin 2% Ointment 1 INCH/1 GM Packet TOP SCH (21:30)
[2019-05-11 22:20] LABS: Hep B Surf Ag Non-Reactive S/CO (NonReactive)
--- NOTE | 2019-05-11 22:38 | HP ---
CHIEF COMPLAINT: Elevated blood pressure. HISTORY OF PRESENT ILLNESS: This patient is a 64-year-old female with end-stage renal disease, on dialysis, followed by Dr. Coffey. The patient was sent today from Dr. Del Castillo's office where she was noted to have a blood pressure of 208/84. The patient reports that yesterday she awoke, not feeling well, having some stomach issues. She called dialysis to let them know she would not be attending and was told that she should watch her fluid intake and the next thing she remembered she was waking up lying sideways on her bed. She does not recall ending the conversation or lying down, but she said she felt better and went about the rest of her day. She was eating normally and had no further GI problems. Today, she was supposed to follow up with Dr. Del Castillo and this was going to be her 1st visit with her. When she was there she had a blood pressure of 174/68. They continued to monitor and her pressure went up to 208/84 and she was subsequently asked to come to the hospital for further evaluation. In the emergency department, her blood pressure was still running high. She received some nitroglycerin and her pressure got a little better, but came up again. She has subsequently felt some chest pressure and shortness of breath. She was given additional nitroglycerin and her chest pressure has improved, although her blood pressure has continued to climb. REVIEW OF SYSTEMS: The patient does not make urine. She denies any fever or cough. All other systems reviewed. All pertinent positives and negatives noted in history of present illness. PAST MEDICAL HISTORY: 1. Notable for end-stage renal disease, on dialysis. 2. Diabetes mellitus with some diabetic nephropathy. 3. Hyperlipidemia. 4. Anemia of chronic kidney disease. 5. Hypertension. 6. Coronary artery disease. 7. Paroxysmal atrial fibrillation on chronic anticoagulation. 8. Osteoarthritis. 9. Hypothyroidism. 10. Lumbar spondylosis. 11. Atrial fibrillation. 12. Peripheral vascular disease. 13. Sciatica. PAST SURGICAL HISTORY: Coronary artery bypass graft, appendectomy, dialysis catheter placement, back surgery, hip surgery, and coronary PCI. FAMILY HISTORY: Notable for coronary disease in her mother. SOCIAL HISTORY: Nonsmoker, nondrinker, nondrug user. She is full code. Her daughter is her surrogate decision maker. ALLERGIES: NONE. CURRENT MEDICATIONS: 1. Vitamin D 2000 units daily. 2. Warfarin 5 mg daily. 3. Aspirin 81 mg daily. 4. Lantus 20 mg at bedtime. 5. Coreg 6.25 mg b.i.d. 6. Captopril 12.5 mg b.i.d. 7. Amlodipine 10 mg daily. 8. Levothyroxine 100 mcg p.o. daily. 9. Tramadol 15 mg p.o. t.i.d. p.r.n. 10. Gabapentin 300 mg 2 p.o. q.a.m., 1 p.o. at bedtime. 11. Tizanidine 4 mg q.8 hours p.r.n. muscle spasms. 12. Rosuvastatin 10 mg daily. 13. Nephro-Gina 1 p.o. daily. PHYSICAL EXAMINATION: VITAL SIGNS: Most recent vitals, temperature 97.7, pulse 88, respirations 24, O2 saturation 95% on room air, BP is 239/107. GENERAL APPEARANCE: Age-appropriate female. She is currently very slightly uncomfortable, but in no distress. HEENT: MARTHA, no OP lesions. NECK: Supple and symmetric with no lymphadenopathy, JVD, or bruits. HEART: Regular rate and rhythm with a 2/6 murmur at the left upper sternal border. LUNGS: Clear to auscultation bilaterally with good chest wall expansion and air exchange. ABDOMEN: Soft, nontender, and nondistended. Positive bowel sounds. No masses. No organomegaly. EXTREMITIES: No cyanosis, clubbing, or edema. PSYCHIATRIC: Normal affect and behavior. NEUROLOGIC: The patient has spontaneous movement of all extremities with no focal deficits. LABORATORY DATA: White count 4.6, hemoglobin 10, platelets 132. INR 1.7. Sodium 140, potassium 3.4, chloride 104, CO2 24, BUN 46, creatinine 8.16, glucose 69, AST 48, ALT 25, alkaline phosphatase 111. CK was 7.4. Initial troponin 0.24 subsequent 0.03 and then 0.026, albumin 3.8. IMAGIN. Brain CT shows chronic microvascular disease with history of prior lacunar infarcts. No new changes. 2. Chest x-ray shows mild cardiomegaly, sternotomy wires, mild vascular engorgement. Lungs are otherwise clear. 3. EKG shows sinus rhythm at 66 beats per minute, some flattened T-waves, nonspecific. IMPRESSION AND PLAN: 1. Hypertensive urgency with some chest pain and mild pulmonary vascular congestion. I called Dr. Coffey and he agrees that this was likely related to the patient's missed dialysis. We will be setting up dialysis for her tonight so that we can manage the blood pressure. In the meantime, we will continue with p.r.n. nitroglycerins and p.r.n. hydralazine. 2. Loss of consciousness. The patient's story from yesterday in which she was on the phone with dialysis and woke up several hours later with not remembering any other events is unusual. It is possible with her GI symptoms, she had a vagal episode. She certainly has a history of prior BARREL MARKER ischemic events. She is already on maximal therapy. We will essentially need to reassess after she has had her dialysis and her blood pressure is better as to whether any further workup that needs to be performed. She did have a pretty full workup in November of this year without significant new findings and given that she was already on maximum medical therapy, no changes were made in her medical regimen. 3. End-stage renal disease, on dialysis as above. The patient will get dialysis tonight. 4. Diabetes mellitus. Continue with her usual home insulin regimen. We will do Accu-Cheks and sliding scale. 5. Baseline hypertension. Continue all of her usual home p.o. medications. 6. Hypothyroidism. Continue with levothyroxine. 7. Hyperlipidemia continue with the rosuvastatin. 8. Chronic back pain. Continue tizanidine and tramadol. Job ID: [id number]
[2019-05-12] MEDS: hydrALAZINE 20 MG/ML VIAL SLOW IVP PRN (04:11)
[2019-05-12] MEDS: Acetaminophen 325 MG TAB PO PRN ×2 (04:11→08:17)
[2019-05-12 04:51] LABS: Anion Gap 17 mmol/L (10-20); BUN (Urea Nitrogen) 17 mg/dL (9.8-20.1); Calc. Creatinine Clearance 16 mL/min (70-130); Calcium 8.5 mg/dL (7.8-10.44); Carbon Dioxide 23 mmol/L (23-31); Chloride 100 mmol/L (98-107); Estimated GFR-MDRD 10; Glucose 112 mg/dL (80-115); Potassium 4.6 mmol/L (3.5-5.1); Sodium 135 mmol/L (136-145)
[2019-05-12 04:57] LABS: #Eosinphils 0.1 thou/uL (0.0-0.7); #Lymphocytes 0.5 thou/uL (1.20-3.40); #Monocytes 0.3 thou/uL (0.11-0.59); #Neutrophils 2.4 thou/uL (1.40-6.50); %Basophils 0.6 % (0.0-1.0); %Eosinophils 2.3 % (0.0-10.0); %Lymphocytes 15.7 % (21.0-51.0); %Monocytes 9.3 % (0.0-10.0); %Neutrophils 72.1 % (42.0-75.0); Hemoglobin 10.6 g/dL (12.0-16.0); Mean Corpuscular HGB CONC 31.1 g/dL (32.0-36.0); Mean Corpuscular Hemoglobin 34.9 pg (27.0-31.0); Mean Platelet Volume 8.3 fL (7.4-10.4); Platelet Count 112 thou/uL (130-400); Platelet Morphology Comment Appears Decreased; RBC Distribution Width 16.9 % (11.5-14.5); Red Blood Cell (RBC) Count 3.04 mill/uL (4.20-5.40); White Blood Cell (WBC) Count 3.4 thou/uL (4.8-10.8)
[2019-05-12] MEDS ORDERED: Levothyroxine Sodium 100 MCG TAB PO SCH (06:00)
[2019-05-12] MEDS: HumaLOG 300 UNITS/3 ML VIAL SC PRN ×2 (06:13→13:52)
[2019-05-12] MEDS ORDERED: Carvedilol 6.25 MG TAB PO SCH (08:00)
[2019-05-12] MEDS: Nitroglycerin 2% Ointment 1 INCH/1 GM Packet TOP SCH (08:17)
[2019-05-12] MEDS ORDERED: Labetalol HCl 100 MG/20 ML VIAL SLOW IVP PRN (08:28)
[2019-05-12] MEDS ORDERED: cloNIDine 0.1 MG TAB PO PRN (08:28)
[2019-05-12] MEDS ORDERED: Amlodipine 10 MG TAB PO SCH (09:00)
[2019-05-12] MEDS ORDERED: Gabapentin 300 MG CAP PO SCH (09:00)
[2019-05-12] MEDS ORDERED: Aspirin 81 mg Enteric Coated Tablet PO SCH (09:00)
[2019-05-12] MEDS ORDERED: Folic Acid/Vit B Comp W-C PO SCH (09:00)
[2019-05-12] MEDS: Carvedilol 6.25 MG TAB PO SCH ×3 (09:30→16:48)
[2019-05-12] MEDS: traMADol HCl 50 MG TAB PO PRN (13:51)
[2019-05-12] MEDS ORDERED: Heparin 10,000 UNITS/1 ML VIAL ONE (15:00)
[2019-05-12 15:58] VITALS: TEMP 98.7
[2019-05-12 16:49] VITALS: BP 163/72
--- NOTE | 2019-05-15 07:55 | DIS ---
DATE OF ADMISSION: 05/11/2019 DATE OF DISCHARGE: 05/12/2019 DISCHARGE DISPOSITION: Home. FOLLOWUP: 1. Follow up with primary care physician at [facility] in 1 week. 2. Follow up with Dr. Nitin Coffey in 1 week for maintenance hemodialysis. Vital signs on the day of discharge showed blood pressure of 163/72 with a blood pressure earlier of 140/64. DISCHARGE MEDICATIONS: Same as admission medication. No changes in medications were made per Nephrology instruction. The patient was seen and examined on the day of discharge. Denies any new complaints. Feels significantly better after maintenance hemodialysis. BRIEF HOSPITAL COURSE: The patient is a 64-year-old female with end-stage renal disease, on hemodialysis, presented to the hospital with generalized weakness and dizziness. A workup was consistent with hypertensive crisis. Her blood pressure was 210/77. Please note, the patient had missed hemodialysis the day before admission. She received two sessions of hemodialysis after which her blood pressure stabilized. She is compliant with carvedilol as well as captopril. She was advised to be compliant with dialysis as well as antihypertensive medications. I discussed with Dr. Nitin Coffey, who recommended to continue the patient on the same antihypertensive medication. Dr. Coffey will adjust patient's hemodialysis for better blood pressure control. The patient has been cleared by Nephrology for discharge. FINAL DIAGNOSES: 1. Hypertensive urgency secondary to missed hemodialysis. 2. End-stage renal disease, on hemodialysis. 3. Diabetes mellitus type 2. 4. Hypothyroidism. 5. Hyperlipidemia. 6. Paroxysmal atrial fibrillation, on anticoagulation. INR on admission was 1.7. Repeat INR in 2 to 3 days is recommended. 7. Hyponatremia. 8. Elevated troponin secondary to demand ischemia/type 2 myocardial infarction. 9. Chronic anemia secondary to renal insufficiency. 10. Secondary hypoparathyroidism. PLAN: Plan of care was discussed with the patient in detail. She stated understanding. Job ID: [id number]
== END 2019-05-12 19:30 | disposition home or self-care (01) ==
LOC: ERS 11:28 → 2SW 17:33
PROVIDERS: ADMIT Internal Medicine; ATTEND Internal Medicine
DX: I16.0 Hypertensive urgency (principal); I12.0 Hypertensive chronic kidney disease with stage 5 chronic kidney disease or end stage renal disease; E11.21 Type 2 diabetes mellitus with diabetic nephropathy; E11.22 Type 2 diabetes mellitus with diabetic chronic kidney disease; N18.6 End stage renal disease; D63.1 Anemia in chronic kidney disease; I48.0 Paroxysmal atrial fibrillation; E03.9 Hypothyroidism, unspecified; E20.9 Hypoparathyroidism, unspecified; E78.5 Hyperlipidemia, unspecified; E87.1 Hypo-osmolality and hyponatremia; I21.A1 Myocardial infarction type 2; I25.10 Atherosclerotic heart disease of native coronary artery without angina pectoris; M19.90 Unspecified osteoarthritis, unspecified site; I73.9 Peripheral vascular disease, unspecified; Z79.01 Long term (current) use of anticoagulants; Z79.4 Long term (current) use of insulin; Z79.82 Long term (current) use of aspirin; Z79.899 Other long term (current) drug therapy; Z87.891 Personal history of nicotine dependence; Z95.1 Presence of aortocoronary bypass graft; Z99.2 Dependence on renal dialysis
CPT/HCPCS: 70450; 71045; 80048; 80053; 82553; 82962 ×2; 84484 ×2; 85025 ×2; 85610; 85730; 87340; 93005; 94760; 96374; 96376 ×2; 99285; G0378 ×3; 36415; 36416; 90935; G0257; J0360; J1644; J1815

== ENCOUNTER 2019-05-18 10:42 | Inpatient (IN) | payer MEDICARE, BC ==
[2019-05-18] MEDS ORDERED: Morphine 2 MG/ML SYRINGE ONE (13:32)
[2019-05-18] MEDS ORDERED: hydrALAZINE 20 MG/ML VIAL ONE ×2 (16:03→17:54)
[2019-05-18] MEDS ORDERED: Nitroglycerin 0.4 MG TAB (25 Tab Bottle) ONE (17:10)
[2019-05-18] MEDS ORDERED: cloNIDine 0.1 MG TAB ONE (17:59)
[2019-05-18 18:46] LABS: #Eosinphils 0.1 thou/uL (0.0-0.7); #Lymphocytes 1.1 thou/uL (1.20-3.40); #Monocytes 0.3 thou/uL (0.11-0.59); #Neutrophils 3.2 thou/uL (1.40-6.50); %Lymphocytes 24.1 % (21.0-51.0); %Monocytes 5.8 % (0.0-10.0); %Neutrophils 68.1 % (42.0-75.0); Mean Corpuscular HGB CONC 32.6 g/dL (32.0-36.0); Mean Corpuscular Hemoglobin 34.9 pg (27.0-31.0); Mean Platelet Volume 7.2 fL (7.4-10.4); Platelet Count 157 thou/uL (130-400); RBC Distribution Width 14.9 % (11.5-14.5); Red Blood Cell (RBC) Count 3.15 mill/uL (4.20-5.40); White Blood Cell (WBC) Count 4.6 thou/uL (4.8-10.8)
[2019-05-18 19:08] LABS: ALT (SGPT) 16 U/L (8-55); AST (SGOT) 31 U/L (5-34); Alkaline Phosphatase 101 U/L (40-110); Anion Gap 16 mmol/L (10-20); BUN (Urea Nitrogen) 34 mg/dL (9.8-20.1); Bilirubin, Total 0.7 mg/dL (0.2-1.2); CK (CPK) 74 U/L (29-168); Calc. Creatinine Clearance 12 mL/min (70-130); Calcium 9.2 mg/dL (7.8-10.44); Carbon Dioxide 27 mmol/L (23-31); Chloride 99 mmol/L (98-107); Estimated GFR-MDRD 8; Globulin 2.8 g/dL (2.4-3.5); Glucose 171 mg/dL (80-115); Potassium 5.3 mmol/L (3.5-5.1); Protein, Total 6.8 g/dL (6.0-8.3); Sodium 137 mmol/L (136-145)
[2019-05-18 19:12] LABS: CKMB 2.8 ng/mL (0-6.6); Troponin I 0.061 ng/mL (< 0.028)
--- NOTE | 2019-05-18 19:30 | CON ---
DATE OF CONSULTATION: REASON FOR CONSULTATION: Hypertension and chest pain. PRIMARY FOLDER TIER: Dr. Adriel Carlos. HISTORY OF PRESENT ILLNESS: Corie is a 64-year-old woman with past history of CAD, status bypass surgery, in addition to end-stage renal disease, recently was scheduled for an endoscopy and colonoscopy. This was successful. She developed chest pain shortly thereafter. Blood pressure was also in the 220s/90s. During my arrival, she was chest pain free, but her blood pressure remained elevated in the 220s. She was given hydralazine in addition to nitroglycerin as well as clonidine. PAST MEDICAL HISTORY: Paroxysmal atrial fibrillation, hypertension, CAD, hyperlipidemia, diabetes mellitus, hypothyroidism, previous anemia, cataract surgery, appendectomy, back surgery, and hip surgery. ALLERGIES: NONE. HOME MEDICATIONS: Include Coumadin, Tylenol, aspirin, magnesium, Crestor. REVIEW OF SYSTEMS: A 10-point review of systems is reviewed and as above, otherwise negative. PHYSICAL EXAMINATION: GENERAL: Patient is a pleasant female, who is in no acute distress. She does appear to be older than stated age. VITAL SIGNS: Blood pressure 220/93, pulse 80, respirations 20. NEUROLOGIC: The patient is alert and oriented x3 with no focal neurologic deficits. HEENT: Sclerae without icterus. Mouth has moist mucous membranes with normal pallor. NECK: No JVD. Carotid upstroke brisk. No bruits bilaterally. LUNGS: Clear to auscultation with unlabored respirations. BACK: No scoliosis or kyphosis. CARDIAC: Regular rate and rhythm with normal S1 and S2. No S3 or S4 noted. No significant rubs, murmurs, thrills, or gallops noted throughout the precordium. PMI is not displaced. There is no parasternal heave. ABDOMEN: Soft, nontender, nondistended. No peritoneal signs present. No hepatosplenomegaly. No abnormal striae. EXTREMITIES: 2+ femoral and 2+ dorsalis pedis pulses. No cyanosis, clubbing, or edema. SKIN: No gross abnormalities. PERTINENT LABORATORY DATA: Hemoglobin 11. IMPRESSION: 1. Hypertensive urgency. 2. Chest pain. 3. Coronary artery disease. 4. Status post bypass surgery. 5. End-stage renal disease. RECOMMENDATIONS: I have asked them to give IV hydralazine labetalol. We will also give her a dose of clonidine. We will try and place her on outpatient medication and make adjustments accordingly. Would likely need to stay overnight for close observation given the above. Job ID: [id number]
[2019-05-18] MEDS: traMADol HCl 50 MG TAB PO PRN (20:00)
[2019-05-18] MEDS ORDERED: Nitroglycerin 2% Ointment 1 INCH/1 GM Packet TOP SCH (20:00)
[2019-05-18] MEDS ORDERED: HumaLOG 300 UNITS/3 ML VIAL SC PRN ×2 (20:24)
[2019-05-18] MEDS ORDERED: niCARdipine 50 MG in Sodium Chloride 0.9% 250 ML 230 ML IVPB SCH (20:24)
[2019-05-18] MEDS ORDERED: Acetaminophen 325 MG TAB PO PRN (20:24)
[2019-05-18] MEDS ORDERED: Dextrose 5% in Water 1,000 ML IV PRN (20:24)
[2019-05-18] MEDS ORDERED: Dextrose 50% Abboject 50 ML SYRINGE SLOW IVP PRN (20:24)
--- NOTE | 2019-05-18 20:47 | OP ---
DATE OF PROCEDURE: 05/18/2019 PROCEDURE PERFORMED: Colonoscopy with biopsy. PREPROCEDURE DIAGNOSES: 1. Moderately severe anemia. 2. Occult blood in the stools. POSTPROCEDURE DIAGNOSES: 1. Exam to cecum; adequate bowel preparation. 2. Mildly redundant colon throughout. 3. No evidence of colitis, diverticulitis, or active gastrointestinal hemorrhage. Random biopsy obtained in the sigmoid colon for histology. 4. Diminutive rectal polyp, excised with cold biopsy forceps. 5. Small internal hemorrhoids. 6. Otherwise normal colonoscopy. PROCEDURE IN DETAIL: Written informed consent was obtained. Upon completion of the EGD, the patient was repositioned for the colonoscopy. Total intravenous anesthesia was administered by Dr. Morrison and associates. The patient was placed in the left lateral decubitus position. A digital rectal exam was performed that was remarkable for small external nonbleeding hemorrhoids. A Pentax video colonoscope was inserted through the anal canal and advanced under direct visualization to the cecum. Position in the cecum was verified by clear identification of the ileocecal valve. The quality of the bowel preparation was adequate. A small to moderate amount of opaque brown fecal liquid adhered to multiple areas of the colonic mucosa and required significant irrigation to wash the film away. There was fairly good visualization after irrigation. Endoscopic findings revealed somewhat pale appearing colonic mucosa with normal haustral folds. No vascular ectasia, ulcer, or diverticulitis was identified. Random biopsies were obtained in the sigmoid colon for histology given the patient's previous history of colitis involving the descending and sigmoid colon. There was no evidence of overt colitis. A diminutive rectal polyp approximately 2 mm in diameter was excised with cold forceps. A retroflex exam in the rectum demonstrated small internal hemorrhoids that were not actively bleeding. The colon was decompressed as the colonoscope was removed from the patient. She was transferred to the Day Stay surgery area for postprocedure monitoring. There were no immediate complications. RECOMMENDATIONS: 1. Await biopsy results. 2. Ask the patient to call me in 1 week for biopsy results. 3. Pending pathology results, may recommend a small bowel capsule endoscopy to the patient to complete the evaluation of the GI tract. 4. Follow up with Carmen in GI clinic in 3-4 weeks. Job ID: [id number]
[2019-05-18] MEDS: Carvedilol 6.25 MG TAB PO SCH (20:51)
[2019-05-18] MEDS: Amiodarone 200 MG TAB PO SCH (20:51)
--- NOTE | 2019-05-18 21:01 | OP ---
DATE OF PROCEDURE: 05/18/2019 PROCEDURE PERFORMED: Esophagogastroduodenoscopy with biopsy. PREPROCEDURE DIAGNOSES: 1. Anemia. 2. Occult blood in the stools. POSTPROCEDURE DIAGNOSES: 1. Exam to second portion of duodenum. 2. Mild body and antral gastritis, biopsied. 3. Grossly normal-appearing duodenum, biopsied. 4. Normal esophagus. 5. No evidence of gastric or duodenal ulcers. 6. No evidence of vascular ectasia or active bleeding in the upper gastrointestinal tract. DESCRIPTION OF PROCEDURE: Written informed consent was obtained. The patient was brought to the endoscopy suite. Total intravenous anesthesia was administered by Dr. Joshua Morrison and associates. The patient was placed in the left lateral decubitus position. A bite block was inserted into the mouth. A Pentax video diagnostic gastroscope was introduced into the oral cavity, and the esophagus was carefully intubated. The gastroscope was advanced under direct visualization to the second portion of the duodenum. Endoscopic findings revealed a normal-appearing esophagus. The motility appeared overall normal. The stomach was then entered and carefully examined. This included careful retroflexed view of the cardia and fundus. Mild diffuse gastritis was noted in the body and antrum, and biopsies were obtained for histology. Mucosal changes included mild congestion, patchy erythema, and a few superficial erosions. There was no evidence of ulcer or active bleeding. Biopsies were obtained for histology. Examination of the duodenum from the bulb to the second portion revealed grossly normal mucosa and no ulcers. Biopsies were obtained for histology. The stomach was then decompressed as the endoscope was completely removed from the patient. She was then repositioned for the colonoscopy. RECOMMENDATIONS: 1. Await biopsy results. 2. Ask the patient to call me in 1 week for biopsy results. 3. Follow up in GI Clinic with Carmen in 3 to 4 weeks. 4. Given her history of aspirin, indomethacin, and Coumadin use, we will ask the patient to take Prilosec 20 mg daily as ulcer prophylaxis. Job ID: [id number]
[2019-05-18] MEDS: Insulin Glargine 20 UNITS in Pre-Filled Syringe 1 EACH SC SCH (21:12)
[2019-05-18 21:44] LABS: CKMB 2.6 ng/mL (0-6.6); Troponin I 0.058 ng/mL (< 0.028)
[2019-05-18 21:50] VITALS: BMI 28.6
--- NOTE | 2019-05-18 22:53 | HP ---
PRIMARY CARE PHYSICIAN: Desiree Del Castillo MD. CHIEF COMPLAINT: Elevated blood pressure. HISTORY OF PRESENT ILLNESS: Ms. Fontenot is a pleasant 64-year-old female, who has a history of end-stage renal disease, diabetes, hypertension, and coronary artery disease. She is being admitted after she had elevated blood pressure after having an EGD and colonoscopy. The patient is currently asymptomatic other than having some pain from chronic back pain and leg pain. She denies any headache or shortness of breath. No visual changes. No chest pain. No nausea. No vomiting. The concern is that they had given her nitroglycerin and medication to help lower her blood pressure without much improvement. I checked her blood pressure manually in the room, it was 210/90. They also noticed a blood pressure of 238/90 in the observation unit and we will need to admit her for further treatment. REVIEW OF SYSTEMS: All systems were reviewed and are negative except for that mentioned in the history of present illness. PAST MEDICAL HISTORY: Significant for end-stage renal disease, on hemodialysis, diabetes mellitus, hyperlipidemia, hypertension, coronary artery disease, atrial fibrillation, chronic back pain. PAST SURGICAL HISTORY: She has had bypass surgery as well as dialysis catheter placed. ALLERGIES: NO KNOWN DRUG ALLERGIES. SOCIAL HISTORY: She is a nonsmoker and nondrinker. Code status is full code. FAMILY HISTORY: Significant for osteoarthritis and hypertension. CURRENT MEDICATIONS: Include: 1. Coumadin 5 mg daily. 2. Tramadol 50 mg t.i.d. 3. Tizanidine 4 mg t.i.d. as needed. 4. Renvela 3200 mg t.i.d. 5. Crestor 20 mg at bedtime. 6. Levothyroxine 100 mcg p.o. daily. 7. Lantus insulin 20 units subcu q.p.m. 8. Indomethacin 50 mg twice daily. 9. Gabapentin 300 mg 2 tablets once daily. 10. Carvedilol 6.25 mg twice daily. 11. Captopril 12.5 mg twice daily. 12. Aspirin 81 mg daily. 13. Norvasc 10 mg daily. 14. Amiodarone 100 mg q.p.m. PHYSICAL EXAMINATION: GENERAL: She is alert and oriented. She appears to be in no acute distress. VITAL SIGNS: Blood pressure was 238/90, heart rate 93, respiratory rate of 16, temperature is 97.9, and O2 saturation is 95% on room air. HEENT: Pupils are equal, round, and reactive to light. Extraocular muscles are intact. Her sclerae anicteric. Throat, no erythema, no exudates. NECK: No adenopathy, no bruits. LUNGS: She has rales bilaterally throughout much of the lung elaine. CARDIOVASCULAR: She has a normal S1, S2. There is no S3 or S4. No murmurs, clicks, or rubs. ABDOMEN: Soft, it is nontender, nondistended. Positive for bowel sounds. No rebound. No guarding. No organomegaly. EXTREMITIES: She has some bruising on both her upper and lower extremities. Trace pedal edema. NEUROLOGIC: The exam is grossly nonfocal. SKIN AND INTEGUMENT: Again skin changes with some bruising. LABORATORY DATA: White blood cell count is 4.6, hemoglobin 11, hematocrit is 33.7, and platelet count is 157. Sodium 137, potassium 5.3, chloride is 99, CO2 is 27, BUN of 34, creatinine 5.39, glucose is 171. Troponin is 0.61. ASSESSMENT: This is a pleasant 64-year-old female, who has extremely elevated blood pressure. She will need to be admitted to the ICU and placed on a Cardene drip as it will be difficult to control her blood pressure with concerns of it dropping precipitously, if she is given an excessive amount of p.r.n. medicines. 1. End-stage renal disease. Consult Dr. Coffey for her routine dialysis tomorrow. 2. Diabetes mellitus. We will continue her home medications as well as a sliding scale insulin. 3. Atrial fibrillation on chronic anticoagulation. I anticipate that her Coumadin was held. 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 We will be checking a PT/INR daily during her hospital stay. 4. Chronic low back pain. We will restart her tramadol and tizanidine for pain control. Job ID: [id number]
[2019-05-19] MEDS: Nitroglycerin 2% Ointment 1 INCH/1 GM Packet TOP SCH ×3 (05:46→20:40)
[2019-05-19] MEDS: Levothyroxine Sodium 100 MCG TAB PO SCH (05:46)
[2019-05-19 06:07] LABS: #Eosinphils 0.1 thou/uL (0.0-0.7); #Lymphocytes 0.7 thou/uL (1.20-3.40); #Monocytes 0.3 thou/uL (0.11-0.59); #Neutrophils 3.3 thou/uL (1.40-6.50); %Basophils 0.3 % (0.0-1.0); %Eosinophils 1.9 % (0.0-10.0); %Lymphocytes 15.9 % (21.0-51.0); %Monocytes 7.5 % (0.0-10.0); %Neutrophils 74.3 % (42.0-75.0); Hemoglobin 10.2 g/dL (12.0-16.0); Mean Corpuscular HGB CONC 32.7 g/dL (32.0-36.0); Mean Corpuscular Hemoglobin 34.9 pg (27.0-31.0); Mean Platelet Volume 7.4 fL (7.4-10.4); Platelet Count 158 thou/uL (130-400); Red Blood Cell (RBC) Count 2.93 mill/uL (4.20-5.40); White Blood Cell (WBC) Count 4.4 thou/uL (4.8-10.8)
[2019-05-19 06:14] LABS: INR-International Normal Ratio 1.2; Prothrombin Time 14.7 SEC (12.0-14.7)
[2019-05-19 06:31] LABS: Anion Gap 16 mmol/L (10-20); BUN (Urea Nitrogen) 41 mg/dL (9.8-20.1); Calc. Creatinine Clearance 11 mL/min (70-130); Calcium 8.8 mg/dL (7.8-10.44); Carbon Dioxide 24 mmol/L (23-31); Chloride 102 mmol/L (98-107); Estimated GFR-MDRD 7; Sodium 137 mmol/L (136-145)
[2019-05-19 06:42] LABS: Glucose 58 mg/dL (80-115)
--- NOTE | 2019-05-19 08:09 | PDOC.PULCN ---
Pulmonology Consult: HPI - Date of Consult Date: 05/19/19 Time: 07:00 - Consult Details Reason for Consult: Hypertensive urgency in the ICU Requesting Physician: Sekou Harman MD - History of Present Illness HPI: ASHLEY SUTTON is a 64 year-old F with a pmh of CAD, ESRD on HD, HTN, HLD who was seen today for an out patient EGD/colonoscopy for anemia and postitve occult stool. While during the procedure and there after, pt had elevated blood pressure was high as 238/90. This value was confirmed by a manual BP. She reports having a headache and chest pain at that time. She was admitted to the ICU for the initiation of a cardene drip to better titrate her BP. The pt reports no recent change in her medication, lifestyle, or dialysis. She currently denies headaches, chest pain, shortness of breath, nausea, vomiting, constipation, or diarrhea. Pulmonology Consult: ROS - Review of Systems Constitutional: negative: fever, chills, weakness Cardiovascular: negative: chest pain, palpitations, orthopnea Respiratory: exercise intolerance (mild fatiuge with exertion). negative: cough , chest soreness, chest tightness Pulmonology Consult: PMH Source: patient, other Past Medical History: ESRD on HD, HLD, HTN, CAD with 4 vessel CABG in 2011, paroxysmal atrial fibrillation - Social History Smoking Status: Never smoker Alcohol Use: none Pulmonology Consult: Meds - Medications MAR Reviewed: Yes Medications: Current Medications Acetaminophen (Tylenol) 650 mg PO Q4H PRN PRN Reason: Headache/Fever/Mild Pain (1-3) Last Admin: 05/18/19 21:44 Dose: 650 mg Amiodarone HCl (Cordarone) 100 mg PO QPM [facility] [place] Last Admin: 05/18/19 20:51 Dose: 100 mg Captopril (Capoten) 12.5 mg PO BID [facility] [place] Last Admin: 05/18/19 20:50 Dose: 12.5 mg Carvedilol (Coreg) 6.25 mg PO BID [facility] [place] Last Admin: 05/18/19 20:51 Dose: 6.25 mg Dextrose/Water (Dextrose 50%) 25 gm SLOW IVP PRN PRN PRN Reason: Hypoglycemia Famotidine (Pepcid) 20 mg PO DAILY [facility] [place] Gabapentin (Neurontin) 600 mg PO QAM [facility] Glucagon (Glucagon) 1 mg IM PRN PRN PRN Reason: Hypoglycemia Dextrose/Water (D5w) 1,000 mls @ 0 mls/hr IV .Q0M PRN PRN Reason: Hypoglycemia Nicardipine HCl 50 mg/ Sodium (Chloride) 250 mls @ 0 mls/hr IVPB INF [facility]; Protocol Last Admin: 05/18/19 21:00 Dose: 250 mls Insulin Glargine 20 units/ (Miscellaneous Medication) 0.2 mls @ 0 mls/hr SC HS [facility] Last Admin: 05/18/19 21:12 Dose: 0.2 mls Insulin Human Lispro (Humalog) 0 units SC .MODERATE SLIDING SC PRN PRN Reason: Moderate Correctional Scale Last Admin: 05/18/19 21:12 Dose: 4 unit Insulin Human Lispro (Humalog) 0 units SC .BEDTIME SLIDING SC PRN PRN Reason: Bedtime Correctional Scale Insulin Human Lispro (Humalog) 12 units SC TID-WM [facility] [place] Levothyroxine Sodium (Synthroid) 100 mcg PO 0600 [facility] [place] Last Admin: 05/19/19 05:46 Dose: 100 mcg Nitroglycerin (Nitro-Bid 2% Ointment) 0.5 inch TOP Q8HR [facility] Last Admin: 05/19/19 05:46 Dose: 0.5 inch Pneumococcal 13-Valent Conj Vacc (Prevnar) 0.5 ml IM .ONCE ONE Stop: 05/19/19 09:01 Tramadol HCl (Ultram) 50 mg PO Q12H PRN PRN Reason: Moderate Pain (4-6) Last Admin: 05/18/19 20:00 Dose: 50 mg - Allergies Allergies/Adverse Reactions: Allergies Allergy/AdvReac Type Severity Reaction Status Date / Time No Known Drug Allergies Allergy Verified 05/18/19 20:13 Pulmonology Consult: PE - Physical Exam Constitutional: NAD HEENT: PERRLA, moist MMs Neck: no JVD Cardiovascular: RRR Deviation from normal: 2/6 systolic murmur Respiratory: clear to auscultation anteriorly, clear to auscultation bilaterally Gastrointestinal: soft, non-tender, no distention, positive bowel sounds Musculoskeletal: no edema, pulses present Neurological: moves all 4 limbs Deviation from normal: left eye and lip droop Psychiatric: normal affect, A&O x 3 Skin: cap refill <2 seconds Pulmonology Consult: Results - Labs Result Diagrams: 05/19/19 11:18 05/19/19 05:25 Pulmonology Consult: A/P - Problem (1) Hypertensive emergency Code(s): I16.1 - HYPERTENSIVE EMERGENCY Status: Resolved (2) ESRD (end stage renal disease) Code(s): N18.6 - END STAGE RENAL DISEASE Status: Acute (3) Paroxysmal atrial fibrillation Code(s): I48.0 - PAROXYSMAL ATRIAL FIBRILLATION Status: Chronic (4) Chest pain Code(s): R07.9 - CHEST PAIN, UNSPECIFIED Status: Resolved - Time Time: 50% of the time was spent in coordination of care (as documented) at patient's floor/unit and/or counseling patient. Time with Patient: greater than 70 minutes - Plan Plan: Assessment: #Hypertensive Emergency -Headache and chest pain resolved this AM -Off of cardene drip this AM, if BP remains stable, pt can be transferred out of the ICU -Continue home medications for BP control #ESRD -Plan for dialysis today #DM2 -Continue home medications #Atrial fibrillation -Off of anticoagulation #Macrocytic anemia -occult blood in stool -Grossly negative EGD/ colonoscopy -Pending Vitamin B12, RBC folate, reticulocyte count, and peripheral smear #CAD -Continue home medications Brandon Rod DO PGY-2 Addendum - Physician - Physician Attestation Date/Time: 05/22/19 [id number] I personally performed or re-performed the physical examination and medical decision making. I have verified all student documentation or findings, including history, physical exam and/or medical decision making. 70 minutes have been devoted to this patient in various activities. I personally reviewed all imaging studies and laboratory data noted within this document. For fifty percent of this time, I was interacting with the patient at the bedside or coordinating care with the care team. For the remainder of the time I was immediately available to the patient in the hospital unit.
[2019-05-19] MEDS ORDERED: FLU VACC TS2019-20(65YR UP)/PF 180 MCG/0.5 ML SYRINGE IM ONE (09:00)
[2019-05-19] MEDS ORDERED: Prevnar 13-Val Conj/PF 0.5 ML SYRINGE IM ONE (09:00)
[2019-05-19] MEDS: Gabapentin 300 MG CAP PO SCH (10:24)
[2019-05-19] MEDS: Carvedilol 6.25 MG TAB PO SCH ×2 (10:25→20:34)
[2019-05-19] MEDS: HumaLOG 300 UNITS/3 ML VIAL SC SCH ×3 (10:25→18:13)
[2019-05-19] MEDS: Famotidine 20 MG TAB PO SCH (10:25)
[2019-05-19 11:27] LABS: Reticulocyte Count 2.6 % (0.5-1.5)
[2019-05-19 12:08] LABS: Band 5 % (5-11); Eosinophils 2 % (0-10); Hemoglobin 10.6 g/dL (12.0-16.0); Lymphocytes 12 % (21-51); MDiff Complete? YES; Macrocytosis SLIGHT = 6-15 cells (100X) (0-5/hpf); Mean Corpuscular HGB CONC 32.5 g/dL (32.0-36.0); Mean Corpuscular Hemoglobin 34.1 pg (27.0-31.0); Mean Platelet Volume 7.2 fL (7.4-10.4); Monocytes 1 % (0-10); Neutrophil 76 % (42-75); Platelet Count 156 thou/uL (130-400); Platelet Morphology Comment Appears Adequate; Polychromasia MODERATE = 3-4 cells (100X) (0-2/hpf); Reactive Lymphocytes 4 % (0-10); Schistocytes SLIGHT = 2-5 cells (100X) (0-1/hpf); Tear Drops SLIGHT = 2-5 cells (100X) (0-1/hpf); White Blood Cell (WBC) Count 3.4 thou/uL (4.8-10.8)
--- NOTE | 2019-05-19 13:52 | PDOC.HOSPP ---
- Subjective Encounter Date: 05/19/19 Encounter Time: 13:49 Subjective: Admitted with markedly elevated BP associuated with headache and chest pain which are all improvced. Patient also is off cardene infusion. - Objective Vital Signs & Weight: Vital Signs (12 hours) Temp BP Pulse Ox 05/19/19 10:25 219/89 H 05/19/19 10:24 173/74 H 05/19/19 07:00 98.6 F 05/19/19 04:00 95 05/19/19 03:00 97.7 F Weight Weight 166 lb 14.239 oz Most Recent Monitor Data Heart Rate from ECG 68 NIBP 163/72 NIBP BP-Mean 102 Respiration from ECG 15 SpO2 95 I&O: 05/18/19 05/19/19 05/20/19 06:59 06:59 06:59 Intake Total 106.3 Output Total 125 Balance 106.3 -125 Result Diagrams: 05/19/19 11:18 05/19/19 05:25 Additional Labs: Accuchecks 05/19/19 05/19/19 05/19/19 12:06 06:49 05:48 POC Glucose 133 H 95 64 L 05/18/19 21:10 POC Glucose 266 H Hospitalist ROS - Medication Medications: Active Medications Generic Name Dose Route Start Last Admin Trade Name Freq PRN Reason Stop Dose Admin Acetaminophen 650 mg 05/18/19 20:24 05/18/19 21:44 Tylenol PO 650 mg Q4H PRN Administration Headache/Fever/Mild Pain (1-3) Amiodarone HCl 100 mg 05/18/19 21:00 05/18/19 20:51 Cordarone PO 100 mg QPM [facility] Administration Captopril 12.5 mg 05/18/19 21:00 05/19/19 10:24 Capoten PO 12.5 mg BID [facility] Administration Carvedilol 6.25 mg 05/18/19 21:00 05/19/19 10:25 Coreg PO 6.25 mg BID [facility] Administration Famotidine 20 mg 05/19/19 09:00 05/19/19 10:25 Pepcid PO 20 mg DAILY [facility] Administration Gabapentin 600 mg 05/19/19 09:00 05/19/19 10:24 Neurontin PO 600 mg QAM [facility] Administration Nicardipine HCl 50 mg/ Sodium 250 mls @ 0 mls/hr 05/18/19 20:24 05/18/19 21: 00 Chloride IVPB 250 mls INF [facility] Administration Protocol Titrate Insulin Glargine 20 units/ 0.2 mls @ 0 mls/hr 05/18/19 21:00 05/18/19 21:12 Miscellaneous Medication SC 0.2 mls HS [facility] Administration Insulin Human Lispro 0 units 05/18/19 20:24 05/18/19 21:12 Humalog SC 4 unit .MODERATE SLIDING SC PRN Administration Moderate Correctional Scale Insulin Human Lispro 12 units 05/19/19 08:00 05/19/19 10:25 Humalog SC 12 unit TID-WM [facility] Administration Levothyroxine Sodium 100 mcg 05/19/19 06:00 05/19/19 05:46 Synthroid PO 100 mcg 0600 [facility] Administration Nitroglycerin 0.5 inch 05/19/19 06:00 05/19/19 05:46 Nitro-Bid 2% Ointment TOP 0.5 inch Q8HR [facility] Administration Tramadol HCl 50 mg 05/18/19 19:48 05/18/19 20:00 Ultram PO 50 mg Q12H PRN Administration Moderate Pain (4-6) - Exam General Appearance: awake alert Eye: anicteric sclera ENT: normocephalic atraumatic Neck: symmetric, no JVD Heart: RRR, murmur present Respiratory: no wheezes, no rales, no ronchi, normal chest expansion Gastrointestinal: soft, non-tender, non-distended, normal bowel sounds Extremities: no edema Neurological: cranial nerve grossly intact, no focal deficits Psychiatric: normal affect, A&O x 3 Hosp A/P (1) Hypertensive emergency Code(s): I16.1 - HYPERTENSIVE EMERGENCY Status: Acute (2) Demand ischemia of myocardium Code(s): I24.8 - OTHER FORMS OF ACUTE ISCHEMIC HEART DISEASE Status: Acute (3) Headache Code(s): R51 - HEADACHE Status: Acute (4) CAD (coronary artery disease) Code(s): I25.10 - ATHSCL HEART DISEASE OF [place] CORONARY ARTERY W/O ANG PCTRS Status: Chronic Qualifiers: (5) Diabetes type 2, controlled Code(s): E11.9 - TYPE 2 DIABETES MELLITUS WITHOUT COMPLICATIONS Status: Chronic Qualifiers: Diabetes mellitus complication status: with kidney complications Diabetes mellitus complication detail: with chronic kidney disease Chronic kidney disease stage: on chronic dialysis (6) ESRD (end stage renal disease) on dialysis Code(s): N18.6 - END STAGE RENAL DISEASE; Z99.2 - DEPENDENCE ON RENAL DIALYSIS Status: Chronic (7) Hypothyroidism Code(s): E03.9 - HYPOTHYROIDISM, UNSPECIFIED Status: Chronic Qualifiers: - Plan Restarted on usual antihypertensives and cardene weaned off Awaiting HD For Discharge after HD. Start protonix
--- NOTE | 2019-05-19 14:15 | DIS ---
DATE OF ADMISSION: 05/18/2019 DATE OF DISCHARGE: 05/19/2019 PRIMARY CARE PHYSICIAN: Fam Yao. DISCHARGE DIAGNOSES: 1. Acute accelerated hypertension. 2. Headache. 3. Chest pain. 4. Demand ischemia of the myocardium. 5. End-stage renal disease, on hemodialysis. 6. Atrial fibrillation. 7. Chronic anticoagulation with Coumadin. 8. History of coronary artery disease. 9. Diabetes mellitus. CONSULTATIONS: 1. Pulmonology. 2. Cardiology. HOSPITAL COURSE: A 64-year-old female with end-stage renal disease, on hemodialysis; atrial fibrillation, on chronic anticoagulation with Coumadin; hypertension; and diabetes; amongst others; who was admitted due to acute elevation in BP associated with headache and chest pain that started after endoscopic evaluation (EGD and colonoscopy being done for evaluation for anemia). The patient had held her usual antihypertensives as instructed by the GI physicians in preparation for endoscopic evaluation. Post-EGD and colonoscopy, the patient was noted to have acutely elevated blood pressure with systolic blood pressure up to 240s and this was associated with headache and chest pain. The patient was admitted to the ICU and started on Cardene infusion. She also was found to have elevated troponin, hence cardiology consult was obtained, and this was felt to be due to demand ischemia from accelerated hypertension. No intervention or further recommendation was made other than continuation of usual antihypertensives. Usual antihypertensives were started and blood pressure improved and Cardene drip was weaned off. Chest pain resolved and headache also improved significantly. The patient normally gets a hemodialysis on Wednesday, Wednesday, and Wednesday, and she is due for hemodialysis today. Nephrology consult has been requested and the patient will get hemodialysis today. She will be discharged after hemodialysis. PHYSICAL EXAMINATION: VITAL SIGNS: Temperature 98.6, pulse 68, respiratory rate 15, SpO2 of 95% on room air, and blood pressure is 163/72. GENERAL: Comfortable female, in no obvious distress. Afebrile. Anicteric. Acyanotic. HEENT: Normocephalic, atraumatic. Oral mucosa is moist. CARDIOVASCULAR: Regular rhythm and rate with normal heart sounds 1 and 2. Systolic murmur noted. RESPIRATORY: Fair air entry bilaterally with no obvious rhonchi or crackles or use of accessory muscles. GI: Full, soft, nontender, nondistended with normal bowel sounds. EXTREMITIES: Grossly normal looking, atraumatic with no obvious edema. PET TECHNOLOGIST: Conscious, alert, and oriented x3 with appropriate mental status. DISCHARGE DISPOSITION: Home. DISCHARGE CONDITION: Improved. DISCHARGE MEDICATIONS: Home medications were restarted. The patient also was started on Protonix 40 mg daily as recommended by GI. FOLLOWUP: 1. With PCP in 7 days. 2. With GI, Dr. Dr. Jennifer Green in 1 week. The patient is not to restart Coumadin until instructed by the GI physician since they did biopsies. This discharge took more than 33 minutes. Job ID: [id number]
[2019-05-19] MEDS ORDERED: Amlodipine 10 MG TAB PO SCH (16:15)
[2019-05-19] MEDS ORDERED: hydrALAZINE 20 MG/ML VIAL SLOW IVP SCH (17:45)
[2019-05-19] MEDS: traMADol HCl 50 MG TAB PO PRN (19:37)
[2019-05-19] MEDS ORDERED: Metoprolol Tartrate 5 MG/5 ML VIAL IVP PRN (19:48)
[2019-05-19] MEDS ORDERED: NIFEdipine XL 60 MG TAB PO SCH (20:00)
--- NOTE | 2019-05-19 20:14 | PRG ---
DATE OF SERVICE: 05/19/2019 SUBJECTIVE: Ms. Fontenot was taken off nicardipine, but her blood pressure is back up to 180/70 and she has some chest discomfort. OBJECTIVE: LUNGS: Clear. CARDIAC: Normal S1, normal S2. Heart rate is 91. ABDOMEN: Soft, nontender. EXTREMITIES: No edema. ASSESSMENT: 1. Uncontrolled hypertension. 2. End-stage renal disease, recent blood pressure still 200 systolic. PLAN: 1. Change to Procardia XL. 2. Metoprolol will be given. 3. Increase carvedilol to 12.5 mg twice a day. Job ID: [id number]
[2019-05-19] MEDS ORDERED: Metoprolol Tartrate 5 MG/5 ML VIAL ONE (20:29)
[2019-05-19] MEDS: Amiodarone 200 MG TAB PO SCH (20:32)
[2019-05-19] MEDS ORDERED: Metoprolol Tartrate 5 MG/5 ML VIAL IVP SCH (20:45)
[2019-05-19] MEDS: Insulin Glargine 20 UNITS in Pre-Filled Syringe 1 EACH SC SCH (21:19)
[2019-05-19] MEDS: Nitroglycerin 0.4 MG TAB (25 Tab Bottle) SL SCH ×2 (22:27→23:17)
[2019-05-20] MEDS: Levothyroxine Sodium 100 MCG TAB PO SCH (06:27)
[2019-05-20] MEDS: Nitroglycerin 2% Ointment 1 INCH/1 GM Packet TOP SCH ×2 (06:27→19:03)
[2019-05-20 07:15] LABS: INR-International Normal Ratio 1.2; Prothrombin Time 15.2 SEC (12.0-14.7)
[2019-05-20] MEDS ORDERED: NIFEdipine XL 60 MG TAB PO SCH (09:00)
[2019-05-20] MEDS: HumaLOG 300 UNITS/3 ML VIAL SC SCH ×2 (09:50→19:02)
[2019-05-20] MEDS: Famotidine 20 MG TAB PO SCH (09:52)
[2019-05-20] MEDS: Gabapentin 300 MG CAP PO SCH (09:52)
[2019-05-20] MEDS: Carvedilol 6.25 MG TAB PO SCH (09:53)
[2019-05-20 10:01] VITALS: BP 133/66
[2019-05-20 10:49] VITALS: TEMP 98.4
--- NOTE | 2019-05-20 11:39 | PRG ---
DATE OF SERVICE: 05/20/2019 SERVICE: Pulmonary Medicine. INTERVAL HISTORY: The patient is doing much better from a cardiovascular standpoint. Late yesterday evening, she had an increase in blood pressure once again. This was associated with some chest discomfort. She got some p.r.n. medication, and her discomfort improved when her blood pressure came back down. Otherwise, there has been no change to her condition. PHYSICAL EXAMINATION: VITAL SIGNS: Afebrile, pulse 70, blood pressure 142/62, respirations 27, and saturation 100% on room air. GENERAL: The patient is awake and alert, in no apparent distress. LUNGS: Very good air entry. No prolonged expiratory phase or wheezing is appreciated. HEART: Normal rate and regular. ABDOMEN: Soft, nontender, and nondistended. Bowel sounds are positive. MUSCULOSKELETAL: No cyanosis or clubbing. There is no pitting in the bilateral lower extremities. NEUROLOGIC: Grossly nonfocal. LABORATORY DATA: Retic count is 2.6. INR 1.2. Vitamin B12 of 246, which is at the lower limits of normal. Creatinine 5.98, potassium 5.0. Blood sugar ranges from 64 to 133. ASSESSMENT: 1. Hypertensive emergency, resolved. 2. End-stage renal disease. 3. Chest pain, once again resolved. DISCUSSION AND PLAN: The patient is stable for transition out of the ICU to the telemetry unit. If she remains in this location, I will continue to follow, but otherwise, she will have no further requirements from my opinion and I will sign off. Please call with additional questions or concerns through time. Job ID: [id number]
--- NOTE | 2019-05-22 11:33 | EKG ---
Test Reason : CHEST PAIN Blood Pressure : / mmHG Vent. Rate : 082 BPM Atrial Rate : 082 BPM P-R Int : 166 ms QRS Dur : 100 ms QT Int : 412 ms P-R-T Axes : 060 -36 014 degrees QTc Int : 481 ms Normal sinus rhythm Left axis deviation Abnormal ECG When compared with ECG of 11-MAY-2019 15:47, (Unconfirmed) OH interval has decreased Nonspecific T wave abnormality no longer evident in Lateral leads Confirmed by Ariana TOMLIN ([id number]) on 05/22/2019 11:32:52 AM Referred By: JEYSON Confirmed By:Ariana TOMLIN
[2019-05-22 17:11] LABS: Folate,Hemolysate 467.6 ng/mL (Not Estab.); Hematocrit 32.5 % (34.0-46.6); RBC Folate Test Component 1439 ng/mL (>498)
== END 2019-05-20 18:23 | disposition home or self-care (01) | DRG 304 ==
LOC: SDC 10:42 → OBSVTOIN 18:23 → 2SW 18:23 → CCU 20:24
PROVIDERS: ADMIT Internal Medicine; ATTEND Internal Medicine
PROC: 0DBN8ZX Excision of Sigmoid Colon, Via Natural or Artificial Opening Endoscopic, Diagnostic (ICD-10-PCS; principal; 2019-05-18)
PROC: 0DBP8ZX Excision of Rectum, Via Natural or Artificial Opening Endoscopic, Diagnostic (ICD-10-PCS; 2019-05-18)
PROC: 0DB78ZX Excision of Stomach, Pylorus, Via Natural or Artificial Opening Endoscopic, Diagnostic (ICD-10-PCS; 2019-05-18)
PROC: 0DB98ZX Excision of Duodenum, Via Natural or Artificial Opening Endoscopic, Diagnostic (ICD-10-PCS; 2019-05-18)
DX: I16.1 Hypertensive emergency (principal); N18.6 End stage renal disease; I24.8 Other forms of acute ischemic heart disease; E11.22 Type 2 diabetes mellitus with diabetic chronic kidney disease; D50.9 Iron deficiency anemia, unspecified; I25.10 Atherosclerotic heart disease of native coronary artery without angina pectoris; G89.29 Other chronic pain; I12.0 Hypertensive chronic kidney disease with stage 5 chronic kidney disease or end stage renal disease; M54.5 Low back pain; K64.8 Other hemorrhoids; K62.1 Rectal polyp; K29.60 Other gastritis without bleeding; E78.5 Hyperlipidemia, unspecified; D64.9 Anemia, unspecified; E66.9 Obesity, unspecified; I48.0 Paroxysmal atrial fibrillation; R07.9 Chest pain, unspecified; Z98.49 Cataract extraction status, unspecified eye; Z68.28 Body mass index [BMI] 28.0-28.9, adult; Z86.010 Personal history of colon polyps; Z99.2 Dependence on renal dialysis; Z90.49 Acquired absence of other specified parts of digestive tract; Z79.01 Long term (current) use of anticoagulants; Z95.1 Presence of aortocoronary bypass graft; Z79.899 Other long term (current) drug therapy; Z79.82 Long term (current) use of aspirin
CPT/HCPCS: 36415; 36416; 80048; 80053; 82550; 82553; 82607; 82747; 84484; 85025; 85046; 85060; 85610; 88305; 88312; 93005; 93010; J0360; J1815; J2270; J7050

== ENCOUNTER 2019-07-17 09:42 | Emergency (ER) | payer MEDICARE, BC ==
--- NOTE | 2019-07-17 10:38 | CT ---
CT Brain WO Con: 07/17/2019 10:13 AM CLINICAL HISTORY: Fall. IMAGING TECHNIQUE: Multiple CT images were obtained of the brain without IV contrast. COMPARISON: Prior exam dated May 11, 2019 FINDINGS: Brain: No acute infarct or hemorrhage is evident. No midline shift. There are remote lacunar infarc ts involving the basal ganglia bilaterally as well as the michael radiata bilaterally. There is mild chronic small vessel white matter ischemic change. Ventricles: Normal. No hydrocephalus.. Skull: Intact.. Visualized Paranasal sinuses: Clear.. Mastoid air cells:Clear. Extracranial soft tissues:There is a large right occipital scalp contusion. IMPRESSION: No acute intracranial abnormality. Large right occipital scalp contusion. Stable chronic ischemic change as above.
[2019-07-17] MEDS ORDERED: Adacel (T-DAP) 0.5 ML SYRINGE ONE (13:19)
== END 2019-07-17 14:10 | disposition home or self-care (01) ==
LOC: ERS 09:42
DX: S01.01XA Laceration without foreign body of scalp, initial encounter (principal); I25.2 Old myocardial infarction; E11.9 Type 2 diabetes mellitus without complications; E03.9 Hypothyroidism, unspecified; I10 Essential (primary) hypertension; E78.5 Hyperlipidemia, unspecified; Z87.891 Personal history of nicotine dependence; E78.00 Pure hypercholesterolemia, unspecified; Z79.82 Long term (current) use of aspirin; Z79.4 Long term (current) use of insulin; Z79.891 Long term (current) use of opiate analgesic; W10.9XXA Fall (on) (from) unspecified stairs and steps, initial encounter
CPT/HCPCS: 12002; 70450; 90471; 90715

== ENCOUNTER 2019-07-20 11:55 | Outpatient (CLI) | payer MEDICARE, BC ==
--- NOTE | 2019-07-20 12:46 | RAD ---
XR Lumbar Spine 2 Or 3 View: 07/20/2019 12:00 AM Fall with back pain COMPARISON: May 07, 2017 FINDINGS: Fracture: The wedge compression fracture of T12 is stable. Alignment: There is stable grade 1 anterolisthesis of L4 on L5 and L5 on S1. Degenerative Change: Advanced facet and disc degenerative disease at L4-5 and L5-S1 is stable. Soft tissues: There are scattered vascular calcifications involving the abdominal aorta. Visualized b owel gas pattern is unremarkable.. IMPRESSION: Stable lumbar spondylosis. Stable wedge compression fracture T12
== END 2019-07-20 11:56 | disposition home or self-care (01) ==
LOC: BICRAD 11:55
PROVIDERS: ATTEND Physician Assistant
DX: M54.5 Low back pain (principal); W19.XXXA Unspecified fall, initial encounter; M47.816 Spondylosis without myelopathy or radiculopathy, lumbar region; S22.080D Wedge compression fracture of T11-T12 vertebra, subsequent encounter for fracture with routine healing
CPT/HCPCS: 72100

== ENCOUNTER 2019-07-21 13:53 | Outpatient (CLI) | payer MEDICARE, BC ==
--- NOTE | 2019-07-21 14:29 | CT ---
CT BRAIN WITHOUT CONTRAST: Date: 07/21/19 HISTORY: Fall. Recent stitches on head and now has bruising on neck with weakness and unsteady gait. COMPARISON: 07/17/19. 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 Th e ventricular size is stable and the basilar cisterns are patent. No evidence of acute infarct, hemor rhage, midline shift, or abnormal extra-axial fluid collections are seen. The bony calvarium is intac t. The visualized paranasal sinuses and mastoid air cells are well aerated. There is a large right oc cipital scalp contusion which was also seen on the previous study. This appears larger compared to th e previous exam. IMPRESSION: No CT evidence of acute intracranial process. POS: [facility]
--- NOTE | 2019-07-21 14:41 | CT ---
Exam: CT cervical spine without contrast HISTORY: Trauma. Pain. COMPARISON: None FINDINGS: No craniocervical dissociation. Appropriate alignment of the lateral masses of C1 and C2. Intact odon toid process Appropriate alignment of the facets. Straightening of normal cervical lordosis may be due to patient position, muscle spasm or cervical co llar. 1.9 mm of anterolisthesis of C3 to upon C3. Soft tissue neck structures: No mass, lymphadenopathy or hematoma. No prevertebral soft tissue swelli ng. Upper mediastinum and lung apices: There is incompletely evaluated left-sided pleural effusion. There are posterior decompressive laminectomy changes at T3, incompletely evaluated Central spinal canal: There are varying degrees of central canal stenosis and neural foraminal narrow ing on the basis of degenerative change Vertebral bodies: Cervical spine vertebral body height is maintained. No fracture. IMPRESSION: No cervical spine fracture. Straightening of normal cervical lordosis as defined above. If there is c oncern for ligamentous injury, consider MRI. Additional findings as above.
== END 2019-07-21 13:54 | disposition home or self-care (01) ==
LOC: TBSIIMAG 13:53
PROVIDERS: ATTEND Physician Assistant
DX: S01.01XA Laceration without foreign body of scalp, initial encounter (principal); S09.90XD Unspecified injury of head, subsequent encounter; M54.2 Cervicalgia; M47.812 Spondylosis without myelopathy or radiculopathy, cervical region; M48.02 Spinal stenosis, cervical region; J90 Pleural effusion, not elsewhere classified; Z79.01 Long term (current) use of anticoagulants; Z98.890 Other specified postprocedural states; W19.XXXA Unspecified fall, initial encounter
CPT/HCPCS: 70450; 72125

== ENCOUNTER 2019-07-22 11:16 | Emergency (ER) | payer MEDICARE, BC ==
--- NOTE | 2019-07-22 12:29 | RAD ---
Exam: Chest 2 views: HISTORY: Pulmonary effusion, pleural effusion FINDINGS: Mild cardiomegaly. Postop midline sternotomy. Minimal blunting of the left costophrenic angle evidenc e for small left pleural effusion. Right lung appears unremarkable. Stable bony changes of the proximal right humerus. IMPRESSION: Evidence for small left pleural effusion. Cardiomegaly. Mild increased markings bilaterally but no co nfluent pneumonia or overt edema. Depending on concern, consideration for another short-term follow-up study should be considered.
== END 2019-07-22 13:19 | disposition home or self-care (01) ==
LOC: ERS 11:16
DX: J90 Pleural effusion, not elsewhere classified (principal); I25.2 Old myocardial infarction; I12.0 Hypertensive chronic kidney disease with stage 5 chronic kidney disease or end stage renal disease; N18.6 End stage renal disease; E11.22 Type 2 diabetes mellitus with diabetic chronic kidney disease; E03.9 Hypothyroidism, unspecified; E78.5 Hyperlipidemia, unspecified; E78.00 Pure hypercholesterolemia, unspecified; Z87.891 Personal history of nicotine dependence; Z79.899 Other long term (current) drug therapy; Z79.4 Long term (current) use of insulin; Z99.2 Dependence on renal dialysis; Z79.82 Long term (current) use of aspirin
CPT/HCPCS: 71046

== ENCOUNTER 2019-07-24 13:23 | Emergency (ER) | payer MEDICARE, BC ==
[2019-07-24] MEDS ORDERED: cloNIDine 0.1 MG TAB ONE (15:19)
[2019-07-24] MEDS ORDERED: Amlodipine 5 MG TAB ONE (16:10)
== END 2019-07-24 15:45 | disposition home or self-care (01) ==
LOC: ERS 13:23
DX: L76.21 Postprocedural hemorrhage of skin and subcutaneous tissue following a dermatologic procedure (principal); L76.31 Postprocedural hematoma of skin and subcutaneous tissue following a dermatologic procedure; I10 Essential (primary) hypertension; I25.2 Old myocardial infarction; E11.9 Type 2 diabetes mellitus without complications; E03.9 Hypothyroidism, unspecified; E78.5 Hyperlipidemia, unspecified; E78.00 Pure hypercholesterolemia, unspecified; G51.0 Bell's palsy; Z87.891 Personal history of nicotine dependence; Z79.4 Long term (current) use of insulin; Z79.891 Long term (current) use of opiate analgesic; Z79.82 Long term (current) use of aspirin; Z79.899 Other long term (current) drug therapy
CPT/HCPCS: 99283

== ENCOUNTER 2019-07-26 11:36 | Observation (INO) | payer MEDICARE, BC ==
[2019-07-26 13:04] LABS: Hemoglobin 12.2 g/dL (12.0-16.0); Mean Corpuscular HGB CONC 31.8 g/dL (32.0-36.0); Mean Corpuscular Hemoglobin 34.4 pg (27.0-31.0); Platelet Count 204 thou/uL (130-400); RBC Distribution Width 15.2 % (11.5-14.5); Red Blood Cell (RBC) Count 3.55 mill/uL (4.20-5.40); White Blood Cell (WBC) Count 9.3 thou/uL (4.8-10.8)
[2019-07-26 13:05] LABS: #Lymphocytes 0.9 thou/uL (1.20-3.40); #Monocytes 0.5 thou/uL (0.11-0.59); #Neutrophils 7.9 thou/uL (1.40-6.50); %Eosinophils 0.5 % (0.0-10.0); %Lymphocytes 9.7 % (21.0-51.0); %Monocytes 5.7 % (0.0-10.0); %Neutrophils 84.1 % (42.0-75.0)
[2019-07-26 13:06] LABS: MDiff Complete? YES; Macrocytosis SLIGHT = 6-15 cells (100X) (0-5/hpf); Platelet Morphology Comment Appears Adequate
[2019-07-26 13:08] LABS: INR-International Normal Ratio 3.5; PTT 56.6 SEC (22.9-36.1)
[2019-07-26 13:13] LABS: ALT (SGPT) 12 U/L (8-55); AST (SGOT) 19 U/L (5-34); Albumin 3.9 g/dL (3.4-4.8); Alkaline Phosphatase 147 U/L (40-110); Anion Gap 13 mmol/L (10-20); BUN (Urea Nitrogen) 39 mg/dL (9.8-20.1); Bilirubin, Total 1.2 mg/dL (0.2-1.2); Calc. Creatinine Clearance 0 mL/min (70-130); Calcium 9.4 mg/dL (7.8-10.44); Carbon Dioxide 31 mmol/L (23-31); Chloride 98 mmol/L (98-107); Estimated GFR-MDRD 6; Globulin 3.3 g/dL (2.4-3.5); Glucose 250 mg/dL (80-115); Potassium 4.3 mmol/L (3.5-5.1); Protein, Total 7.2 g/dL (6.0-8.3); Sodium 138 mmol/L (136-145)
[2019-07-26] MEDS ORDERED: Phytonadione 10 MG/ML AMP ONE (13:23)
[2019-07-26] MEDS ORDERED: Acetaminophen 500 MG TAB ONE (13:44)
--- NOTE | 2019-07-26 14:18 | CT ---
CT BRAIN WITHOUT CONTRAST: Date: 07/26/19 HISTORY: Fall. Head injury. FINDINGS: Comparison made with exam of 07/21/19. Changes of cortical atrophy and chronic small vessel ischemic disease and old basal ganglia infarctio ns are again seen. The ventricular size is stable and the basilar cisterns are patent. No evidence of acute infarct, hemorrhage, midline shift, or abnormal extra-axial fluid collections ar e seen. The bony calvarium is intact. The visualized paranasal sinuses and mastoid air cells are well aerated. The right occipital scalp contusion is again seen. IMPRESSION: No CT evidence of acute intracranial process. POS: [facility]
[2019-07-26] MEDS ORDERED: HumaLOG 300 UNITS/3 ML VIAL SC PRN ×2 (15:18)
[2019-07-26] MEDS ORDERED: Dextrose 50% Abboject 50 ML SYRINGE SLOW IVP PRN (15:18)
[2019-07-26] MEDS ORDERED: Dextrose 5% in Water 1,000 ML IV PRN (15:18)
--- NOTE | 2019-07-26 15:57 | RAD ---
XR Chest Pa Lat STANDARD HISTORY: CHF exacerbation COMPARISON: 07/22/2019 FINDINGS: Changes of median sternotomy are again seen. Mild cardiomegaly persists. There is mild pulm onary vascular congestion with small left pleural effusion. No pneumothoraces are seen. Chronic changes of the right proximal humerus are again noted.
--- NOTE | 2019-07-26 16:49 | HP ---
TIME OF ASSESSMENT: 1500 hours. CHIEF COMPLAINT: Headaches and bleeding occipital wound. HISTORY OF PRESENT ILLNESS: Ms. Fontenot is a 64-year-old woman, who presents to the emergency department due to persistent bleeding from a hit back, which she sustained after a mechanical fall on July 17, 2019. The patient apparently misstepped with her cane, lost her balance and fell backwards. She had 3 arcenio placed after attending the emergency department on July 17, 2019. According to the patient, she was given no instructions on stopping her anticoagulation. She is on aspirin and Coumadin for AFib. She was given a tetanus booster and underwent CT head imaging, which was notable for a large right occipital scalp contusion, but no intracranial abnormality. The patient was discharged home. She states she did not have any loss of consciousness and denies any preceding symptoms that would have caused a fall. She has been very cautious since then. She does, however, report having persistent headaches since her injury and has noted periorbital edema, specifically involving her eyelids. She returned to the emergency department on 07/23/2019, as instructed by her primary care physician due to undergoing a chest x-ray that demonstrated a small left pleural effusion and mild increased markings bilaterally with concern for fluid being risk control field representative of hemothorax given her recent injury. The patient was evaluated in the emergency department, and it was felt that the clinical suspicion was very low for this, therefore, no further imaging was done. It was at that time that she states she was advised to hold her Coumadin and aspirin. The patient since then has developed persistent bleeding from the wound, which has brought her back to the emergency department. Laboratory studies done have demonstrated a supratherapeutic INR of 3.5. She is recommended reversal of Coumadin and given vitamin K. Dr. Coffey was consulted by the ED physician, and she will be taken for her dialysis shortly. The patient has undergone a repeat CT of the head that shows no CT evidence of acute intracranial process. She does have a significantly elevated BNP of 6481.7. White count was 9.3, hemoglobin 12.2, hematocrit 38.3, platelets 204, and neutrophils 84.1%. Her vital signs are notable for an elevated blood pressure of 169/137. This was attributed to pain involving the hematoma and she was given 1 g of Tylenol. The patient underwent an EKG showing normal sinus rhythm with a heart rate of 81. The patient had an echo done recently in November 2018, showing an EF of 50% to 55% with a mildly dilated left atrium, mild mitral regurgitation, and mild-to- moderate tricuspid regurgitation. REVIEW OF SYSTEMS: At this present time, apart from the headache she denies having any other symptoms. Has not had any nausea or vomiting. Reports having a good appetite. Denies any fevers, chills, or sweats. No dizziness or lightheadedness. No chest pain, palpitations, or shortness of breath. No cough or hemoptysis. No urinary symptoms. She does report having issues with constipation and will typically have a bowel movement every 2 to 3 days and this was unchanged. All other review of systems are negative. PAST MEDICAL HISTORY: 1. History of IA in 2011. 2. Type 2 diabetes mellitus. 3. Hypothyroidism. 4. Hyperlipidemia. 5. Hypertension. 6. End-stage renal disease, on dialysis, Wednesday, Wednesday, Wednesday. 7. Guardado's palsy. 8. Atrial fibrillation, on anticoagulation. PAST SURGICAL HISTORY: 1. Hysterectomy. 2. Cataract surgery to right eye and left eye. 3. Appendectomy. 4. CABG x4. 5. Stent x1. 6. Vicente in right hip. 7. Dialysis catheter to right upper chest, removal. 8. Dialysis shunt to right arm. 9. Right rotator cuffs repair. 10. Right knee surgery. SOCIAL HISTORY: The patient lives with her family. She has a history of heavy alcohol use, but quit 20 years ago. Denies any tobacco use currently and quit more than 20 years ago. Denies any drug use. ALLERGIES: NO KNOWN DRUG ALLERGIES. CURRENT MEDICATIONS: 1. Amlodipine. 2. Aspirin. 3. Captopril. 4. Carvedilol. 5. Lantus. 6. Levothyroxine. 7. Humalog. 8. Tramadol. 9. Tizanidine. 10. Gabapentin. 11. Warfarin, on hold. PHYSICAL EXAMINATION: GENERAL: The patient appears well developed, well nourished, is in no acute distress. VITAL SIGNS: Temperature 98.7, pulse 84, respirations 20, O2 saturation 100% on room air, blood pressure 169/137. HEENT: Normocephalic and atraumatic. Occiput notable for a boggy hematoma. She does have blood, but it does not appear to be actively bleeding at this time. She has ecchymosis down the posterior neck and upper back. Some slight edema of eyelids, left greater than the right. NECK: Supple. Full range of motion. Oropharynx is clear. LUNGS: Clear to auscultation bilaterally. CARDIAC: Regular rate and rhythm. No chest wall tenderness or deformity. ABDOMEN: Soft, obese, nontender, nondistended. Normoactive bowel sounds present. No guarding or rigidity. No renal angle tenderness. EXTREMITIES: No lower leg swelling or edema. NEUROLOGIC: Alert and oriented x3. Speech normal. Answering questions appropriately and following commands. No neuro deficits on exam. SKIN: Warm and dry. INVESTIGATIONS: As mentioned above in the HPI. IMPRESSION AND PLAN: Ms. Fontenot is a very pleasant 64-year-old woman presenting with bleeding to an occipital laceration that was stapled on 07/17/2019, with a supratherapeutic INR. She is being admitted for the followin. Supratherapeutic INR with bleeding. Known atrial fibrillation (sees Dr. Carlos), has been off Coumadin x 2 days. Supratherapeutic INR of 3.5. Given vitamin K in the ED. I have consulted Dr. Carlos for guidance on Coumadin, she is concerned about stopping it. Repeat the INR with morning labs. 2. S/p fall. States it was mechanical. No associated symptoms. Has had echo recently. Orthostatic BPs ordered and UA/UCx. 3. Headache. Likely due to significantly elevated blood pressure and injury. Given Tylenol. We will continue to manage with analgesics. We will also manage BP. The patient is going to be taken for dialysis shortly. Wound Care consulted. It does not seem to be bleeding anymore. CT head without intracranial abnormality. 4. Hypertension. Blood pressure elevated at this present time. We will likely drop once she has fluid removed during dialysis. We will continue to monitor blood pressure and resume home medications once verified. P.r.n. hydralazine ordered. 5. CHF exacerbation. No overt evidence of fluid overload, though she did have evidence of pleural effusion on a chest x-ray done on 07/22/2019. We will repeat chest x -ray at this present time. Her BNP is elevated at 6481.7, and she has slight edema involving her eyelids. No lower extremity edema, and lung sounds are clear. Again, the patient will have fluid removed during dialysis today. We will repeat BNP with morning labs. Recent Echo in 11/2018 (as mentioned in HPI). Hold lasix for now. Fluid restriction. 6. Diabetes mellitus. Monitor blood glucose. Resume home medications once verified. Initiate insulin sliding scale. 7. End-stage renal disease. As mentioned, the patient has been seen by Dr. Coffey, and will continue with dialysis which she is due for today. 8. Gastrointestinal prophylaxis with famotidine. 9. Deep venous thrombosis prophylaxis. Mechanical SCDs. PT/OT consulted. 10. Code status full. Surrogate decision maker is her daughter, Alison Fontenot. The patient's case discussed with attending, who agrees with plan and care as described above. Job ID: [id number] MTDD
[2019-07-26 19:57] LABS: Lactic Acid 1.1 mmol/L (0.5-2.2)
[2019-07-26] MEDS ORDERED: tiZANidine HCl 4 MG TAB PO PRN (21:15)
[2019-07-26] MEDS ORDERED: Amiodarone 200 MG TAB PO SCH (21:30)
[2019-07-26] MEDS ORDERED: Gabapentin 300 MG CAP PO SCH (21:30)
[2019-07-26] MEDS: Acetaminophen 325 MG TAB PO PRN (22:40)
[2019-07-26] MEDS: hydrALAZINE 20 MG/ML VIAL SLOW IVP PRN (23:37)
[2019-07-26 23:47] VITALS: BMI 26.2
[2019-07-27] MEDS ORDERED: cloNIDine 0.1 MG TAB PO PRN (01:49)
[2019-07-27] MEDS ORDERED: Amlodipine 10 MG TAB PO SCH ×2 (03:30→09:00)
[2019-07-27] MEDS ORDERED: Carvedilol 6.25 MG TAB PO SCH ×4 (03:30→21:00)
[2019-07-27] MEDS: hydrALAZINE 20 MG/ML VIAL SLOW IVP PRN (04:25)
[2019-07-27 04:39] LABS: INR-International Normal Ratio 1.5; Prothrombin Time 17.6 SEC (12.0-14.7)
[2019-07-27 04:40] LABS: PTT 42.3 SEC (22.9-36.1)
[2019-07-27] MEDS ORDERED: Levothyroxine Sodium 100 MCG TAB PO SCH (06:00)
[2019-07-27] MEDS: Acetaminophen 325 MG TAB PO PRN (08:16)
[2019-07-27] MEDS: Sevelamer Carbonate 800 MG TAB PO SCH ×2 (08:18→12:06)
[2019-07-27] MEDS ORDERED: Gabapentin 300 MG CAP PO SCH (09:00)
[2019-07-27] MEDS ORDERED: Fish Oil 1,000 MG CAP PO SCH (09:00)
[2019-07-27] MEDS ORDERED: Amiodarone 200 MG TAB PO SCH (09:00)
--- NOTE | 2019-07-27 10:05 | PRG ---
DATE OF SERVICE: 07/27/2019 SUBJECTIVE: Ms. Fontenot recently had a fall with some head trauma. She has had a lot of bleeding from her scalp. She was on low-dose aspirin as well as Coumadin. The Coumadin level was reversed after she had increasing amounts of bleeding. She is feeling okay now. No chest pain or pressure. OBJECTIVE: VITAL SIGNS: Blood pressure high 180/75 and pulse 74 and regular. LUNGS: Clear. CARDIAC: Normal S1. Normal S2. ABDOMEN: Soft and nontender. LABORATORY DATA: On EKG, she is in sinus rhythm. ASSESSMENT: 1. Paroxysmal atrial fibrillation. 2. End-stage renal disease. 3. Hypertension. 4. Severe bleeding from her scalp on Coumadin. PLAN: 1. Would stop Coumadin at the present time, consider resuming in a few weeks. 2. Resume aspirin tomorrow. 3. Increase carvedilol. No other recommendations. Job ID: [id number]
--- NOTE | 2019-07-27 11:34 | PDOC.HOSPP ---
- Subjective Encounter Date: 07/27/19 Encounter Time: 11:20 Subjective: Patient with decreased oozing from wound in her scalp. INR 1.5 this AM. No other complaints. Ready to go home once wound dealt with. - Objective Vital Signs & Weight: Vital Signs (12 hours) Temp Pulse Pulse Pulse Resp BP BP 07/27/19 10:41 65 67 133/97 H 07/27/19 09:33 140/86 07/27/19 09:08 66 66 140/66 07/27/19 08:17 75 07/27/19 07:42 98.2 F 74 14 07/27/19 05:30 75 07/27/19 03:21 87 07/27/19 02:59 98.4 F 87 17 07/27/19 01:41 07/27/19 00:15 07/26/19 23:37 89 07/26/19 23:36 89 BP BP BP BP BP Pulse Ox 07/27/19 10:41 151/67 H 07/27/19 09:33 07/27/19 09:08 136/65 07/27/19 08:17 07/27/19 07:42 184/75 H 96 07/27/19 05:30 168/74 H 07/27/19 03:21 07/27/19 02:59 188/80 H 96 07/27/19 01:41 192/84 H 07/27/19 00:15 188/78 H 07/26/19 23:37 07/26/19 23:36 213/93 H 205/89 H 217/95 H Weight Weight 152 lb 9.6 oz I&O: 07/26/19 07/27/19 07/28/19 06:59 06:59 06:59 Intake Total 600 Balance 600 Result Diagrams: 07/26/19 12:35 07/26/19 12:35 Additional Labs: Accuchecks 07/27/19 07/27/19 07/26/19 10:48 05:32 21:15 POC Glucose 331 H 163 H 131 H Hospitalist ROS - Review of Systems Respiratory: denies: cough, dry, shortness of breath Cardiovascular: denies: chest pain, palpitations, orthopnea Gastrointestinal: denies: nausea, vomiting, abdominal pain Skin: reports: lesions - Medication Medications: Active Medications Generic Name Dose Route Start Last Admin Trade Name Freq PRN Reason Stop Dose Admin Acetaminophen 650 mg 07/26/19 22:30 07/27/19 08:16 Tylenol PO 650 mg Q6H PRN Administration Headache/Fever or Pain Amlodipine Besylate 10 mg 07/27/19 09:00 07/27/19 08:17 Norvasc PO 10 mg QAM KYLAH Administration Clonidine 0.1 mg 07/27/19 01:49 07/27/19 02:05 Catapres PO 0.1 mg Q4H PRN Administration SBP Greater Than 180 Fish Oil 520 mg 07/27/19 09:00 07/27/19 08:22 Fish Oil PO Not Given DAILY KYLAH Gabapentin 600 mg 07/27/19 09:00 07/27/19 08:15 Neurontin PO 600 mg BID KYLAH Administration Hydralazine HCl 10 mg 07/26/19 15:34 07/27/19 04:25 Apresoline SLOW IVP 10 mg Q4H PRN Administration SBP Greater Than 180 Levothyroxine Sodium 100 mcg 07/27/19 06:00 07/27/19 04:25 Synthroid PO 100 mcg 0600 KYLAH Administration Pantoprazole Sodium 40 mg 07/27/19 09:00 07/27/19 08:17 Protonix PO 40 mg DAILY KYLAH Administration Sevelamer Carbonate 2,400 mg 07/27/19 08:00 07/27/19 08:18 Renvela PO 2,400 mg TID-WM KYLAH Administration - Exam General Appearance: NAD ENT - other findings: Laceration to occiput with oozing, 3 more arcenio added with good hemostasi Heart: RRR, no murmur, no gallops, no rubs Respiratory: CTAB, no wheezes, no rales, no ronchi Gastrointestinal: soft, non-tender, non-distended, normal bowel sounds Musculoskeletal: normal tone, normal strength Psychiatric: normal affect, normal behavior, A&O x 3 Hosp A/P (1) Laceration of scalp with complication Code(s): S01.01XA - LACERATION WITHOUT FOREIGN BODY OF SCALP, INITIAL ENCOUNTER Status: Acute Plan: with hematoma, 3 more arcenio added with good control of bleeding, no signs of infection (2) ESRD (end stage renal disease) Code(s): N18.6 - END STAGE RENAL DISEASE Status: Chronic Plan: God dialysis yesterday (3) Headache Code(s): R51 - HEADACHE Status: Acute Plan: due to scalp laceration, will give some tramadol (4) Chronic anticoagulation Code(s): Z79.01 - CARCASS WASHER (CURRENT) USE OF ANTICOAGULANTS Status: Chronic Plan: Coumadin ok to hold for 2-3 weeks while lac and hematoma heals, can resume after that (5) Diabetes type 2, controlled Code(s): E11.9 - TYPE 2 DIABETES MELLITUS WITHOUT COMPLICATIONS Status: Chronic Qualifiers: Diabetes mellitus complication status: with kidney complications Diabetes mellitus complication detail: with chronic kidney disease Chronic kidney disease stage: on chronic dialysis (6) Paroxysmal atrial fibrillation Code(s): I48.0 - PAROXYSMAL ATRIAL FIBRILLATION Status: Chronic - Plan D/C home
[2019-07-27] MEDS ORDERED: traMADol HCl 50 MG TAB PO PRN (11:36)
[2019-07-27 11:43] VITALS: BP 133/97; TEMP 97.7
[2019-07-27] MEDS ORDERED: Insulin Glargine 12 UNITS in Pre-Filled Syringe 1 EACH SC SCH (21:00)
[2019-07-27] MEDS ORDERED: Rosuvastatin 20 MG TAB PO SCH (21:00)
--- NOTE | 2019-07-28 05:02 | DIS ---
DATE OF ADMISSION: 07/26/2019 DATE OF DISCHARGE: 07/27/2019 PRIMARY CARE PHYSICIAN: Dr. Desiree Del Castillo. REASON FOR ADMISSION: Supratherapeutic INR with bleeding scalp wound and hematoma. DISCHARGE DIAGNOSES: 1. Scalp laceration with hematoma, improved after stapling. 2. Supratherapeutic INR, resolved with vitamin K. 3. End-stage renal disease, on dialysis. 4. Diabetes mellitus, type 2. 5. Paroxysmal atrial fibrillation. PROCEDURES: CT of the brain without contrast showing no evidence of acute intracranial process, just the right occipital scalp contusion seen again. CONSULTATIONS: Cardiology, Dr. Carlos. SUMMARY OF HOSPITAL COURSE: This is a 64-year-old female with a history of paroxysmal atrial fibrillation, on long-term Coumadin. She had a fall, hit the back of her head with a laceration about 10 days ago. She had some arcenio placed, but continued on anticoagulation. She developed a worsening scalp hematoma and came back to the emergency room when it kept bleeding. Eventually, she was found to have a supratherapeutic INR. She was admitted, given vitamin K to reverse her Coumadin. She also had dialysis while she was in the hospital. This morning, her bleeding had slowed down. The INR was down to 1.5. Dr. Carlos did evaluate the patient and determined that she was safe to go off Coumadin for 2 to 3 weeks until healing of scalp wound is finished and then she can consider restarting at that time. Wound Care did evaluate the wound and determined that she needed a few more arcenio. I did get a stapler go and clean the wound with alcohol, though it was a bit of a flap and also that was actually healing well, not bleeding much. I did put one staple that to hold it down. The lower edge of the laceration was actually oozing a small amount of blood. I did place two more arcenio here with good hemostasis at the end. Patient was doing well after that. She is being discharged home. DISCHARGE MANAGEMENT: Discharged home. FOLLOWUP: Follow up with Dr. Del Castillo in 7 days for consideration of staple removal. ACTIVITY: As tolerated. DIET: Diabetic healthy-heart diet. MEDICATIONS: Stop Coumadin. Continue all other home medications. 1. Amiodarone 100 mg twice a day. 2. Amlodipine 10 mg daily. 3. Captopril 12.5 mg at night. 4. Carvedilol 12.5 mg daily. 5. Gabapentin 600 mg twice a day. 6. Levothyroxine 100 mcg daily. 7. Fish oil mg daily. 8. Omeprazole 20 mg daily. 9. Crestor 20 mg at night. 10. Renvela 2400 mg 3 times a day. 11. Tizanidine 4 mg 3 times a day as needed for pain. 12. Acetaminophen as needed. 13. Aspirin 81 mg daily. 14. Humalog 5 to 12 units subcu t.i.d. based on how much she eats. 15. Lantus 12 units subcu at night. 16. Tramadol as needed for pain. Job ID: [id number]
[2019-07-28] MEDS ORDERED: Amiodarone 200 MG TAB PO SCH (09:00)
== END 2019-07-27 14:59 | disposition home or self-care (01) ==
LOC: ERS 11:36 → T4-A 19:24 → 2SW 19:59
PROVIDERS: ADMIT Internal Medicine; ATTEND Internal Medicine
DX: S01.01XA Laceration without foreign body of scalp, initial encounter (principal); R79.1 Abnormal coagulation profile; I48.0 Paroxysmal atrial fibrillation; I13.2 Hypertensive heart and chronic kidney disease with heart failure and with stage 5 chronic kidney disease, or end stage renal disease; E11.22 Type 2 diabetes mellitus with diabetic chronic kidney disease; N18.6 End stage renal disease; I50.9 Heart failure, unspecified; I25.2 Old myocardial infarction; E03.9 Hypothyroidism, unspecified; E78.5 Hyperlipidemia, unspecified; Z87.891 Personal history of nicotine dependence; Z79.01 Long term (current) use of anticoagulants; Z79.4 Long term (current) use of insulin; Z79.82 Long term (current) use of aspirin; Z79.899 Other long term (current) drug therapy; Z95.5 Presence of coronary angioplasty implant and graft; Z99.2 Dependence on renal dialysis; W19.XXXA Unspecified fall, initial encounter
CPT/HCPCS: 70450; 71046; 80053; 82962 ×2; 83605; 83880; 84145; 85025; 85610 ×2; 85730 ×2; 93005; 96374; 96375; 96376; 97139 ×3; 97530; 99291; G0378 ×3; 36415; 36416; J0360; J3430

== ENCOUNTER 2019-09-27 08:03 | Emergency (ER) | payer MEDICARE, BC ==
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
--- NOTE | 2019-09-27 09:19 | RAD ---
RIGHT KNEE 4 VIEWS: Date: 09/27/2019 HISTORY: Joint pain. COMPARISON: None. FINDINGS: There is a moderate joint effusion. There is abnormal soft tissue edema at the tibial tuberosity inse rtion of the patellar tendon. Moderate enthesopathic changes of the quadriceps tendon and patellar te ndon at the patella. There is chondrocalcinosis of both menisci. Capsular calcifications are also present. Moderate vascul ar calcifications. Incomplete evaluation of the intramedullary nail of the femur. No acute displaced fracture is appreciated There is mild medial compartment joint space narrowing wit h moderate tricompartmental osteophytes. IMPRESSION: 1. Findings of chondrocalcinosis of the menisci. 2. No acute displaced fracture or malalignment. 3. Moderate joint effusion can be sequelae of underlying chondrocalcinosis. 4. Moderate medial compartment degenerative changes. 5. Abnormal soft tissue swelling of the patellar tendon insertion tibial tuberosity. This may be seq uelae of underlying bursitis versus tendinosis, less likely a tear. Recommend correlation with focal tenderness. POS: CET
[2019-09-27] MEDS ORDERED: traMADol HCl 50 MG TAB ONE (10:12)
== END 2019-09-27 11:01 | disposition home or self-care (01) ==
LOC: ERS 08:03
DX: S83.91XA Sprain of unspecified site of right knee, initial encounter (principal); I25.2 Old myocardial infarction; E11.9 Type 2 diabetes mellitus without complications; E03.9 Hypothyroidism, unspecified; E78.5 Hyperlipidemia, unspecified; I10 Essential (primary) hypertension; Z87.891 Personal history of nicotine dependence; Z79.82 Long term (current) use of aspirin; Z79.4 Long term (current) use of insulin; Z79.899 Other long term (current) drug therapy; V43.63XA Car passenger injured in collision with pick-up truck in traffic accident, initial encounter
CPT/HCPCS: 71046; 93005

== ENCOUNTER 2020-02-15 05:23 | Outpatient (CLI) | payer MEDICARE, BC, OTHER ==
[2020-02-15 16:37] LABS: #Eosinphils 0.1 thou/uL (0.0-0.7); #Lymphocytes 0.9 thou/uL (1.20-3.40); #Monocytes 0.3 thou/uL (0.11-0.59); #Neutrophils 2.9 thou/uL (1.40-6.50); %Basophils 0.8 % (0.0-1.0); %Eosinophils 2.9 % (0.0-10.0); %Lymphocytes 20.9 % (21.0-51.0); %Monocytes 6.5 % (0.0-10.0); %Neutrophils 68.9 % (42.0-75.0); Hemoglobin 11.4 g/dL (12.0-16.0); Mean Corpuscular HGB CONC 32.4 g/dL (32.0-36.0); Mean Corpuscular Hemoglobin 32.7 pg (27.0-31.0); Mean Platelet Volume 8.4 fL (7.4-10.4); Platelet Count 148 thou/uL (130-400); RBC Distribution Width 15.6 % (11.5-14.5); Red Blood Cell (RBC) Count 3.49 mill/uL (4.20-5.40); White Blood Cell (WBC) Count 4.2 thou/uL (4.8-10.8)
[2020-02-15 16:51] LABS: Anion Gap 17 mmol/L (10-20); BUN (Urea Nitrogen) 36 mg/dL (9.8-20.1); Calc. Creatinine Clearance 0 mL/min (70-130); Calcium 8.9 mg/dL (7.8-10.44); Carbon Dioxide 25 mmol/L (23-31); Chloride 102 mmol/L (98-107); Estimated GFR-MDRD 8; Glucose 167 mg/dL (80-115); Potassium 4.7 mmol/L (3.5-5.1); Sodium 139 mmol/L (136-145)
[2020-02-17 12:32] LABS: SARS-CoV-2 MS2 Positive; SARS-CoV-2 N Gene Negative; SARS-CoV-2 S Gene Negative; SARS-CoV-2 orf1ab Negative
== END 2020-02-15 05:24 | disposition home or self-care (01) ==
LOC: LABBT 05:23
PROVIDERS: ATTEND Specialist
DX: Z01.812 Encounter for preprocedural laboratory examination (principal); Z11.59 Encounter for screening for other viral diseases; N18.6 End stage renal disease; T82.898A Other specified complication of vascular prosthetic devices, implants and grafts, initial encounter
CPT/HCPCS: 80048; 85025; U0003; 87635

== ENCOUNTER 2020-02-15 10:19 | Outpatient (CLI) | payer MEDICARE, BC ==
--- NOTE | 2020-02-15 10:47 | RAD ---
Exam:2 views left HISTORY: Pain COMPARISON: None FINDINGS: Contour of the femoral head is maintained. Mild osteophyte formation along the superolatera l aspect of the acetabulum. No fracture. Mild bony mineralization. Chronic changes of the symphysis pubis. IMPRESSION: No fracture. Mild degenerative change with osteophyte formation along the superior latera l aspect of the acetabulum.
--- NOTE | 2020-02-15 10:49 | RAD ---
Left ankle 3 views: 02/15/2020 COMPARISON: None HISTORY: Lateral ankle pain, no history of injury FINDINGS: Corticated osseous fragmentation noted at the distal aspect of the medial and lateral malle javon suggesting prior fracture. There is joint space narrowing of the tibiotalar articulation. There is enthesophyte formation at the origin of the plantar aponeurosis. No displaced fracture or evidence of dislocation noted. There is significant vascular calcification overlying the soft tissues of the visualized calf. Signif icant subtalar joint degenerative change. IMPRESSION: Degenerative change and evidence of prior trauma. No acute fracture or dislocation.
== END 2020-02-15 10:20 | disposition home or self-care (01) ==
LOC: BICRAD 10:19
PROVIDERS: ATTEND Family Medicine
DX: M25.552 Pain in left hip (principal); M25.572 Pain in left ankle and joints of left foot; M19.072 Primary osteoarthritis, left ankle and foot; M25.752 Osteophyte, left hip; M16.12 Unilateral primary osteoarthritis, left hip
CPT/HCPCS: 73502; 73610; 80048; 85025; U0003; 87635

== ENCOUNTER 2020-02-20 09:37 | Day surgery (SDC) | payer MEDICARE, BC ==
--- NOTE | 2020-02-20 10:03 | HP ---
HISTORY OF PRESENT ILLNESS: Vickie Fontenot is a 64-year-old female, who I last saw on October 10, 2019, dictated history and physical, [facility] #[id number]. She has a right upper arm basilic vein transposition fistula performed on January 22, 2015. She has aneurysmal dilatation more prominent above the antecubital fossa, another segment more proximally. Plan at this time is to stage these, plan repair of the more prominent aneurysm around the antecubital fossa at this time and then return several months later to repair the other more proximal segment, so that she does not have to have a dialysis catheter. We will plan this as an outpatient. She dialyzes Wednesday, Wednesday, and Wednesday with [facility]. She is on Coumadin. Will hold her Coumadin 5 days prior. We will check a PT/INR on the day of surgery. We will plan this under regional or TIVA as an outpatient. CURRENT MEDICATIONS: 1. Coumadin 5 mg a day. 2. Humalog insulin. 3. Tizanidine 4 mg for muscle spasms three times a day p.r.n. 4. Gabapentin 300 mg two capsules in the morning and one capsule at night. 5. Levothyroxine 100 mcg a day. 6. Fish oil. 7. Vitamin D. 8. Aspirin 81 mg a day. 9. Omeprazole 20 mg. 10. Amlodipine 10 mg twice a day. 11. Insulin. 12. Tramadol p.r.n. 13. Captopril 12.5 mg b.i.d. 14. Carvedilol 6.25 mg a day. PAST MEDICAL HISTORY: Type 2 diabetes mellitus; history of coronary artery disease, stenting and bypass in the past; hypertension; end-stage renal disease on maintenance dialysis followed by Dr. Nitin Coffey, Wednesday, Wednesday, and Wednesday dialysis, dialyzes at [facility]; seasonal allergies; atrial fibrillation on chronic anticoagulation; osteopenia; PAD followed by Dr. Antunez. PAST SURGICAL HISTORY: Right knee surgery, right shoulder surgery, carpal tunnel release, T2 to T7 laminectomy and decompression and T2-T3 and T6-T7 fusion September 2008, appendectomy, removal of thoracic hardware and exploration July 2010, quadruple bypass in 2011, right arm fistula and HD catheter placement in November 2014, right arm basilic vein transposition fistula in January 2015, bilateral cataract removal, partial hysterectomy at age 30, and lumbar laminectomy in 2017. TOBACCO: None. ALCOHOL: None. REVIEW OF SYSTEMS: Otherwise, noncontributory. FAMILY HISTORY: Father of prostate cancer. Mother of diabetes, history of hypertension and heart disease. PHYSICAL EXAMINATION: VITAL SIGNS: pounds, 64 inches. Blood pressure 146/61, heart rate 66, and temperature 97.5 degrees. HEAD, EARS EYES, NOSE, AND THROAT: Unremarkable. LUNGS: Clear to auscultation. CARDIAC: Regular rate and rhythm without murmur or gallop. ABDOMEN: Soft and nontender. EXTREMITIES: Right upper arm fistula with aneurysmal dilatation antecubital fossa. 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 Plan repair, staged, to avoid hemodialysis catheter. Plan this under regional or TIVA. Hold her Coumadin 5 days preoperatively. Check a PT/INR on the day of visit. Job ID: [id number]
[2020-02-20 11:18] LABS: INR-International Normal Ratio 1.1
[2020-02-20] MEDS ORDERED: Bupivacaine HCl 0.5%/Epinephrine 1:200,000/PF 30 ml Vial ONE (11:40)
[2020-02-20] MEDS ORDERED: PROPOFOL 200 MG/20 ML VIAL ONE (12:23)
[2020-02-20] MEDS ORDERED: Lidocaine 1% w/Epinephrine 1:100K 20 ML VIAL ONE (12:27)
[2020-02-20] MEDS ORDERED: Heparin 5,000 UNITS/ML VIAL ONE (12:27)
[2020-02-20] MEDS ORDERED: Protamine Sulfate 50 MG/5 ML VIAL ONE (12:27)
[2020-02-20] MEDS ORDERED: Bupivacaine PF 0.5% 30 ML VIAL ONE (12:27)
[2020-02-20] MEDS ORDERED: Midazolam HCl 2 mg/2 ml Vial ONE (12:28)
[2020-02-20] MEDS ORDERED: Fentanyl 100 MCG/2 ML VIAL ONE ×2 (12:28→12:44)
[2020-02-20] MEDS ORDERED: PROPOFOL 60 ML ONE (12:44)
--- NOTE | 2020-02-20 15:37 | OP ---
DATE OF PROCEDURE: 02/20/2020 PREOPERATIVE DIAGNOSES: 1. End-stage renal disease. 2. Right arm dialysis fistula aneurysm, basilic vein transposition type fistula, established in 2015. POSTOPERATIVE DIAGNOSES: 1. End-stage renal disease. 2. Right arm dialysis fistula aneurysm, basilic vein transposition type fistula, established in 2014. PROCEDURE PERFORMED: Repair of more distal aneurysm in the antecubital area with possible plan stage future repair of more proximal aneurysms. ANESTHESIA: Regional and TIVA. DESCRIPTION OF PROCEDURE: The patient was taken to the operating room where under regional anesthesia, right upper extremity was prepared with ChloraPrep and draped in routine fashion. The patient was given 6000 units of heparin intravenously. An ellipse of skin excised from overlying the aneurysm and the aneurysm dissected free and after adequate heparin circulation time, proximal and distal fistula clamped with vascular clamps. Longitudinal venotomy made, excising the ellipse of the aneurysm wall along with overlying skin and then the skin excised from the transposition scar to avoid necrosis. Hemostasis was gained with the cautery. The aneurysm wall imbricated with continuous to-and-fro suture of 4-0 Prolene, releasing the clamps, noting good flow in the fistula. Subcutaneous tissue was approximated with 3-0 Monocryl, skin with subdermal 4-0 Monocryl, and [place] glue applied. An Christopher wrap applied. The patient tolerated the procedure well. Job ID: [id number]
== END 2020-02-20 15:28 | disposition home or self-care (01) ==
LOC: SDC 09:37
PROVIDERS: ATTEND Specialist
PROC: 03LY0CZ Occlusion of Upper Artery with Extraluminal Device, Open Approach (ICD-10-PCS; principal; 2020-02-20)
DX: T82.898A Other specified complication of vascular prosthetic devices, implants and grafts, initial encounter (principal); I12.0 Hypertensive chronic kidney disease with stage 5 chronic kidney disease or end stage renal disease; E11.22 Type 2 diabetes mellitus with diabetic chronic kidney disease; N18.6 End stage renal disease; I25.10 Atherosclerotic heart disease of native coronary artery without angina pectoris; J30.2 Other seasonal allergic rhinitis; I48.91 Unspecified atrial fibrillation; M85.80 Other specified disorders of bone density and structure, unspecified site; E11.51 Type 2 diabetes mellitus with diabetic peripheral angiopathy without gangrene; Z79.01 Long term (current) use of anticoagulants; Z79.4 Long term (current) use of insulin; Z79.82 Long term (current) use of aspirin; Z79.899 Other long term (current) drug therapy; Z95.1 Presence of aortocoronary bypass graft; Z99.2 Dependence on renal dialysis
CPT/HCPCS: 36415; 36416; 85610; 93005; 93010; J0690; J1644; J2250; J2704; J2720; J3010; S0020

== ENCOUNTER 2020-06-25 12:42 | Outpatient (CLI) | payer MEDICARE, BC ==
--- NOTE | 2020-06-25 14:39 | RAD ---
RIGHT HEEL 2 VIEWS: HISTORY: Residual foreign body in soft tissues, piece of glass was taken out previously with persistent pain f or several months. FINDINGS: Moderate vascular calcifications. Several centimeter diameter area of generalized increased soft tis alicia density and soft tissue fullness of the heel. No evidence for an overt opaque foreign body. No fracture or dislocation. Calcaneus, plantar, and Achilles enthesophytes. IMPRESSION: Some increased soft tissue fullness and increased soft tissue density. If there is remains clinical concern for a persistent foreign body, followup nonemergent MRI study might be considered. POS: [facility]
== END 2020-06-25 12:43 | disposition home or self-care (01) ==
LOC: BICRAD 12:42
PROVIDERS: ATTEND Podiatrist
DX: M79.5 Residual foreign body in soft tissue (principal)

== ENCOUNTER 2020-07-12 07:18 | Inpatient (IN) | payer MEDICARE, BC ==
[2020-07-12] MEDS ORDERED: Ondansetron PF 4 MG/2 ML Vial ONE (07:27)
[2020-07-12] MEDS ORDERED: Morphine 4 MG/ML VIAL ONE (07:27)
--- NOTE | 2020-07-12 07:50 | RAD ---
AP view of the pelvis INDICATION: Fall with pelvic pain COMPARISON: Prior exam dated February 05, 2011 and a left hip radiograph dated February 15, 2020 FINDINGS: Bones: There is diffuse osteopenia. There is a new highly comminuted left hip intertrochanteric fract ure. There is suspicion for fracture involving the left posterior wall and superior left acetabulum. There is healed deformity involving the left pubic body. There is instrumented healed rig ht hip fracture. Hips: Mild degenerative change of both hip joints. SI joints and symphysis pubis: Normal appearing. Intrapelvic contents: There are severe vascular calcifications seen involving the visualized vasculat ure. There is a moderate amount of retained stool within the colon. IMPRESSION: 1. Comminuted left intertrochanteric hip fracture. 2. Mildly comminuted left posterior wall and left superior acetabular fracture. Recommend considerati on for a CT of the pelvis for additional evaluation.
--- NOTE | 2020-07-12 07:51 | RAD ---
XR Hip Lt 2-3 View INDICATION: Fall with left-sided pain COMPARISON: Prior exam dated February 15, 2020 FINDINGS: Bones: There is a comminuted, mildly displaced left hip intertrochanteric fracture. There is lucency involving the posterior wall of left acetabulum suspicious for left acetabular fracture. Hip joint: There is mild degenerative change of the left hip. SI joints and symphysis pubis: There is healed deformity involving the left pubic body. There is mode rate degenerative change involving the left SI joint. Intrapelvic contents: Visualized bowel gas pattern is within normal limits. Surrounding soft tissues: There are severe vascular calcifications seen involving the visualized vasc ulature. IMPRESSION: 1. Left hip intertrochanteric fracture. 2. Suspicion for posterior wall left hip acetabular fracture. Recommend consideration for CT the pelv is.
[2020-07-12 08:14] LABS: INR-International Normal Ratio 1.9; PTT 43.4 sec (22.9-36.1); Prothrombin Time 22.1 sec (12.0-14.7)
--- NOTE | 2020-07-12 08:15 | CT ---
CT Brain WO Con: 07/12/2020 8:00 AM CLINICAL HISTORY: Fall on blood thinners. IMAGING TECHNIQUE: Multiple CT images were obtained of the brain without IV contrast. COMPARISON: Prior CT the brain dated July 26, 2019 FINDINGS: BRAIN: Evidence of acute infarct: None. Evidence of chronic ischemic change:Stable severe chronic ischemic change Evidence of intracranial hemorrhage: None. Evidence of brain volume loss:Stable diffuse generalized cerebral and cerebellar atrophy Evidence of midline shift: Third ventricle and septum pellucidum are midline. Ventricles: Normal. No hydrocephalus. SKULL: Intact. VISUALIZED PARANASAL SINUSES: Stable mucosal thickening within the sphenoid sinus. MASTOID AIR CELLS: Stable post procedural change of the right mastoid air cells. EXTRACRANIAL SOFT TISSUES: Normal. IMPRESSION: No acute intracranial abnormality.
--- NOTE | 2020-07-12 08:18 | CT ---
CT CERVICAL SPINE NONCONTRAST: DATE: 07/12/2020 HISTORY: cervical trauma: 65-year-old female status post fall COMPARISON: 07/21/2019 FINDINGS: There are no jumped or perched facets. There is no evidence of acute fracture. The vertebral body hei ghts are maintained. There is no prevertebral soft tissue swelling. Laminectomy defects at upper thoracic spine again noted. Once again, there is a left pleural effusion. The current one is larger t silva before, reaching the left apical pleural surface. No other interval change. Moderate degenerative disc disease at C5-6 and C6-C7. Loss of lordosis. IMPRESSION: No evidence of acute fracture or acute traumatic subluxation.
[2020-07-12 08:21] LABS: #Eosinphils 0.1 thou/uL (0.0-0.7); #Lymphocytes 0.8 thou/uL (1.20-3.40); #Monocytes 0.3 thou/uL (0.11-0.59); #Neutrophils 3.4 thou/uL (1.40-6.50); %Eosinophils 2.1 % (0.0-10.0); %Lymphocytes 17.2 % (21.0-51.0); %Monocytes 7.3 % (0.0-10.0); %Neutrophils 73.4 % (42.0-75.0); Hemoglobin 10.2 g/dL (12.0-16.0); Mean Corpuscular HGB CONC 31.7 g/dL (32.0-36.0); Mean Corpuscular Hemoglobin 32.8 pg (27.0-31.0); Mean Platelet Volume 7.7 fL (7.4-10.4); Platelet Count 101 thou/uL (130-400); RBC Distribution Width 15.1 % (11.5-14.5); Red Blood Cell (RBC) Count 3.11 mill/uL (4.20-5.40); White Blood Cell (WBC) Count 4.6 thou/uL (4.8-10.8)
[2020-07-12 08:29] LABS: Anion Gap 17 mmol/L (10-20); BUN (Urea Nitrogen) 36 mg/dL (9.8-20.1); Calc. Creatinine Clearance 0 mL/min (70-130); Carbon Dioxide 29 mmol/L (23-31); Chloride 101 mmol/L (98-107); Potassium 4.5 mmol/L (3.5-5.1); Sodium 142 mmol/L (136-145)
--- NOTE | 2020-07-12 08:29 | CT ---
EXAM: CT Pelvis WO Con DATE: 07/12/2020 8:20 AM INDICATION: Fall with left hip pain COMPARISON: Prior pelvic and left hip radiographs dated July 12, 2020 CT the abdomen and pelvis d ated March 12, 2018. FINDING: There is diffuse osteopenia There is a comminuted, mildly displaced left hip intertrochanter ic fracture. The suspected posterior wall and superior left acetabular fractures were likely related to prominent marginal osteophytes inducing some projected lucencies in this region on the com parison radiographs. No additional acute fracture is evident. There is healed deformity involving the left pubic body, right pubic body, right obturator ring and the instrumented right hip fracture. There is mild degenerative change of both SI joints. There has been interval healing of the previously seen right sacral fracture. There is worsening endplate osteolytic change and intervertebr al disc space widening at the L5-S1 intervertebral level which may reflect worsening Modic endplate degenerative changes; however, findings are suspicious for changes of subacute to chronic discitis os teomyelitis this is new from the comparison CT the abdomen and pelvis dated 03/12/2018. This is also new from a comparison lumbar spinal radiograph dated July 20, 2019. There is a new left L5 pars d efect. There is new grade 1 anterolisthesis of L5 on S1. There is colonic diverticulosis. There are severe vascular calcifications seen involving the visualized vasculature. There is mild free fluid in the pelvis. The bladder is decompressed. Reproductive structures are atrophied. IMPRESSION: 1. Comminuted, mildly displaced left hip intertrochanteric fracture. 2. No left-sided acetabular fracture identified. The lucencies seen within this region on the compari son radiographs were likely related to prominent marginal acetabular osteophytes from the patient's left hip osteoarthrosis. 3. Endplate irregularity and surrounding sclerosis at L5-S1 is new from comparison lumbar spinal radi ograph dated July 20, 2019 is suspicious for subacute to chronic discitis osteomyelitis. 4. Interval development of a left-sided L5 pars defect. There is new grade 1 anterolisthesis of L5 on S1. 5. Multiple healed pelvic and right hip fractures 6. Diffuse osteopenia.
[2020-07-12 08:30] LABS: ALT (SGPT) 7 U/L (8-55); AST (SGOT) 11 U/L (5-34); Albumin 3.9 g/dL (3.4-4.8); Alkaline Phosphatase 100 U/L (40-110); Bilirubin, Total 0.7 mg/dL (0.2-1.2); Calcium 8.5 mg/dL (7.8-10.44); Globulin 3.1 g/dL (2.4-3.5); Glucose 158 mg/dL (80-115)
--- NOTE | 2020-07-12 08:30 | RAD ---
Chest AP view INDICATION: History of mechanical fall at home COMPARISON: MARCH 18, 2020 FINDINGS: Lungs: There is new pleural parenchymal opacity involving the left lower hemithorax Cardiac silhouette: There is moderate cardiomegaly Pulmonary vasculature: There is [id number] pulmonary vascular congestion Pleural spaces: There is moderate left and tiny right pleural effusion Upper abdomen: No abnormality seen. Osseous structures: Midline sternotomy changes are stable. Additional findings: None. IMPRESSION: Findings of [id number] CHF. Subtle pleural-parenchymal opacities suspicious for pleural effusio n and left basilar atelectasis; however, component of pneumonia cannot be entirely excluded.
[2020-07-12 08:40] LABS: Magnesium 2.1 mg/dL (1.6-2.6); Phosphorus 4.3 mg/dL (2.3-4.7)
[2020-07-12 09:15] LABS: MDiff Complete? YES; Platelet Morphology Comment Appears Decreased; Polychromasia SLIGHT = 2-3 cells (100X) (0-2/hpf)
[2020-07-12 09:47] LABS: Anion Gap 16 mmol/L (10-20); BUN (Urea Nitrogen) 28 mg/dL (9.8-20.1); Calc. Creatinine Clearance 0 mL/min (70-130); Calcium 8.4 mg/dL (7.8-10.44); Carbon Dioxide 29 mmol/L (23-31); Chloride 101 mmol/L (98-107); Glucose 148 mg/dL (80-115); Potassium 4.3 mmol/L (3.5-5.1); Sodium 142 mmol/L (136-145)
[2020-07-12] MEDS ORDERED: Dextrose 50% Abboject 50 ML SYRINGE SLOW IVP PRN (10:34)
[2020-07-12] MEDS ORDERED: Dextrose 5% in Water 1,000 ML IV PRN (10:34)
[2020-07-12] MEDS ORDERED: Ondansetron PF 4 MG/2 ML Vial IVP PRN (10:34)
[2020-07-12] MEDS ORDERED: Morphine 2 MG/ML VIAL SLOW IVP PRN (10:34)
[2020-07-12] MEDS ORDERED: Acetaminophen/Codeine 30-300mg Tablet PO PRN (10:45)
[2020-07-12] MEDS: Acetaminophen/Codeine 30-300mg Tablet PO PRN ×2 (11:44→18:11)
[2020-07-12] MEDS: Acetaminophen 325 MG TAB PO SCH ×3 (11:44→23:28)
--- NOTE | 2020-07-12 13:19 | HP ---
TRAUMA SURGEON: Dr. Adrian. CONSULTING PHYSICIANS: Dr. Horan, Dr. Hoyos, and Dr. Coffey. HISTORY OF PRESENT ILLNESS: The patient is a 65-year-old female, who presented to the emergency department via EMS after a mechanical fall. The patient reported that she was trying to move a chair that her grandson had put in the path of their motel, when she subsequently lost her balance and fell onto her left side. She denies hitting her head or loss of consciousness. The patient is currently on Coumadin and aspirin for AFib. At the time of my evaluation, she complained of left-sided groin pain. She denied any neck or back pain, numbness and tingling in her bilateral upper and lower extremity, shortness of breath, cough, chest pain, nausea, vomiting, and diarrhea. The patient has a significant cardiac history. She has had cardiac stents, CABG. She is also on dialysis Wednesday, Wednesday, and Wednesday. Dr. Coffey is her emergency vehicle driver. Dr. Carlos is her ecotherapist. She was last seen by him about a year ago. The patient does endorse that she can only walk about 20 feet before becoming short of breath and that this has gotten worse within the past year. She also endorses paroxysmal nocturnal dyspnea and has to sleep with 2 pillows. She reports lying flat causes her to be short of breath. She denies swelling in her bilateral lower extremities. She also denies any pressure or chest pain recently. She does not have any chest pain with exertion. During my evaluation, the patient was having significant left-sided hip pain. She was on dialysis and tolerating that well. Last time the patient took Coumadin was the night before admission. REVIEW OF SYSTEMS: All additional 10-point review of systems negative except as indicated above. PAST MEDICAL HISTORY: Diabetes, CAD, cardiac stents, CABG, peripheral artery disease, status post MA, AFib, on Coumadin, ESRD on dialysis Wednesday, Wednesday, and Wednesday, osteopenia. SOCIAL HISTORY: The patient lives at home with her grandchildren. She uses a cane or a walker to get around. She denies tobacco, drug, and alcohol use. MEDICATIONS: Include: 1. Tylenol. 2. Amlodipine. 3. Aspirin. 4. Captopril. 5. Carvedilol. 6. Gabapentin. 7. Humulin. 8. Lantus. 9. Levothyroxine. 10. Fish oil. 11. Omeprazole. 12. Rosuvastatin. 13. Renvela. 14. Sevelamer carbonate. 15. Tizanidine 16. Tramadol. 17. Coumadin. ALLERGIES: NO KNOWN DRUG ALLERGIES. PHYSICAL EXAMINATION: VITAL SIGNS: Temperature 97.9, pulse 70, respirations 16, oxygen saturation 97% on 2 L nasal cannula, blood pressure 167/78. PRIMARY SURVEY: Airway intact. Adequate breath sounds bilaterally. 2+ pulses in bilateral radials, femorals, and DP's. GCS 15. Gross motor and sensation are intact. No lacerations or external bleeding. The patient does have a shortened and externally rotated left lower extremity. SECONDARY SURVEY: HEAD: Normocephalic and atraumatic. No gross palpable skull deformities or tenderness. EYES: Pupils are 3 to 2, equal, round, and reactive to light bilaterally. ENT: No signs of trauma. C-SPINE: No step-offs or deformity. Nontender. C-collar not in place. CHEST: Nontender. No crepitus, no abrasions, or ecchymosis noted. Equal chest movement. The patient has clear breath sounds in the bilateral upper lung elaine. Diminished breath sounds on the right and absent or almost no breath sounds in the left lower lung leaine. She also does have a new mid systolic murmur. ABDOMEN: Soft, nontender, nondistended. PELVIS: Stable to palpation, nontender. No abrasions or ecchymosis noted. RECTAL: Deferred. GENITOURINARY: Deferred. EXTREMITIES: Left lower extremity is shortened and externally rotated. No abrasions or ecchymosis noted. He does have pain in the anterior portion of the left thigh as well as the left groin. 2+ pulses in bilateral radials, femorals, and DP's. BACK/SPINE: No step-offs or deformity. Nontender. No abrasions or ecchymosis noted. NEUROLOGIC: 5/5 strength in the bilateral brake mechanic, plantar flexion and dorsiflexion. Gross normal sensation x4 extremities. LABORATORY FINDINGS: White count 4.6, hemoglobin 10.2, hematocrit 32.2, platelets 101. INR 1.9. PTT 43.4, PT 22.1. Sodium 142, potassium 4.3, chloride 101, bicarb 26, BUN 28, creatinine 4.88, glucose 148, phosphorus 4.3, magnesium 2.1. Total bilirubin 0.7, AST 11, ALT 7. DIAGNOSTIC FINDINGS: CT scan of the brain demonstrates no acute intracranial abnormality. X-ray of the left hip demonstrates left hip intertrochanteric fracture, suspicious for a posterior wall left hip acetabular fracture. Recommended consideration for CT of the pelvis. X-ray of the pelvis demonstrates comminuted left intertrochanteric hip fracture, mildly comminuted left posterior wall and left superior acetabular fracture. Recommended consideration for a CT of the pelvis for additional evaluation. CT of the C-spine demonstrates no evidence of acute fracture or acute traumatic subluxation. CT of the pelvis demonstrates comminuted, mildly displaced left hip intertrochanteric fracture. No left-sided acetabular fracture identified. The lucency seen within the region of the comparison radiographs was likely related to prominent marginal acetabular osteophytes from the patient's left hip osteoarthrosis. End plate irregularity and surrounding sclerosis of L5 through S1 are new from comparison lumbar spine radiographs dated July 20, 2019 is suspicious for subacute to chronic diskitis, osteomyelitis, interval development of left-sided L5 pars defect. There is new grade 1 anterolisthesis on L4. On S1, multiple healed pelvic and right hip fractures. Diffuse osteopenia. Chest x-ray demonstrates findings of [id number] CHF, subtle pleural parenchymal opacity suspicious for pleural effusion and left basilar atelectasis; however, component of pneumonia cannot be entirely excluded. ASSESSMENT: 1. Status post mechanical fall from standing on Coumadin. 2. Left intertrochanteric femur fracture. 3. History of atrial fibrillation, coronary artery disease, diabetes, cardiac stents, CABG, hypertension, peripheral artery disease, myocardial infarction, end-stage renal disease, on dialysis Wednesday, Wednesday, Wednesday, and osteopenia. 4. Newly discovered heart murmur with associated left pleural effusion. PLAN: The patient has been admitted to the Trauma Service. She will go to the regular surgical nursing floor. She is currently being dialyzed on her regular schedule. Dr. Coffey is her emergency vehicle driver and is managing her renal dysfunction. Dr. Horan has been consulted and would like to take the patient to the OR for fixation of the left intertrochanteric femur fracture. Dr. Hoyos has been consulted for preoperative evaluation due to the patient's significant cardiac history with newly discovered murmur and left pleural effusion. The patient also reports worsening dyspnea on exertion. She can only walk about 20 feet before becoming short of breath and having to take a break; also endorses paroxysmal nocturnal dyspnea and uses 2 pillows to sleep at night. There appears to be no signs of significant swelling or acute heart failure as she is comfortable on room air, as I am speaking to her. An echo has been ordered. We will also complete a BNP. We will repeat a coag panel post dialysis to re-evaluate her INR, which was 1.9 at the time of arrival. If necessary, the patient to receive vitamin K and FFP preoperatively. We will continue to re-evaluate. The patient can have a diabetic and high-protein renal diet and be n.p.o. at midnight. We will restart her home medications as clinically indicated once verified by nursing and the med rec. I will speak to Dr. Adrian, and we will evaluate her radiographs of the chest for possible left-sided chest tube placement if he finds appropriate; we may also complete a CT of the chest. I will update the patient on Dr. Adrian's recommendations after he has gotten out of the OR, and I have had an opportunity to discuss this case further with him. This patient will be discussed with Dr. Adrian after this dictation. Job ID: [id number]
[2020-07-12 15:10] VITALS: BMI 27.8
[2020-07-12] MEDS: Morphine 4 MG/ML VIAL SLOW IVP PRN (16:16)
[2020-07-12 17:07] LABS: INR-International Normal Ratio 1.9; Prothrombin Time 22.3 sec (12.0-14.7)
[2020-07-12] MEDS ORDERED: Phytonadione 5 MG in Sodium Chloride 0.9% 50 ML IVPB SCH (18:00)
--- NOTE | 2020-07-12 19:55 | CON ---
DATE OF CONSULTATION: 07/12/2020 HISTORY OF PRESENT ILLNESS: Ms. Fontenot is a 65-year-old female who was consulted by Trauma and Dr. Adrian about a ground-level fall. The patient was at her motel, was trying to move a chair and get up. The patient was laid, lost her balance and fell lying on her left side. The patient is currently on Coumadin and aspirin for history of atrial fibrillation. She is followed by Dr. Carlos. Outpatient, she is followed by Dr. Coffey for her Nephrology. She is on dialysis now on it for the last 10 years. The patient had a significant history of cardiac disease. The patient says she can only walk short distances without getting short of breath. She has a previous history of a right hip fracture treated by Dr. Villalobos 10 years ago. PAST MEDICAL HISTORY: Diabetes; coronary artery disease with history of coronary stents; coronary artery bypass graft; peripheral vascular disease; history of NH; atrial fibrillation, on chronic anticoagulation; end-stage renal disease, Wednesday, Wednesday, Wednesday; osteopenia. PAST SURGICAL HISTORY: Includes coronary biceps bypass graft, right hip fracture, previous stents. MEDICATIONS: 1. Tylenol. 2. Amlodipine. 3. Aspirin. 4. Captopril. 5. Carvedilol. 6. Gabapentin. 7. Humulin. 8. Lantus. 9. Levothyroxine. 10. Fish oil. 11. Omeprazole. 12. Rosuvastatin. 13. Renvela. 14. Sevelamer carbonate. 15. Tizanidine. 16. Tramadol. 17. Coumadin. ALLERGIES: NO KNOWN DRUG ALLERGIES. SOCIAL HISTORY: Lives at home with her grand children. Can walk for mobility. Denies tobacco, alcohol, or drug use. She is on dialysis for the last 10 years. REVIEW OF SYSTEMS: Negative except for above. PHYSICAL EXAMINATION: VITAL SIGNS: Temperature afebrile. Vital signs are stable. Oxygen saturation 97% on 2 L. GENERAL: Alert, oriented, resting comfortably in bed. EXTREMITIES: She has previous tracks from her vein harvest in the left leg. She has no effusion. She has sluggish refill. The patient has palpable pulses. She has pain with internal and external rotation of her hip. She had no open wounds. IMAGING DATA: X-rays of her left hip show a left intertrochanteric hip fracture. LABORATORY VALUES: H and H 10 and 32, platelets 101. INR 1.9. ASSESSMENT: 1. Status post ground-level fall, on Coumadin. 2. Left intertrochanteric fracture. 3. Multiple medical problems including atrial fibrillation and diabetes. 4. New heart murmur with pleural effusion. PLAN: The patient will need to have a trochanteric fixation nail placed in the left hip. I discussed with her the risks and benefits of surgery, pain, scar, bleeding, infection, damage to vital structures, decreased range of motion and strength, continued pain despite surgical intervention, failure of procedure, loss of life or limb, and potential risk of blood clots. She understood that she needs to have dialysis advanced. She needs to have her INR corrected. Cardiology is evaluating her as needed. She will be followed in-house. Pleural effusion will be managed by Trauma. Job ID: [id number]
--- NOTE | 2020-07-12 20:21 | CON ---
DATE OF CONSULTATION: HISTORY OF PRESENT ILLNESS: The patient is a pleasant 65-year-old woman, with a history of coronary artery disease, who had a fall and needs to undergo hip surgery. The patient has a long history of coronary artery disease. She previously underwent coronary artery bypass graft surgery x4 in 2011. She had suffered a myocardial infarction. The patient underwent a followup catheterization in 2014. She was found to have 3 or 4 patent coronary artery bypass grafts. She has subsequently done well. She has had no further chest discomfort.She does have end-stage renal disease and a history of atrial fibrillation. The patient was in her usual state of health when she had a fall. The patient denies having any PND or orthopnea. PAST MEDICAL HISTORY: 1. Coronary artery disease. 2. Diabetes mellitus. 3. Hypertension. 4. Dyslipidemia. 5. Thyroid disorder. PAST SURGICAL HISTORY: 1. Coronary artery bypass surgery. 2. AV fistula. 3. Cataract surgery. 4. Appendectomy. 5. Back surgery. 6. Hip surgery. SOCIAL HISTORY: Nonsmoker. MEDICATIONS: On admission, see nursing list. PHYSICAL EXAMINATION: VITAL SIGNS: Blood pressure 167/78, heart rate was 70. NECK: No jugular venous distention. LUNGS: Clear to auscultation. HEART: Regular rate and rhythm. Normal S1 and S2 with a 2/6 systolic murmur. ABDOMEN: Distended. EXTREMITIES: AV fistula. LABORATORY DATA: White blood cell count 4.6, hemoglobin 10.2, hematocrit 32.2, and platelets are 101. Sodium is 142, potassium 4.3, chloride 101, bicarbonate 29, BUN 28, creatinine 4.8, and glucose 148. EKG normal sinus rhythm, right bundle- branch block, left anterior fascicular block. IMPRESSION: 1. Status post hip fracture. 2. History of coronary artery bypass surgery with 3 or 4 patent grafts. 3. History of paroxysmal atrial fibrillation. 4. Diabetes mellitus. 5. Hypertension. 6. Dyslipidemia. PLAN: This patient presents with a hip fracture. She needs to undergo surgery. She appears to be hemodynamically stable. She has no angina. The patient is able to perform about 4 METS without having any discomfort. I will check the patient's echocardiogram. The patient appears to be at acceptable risk for undergoing noncardiac surgery. Job ID: [id number] [facility]
[2020-07-12] MEDS: Senokot S 8.6-50 MG TAB PO SCH (21:13)
[2020-07-12] MEDS: Rosuvastatin 20 MG TAB PO SCH (21:13)
[2020-07-12] MEDS: Carvedilol 6.25 MG TAB PO SCH (21:14)
[2020-07-12] MEDS: Famotidine/PF 20 mg/2ml Vial SLOW IVP SCH (21:14)
[2020-07-12 22:29] LABS: SARS-CoV-2 MS2 Positive; SARS-CoV-2 N Gene Negative; SARS-CoV-2 S Gene Negative; SARS-CoV-2 by NAA Not Detected (NotDetected); SARS-CoV-2 orf1ab Negative
[2020-07-13] MEDS: Morphine 4 MG/ML VIAL SLOW IVP PRN (05:10)
[2020-07-13] MEDS: Acetaminophen 325 MG TAB PO SCH ×4 (05:30→23:55)
[2020-07-13] MEDS: Levothyroxine Sodium 100 MCG TAB PO SCH (05:30)
[2020-07-13] MEDS: Acetaminophen/Codeine 30-300mg Tablet PO PRN ×2 (05:31→21:12)
[2020-07-13 06:02] LABS: #Eosinphils 0.1 thou/uL (0.0-0.7); #Lymphocytes 0.9 thou/uL (1.20-3.40); #Monocytes 0.6 thou/uL (0.11-0.59); #Neutrophils 3.6 thou/uL (1.40-6.50); %Basophils 0.5 % (0.0-1.0); %Eosinophils 2.4 % (0.0-10.0); %Lymphocytes 16.8 % (21.0-51.0); %Neutrophils 69.3 % (42.0-75.0); Hemoglobin 9.8 g/dL (12.0-16.0); Mean Corpuscular HGB CONC 30.8 g/dL (32.0-36.0); Mean Platelet Volume 7.7 fL (7.4-10.4); Platelet Count 114 thou/uL (130-400); RBC Distribution Width 14.9 % (11.5-14.5); Red Blood Cell (RBC) Count 3.07 mill/uL (4.20-5.40); White Blood Cell (WBC) Count 5.2 thou/uL (4.8-10.8)
[2020-07-13 06:05] LABS: INR-International Normal Ratio 1.4; PTT 36.9 sec (22.9-36.1); Prothrombin Time 17.5 sec (12.0-14.7)
[2020-07-13 06:18] LABS: Anion Gap 16 mmol/L (10-20); BUN (Urea Nitrogen) 19 mg/dL (9.8-20.1); Calc. Creatinine Clearance 15 mL/min (70-130); Calcium 8.9 mg/dL (7.8-10.44); Carbon Dioxide 29 mmol/L (23-31); Chloride 98 mmol/L (98-107); Glucose 157 mg/dL (80-115); Phosphorus 3.6 mg/dL (2.3-4.7); Sodium 138 mmol/L (136-145)
--- NOTE | 2020-07-13 07:00 | PRG ---
DATE OF SERVICE: 07/13/2020 The patient is currently on the surgical floor. She was admitted status post ground level fall when she sustained a left intertrochanteric femur fracture. She has a history of Coumadin use, which was reversed with vitamin K and plasma. Her INR this morning is less than 1.5 and is currently at 1.4. The patient has also been evaluated by Cardiology who agrees that she will be able to undergo surgery and appears to be at acceptable risk for undergoing noncardiac surgery. The patient will also undergo dialysis while here. The patient should be able to undergo her orthopedic procedure today. Job ID: [id number]
[2020-07-13] MEDS ORDERED: Fentanyl 100 MCG/2 ML VIAL ONE (07:29)
[2020-07-13] MEDS ORDERED: Ketamine 50 MG/ML (10ML VIAL) ONE (08:16)
[2020-07-13] MEDS ORDERED: Midazolam HCl 2 mg/2 ml Vial ONE (09:08)
[2020-07-13] MEDS ORDERED: Glycopyrrolate 0.2 MG/ML 5 ML SYRINGE ONE (09:37)
[2020-07-13] MEDS ORDERED: Ondansetron PF 4 MG/2 ML Vial ONE (09:37)
[2020-07-13] MEDS ORDERED: Dexamethasone 20 MG/5 ML VIAL ONE (09:37)
[2020-07-13] MEDS ORDERED: Rocuronium Bromide 10 MG/ML (10ML VIAL) ONE (09:37)
[2020-07-13] MEDS ORDERED: PHENYLEPHRINE-NS 100 MCG/ML 10 ML SYRINGE ONE (09:37)
[2020-07-13] MEDS ORDERED: PROPOFOL 200 MG/20 ML VIAL ONE (09:37)
[2020-07-13] MEDS ORDERED: SUGAMMADEX SODIUM 200 MG/2 ML VIAL ONE (10:03)
[2020-07-13] MEDS ORDERED: Ondansetron HCl/PF 4 MG/2 ML Vial IVP PRN (10:19)
[2020-07-13] MEDS: Senokot S 8.6-50 MG TAB PO SCH ×2 (10:54→21:04)
[2020-07-13] MEDS: Polyethylene Glycol 3350 17 GM Packet PO SCH (12:13)
[2020-07-13] MEDS: Gabapentin 300 MG CAP PO SCH (12:14)
[2020-07-13] MEDS: Amlodipine 10 MG TAB PO SCH (12:14)
[2020-07-13] MEDS: Carvedilol 6.25 MG TAB PO SCH ×2 (12:14→21:05)
--- NOTE | 2020-07-13 16:01 | PRG ---
DATE OF SERVICE: 07/13/2020 SUBJECTIVE: The patient was seen this afternoon postop status post fixation of her left intertrochanteric femur fracture by Dr. Horan. Upon my evaluation, the patient was easily arousable. GCS 15. Reports her pain is well controlled and has no questions. Nursing reported no acute events. OBJECTIVE: VITAL SIGNS: Temperature 98.2, pulse 62, respirations 16, oxygen saturation 99% on 2 L nasal cannula, and blood pressure 135/85. GENERAL: Well-appearing elderly female, lying in bed with no signs of acute distress. PULMONARY: Equal chest rise and fall. Clear breath sounds in bilateral upper lung elaine, diminished in the right lower, and absent in the left lower lung elaine. This has not changed from before. ABDOMEN: Soft, nontender, and nondistended. EXTREMITIES: 2+ pulses in all extremities. Gross motor and sensation are intact. No significant swelling noted. Fistula to right upper extremity unchanged from previous. NEUROLOGIC: GCS is 15. Pupils are equal, round, and reactive to light bilaterally. LABORATORY FINDINGS: White count 5.2, hemoglobin 9.8, hematocrit 31.9, and platelets 114. Sodium 138, potassium 5.0, chloride 98, bicarb 24, BUN 19, creatinine 4.26, glucose 156, phosphorus 3.6, and magnesium 2.0. DIAGNOSTIC FINDINGS: There are no new diagnostic findings to report. ASSESSMENT: 1. Status post mechanical fall from standing on Coumadin. 2. Left intertrochanteric femur fracture, status post repair. 3. New murmur and pleural effusion. 4. History of coronary artery disease; hypertension; atrial fibrillation; cardiac stents; coronary artery bypass grafting; peripheral artery disease; myocardial infarction; end-stage renal disease on dialysis Wednesday, Wednesday, Wednesday; and osteopenia. PLAN: Restart the patient's diabetic renal diet. Start physical and occupational therapy. Adjust pain medications as needed. I did advise that the patient should follow up with Dr. Carlos, who is her boilermaker assembly and erection about her new heart murmur and effusion. We will wait for the followup on the report of her echo. Cardiology has seen her preoperatively and reported it was safe for her to go to the OR. She will likely need placement in acute rehab facility. We will ask Case Management for working on placement. If her hemoglobin is stable tomorrow, we will restart her Coumadin with a bridge. This patient was discussed with Dr. Foreman before this dictation. Job ID: [id number]
[2020-07-13] MEDS: Insulin Regular 300 UNITS/3 ML VIAL SC PRN (18:38)
[2020-07-13] MEDS: Famotidine/PF 20 mg/2ml Vial SLOW IVP SCH (21:04)
[2020-07-13] MEDS: CEFAZOLIN 2 GM in Premix Bag 1 BAG IVPB SCH (21:05)
[2020-07-13] MEDS: Rosuvastatin 20 MG TAB PO SCH (21:05)
[2020-07-13] MEDS ORDERED: Melatonin 3 MG TAB PO PRN (22:59)
[2020-07-13] MEDS: traMADol HCl 50 MG TAB PO PRN (23:56)
[2020-07-14] MEDS: Cyclobenzaprine 10 MG TAB PO PRN ×2 (04:18→23:45)
--- NOTE | 2020-07-14 05:08 | PRG ---
DATE OF SERVICE: 07/14/2020 The patient is on the surgical floor. She is status post ground level fall, on Coumadin that required her reversal with vitamin K and fresh frozen plasma. This morning, she had an INR of 1.4, which allowed her to go to surgery with Orthopedics to undergo her procedure, which she tolerated well. Her vital signs are stable. She is afebrile. She is tolerating a diet and her pain is controlled. She will begin working with physical and occupational therapy and we will likely start bridging her back to her Coumadin today. Job ID: [id number]
[2020-07-14 05:33] LABS: #Lymphocytes 0.8 thou/uL (1.20-3.40); #Monocytes 0.5 thou/uL (0.11-0.59); #Neutrophils 4.3 thou/uL (1.40-6.50); %Eosinophils 0.2 % (0.0-10.0); %Lymphocytes 14.2 % (21.0-51.0); %Monocytes 9.1 % (0.0-10.0); %Neutrophils 76.5 % (42.0-75.0); Hemoglobin 8.2 g/dL (12.0-16.0); Mean Corpuscular HGB CONC 31.3 g/dL (32.0-36.0); Mean Corpuscular Hemoglobin 32.6 pg (27.0-31.0); Mean Platelet Volume 7.7 fL (7.4-10.4); Platelet Count 111 thou/uL (130-400); RBC Distribution Width 14.7 % (11.5-14.5); Red Blood Cell (RBC) Count 2.51 mill/uL (4.20-5.40); White Blood Cell (WBC) Count 5.6 thou/uL (4.8-10.8)
[2020-07-14] MEDS: CEFAZOLIN 2 GM in Premix Bag 1 BAG IVPB SCH (06:09)
[2020-07-14] MEDS: Levothyroxine Sodium 100 MCG TAB PO SCH (06:09)
[2020-07-14] MEDS: Acetaminophen 325 MG TAB PO SCH ×4 (06:09→23:44)
[2020-07-14 06:36] LABS: Anion Gap 20 mmol/L (10-20); BUN (Urea Nitrogen) 37 mg/dL (9.8-20.1); Calc. Creatinine Clearance 11 mL/min (70-130); Calcium 8.4 mg/dL (7.8-10.44); Carbon Dioxide 22 mmol/L (23-31); Chloride 98 mmol/L (98-107); Glucose 129 mg/dL (80-115); Magnesium 2.1 mg/dL (1.6-2.6); Phosphorus 5.1 mg/dL (2.3-4.7); Potassium 5.9 mmol/L (3.5-5.1); Sodium 134 mmol/L (136-145)
[2020-07-14] MEDS: Acetaminophen/Codeine 30-300mg Tablet PO PRN ×2 (08:40→19:05)
[2020-07-14] MEDS: Gabapentin 300 MG CAP PO SCH (08:42)
[2020-07-14] MEDS: Polyethylene Glycol 3350 17 GM Packet PO SCH (08:42)
[2020-07-14] MEDS: Carvedilol 6.25 MG TAB PO SCH ×2 (08:43→21:40)
[2020-07-14] MEDS: Amlodipine 10 MG TAB PO SCH (08:44)
[2020-07-14] MEDS: Senokot S 8.6-50 MG TAB PO SCH ×2 (08:44→21:41)
--- NOTE | 2020-07-14 12:38 | RAD ---
LEFT HIP: There are seven fluoroscopic images presented from OR. INDICATION: Intraoperative imaging during open reduction internal fixation. FINDINGS/IMPRESSION: These images demonstrate intramedullary johnathan in the femur and [id number] screw in the femoral neck. POS: AGW
--- NOTE | 2020-07-14 12:56 | OP ---
DATE OF PROCEDURE: 07/13/2020 PREOPERATIVE DIAGNOSES: Left subtrochanteric intertrochanteric hip fracture. MANAGER PSYCHIATRY: Jassi Kingston PA-C. ANESTHESIOLOGIST: Joaquin Gautam MD. ANESTHESIA: Patient received a general endotracheal intubation. ESTIMATED BLOOD LOSS: 200 mL. TOURNIQUET TIME: None. URINE OUTPUT: 100. The patient had 200 mL of IV fluids. ANTIBIOTICS: Ancef 2 g. IMPLANTS: The patient had a 90 mm TFNA fenestrated screw. An 11 x 360 mm left TFNA nail and a 5 mm x 14 mm distal locking screw. COMPLICATIONS: None. HISTORY OF PRESENT ILLNESS: Ms. Fontenot is a 65-year-old female, on dialysis, history of atrial fibrillation and coronary artery disease with history of a coronary artery bypass graft. The patient presented after a ground level fall with a left subtrochanteric extension. I discussed the risks and benefits of left long nail to include pain, scar, bleeding, infection, damage to vital structures, decreased range of motion or strength, fracture below the stem, need for further surgeries or procedure, nonunion, malunion, loss of life or limb, blood clot and risk of blood clots, pulmonary embolus. She understood the risks and benefits and elected to proceed. DESCRIPTION OF PROCEDURE: Time-out was performed designating the patient's left lower extremity as the operative site based on site, consent, and marking. After time-out, the patient was placed on fracture table. She had a Esquivel placed in the OR. She was pulled into traction, reduced under AP and lateral radiographs. Prepped and draped her left lower extremity, placed our skin incision, went down to the IT band and found the patient's trochanter, placed a guide pin under fluoroscopic guidance, being happy with the position on AP and lateral radiographs placeour opening reamer, we then placed the long johnathan down. We reamed up to a 12. We had measured a 380 mm nail. We chose a 360 mm nail, which is a little bit short. proximal to the patellar pole, we passed our nail. We moved distally, put our trocar down through skin, placed under AP and lateral radiographs placed our guide pin within the center position, reducing the femoral neck. We placed our guide pin in position, being happy with AP and lateral radiographs. We over drilled and placed a 90 mm fenestrated screwm we compressed the bone into position. We liked the AP and lateral radiographs, position of head, neck, and femur. We then removed our implant, moved distally, locked distally with a compression hole in the center to allow for 3 to 4 mm of compression. We washed. We closed with 0 and 2-0 and arcenio. The patient will be admitted back to Trauma, will be in-house overnight. Will potentially need long-term skilled. She has dialysis and multiple medical problems. Will need the care of Cardiology, Nephrology, Trauma and Orthopedics. My first assistant manager helped me with positioning of the patient reduction, radiographic evaluation, opening, reaming, implantation and closure of the holes. Job ID: [id number] MTDD
[2020-07-14] MEDS: Sevelamer Carbonate 800 MG TAB PO SCH ×2 (13:35→17:00)
[2020-07-14] MEDS: Insulin Regular 300 UNITS/3 ML VIAL SC PRN (17:47)
--- NOTE | 2020-07-14 18:12 | PRG ---
DATE OF SERVICE: 07/14/2020 SUBJECTIVE: The patient was seen this morning during rounds. She was resting comfortably and asleep. She was easily arousable. Bernal well controlled. Tolerating Diet. Will start working with PT today. OBJECTIVE: VITAL SIGNS: Temperature 97.4, pulse 63, respirations 18, oxygen saturation 100% on room air, and blood pressure 150/68. GENERAL: Well-appearing elderly female, lying in bed with no signs of acute distress. PULMONARY: Equal chest rise and fall. No signs of acute respiratory distress. The patient does have end-expiratory wheeze, which is resolved with albuterol treatment. ABDOMEN: Soft, nontender, nondistended. EXTREMITIES: 2+ pulses in all extremities. Gross motor and sensation are intact. No significant swelling noted NEUROLOGIC: GCS is 15. LABORATORY FINDINGS: White count 5.6, hemoglobin 8.2, hematocrit 26.2, platelets 111. Sodium 134, potassium 3.9, chloride 98, bicarb 22, BUN 37, creatinine 5.71, glucose 129, phosphorus , magnesium 2.1. DIAGNOSTIC FINDINGS: There are no new diagnostic findings to report. ASSESSMENT: 1. Status post mechanical fall from standing on Coumadin. 2. Left intertrochanteric femur fracture, status post repair. 3. History of coronary artery disease, hypertension, atrial fibrillation, cardiac stents, coronary artery bypass grafting, peripheral artery disease, myocardial infarction, end-stage renal disease, and orthopnea. PLAN: Continue current diet and pain regimen. We will restart the patient's home Renvela as a phos binder. The patient had over a 1 g drop in her hemoglobin. We will continue to hold her Coumadin until stable. We will likely start bridging her tomorrow. Continue work with Physical and Occupational Therapy. The patient is pending discharge to acute rehab facility. Job ID: [id number] [facility]
[2020-07-14] MEDS: Rosuvastatin 20 MG TAB PO SCH (21:41)
[2020-07-14] MEDS: Famotidine/PF 20 mg/2ml Vial SLOW IVP SCH (21:41)
[2020-07-15] MEDS: traMADol HCl 50 MG TAB PO PRN ×2 (02:20→17:20)
[2020-07-15] MEDS: Acetaminophen/Codeine 30-300mg Tablet PO PRN ×3 (03:18→22:31)
--- NOTE | 2020-07-15 05:14 | PRG ---
DATE OF SERVICE: The patient is currently on the surgical floor. She is status post ground level fall, in which she sustained a left subtrochanteric hip fracture. Today, she underwent TFNA screw placement. She tolerated that procedure well. She is due for dialysis this morning. She will begin working with Physical and Occupational Therapy and discuss placement with Case Management. Her pain is controlled. She is tolerating a diet. The nurses report no issues. Again, her vital signs are stable. She is afebrile. Job ID: [id number]
[2020-07-15 05:27] LABS: #Eosinphils 0.3 thou/uL (0.0-0.7); #Lymphocytes 0.9 thou/uL (1.20-3.40); #Monocytes 0.6 thou/uL (0.11-0.59); #Neutrophils 4.4 thou/uL (1.40-6.50); %Basophils 0.3 % (0.0-1.0); %Eosinophils 4.2 % (0.0-10.0); %Lymphocytes 13.9 % (21.0-51.0); %Monocytes 9.9 % (0.0-10.0); %Neutrophils 71.7 % (42.0-75.0); Hemoglobin 8.9 g/dL (12.0-16.0); Mean Corpuscular HGB CONC 32.1 g/dL (32.0-36.0); Mean Corpuscular Hemoglobin 33.7 pg (27.0-31.0); Mean Platelet Volume 7.7 fL (7.4-10.4); Platelet Count 103 thou/uL (130-400); RBC Distribution Width 14.6 % (11.5-14.5); Red Blood Cell (RBC) Count 2.65 mill/uL (4.20-5.40); White Blood Cell (WBC) Count 6.1 thou/uL (4.8-10.8)
[2020-07-15] MEDS: Acetaminophen 325 MG TAB PO SCH ×4 (05:42→23:49)
[2020-07-15] MEDS: Levothyroxine Sodium 100 MCG TAB PO SCH (05:42)
[2020-07-15 05:58] LABS: Anion Gap 21 mmol/L (10-20); BUN (Urea Nitrogen) 52 mg/dL (9.8-20.1); Calc. Creatinine Clearance 9 mL/min (70-130); Calcium 7.9 mg/dL (7.8-10.44); Carbon Dioxide 23 mmol/L (23-31); Chloride 95 mmol/L (98-107); Glucose 127 mg/dL (80-115); Magnesium 2.3 mg/dL (1.6-2.6); Phosphorus 6.5 mg/dL (2.3-4.7); Potassium 6.6 mmol/L (3.5-5.1); Sodium 132 mmol/L (136-145)
[2020-07-15] MEDS ORDERED: Warfarin Sodium 10 MG TAB PO SCH (08:30)
[2020-07-15] MEDS ORDERED: Heparin 25,000 units/D5W 500 ML IV SCH (08:30)
[2020-07-15] MEDS ORDERED: Heparin 10,000 UNITS/ 10 ML VIAL SLOW IVP SCH (08:30)
[2020-07-15 08:44] LABS: INR-International Normal Ratio 1.3; PTT 31.6 sec (22.9-36.1); Prothrombin Time 16.6 sec (12.0-14.7)
[2020-07-15] MEDS: Sevelamer Carbonate 800 MG TAB PO SCH ×3 (09:11→17:06)
[2020-07-15] MEDS: Aspirin 81 mg Enteric Coated Tablet PO SCH (09:12)
[2020-07-15] MEDS: Polyethylene Glycol 3350 17 GM Packet PO SCH (09:15)
[2020-07-15] MEDS: Amlodipine 10 MG TAB PO SCH (09:16)
[2020-07-15] MEDS: Gabapentin 300 MG CAP PO SCH (09:16)
[2020-07-15] MEDS: Senokot S 8.6-50 MG TAB PO SCH ×2 (09:17→21:03)
[2020-07-15] MEDS: Carvedilol 6.25 MG TAB PO SCH ×2 (09:17→21:02)
--- NOTE | 2020-07-15 15:19 | PRG ---
DATE OF SERVICE: 07/15/2020 SUBJECTIVE: The patient was seen this morning during rounds. She was sitting up in bed with no signs of acute distress. She reported that she needed to have a bowel movement. She is pending dialysis today where they are going to remove 2 L of fluid. The patient reports she slept well overnight. She was able to work with Physical Therapy and she stood up at the edge of the bed with a walker. States that she had breakfast and is tolerating her meals. OBJECTIVE: VITAL SIGNS: Temperature 97.9, pulse 60, respirations 16, oxygen saturation 96% on 2 L nasal cannula, blood pressure 149/74. GENERAL: Well-appearing elderly female, sitting up in bed with no signs of acute distress. PULMONARY: Equal chest rise and fall. Clear breath sounds bilaterally at the upper lung elaine, diminished in the right lower and absent in the left lower lung field. CARDIAC: Regular rate and rhythm. GI: Abdomen is soft, nontender, nondistended. EXTREMITIES: 2+ pulses in all extremities. Gross motor sensation is intact. No significant swelling noted. NEUROLOGIC: GCS is 15. LABORATORY FINDINGS: White count 6.1, hemoglobin 8.9, hematocrit 27.7, platelets 103. Sodium 132, potassium 6.6, chloride 95, bicarb 23, BUN 52, creatinine 7.14, glucose 127, phosphorus 6.5, magnesium 2.3. DIAGNOSTIC FINDINGS: There are no new diagnostic findings to report. ASSESSMENT: 1. Status post mechanical fall from standing, on Coumadin. 2. Left intertrochanteric femur fracture, status post repair. 3. New heart murmur and left lower lobe effusion. 4. History of coronary artery disease, hypertension, atrial fibrillation, cardiac stents, coronary artery bypass graft, peripheral artery disease, myocardial infarction. 5. End-stage renal disease, on dialysis Wednesday, Wednesday, Wednesday, and osteopenia. PLAN: Continue current diabetic renal diet. Continue physical and occupational therapy. The patient to have dialysis today where they will remove additional 2 L plus fluid. The patient being followed by Cardiology as well. Restarted home aspirin. We are bridging the patient's Coumadin with subcutaneous heparin. Repeat INR in the morning. Repeat blood work in the morning. Continue physical therapy. We have asked Case Management to find placement at acute rehab facility for the patient, who is also in agreement. This patient was seen and evaluated by Dr. Foreman and myself this morning during rounds. Job ID: [id number]
[2020-07-15] MEDS: Rosuvastatin 20 MG TAB PO SCH (21:02)
[2020-07-15] MEDS: Heparin 5,000 UNITS/ML VIAL SC SCH (21:06)
[2020-07-16] MEDS: Acetaminophen 325 MG TAB PO SCH ×3 (05:07→17:00)
[2020-07-16] MEDS: Levothyroxine Sodium 100 MCG TAB PO SCH (05:08)
[2020-07-16 05:45] LABS: PTT 27.1 sec (22.9-36.1)
[2020-07-16 05:49] LABS: INR-International Normal Ratio 1.3; Prothrombin Time 16.8 sec (12.0-14.7)
[2020-07-16 05:54] LABS: Hemoglobin 7.7 g/dL (12.0-16.0); Mean Corpuscular Hemoglobin 33.3 pg (27.0-31.0); Mean Platelet Volume 8.1 fL (7.4-10.4); Platelet Count 74 thou/uL (130-400); RBC Distribution Width 14.5 % (11.5-14.5); Red Blood Cell (RBC) Count 2.33 mill/uL (4.20-5.40); White Blood Cell (WBC) Count 4.7 thou/uL (4.8-10.8)
[2020-07-16 06:00] LABS: Anion Gap 18 mmol/L (10-20); BUN (Urea Nitrogen) 28 mg/dL (9.8-20.1); Calc. Creatinine Clearance 15 mL/min (70-130); Calcium 7.9 mg/dL (7.8-10.44); Carbon Dioxide 27 mmol/L (23-31); Chloride 96 mmol/L (98-107); Glucose 126 mg/dL (80-115); Phosphorus 4.4 mg/dL (2.3-4.7); Potassium 4.5 mmol/L (3.5-5.1); Sodium 136 mmol/L (136-145)
[2020-07-16 06:16] LABS: Band 1 % (5-11); Eosinophils 2 % (0-10); Lymphocytes 19 % (21-51); MDiff Complete? YES; Monocytes 9 % (0-10); Neutrophil 69 % (42-75); Platelet Morphology Comment Appears Decreased
[2020-07-16] MEDS: Heparin 5,000 UNITS/ML VIAL SC SCH (08:46)
[2020-07-16] MEDS: Amlodipine 10 MG TAB PO SCH (08:46)
[2020-07-16] MEDS: Aspirin 81 mg Enteric Coated Tablet PO SCH (08:46)
[2020-07-16] MEDS: Sevelamer Carbonate 800 MG TAB PO SCH ×3 (08:47→15:57)
[2020-07-16] MEDS: Senokot S 8.6-50 MG TAB PO SCH ×2 (08:47→20:25)
[2020-07-16] MEDS: Polyethylene Glycol 3350 17 GM Packet PO SCH (08:48)
[2020-07-16] MEDS: Gabapentin 300 MG CAP PO SCH ×3 (08:51→20:25)
[2020-07-16] MEDS: Carvedilol 6.25 MG TAB PO SCH ×2 (08:51→20:26)
[2020-07-16] MEDS ORDERED: Heparin 25,000 units/D5W 500 ML IV SCH (09:00)
[2020-07-16] MEDS ORDERED: Heparin 10,000 UNITS/ 10 ML VIAL SLOW IVP SCH (09:00)
[2020-07-16] MEDS: Cyclobenzaprine 10 MG TAB PO PRN (12:31)
[2020-07-16] MEDS: Acetaminophen/Codeine 30-300mg Tablet PO PRN (12:32)
[2020-07-16] MEDS ORDERED: Warfarin Sodium 7.5 MG TAB PO SCH (17:00)
[2020-07-16 19:17] VITALS: BP 118/59; TEMP 97.8
[2020-07-16] MEDS: Insulin Regular 300 UNITS/3 ML VIAL SC PRN (19:18)
[2020-07-16] MEDS: Rosuvastatin 20 MG TAB PO SCH (20:26)
[2020-07-16] MEDS ORDERED: Heparin 5,000 UNITS/ML VIAL SC SCH (21:00)
--- NOTE | 2020-07-17 01:14 | DIS ---
DATE OF ADMISSION: 07/12/2020 DATE OF DISCHARGE: 07/16/2020 ADMITTING PHYSICIAN: Marco Antonio Adrian MD. DISCHARGING PHYSICIAN: Raymond Foreman DO. CONSULTING PHYSICIANS: 1. Sylvain Horan MD, with Orthopedics. 2. William Hoyos MD, with Cardiology. ADMITTING DIAGNOSES: 1. Mechanical fall. 2. Left intertrochanteric femur fracture. 3. Atrial fibrillation, on Coumadin. 4. Coronary artery disease. 5. History of diabetes, hypertension, peripheral vascular disease, myocardial infarction, end-stage renal disease on Wednesday, Wednesday, Wednesday dialysis. 6. Left pleural effusion. DISCHARGING DIAGNOSES: 1. Mechanical fall, on Coumadin. 2. Left intertrochanteric femur fracture, status post ORIF. 3. Atrial fibrillation, bridging back to Coumadin. 4. End-stage renal disease, on Wednesday, Wednesday, Wednesday dialysis. 5. History of coronary artery disease, hypertension, CABG, peripheral vascular disease, osteopenia. OPERATIVE PROCEDURES: During stay on 07/13, the patient had ORIF of left femur fracture. HOSPITAL COURSE: The patient was admitted through the emergency department status post fall. She was admitted to the surgery anderson in the Trauma Service. Orthopedics was consulted as well as Nephrology and Cardiology. The patient was cleared by Cardiology for surgery. She went to the OR on hospital day #1, tolerated the procedure well. Dialysis was completed throughout her stay. She was resumed on her home medication. She tolerated diet, working with PT/OT, and she has been accepted to inpatient rehab in [facility]. She remained hemodynamically stable, passing urine and flatus. PHYSICAL EXAMINATION: On the day of discharge: VITAL SIGNS: Temperature is 98.3, blood pressure 131/63, heart rate is 60, respiratory rate is 12, 93% on room air. GENERAL: 65-year-old female, sitting up, she was tired secondary to working with PT. HEENT: Normocephalic, atraumatic. Trachea is midline. RESPIRATORY: Equal rise and fall. Bilateral breath sounds are clear, able to wean her off oxygen. CARDIOVASCULAR: Irregularly irregular rhythm, rate controlled. She has strong pulses. ABDOMEN: Soft. PELVIS: Stable. She does have surgery scar noted. Dry dressing. EXTREMITIES: Moves all extremities well. NEUROLOGIC: Alert and oriented. GCS 15. PSYCH: Normal mood and affect. LABORATORY DATA: From today, white blood cell count of 4.7, platelets are 74, hemoglobin and hematocrit are 7.7 and 24.2, respectively. Sodium is 136, potassium 4.5, chloride is 96, CO2 is 27, creatinine is 4.34, glucose is 126, phos is 4.4, magnesium is 2.0. The patient is being discharged to [facility]. MEDICATIONS ON DISCHARGE: She will continue her medications when she was here. Tylenol 325 every 6; Tylenol No.3 one tab every 6; Norvasc 10 mg daily; aspirin 81 mg daily; Capoten 12.5 mg nightly; carvedilol 12.5 mg b.i.d.; gabapentin 300 mg t.i.d.; we were bridging her with heparin drip, they are unable to take this, I have discussed with Dr. Kellen montez to go heparin 5000 units subcu t.i.d. as well as resuming Coumadin; levothyroxine 100 mcg daily; melatonin 3 mg nightly; Renvela 800 mg t.i.d.; bowel regimen; Crestor 20 mg daily; Protonix 40 mg daily; Zofran as needed; tramadol 50 mg as needed; warfarin 5 mg Wednesday, Wednesday, and Wednesday and 7.5 mg Wednesday, Wednesday, , and Wednesday. Again, updated the patient and the patient's family at bedside understand the plan coordinated with rehab screening. The patient was seen by Dr. Raymond Foreman. Plan was discussed with him and agrees with the same. Greater than 40 minutes was taken in discharge planning of this patient. Job ID: [id number]
[2020-07-17] MEDS ORDERED: Warfarin Sodium 5 MG TAB PO SCH (17:00)
== END 2020-07-16 21:46 | DRG 480 ==
LOC: ERS 07:18 → SJJU 09:52
PROVIDERS: ADMIT Surgery; ATTEND Surgery
PROC: 5A1D70Z Performance of Urinary Filtration, Intermittent, Less than 6 Hours Per Day (ICD-10-PCS; 2020-07-12)
PROC: 30233L1 Transfusion of Nonautologous Fresh Plasma into Peripheral Vein, Percutaneous Approach (ICD-10-PCS; 2020-07-12)
PROC: 30233K1 Transfusion of Nonautologous Frozen Plasma into Peripheral Vein, Percutaneous Approach (ICD-10-PCS; 2020-07-12)
PROC: 0QS734Z Reposition Left Upper Femur with Internal Fixation Device, Percutaneous Approach (ICD-10-PCS; principal; 2020-07-13)
DX: S72.142A Displaced intertrochanteric fracture of left femur, initial encounter for closed fracture (principal); N18.6 End stage renal disease; J90 Pleural effusion, not elsewhere classified; I12.0 Hypertensive chronic kidney disease with stage 5 chronic kidney disease or end stage renal disease; Z20.828 Contact with and (suspected) exposure to other viral communicable diseases; I25.10 Atherosclerotic heart disease of native coronary artery without angina pectoris; E11.51 Type 2 diabetes mellitus with diabetic peripheral angiopathy without gangrene; E11.22 Type 2 diabetes mellitus with diabetic chronic kidney disease; I48.91 Unspecified atrial fibrillation; M85.80 Other specified disorders of bone density and structure, unspecified site; R01.1 Cardiac murmur, unspecified; I48.0 Paroxysmal atrial fibrillation; E03.9 Hypothyroidism, unspecified; E78.5 Hyperlipidemia, unspecified; G51.0 Bell's palsy; W18.30XA Fall on same level, unspecified, initial encounter; Y92.59 Other trade areas as the place of occurrence of the external cause; Z90.710 Acquired absence of both cervix and uterus; I25.2 Old myocardial infarction; Z99.2 Dependence on renal dialysis; Z98.42 Cataract extraction status, left eye; Z98.41 Cataract extraction status, right eye; Z95.1 Presence of aortocoronary bypass graft; Z90.49 Acquired absence of other specified parts of digestive tract; Z95.5 Presence of coronary angioplasty implant and graft; Z87.891 Personal history of nicotine dependence; Z79.01 Long term (current) use of anticoagulants; Z79.82 Long term (current) use of aspirin; Z79.4 Long term (current) use of insulin; Z79.899 Other long term (current) drug therapy; Z79.890 Hormone replacement therapy
CPT/HCPCS: 36415; 36416; 36430; 70450; 71045; 72125; 72170; 72192; 76000; 80048; 80053; 83735; 83880; 84100; 85025; 85610; 85730; 86850; 86900; 86901; 87635; 90935; 93005; 93306; 96374; 96375; C1713; G0257; J0690; J1100; J1644; J1815; J2250; J2270; J2405; J2704; J3010; J3430; P9059; S0028; U0003

== ENCOUNTER 2020-08-21 08:27 | Inpatient (IN) | payer MEDICARE, BC ==
[2020-08-21] MEDS ORDERED: Calcium Chloride 1 GM/10 ML Abboject SYRINGE ONE (08:29)
[2020-08-21] MEDS ORDERED: Fentanyl 100 MCG/2 ML VIAL ONE (08:37)
[2020-08-21] MEDS ORDERED: Sodium Bicarb 50 MEQ/50 ML Abboject 8.4% SYRINGE ONE (08:45)
[2020-08-21 08:46] LABS: #Eosinphils 0.1 thou/uL (0.0-0.7); #Lymphocytes 1.9 thou/uL (1.20-3.40); #Monocytes 0.5 thou/uL (0.11-0.59); #Neutrophils 4.7 thou/uL (1.40-6.50); %Basophils 0.5 % (0.0-1.0); %Lymphocytes 26.3 % (21.0-51.0); %Monocytes 6.8 % (0.0-10.0); %Neutrophils 65.5 % (42.0-75.0); Hemoglobin 9.3 g/dL (12.0-16.0); Mean Corpuscular HGB CONC 31.8 g/dL (32.0-36.0); Mean Corpuscular Hemoglobin 34.5 pg (27.0-31.0); Mean Platelet Volume 7.7 fL (7.4-10.4); Platelet Count 194 thou/uL (130-400); RBC Distribution Width 15.4 % (11.5-14.5); Red Blood Cell (RBC) Count 2.68 mill/uL (4.20-5.40); White Blood Cell (WBC) Count 7.2 thou/uL (4.8-10.8)
[2020-08-21] MEDS ORDERED: Atropine Sulfate 1 mg/10 ml Syringe ONE (08:47)
[2020-08-21 08:54] LABS: INR-International Normal Ratio 1.3; PTT 33.8 sec (22.9-36.1); Prothrombin Time 16.2 sec (12.0-14.7)
[2020-08-21 09:05] LABS: Phosphorus 7.6 mg/dL (2.3-4.7)
[2020-08-21 09:13] LABS: ALT (SGPT) Less than 7 U/L (8-55); AST (SGOT) 12 U/L (5-34); Albumin 3.7 g/dL (3.4-4.8); Alkaline Phosphatase 153 U/L (40-110); Anion Gap 27 mmol/L (10-20); BUN (Urea Nitrogen) 86 mg/dL (9.8-20.1); Bilirubin, Total 0.6 mg/dL (0.2-1.2); CK (CPK) 31 U/L (29-168); Calc. Creatinine Clearance 0 mL/min (70-130); Calcium 8.2 mg/dL (7.8-10.44); Carbon Dioxide 17 mmol/L (23-31); Chloride 99 mmol/L (98-107); Globulin 3.1 g/dL (2.4-3.5); Glucose 276 mg/dL (80-115); Protein, Total 6.8 g/dL (6.0-8.3); Sodium 136 mmol/L (136-145)
[2020-08-21 09:15] LABS: Potassium 7.1 mmol/L (3.5-5.1)
[2020-08-21 09:18] LABS: MDiff Complete? YES; Macrocytosis SLIGHT = 6-15 cells (100X) (0-5/hpf); Platelet Morphology Comment Appears Adequate
--- NOTE | 2020-08-21 09:19 | RAD ---
PORTABLE CHEST 1 VIEW: DATE: 08/21/2020. TIME: 8:46 AM. HISTORY: Altered mental status. Patient missed dialysis. COMPARISON: 07/12/2020. FINDINGS/IMPRESSION: The heart is enlarged. The aorta is tortuous. There are changes of median sternotomy. There is a s mall left pleural effusion. No pneumothoraces are seen. There is mild patchy opacity in the right m edial lung base. POS: OFF
[2020-08-21] MEDS ORDERED: Insulin Regular 300 UNITS/3 ML VIAL SC SCH (09:45)
[2020-08-21] MEDS ORDERED: Dextrose 50% Abboject 50 ML SYRINGE IVP PRN (09:45)
[2020-08-21] MEDS ORDERED: Dextrose 5% in Water 1,000 ML IV PRN ×2 (09:45→10:46)
[2020-08-21] MEDS ORDERED: cefTRIAXone\\ROCEPHIN 2 GM VIAL ONE (10:08)
[2020-08-21] MEDS ORDERED: Azithromycin 500 MG VIAL ONE (10:08)
[2020-08-21] MEDS ORDERED: Senokot S 8.6-50 MG TAB PO PRN (10:42)
[2020-08-21] MEDS ORDERED: Dextrose 50% Abboject 50 ML SYRINGE SLOW IVP PRN (10:46)
[2020-08-21] MEDS ORDERED: HumaLOG 300 UNITS/3 ML VIAL SC PRN (10:46)
--- NOTE | 2020-08-21 11:06 | CON ---
DATE OF CONSULTATION: HISTORY OF PRESENT ILLNESS: Vickie Fontenot is a 65-year-old female, who is a patient of Dr. Carlos. She has undergone previous CABG x4 and underwent repeat catheterization in July of 2015 and three bypass grafts were patent. Last month, she fell, sustained a left hip fracture and underwent ORIF of this. Echo at that time revealed ejection fraction of 60% to 65% with diastolic dysfunction, moderate left atrial enlargement, trace mitral regurgitation, mild aortic stenosis, mild to moderate tricuspid regurgitation, moderately elevated pulmonary artery pressure, and moderate pericardial effusion, but no evidence of tamponade. She also has paroxysmal atrial fibrillation, is on Coumadin and amiodarone. After temporary pacemaker was placed, she was able to give some history. She missed her dialysis on August 19. Today was another dialysis day and she did not show up and so dialysis center apparently called EMS. They found her unresponsive with heart rates in the 20s. She was brought to the emergency room, given atropine and calcium. Temporary pacemaker pads were placed. PAST MEDICAL HISTORY: Coronary artery disease; diabetes; end-stage renal disease, on dialysis; hypothyroidism; hypercholesterolemia. OPERATIONS: CABG, left hip ORIF, back surgery, right hip replacement, cataract surgery. MEDICATIONS: 1. Amlodipine 10 daily. 2. Aspirin 81 daily. 3. Captopril 12.5 mg at bedtime. 4. Carvedilol 12.5 mg b.i.d. 5. Levothyroxine 100 mcg every other day. 6. Melatonin 3 mg p.r.n. at bedtime. 7. Omeprazole 20 mg daily. 8. MiraLAX daily. 9. Crestor 20 mg at bedtime. 10. Warfarin 5 mg on Wednesday, Wednesday, Wednesday, 7.5 mg on the other days. ALLERGIES: NONE. SOCIAL HISTORY: She does not smoke. REVIEW OF SYSTEMS: Unobtainable with the patient's obtundation. PHYSICAL EXAMINATION: VITAL SIGNS: Blood pressure 130/70, pulse of 80, externally paced. CHEST: Clear. CARDIAC: Distant sounds. ABDOMEN: Normal bowel sounds. EXTREMITIES: Revealed no edema. NEUROLOGIC: The patient is very lethargic. LABORATORY DATA: EKG revealed heart rates in the 20s with idioventricular rhythm. Laboratory which resulted when the patient arrived in the bolt labeler-hemoglobin 9.3, hematocrit 29.1, white count 7900. INR 1.3. Sodium 136, potassium 7.1, chloride 99, carbon dioxide 17, BUN 86, creatinine 10.78. Troponin I is normal. IMPRESSION: 1. Idioventricular rhythm with heart rates in the 20s, probably due to hyperkalemia. 2. End-stage renal disease, missing dialysis 2 days ago. 3. Hyperkalemia with a potassium of 7.1. In the bolt labeler, she was given an amp of D50 and insulin 10 units intravenously. 4. Coronary artery disease, status post coronary artery bypass grafting. 5. Diabetes. 6. Hypertension. 7. Hyperlipidemia. 8. Hypothyroidism. PLAN: Temporary pacemaker was placed in the bolt labeler. She also will need emergent dialysis and hopefully, her cardiac rhythm will return to normal. Job ID: [id number] [facility]ITAL[facility]ma[facility]
[2020-08-21 11:28] LABS: SARS-CoV-2 NAA Rapid Test Not Detected (NotDetected)
[2020-08-21] MEDS ORDERED: DOBUTamine 250 MG/20 ML VIAL ONE (11:51)
[2020-08-21] MEDS ORDERED: DOPamine 400 MG/D5W 250 ML 250 ML ONE (11:53)
[2020-08-21] MEDS ORDERED: DOPamine 400 MG/D5W 250 ML 250 ML IVPB SCH (12:30)
--- NOTE | 2020-08-21 12:47 | PDOC.HHP ---
Hospitalist HPI - History of Present Illness altered mental status History of Present Illness: Patient is a 65 year old female with a PMH of CAD S/P CABG, atrial fibrillation, currently on warfarin, and ESRD on HD. She follows up with Dr. Coffey. She was brought in by EMS, who were called by the concerned family after patient started experiencing change in mental status, abdominal pain and headache. Upon arrival on site, patient was severely bradycardic with a HR in the 20's. BP was WNL. She was somnolent and reactive only to noxious stimuli. She failed initial challenge with calcium, bicarb and atropine. She now has a temporary pacemaker in place. During our encounter, patient was drowsy at best. She does not remember who took place. As per her RN, she has missed her last 2 HD sessions. Review of her medications reveal she is currently on amiodarone and carvedilol. She has 2 bags and upon inspection, there is a lot of duplication. It's worth inquiring how she is taking her medication when mental status permits. - Exam General - other findings: somnolent, reactive to voice stimuli Eye: PERRL, anicteric sclera ENT: normocephalic atraumatic Heart: RRR, no murmur Heart - other findings: sternotomy scar Respiratory: CTAB, no wheezes, no rales, no ronchi Gastrointestinal: soft, non-tender, non-distended Extremities: no cyanosis, no clubbing, no edema Extremities - other findings: R AV fistula, functional Psychiatric: somnolent Hospitalist Results - Labs Result Diagrams: 08/21/20 08:32 08/21/20 08:32 Lab results: WBC 7.2 thou/uL (4.8-10.8) 08/21/20 08:32 Hgb 9.3 g/dL (12.0-16.0) L 08/21/20 08:32 Hct 29.1 % (36.0-47.0) L 08/21/20 08:32 MCV 109.0 fL (78.0-98.0) H 08/21/20 08:32 Plt Count 194 thou/uL (130-400) 08/21/20 08:32 Neutrophils % 65.5 % (42.0-75.0) 08/21/20 08:32 Sodium 136 mmol/L (136-145) 08/21/20 08:32 Potassium 7.1 mmol/L (3.5-5.1) H* 08/21/20 08:32 Chloride 99 mmol/L (98-107) 08/21/20 08:32 Carbon Dioxide 17 mmol/L (23-31) L 08/21/20 08:32 BUN 86 mg/dL (9.8-20.1) H 08/21/20 08:32 Creatinine 10.78 mg/dL (0.6-1.1) H 08/21/20 08:32 Glucose 276 mg/dL (80-115) H 08/21/20 08:32 Lactic Acid 3.1 mmol/L (0.5-2.2) H 08/21/20 10:16 Calcium 8.2 mg/dL (7.8-10.44) 08/21/20 08:32 Total Bilirubin 0.6 mg/dL (0.2-1.2) 08/21/20 08:32 AST 12 U/L (5-34) 08/21/20 08:32 ALT Less than 7 U/L (8-55) L 08/21/20 08:32 Alkaline Phosphatase 153 U/L (40-110) H 08/21/20 08:32 Creatine Kinase 31 U/L (29-168) 08/21/20 08:32 Troponin I 0.025 ng/mL (< 0.028) 08/21/20 08:32 Serum Total Protein 6.8 g/dL (6.0-8.3) 08/21/20 08:32 Albumin 3.7 g/dL (3.4-4.8) 08/21/20 08:32 Hospitalist H&P A/P - Problem (1) Complete heart block by electrocardiogram Code(s): I44.2 - ATRIOVENTRICULAR BLOCK, COMPLETE Status: Acute (2) Hyperkalemia Code(s): E87.5 - HYPERKALEMIA Status: Acute (3) Metabolic encephalopathy Code(s): G93.41 - METABOLIC ENCEPHALOPATHY Status: Acute (4) CAD (coronary artery disease) Code(s): I25.10 - ATHSCL HEART DISEASE OF [place] CORONARY ARTERY W/O ANG PCTRS Status: Chronic Qualifiers: (5) Diabetes type 2, controlled Code(s): E11.9 - TYPE 2 DIABETES MELLITUS WITHOUT COMPLICATIONS Status: Chronic Qualifiers: Diabetes mellitus complication status: with kidney complications Diabetes mellitus complication detail: with chronic kidney disease Chronic kidney disease stage: on chronic dialysis (6) ESRD (end stage renal disease) on dialysis Code(s): N18.6 - END STAGE RENAL DISEASE; Z99.2 - DEPENDENCE ON RENAL DIALYSIS Status: Chronic (7) Hypertension Code(s): I10 - ESSENTIAL (PRIMARY) HYPERTENSION Status: Chronic Qualifiers: (8) Hypothyroidism Code(s): E03.9 - HYPOTHYROIDISM, UNSPECIFIED Status: Chronic Qualifiers: (9) Paroxysmal atrial fibrillation Code(s): I48.0 - PAROXYSMAL ATRIAL FIBRILLATION Status: Chronic (10) Secondary hyperparathyroidism of renal origin Code(s): N25.81 - SECONDARY HYPERPARATHYROIDISM OF RENAL ORIGIN Status: Chronic (11) Metabolic acidosis Code(s): E87.2 - ACIDOSIS Status: Resolved - Plan Plan: Assessment Patient is a 65 year old female with CAD S/P CABG, afib on warfarin and ESRD on HD MWF but non-compliant. She presented with altered mental status and was found to have complete heart block. Possible etiologies include hyperkalemia, and her underlying cardiac disease, and to a lesser extent her rate-control medications for atrial fibrillation. She has a temporary pacemaker in place. Her HR is now satisfactory. She is saturating well on room air. Her last Echo from 1 month ago showed grade III diastolic dysfunction, moderate perc ardial effusion and elevated R sided pressures suggestive of pulmonary hypertension. Severe hyperkalemia Metabolic acidosis Metabolic encephalopathy Complete heart block ESRD on HD MWF Atrial fibrillation on systemic AC and rate control meds CAD S/P CABG Subtherapeutic INR Type II diabetes mellitus PLAN: Continue PCU/PACU stay for at least 24 hours Urgent HD for severe hyperkalemia and metabolic acidosis Monitor BMP and Mg++ daily Hold amiodarone and coreg for now I will check her thyroid function test Trend lactic acid every 4 hours Pharmacy consult for warfarin dosing Resume home regimen of insulin: glargine HS and insulin sliding scale
[2020-08-21 13:13] LABS: Hemoglobin A1c 4.9 % (4.0-6.0)
[2020-08-21] MEDS ORDERED: Warfarin Sodium 5 MG TAB PO SCH (13:15)
[2020-08-21 13:26] LABS: Cardiac Risk 2.8 (Less than 4.5); Magnesium 2.1 mg/dL (1.6-2.6)
[2020-08-21 13:45] LABS: HBSAg Index 0.26 S/CO (0-0.99); Hep B Surf Ag Non-Reactive S/CO (NonReactive)
[2020-08-21 13:51] LABS: HBSAB Concentration 20.05 mIU/mL; Hep B Surf AB Reactive (NonReactive)
[2020-08-21] MEDS ORDERED: HYDROmorphone 0.5 MG/0.5 ML SYRINGE SLOW IVP SCH (15:00)
[2020-08-21] MEDS ORDERED: HYDROmorphone 0.5 MG/0.5 ML SYRINGE ONE (15:02)
[2020-08-21 15:30] LABS: Lactic Acid 0.7 mmol/L (0.5-2.2)
[2020-08-21 17:18] VITALS: BMI 27.3
[2020-08-21] MEDS: Heparin 5,000 UNITS/ML VIAL SC SCH ×2 (17:51→20:13)
[2020-08-21] MEDS: Warfarin Sodium 5 MG TAB PO SCH (18:04)
[2020-08-21] MEDS: Sevelamer Carbonate 800 MG TAB PO SCH (18:04)
[2020-08-21 19:17] LABS: Anion Gap 19 mmol/L (10-20); BUN (Urea Nitrogen) 27 mg/dL (9.8-20.1); Calc. Creatinine Clearance 15 mL/min (70-130); Calcium 8.4 mg/dL (7.8-10.44); Carbon Dioxide 25 mmol/L (23-31); Chloride 98 mmol/L (98-107); Glucose 92 mg/dL (80-115); Potassium 3.9 mmol/L (3.5-5.1); Sodium 138 mmol/L (136-145)
[2020-08-21 19:30] LABS: Albumin 3.5 g/dL (3.4-4.8); Anion Gap 20 mmol/L (10-20); BUN (Urea Nitrogen) 24 mg/dL (9.8-20.1); BUN/Creatinine Ratio 5.39; Calc. Creatinine Clearance 14 mL/min (70-130); Calcium 8.6 mg/dL (7.8-10.44); Carbon Dioxide 24 mmol/L (23-31); Chloride 99 mmol/L (98-107); Glucose 94 mg/dL (80-115); Phosphorus 3.3 mg/dL (2.3-4.7); Sodium 139 mmol/L (136-145)
[2020-08-21] MEDS: Rosuvastatin 20 MG TAB PO SCH (20:13)
[2020-08-21] MEDS: Insulin Glargine 30 UNITS in Pre-Filled Syringe 1 EACH SC SCH (20:26)
[2020-08-22] MEDS: HYDROcodone/Acetaminophen 5/325 mg Tablet PO PRN ×2 (03:48→11:25)
[2020-08-22 05:19] LABS: INR-International Normal Ratio 1.2; Prothrombin Time 15.1 sec (12.0-14.7)
[2020-08-22 05:25] LABS: #Eosinphils 0.1 thou/uL (0.0-0.7); #Lymphocytes 0.9 thou/uL (1.20-3.40); #Monocytes 0.4 thou/uL (0.11-0.59); #Neutrophils 3.2 thou/uL (1.40-6.50); %Basophils 0.3 % (0.0-1.0); %Eosinophils 1.1 % (0.0-10.0); %Lymphocytes 20.3 % (21.0-51.0); %Neutrophils 70.3 % (42.0-75.0); Hemoglobin 9.1 g/dL (12.0-16.0); Mean Corpuscular HGB CONC 33.2 g/dL (32.0-36.0); Mean Platelet Volume 7.2 fL (7.4-10.4); Platelet Count 175 thou/uL (130-400); RBC Distribution Width 15.3 % (11.5-14.5); Red Blood Cell (RBC) Count 2.59 mill/uL (4.20-5.40); White Blood Cell (WBC) Count 4.6 thou/uL (4.8-10.8)
[2020-08-22] MEDS: Levothyroxine Sodium 100 MCG TAB PO SCH (05:25)
[2020-08-22 05:37] LABS: Anion Gap 20 mmol/L (10-20); BUN (Urea Nitrogen) 28 mg/dL (9.8-20.1); Calc. Creatinine Clearance 12 mL/min (70-130); Calcium 8.6 mg/dL (7.8-10.44); Carbon Dioxide 24 mmol/L (23-31); Chloride 97 mmol/L (98-107); Glucose 84 mg/dL (80-115); Potassium 4.4 mmol/L (3.5-5.1); Sodium 137 mmol/L (136-145)
[2020-08-22] MEDS: Sevelamer Carbonate 800 MG TAB PO SCH ×3 (08:50→16:29)
[2020-08-22] MEDS: Heparin 5,000 UNITS/ML VIAL SC SCH ×3 (08:50→20:14)
[2020-08-22] MEDS ORDERED: Aspirin 81 mg Enteric Coated Tablet PO SCH (09:00)
--- NOTE | 2020-08-22 16:17 | PDOC.HOSPP ---
- Subjective Encounter Date: 08/22/20 Subjective: Patient is doing well. Her mental status is back to baseline. No pacer spikes on the monitoring - Objective Vital Signs & Weight: Vital Signs (12 hours) Temp Pulse Ox 08/22/20 11:48 97.2 F L 08/22/20 09:00 98.1 F 08/22/20 07:46 98 Weight Weight 159 lb 9.835 oz Most Recent Monitor Data Heart Rate from ECG 76 NIBP 164/67 NIBP BP-Mean 99 Respiration from ECG 18 SpO2 95 I&O: 08/21/20 08/22/20 08/23/20 06:59 06:59 06:59 Intake Total 402.6 Output Total 0 0 Balance 402.6 0 Result Diagrams: 08/22/20 04:30 08/22/20 04:30 Additional Labs: Accuchecks 08/22/20 08/21/20 11:30 20:24 POC Glucose 100 91 Hospitalist ROS - Medication Medications: Active Medications Generic Name Dose Route Start Last Admin Trade Name Freq PRN Reason Stop Dose Admin Hydrocodone Bitart/Acetaminophen 1 tab 08/21/20 10:42 08/22/20 11:25 Hydrocodone/Acetaminophen 5/325 Mg Tablet PO 1 tab Q4H PRN Administration Moderate Pain (4-6) Heparin Sodium (Porcine) 5,000 units 08/21/20 15:00 08/22/20 08:50 Heparin 5,000 Units/Ml Vial SC 5,000 units TID KYLAH Administration Dopamine HCl/Dextrose 250 mls @ 0 mls/hr 08/21/20 12:30 08/21/20 11:55 Dopamine 400 Mg/D5w 250 Ml IVPB 250 mls INF KYLAH Administration Protocol As Directed Insulin Glargine 30 units/ 0.3 mls @ 0 mls/hr 08/21/20 21:00 08/21/20 20:26 Miscellaneous Medication SC Not Given HS KYLAH As Directed Levothyroxine Sodium 100 mcg 08/22/20 06:00 08/22/20 05:25 Levothyroxine Sodium 100 Mcg Tab PO 100 mcg 0600 KYLAH Administration Rosuvastatin Calcium 20 mg 08/21/20 21:00 08/21/20 20:13 Rosuvastatin 20 Mg Tab PO 20 mg HS KYLAH Administration Senna/Docusate Sodium 2 tab 08/21/20 10:42 08/22/20 11:25 Senokot S 8.6-50 Mg Tab PO 2 tab BIDPRN PRN Administration Constipation Sevelamer Carbonate 800 mg 08/21/20 17:00 08/22/20 11:25 Sevelamer Carbonate 800 Mg Tab PO 800 mg TID-WM KYLAH Administration Warfarin Sodium 5 mg 08/21/20 17:00 08/21/20 18:04 Warfarin Sodium 5 Mg Tab PO 5 mg [id number]@1700 KYLAH Administration - Exam General Appearance: NAD, awake alert Eye: anicteric sclera ENT: normocephalic atraumatic Neck: supple, symmetric, no JVD Heart: RRR, no murmur, no gallops, no rubs Respiratory: CTAB, no wheezes, no rales, no ronchi Gastrointestinal: soft, non-tender, non-distended, normal bowel sounds Gastrointestinal - other findings: Groin w/o hematoma Neurological: cranial nerve grossly intact Musculoskeletal: normal tone, normal strength Psychiatric: normal affect, normal behavior Hosp A/P (1) Complete heart block by electrocardiogram Code(s): I44.2 - ATRIOVENTRICULAR BLOCK, COMPLETE Status: Acute (2) Hyperkalemia Code(s): E87.5 - HYPERKALEMIA Status: Acute (3) Metabolic encephalopathy Code(s): G93.41 - METABOLIC ENCEPHALOPATHY Status: Acute (4) CAD (coronary artery disease) Code(s): I25.10 - ATHSCL HEART DISEASE OF [place] CORONARY ARTERY W/O ANG PCTRS Status: Chronic Qualifiers: (5) Diabetes type 2, controlled Code(s): E11.9 - TYPE 2 DIABETES MELLITUS WITHOUT COMPLICATIONS Status: Chronic Qualifiers: Diabetes mellitus complication status: with kidney complications Diabetes mellitus complication detail: with chronic kidney disease Chronic kidney disease stage: on chronic dialysis (6) ESRD (end stage renal disease) on dialysis Code(s): N18.6 - END STAGE RENAL DISEASE; Z99.2 - DEPENDENCE ON RENAL DIALYSIS Status: Chronic (7) Hypertension Code(s): I10 - ESSENTIAL (PRIMARY) HYPERTENSION Status: Chronic Qualifiers: (8) Hypothyroidism Code(s): E03.9 - HYPOTHYROIDISM, UNSPECIFIED Status: Chronic Qualifiers: (9) Paroxysmal atrial fibrillation Code(s): I48.0 - PAROXYSMAL ATRIAL FIBRILLATION Status: Chronic (10) Secondary hyperparathyroidism of renal origin Code(s): N25.81 - SECONDARY HYPERPARATHYROIDISM OF RENAL ORIGIN Status: C hronic (11) Metabolic acidosis Code(s): E87.2 - ACIDOSIS Status: Resolved - Plan Assessment Patient is a 65 year old female with type II DM, HTN, ESRD on HD but missed a few sessions recently. She is admitted with complete heart block after she was brought in by EMS. She was severely hyperkalemic with a K+ >7. She was minimally responsive upon discharge. She underwent temporary pacemaker placement, and eventually urgent HD session. Patient was also on amiodarone and coreg prior to admission. TFT appropriate for age Complete heart block CAD s/p CAG Severe hyperkalemia Metabolic encephalopathy ESRD on HD Metabolic acidosis Lactic acidosis Hypertension Atrial fibrillation on systemic AC Subtherapeutic INR Type II diabetes mellitus plan: Continue holding rate control medications Currently with a temporary pacemaker Defer dialysis schedule to Nephrology Pharmacy on board for warfarin dosing, INR goal 2-3 Resume home regimen of insulin: glargine HS and insulin sliding scale
[2020-08-22] MEDS ORDERED: Warfarin Sodium 7.5 MG TAB PO SCH (17:00)
--- NOTE | 2020-08-22 18:42 | CON ---
DATE OF CONSULTATION: 08/22/2020 HISTORY OF PRESENT ILLNESS: Vickie Fontenot is a 65-year-old female, who is admitted with bradycardia and required temporary transvenous pacing. She was dialyzed and no longer required pacing by the time I saw her. She is prior to dialysis. PAST MEDICAL HISTORY: Remarkable for, 1. Coronary bypass grafting. 2. History of hip fracture requiring surgery last month. 3. History of normal ejection fraction recently. 4. History of atrial fibrillation. 5. End-stage renal disease, on dialysis. 6. History of hypothyroidism. 7. History of lipid disorder. 8. History of back surgery. 9. History of right hip replacement in the past. 10. History of cataract surgery. ALLERGIES: SHE HAS NO DRUG ALLERGIES. SOCIAL HISTORY: She is a nonsmoker and nondrinker. FAMILY HISTORY: Negative for lung disease in early age. REVIEW OF SYSTEMS: Ten points otherwise negative. She actually says she feels great. PHYSICAL EXAMINATION: VITAL SIGNS: She is afebrile. Heart rate is in the 70s, respiratory rate in the teens, oximetry is 94% on room air, blood pressure 137/91. HEAD AND NECK: Unremarkable. LUNGS: Clear. HEART: Regular rhythm. ABDOMEN: Soft and nontender. EXTREMITIES: Without clubbing, cyanosis, or edema. LABORATORY DATA: Chest radiograph shows some atelectasis changes at the right base. IMPRESSION: Bradycardia secondary to hyperkalemia apparently secondary to missing dialysis. Her potassium is 7.1. Her pacemaker was removed after I evaluated her this morning. She is stable to move out of Critical Care and hopefully be stable to go home tomorrow. This is a 70 min consult with greater than 50% of the time spent on the unit with coordination of care. Job ID: [id number] [facility]
[2020-08-22] MEDS: Rosuvastatin 20 MG TAB PO SCH (20:14)
[2020-08-22] MEDS: Insulin Glargine 30 UNITS in Pre-Filled Syringe 1 EACH SC SCH (22:09)
[2020-08-23] MEDS: HYDROcodone/Acetaminophen 5/325 mg Tablet PO PRN ×3 (02:53→20:37)
[2020-08-23] MEDS: Acetaminophen 325 MG TAB PO PRN ×3 (04:33→22:21)
[2020-08-23 04:48] LABS: INR-International Normal Ratio 1.2; Prothrombin Time 15.9 sec (12.0-14.7)
[2020-08-23] MEDS: Levothyroxine Sodium 100 MCG TAB PO SCH (05:38)
[2020-08-23] MEDS ORDERED: hydrALAZINE 20 MG/ML VIAL SLOW IVP PRN (08:03)
[2020-08-23] MEDS: Sevelamer Carbonate 800 MG TAB PO SCH ×3 (08:11→18:41)
[2020-08-23] MEDS ORDERED: Carvedilol 6.25 MG TAB PO SCH (09:00)
[2020-08-23] MEDS ORDERED: Non-Formulary Item 1 EACH (Amiodarone Hcl [Pacerone] 100 MG Tablet) PO SCH (09:00)
[2020-08-23] MEDS ORDERED: Amiodarone 200 MG TAB PO SCH (09:00)
[2020-08-23] MEDS ORDERED: Amlodipine 10 MG TAB PO SCH (09:00)
[2020-08-23] MEDS ORDERED: Lisinopril 10 MG TAB PO SCH (09:00)
--- NOTE | 2020-08-23 09:10 | PRG ---
DATE OF SERVICE: 08/23/2020 SUBJECTIVE: Ms. Fontenot is doing better today. She just feels weak and fatigued. No chest pain or pressure. OBJECTIVE: VITAL SIGNS: Her blood pressure is high at 190/79, pulse is 80. However, yesterday evening, the blood pressure was 137/91. LUNGS: Clear. CARDIAC: Normal S1, normal S2. There is a harsh systolic murmur at the left upper sternal border. ABDOMEN: Soft and nontender. DIAGNOSTIC STUDIES: EKG shows a bifascicular block with a wide QRS of 0.16. ASSESSMENT: 1. End-stage renal disease. 2. Paroxysmal atrial fibrillation. 3. Episode of severe bradycardia, heart rate in the 20s, requiring emergency pacemaker insertion, temporary. 4. Severe hyperkalemia with multiple episodes of previous hyperkalemia. PLAN: 1. No REINIER inhibitors. 2. Continue amlodipine 10 mg twice a day. 3. We will increase carvedilol to 12.5 mg twice a day. 4. Reduce amiodarone to 100 mg a day in view of the severe bradycardic episodes. 5. If she has recurrent atrial fibrillation, may consider pacemaker insertion followed by increasing amiodarone; however, we would like to avoid pacemaker insertion if possible in dialysis patients as there is increased risk of line infection. If at all possible, we would like to avoid pacemaker. I think we need to avoid REINIER inhibitors however, as she has had multiple episodes of hyperkalemia by looking at the chart. 6. If necessary for control of blood pressure, could stop amlodipine and change to Procardia XL 60 mg or 90 mg a day. Job ID: [id number]
[2020-08-23 12:10] LABS: Hemoglobin 9.5 g/dL (12.0-16.0); Platelet Count 206 thou/uL (130-400)
[2020-08-23] MEDS: Amiodarone 200 MG TAB PO SCH (13:11)
[2020-08-23] MEDS: Heparin 5,000 UNITS/ML VIAL SC SCH ×3 (13:15→20:39)
[2020-08-23] MEDS: Aspirin Chewable 81 MG TAB PO SCH (13:15)
[2020-08-23] MEDS: traMADol HCl 50 MG TAB PO PRN (14:28)
--- NOTE | 2020-08-23 16:47 | PDOC.HOSPP ---
- Subjective Encounter Date: 08/23/20 Subjective: Well. Seen today during dialysis. Overnight events marked by accelerated blood pressure. - Objective Vital Signs & Weight: Vital Signs (12 hours) Temp Pulse Pulse Resp BP BP Pulse Ox 08/23/20 13:41 102 H 195/84 H 08/23/20 13:13 98.2 F 100 18 207/90 H 99 08/23/20 08:15 95 08/23/20 07:34 97.8 F 80 16 194/79 H 95 Weight Weight 159 lb 9.835 oz Most Recent Monitor Data Heart Rate from ECG 79 NIBP 164/78 NIBP BP-Mean 106 Respiration from ECG 14 SpO2 96 I&O: 08/22/20 08/23/20 08/24/20 06:59 06:59 06:59 Intake Total 402.6 820 Output Total 0 0 Balance 402.6 820 Result Diagrams: 08/23/20 11:51 08/23/20 11:51 Additional Labs: Accuchecks 08/23/20 08/22/20 08/22/20 05:36 20:29 04:38 POC Glucose 114 H 159 H 83 Hospitalist ROS - Medication Medications: Active Medications Generic Name Dose Route Start Last Admin Trade Name Freq PRN Reason Stop Dose Admin Acetaminophen 650 mg 08/21/20 10:42 08/23/20 04:33 Acetaminophen 325 Mg Tab PO 650 mg Q4H PRN Administration Headache/Fever/Mild Pain (1-3) Hydrocodone Bitart/Acetaminophen 1 tab 08/21/20 10:42 08/23/20 13:14 Hydrocodone/Acetaminophen 5/325 Mg Tablet PO 1 tab Q4H PRN Administration Moderate Pain (4-6) Amiodarone HCl 100 mg 08/23/20 09:00 08/23/20 13:11 Amiodarone 200 Mg Tab PO 100 mg DAILY KYLAH Administration Aspirin 81 mg 08/23/20 09:00 08/23/20 13:15 Aspirin Chewable 81 Mg Tab PO 81 mg DAILY KYLAH Administration Heparin Sodium (Porcine) 5,000 units 08/21/20 15:00 08/23/20 14:30 Heparin 5,000 Units/Ml Vial SC Not Given TID KYLAH Insulin Glargine 30 units/ 0.3 mls @ 0 mls/hr 08/21/20 21:00 08/22/20 22:09 Miscellaneous Medication SC Not Given HS [facility] As Directed Levothyroxine Sodium 100 mcg 08/22/20 06:00 08/23/20 05:38 Levothyroxine Sodium 100 Mcg Tab PO 100 mcg 0600 KYLAH Administration Rosuvastatin Calcium 20 mg 08/21/20 21:00 08/22/20 20:14 Rosuvastatin 20 Mg Tab PO 20 mg HS KYLAH Administration Senna/Docusate Sodium 2 tab 08/21/20 10:42 08/22/20 11:25 Senokot S 8.6-50 Mg Tab PO 2 tab BIDPRN PRN Administration Constipation Sevelamer Carbonate 800 mg 08/21/20 17:00 08/23/20 13:11 Sevelamer Carbonate 800 Mg Tab PO 800 mg TID-WM KYLAH Administration Sodium Chloride 10 ml 08/23/20 09:00 08/23/20 13:15 Flush - Normal Saline 10 Ml Syringe IVF 10 ml Q12HR KYLAH Administration Tramadol HCl 50 mg 08/23/20 08:07 08/23/20 14:28 Tramadol Hcl 50 Mg Tab PO 50 mg TID PRN Administration Pain Warfarin Sodium 5 mg 08/21/20 17:00 08/21/20 18:04 Warfarin Sodium 5 Mg Tab PO 5 mg MoWeFr@1700 [facility] Administration Warfarin Sodium 7.5 mg 08/22/20 17:00 08/22/20 16:30 Warfarin Sodium 7.5 Mg Tab PO 7.5 mg SuTuThSa@1700 [facility] Administration - Exam General Appearance: NAD, awake alert Eye: anicteric sclera ENT: normocephalic atraumatic Heart: murmur present Respiratory: CTAB, no wheezes, no rales, no ronchi Gastrointestinal: soft, non-tender, non-distended Extremities: no cyanosis, no clubbing, no edema Neurological: cranial nerve grossly intact Psychiatric: normal affect, normal behavior Hosp A/P (1) Complete heart block by electrocardiogram Code(s): I44.2 - ATRIOVENTRICULAR BLOCK, COMPLETE Status: Acute (2) Hyperkalemia Code(s): E87.5 - HYPERKALEMIA Status: Acute (3) Metabolic encephalopathy Code(s): G93.41 - METABOLIC ENCEPHALOPATHY Status: Acute (4) CAD (coronary artery disease) Code(s): I25.10 - ATHSCL HEART DISEASE OF [place] CORONARY ARTERY W/O ANG PCTRS Status: Chronic Qualifiers: (5) Diabetes type 2, controlled Code(s): E11.9 - TYPE 2 DIABETES MELLITUS WITHOUT COMPLICATIONS Status: Chronic Qualifiers: Diabetes mellitus complication status: with kidney complications Diabetes mellitus complication detail: with chronic kidney disease Chronic kidney disease stage: on chronic dialysis (6) ESRD (end stage renal disease) on dialysis Code(s): N18.6 - END STAGE RENAL DISEASE; Z99.2 - DEPENDENCE ON RENAL DIALYSIS Status: Chronic (7) Hypertension Code(s): I10 - ESSENTIAL (PRIMARY) HYPERTENSION Status: Chronic Qualifiers: (8) Hypothyroidism Code(s): E03.9 - HYPOTHYROIDISM, UNSPECIFIED Status: Chronic Qualifiers: (9) Paroxysmal atrial fibrillation Code(s): I48.0 - PAROXYSMAL ATRIAL FIBRILLATION Status: Chronic (10) Secondary hyperparathyroidism of renal origin Code(s): N25.81 - SECONDARY HYPERPARATHYROIDISM OF RENAL ORIGIN Status: Chronic (11) Metabolic acidosis Code(s): E87.2 - ACIDOSIS Status: Resolved - Plan Assessment Patient is a 65 year old female with type II DM, HTN, ESRD on HD but missed a few sessions recently. She was brought in for altered mental status and was found to be in complete heart block. Basic lab revealed she was s everely hyperkalemic with a K+ >7. She underwent temporary pacemaker placement, and eventually urgent HD. Patient was also on amiodarone and coreg prior to admission. She is now back to baseline. Her temporary pacemaker was removed. Cardiology hoping to avoid pacemaker placement due to high risk of line infection dialysis patients. She has been doing well for the past 48 hours except for her blood pressure, which is yet to be controlled despite multiple blood pressure medications. Complete heart block CAD s/p CAG Severe hyperkalemia Metabolic encephalopathy ESRD on HD Metabolic acidosis Lactic acidosis Hypertension Atrial fibrillation on systemic AC Subtherapeutic INR Type II diabetes mellitus plan: Change Norvasc to nifedipine XL 60 mg Coreg increased to 12.5 mg twice daily Amiodarone decreased 100 mg daily Discontinue REINIER inhibitor to multiple incidence of hyperkalemia Patient was dialyzed today. Appreciate nephrology systems Pharmacy on board for warfarin dosing, INR goal 2-3 Blood glucose controlled on current regimen of glargine 30 units HS and insulin sliding scale
[2020-08-23] MEDS: Warfarin Sodium 5 MG TAB PO SCH (16:59)
[2020-08-23] MEDS ORDERED: NIFEdipine XL 60 MG TAB PO SCH (20:00)
[2020-08-23] MEDS: Carvedilol 6.25 MG TAB PO SCH (20:37)
[2020-08-23] MEDS: Rosuvastatin 20 MG TAB PO SCH (20:39)
[2020-08-23] MEDS: Insulin Glargine 30 UNITS in Pre-Filled Syringe 1 EACH SC SCH (20:39)
[2020-08-24] MEDS: traMADol HCl 50 MG TAB PO PRN ×2 (03:24→09:13)
[2020-08-24 05:14] LABS: INR-International Normal Ratio 1.4; Prothrombin Time 17.3 sec (12.0-14.7)
[2020-08-24] MEDS: Levothyroxine Sodium 100 MCG TAB PO SCH (06:27)
[2020-08-24] MEDS ORDERED: NIFEdipine XL 60 MG TAB PO SCH ×2 (09:00→21:00)
[2020-08-24] MEDS: Sevelamer Carbonate 800 MG TAB PO SCH ×3 (09:12→17:34)
[2020-08-24] MEDS: Aspirin Chewable 81 MG TAB PO SCH (09:13)
[2020-08-24] MEDS: Amiodarone 200 MG TAB PO SCH (09:14)
[2020-08-24] MEDS: Heparin 5,000 UNITS/ML VIAL SC SCH (09:15)
[2020-08-24] MEDS: Carvedilol 6.25 MG TAB PO SCH (09:16)
[2020-08-24] MEDS ORDERED: NIFEdipine XL 90 MG TAB PO SCH (10:15)
--- NOTE | 2020-08-24 10:53 | PDOC.DS.DS ---
Provider - Provider Date of Admission: 08/21/20 10:39 Date of Discharge: 08/24/20 Admitting Provider: Prince Ifrah Whitaker MD Consultations: Cardiology, Nephrology Primary Care Physician: Tabby Sanchez Course - Hospital Course Hospital Course: Patient is a 65 year old patient female with a past medical history of hypertension, insulin-dependent diabetes mellitus, atrial fibrillation on warfarin at home, and ESRD but noncompliant recently with hemodialysis. She presented to the hospital with altered mental status and was in complete heart block and severely bradycardic. Patient underwent temporary pacemaker placement. Her potassium was 7. She underwent urgent dialysis by nephrology. She improved symptomatically. The rest of her hospital course was complicated by hypertensive urgency. Her medications were reconciled. Amiodarone dosage was decreased, REINIER inhibitors were discontinued. Nifedipine was introduced in place of Norvasc due to uncontrolled hypertension. Patient will be discharged today and resume her normal hemodialysis sessions. She claimed that it snowed in town and she could not get her car out of the driveway and this kept her from making it to her last 2 hemodialysis sessions. - Labs Lab Results: 08/23/20 11:51 08/23/20 11:51 Abnormal Lab Results - Last 48 hrs 08/23/20 04:21: PT 15.9 H 08/23/20 11:51: Hgb 9.5 L, Hct 29.0 L 08/23/20 11:51: Creatinine 2.19 H 08/24/20 04:01: PT 17.3 H Microbiology - Entire Visit 08/21/20 10:16 Venous blood - Left Hand Blood Culture - Preliminary NO GROWTH AT 48 HOURS 08/21/20 10:16 Venous blood - Left Hand Blood Culture - Preliminary NO GROWTH AT 48 HOURS 08/21/20 10:27 Nasal swab Influenza Types A,B Direct EIA - Final - Physical Exam Vitals: Vital Signs (12 hours) Temp Pulse Resp BP BP Pulse Ox 08/24/20 03:26 98.4 F 71 15 160/70 H 98 08/24/20 00:30 98.5 F 66 120/60 Weight Weight 154 lb 1.65 oz Most Recent Monitor Data Heart Rate from ECG 79 NIBP 164/78 NIBP BP-Mean 106 Respiration from ECG 14 SpO2 96 Physical Exam: The patient was seen and examined on the day of discharge. General: Not in acute distress. HEENT: Head atraumatic, normocephalic. EOM intact Pulmonary: Lungs are clear to auscultation bilaterally CVS: Normal S1 and S2. Regular rate. Abdomen: Soft, nontender, nondistended Extremities: Without edema. Skin: Warm and well perfused Psych: Mood and affect appropriate. Neuro: Grossly intact Problem - Discharge Plan Assessment: Please refer to hospital course - Problem (1) Complete heart block by electrocardiogram Code(s): I44.2 - ATRIOVENTRICULAR BLOCK, COMPLETE Status: Acute (2) Hyperkalemia Code(s): E87.5 - HYPERKALEMIA Status: Acute (3) Metabolic encephalopathy Code(s): G93.41 - METABOLIC ENCEPHALOPATHY Status: Acute (4) CAD (coronary artery disease) Code(s): I25.10 - ATHSCL HEART DISEASE OF [place] CORONARY ARTERY W/O ANG PCTRS Status: Chronic Qualifiers: (5) Diabetes type 2, controlled Code(s): E11.9 - TYPE 2 DIABETES MELLITUS WITHOUT COMPLICATIONS Status: Chronic Qualifiers: Diabetes mellitus complication status: with kidney complications Diabetes mellitus complication detail: with chronic kidney disease Chronic kidney disease stage: on chronic dialysis (6) ESRD (end stage renal disease) on dialysis Code(s): N18.6 - END STAGE RENAL DISEASE; Z99.2 - DEPENDENCE ON RENAL DIALYSIS Status: Chronic (7) Hypertension Code(s): I10 - ESSENTIAL (PRIMARY) HYPERTENSION Status: Chronic Qualifiers: (8) Hypothyroidism Code(s): E03.9 - HYPOTHYROIDISM, UNSPECIFIED Status: Chronic Qualifiers: (9) Paroxysmal atrial fibrillation Code(s): I48.0 - PAROXYSMAL ATRIAL FIBRILLATION Status: Chronic (10) Secondary hyperparathyroidism of renal origin Code(s): N25.81 - SECONDARY HYPERPARATHYROIDISM OF RENAL ORIGIN Status: Chronic (11) Metabolic acidosis Code(s): E87.2 - ACIDOSIS Status: Resolved Plan - Discharge Medications Prescriptions: Amiodarone HCl [Pacerone] 1 tablet PO DAILY #30 tablet NIFEdipine [Procardia XL] 90 mg PO NOW #30 tab Home Medications: Medication Instructions Recorded Confirmed Type Levothyroxine Sodium [Synthroid] 100 mcg PO DAILY 09/28/14 08/21/20 History Aspirin [Low Dose Aspirin EC] 81 mg PO DAILY 12/04/14 08/21/20 History Rosuvastatin Calcium [Crestor] 10 mg PO HS 03/11/18 08/21/20 History traMADol HCl [Tramadol HCl] 50 mg PO TID PRN 03/11/18 08/21/20 History Gabapentin 600 mg PO DAILY 07/27/18 08/21/20 History tiZANidine HCl [Tizanidine HCl] 4 mg PO TID PRN 07/27/18 08/21/20 History [place]-3/DHA/EPA/Fish Oil [Fish Oil 520 mg PO DAILY 11/25/18 08/21/20 History 1,400 mg Softgel] Acetaminophen [Tylenol Regular 650 mg PO Q4H PRN tab 05/19/19 08/21/20 Rx Strength] Omeprazole 20 mg PO DAILY 07/26/19 08/21/20 History Sevelamer Carbonate 800 mg PO TID-WM 02/14/20 08/21/20 History Amiodarone HCl [Pacerone] 1 tablet PO DAILY #30 tablet 08/24/20 Rx Carvedilol [Coreg] 12.5 mg PO BID tab 08/24/20 Rx Insulin Glargine [Lantus Vial] 30 units SC HS vial 08/24/20 Rx NIFEdipine [Procardia XL] 90 mg PO NOW #30 tab 08/24/20 Rx Warfarin Sodium [Coumadin] 7.5 mg PO DAILY tab 08/24/20 Rx Allergies: No Known Drug Allergies Allergy (Verified 02/14/20 14:23) Per Patient - Discharge Instructions Discharge Instructions:: PLEASE CHECK INR during dialysis days. CALL PCP or [employer] Operator with results. Nourishment:: Diabetic Diet - Follow up Plan Referrals: [facility], Rodo Nur [Other] (Inpatient rehab admit.) [facility] ([facility]) [Outside] (Currently on home health services.) Yeni Wills, LISA [Allied Health Professional] - 3-4 Weeks (Please call office to schedule a follow up appointment for 1 month ) Tabby Sanchez [Primary Care Provider] - (Please call office to schedule a follow up appointment.) Nitin Coffey MD [Active] - Disposition: HOME Quality - Care Measures CORE MEASURES:: N/A - Stroke/TIA Did you prescribe antithrombotic therapy?: No Specify reason for no DC antithrombotic therapy: Treatment not indicated
[2020-08-24 12:37] VITALS: TEMP 97.6
[2020-08-24 16:09] VITALS: BP 119/58
[2020-08-24] MEDS ORDERED: Warfarin Sodium 7.5 MG TAB PO SCH (17:00)
--- NOTE | 2020-09-12 15:03 | CCLSPC ---
PROCEDURE: Temporary pacemaker insertion. INDICATION: Idioventricular rhythm with heart rates in the 20s. DESCRIPTION OF THE PROCEDURE: The patient was brought to cardiac blood and plasma laboratory assistant, and the right groin was prepped and draped. 1% Lidocaine was infiltrated. A 5-[place] sheath placed into the right femoral vein. A 5-[place] balloon tipped pacing wire was then inserted to the right ventricular apex. Threshold was less than 1 V. There were no QRS complexes to sense. The sheath was sutured in place as well as a loop formed of the pacing wire, and that was sutured in place. Also prior to the procedure, the patient received one ampule of D50 and insulin 10 units intravenously. Job ID: [id number]
== END 2020-08-24 18:30 | disposition home health service (06) | DRG 308 ==
LOC: ERS 08:27 → CCL 10:36 → SUATTDRO 10:36 → CCU 10:39 → 2NO 08-22 17:16
PROVIDERS: ADMIT Internal Medicine; ATTEND Internal Medicine
PROC: 5A1223Z Performance of Cardiac Pacing, Continuous (ICD-10-PCS; principal; 2020-08-21)
PROC: 5A1D70Z Performance of Urinary Filtration, Intermittent, Less than 6 Hours Per Day (ICD-10-PCS; 2020-08-21)
DX: I44.2 Atrioventricular block, complete (principal); N18.6 End stage renal disease; G93.41 Metabolic encephalopathy; I12.0 Hypertensive chronic kidney disease with stage 5 chronic kidney disease or end stage renal disease; N25.81 Secondary hyperparathyroidism of renal origin; E87.2 Acidosis; Z20.822 Contact with and (suspected) exposure to COVID-19; E11.22 Type 2 diabetes mellitus with diabetic chronic kidney disease; I16.0 Hypertensive urgency; E87.6 Hypokalemia; I25.10 Atherosclerotic heart disease of native coronary artery without angina pectoris; E03.9 Hypothyroidism, unspecified; I48.0 Paroxysmal atrial fibrillation; Z96.641 Presence of right artificial hip joint; E78.00 Pure hypercholesterolemia, unspecified; Z91.15 Patient's noncompliance with renal dialysis; Z95.1 Presence of aortocoronary bypass graft; Z98.890 Other specified postprocedural states; Z79.890 Hormone replacement therapy; Z79.82 Long term (current) use of aspirin; Z79.02 Long term (current) use of antithrombotics/antiplatelets; Z79.899 Other long term (current) drug therapy
CPT/HCPCS: 33210; 36415; 36416; 71045; 80048; 80053; 80061; 82550; 82565; 83036; 83605; 83735; 84100; 84439; 84443; 84484; 85014; 85018; 85025; 85049; 85610; 85730; 86706; 87040; 87340; 87804; 90935; 93005; 96365; 96375; G0257; J0360; J0456; J0461; J0696; J1170; J1250; J1265; J1644; J1815; J3010; U0002

== ENCOUNTER 2020-10-15 09:49 | Inpatient (IN) | payer MEDICARE, BC ==
[2020-10-15] MEDS ORDERED: Insulin Regular 300 UNITS/3 ML VIAL ONE (10:17)
[2020-10-15] MEDS ORDERED: Aspirin Chewable 81 MG TAB ONE (10:17)
[2020-10-15] MEDS ORDERED: Dextrose 50% Abboject 50 ML SYRINGE ONE ×2 (10:17→10:48)
[2020-10-15 10:26] LABS: Actual Bicarbonate (HCO3a) 17.2 mEq/L (22-28); Base Excess (BEa) -7.6 mEq/L (-2.0 to +3.0); CO2 Tension 32.4 mmHg (35.0-45.0); Carboxyhemoglobin (COHb) 0.3 gm% (0.0-3.0); O2 Tension (PaO2), arterial 184.1 mmHg (> 80.0); Potassium - ABG Lab 4.56 mmol/L (3.70-5.30); pH, Arterial 7.34 (7.35-7.45)
[2020-10-15 10:30] LABS: Analyzer IN Cardio ER; Puncture Site LRA
[2020-10-15 10:41] LABS: ALT (SGPT) 44 U/L (8-55); AST (SGOT) 82 U/L (5-34); Alkaline Phosphatase 78 U/L (40-110); Anion Gap 28 mmol/L (10-20); BUN (Urea Nitrogen) 75 mg/dL (9.8-20.1); Bilirubin, Total 0.8 mg/dL (0.2-1.2); CK (CPK) 64 U/L (29-168); Calc. Creatinine Clearance 0 mL/min (70-130); Calcium 11.2 mg/dL (7.8-10.44); Carbon Dioxide 17 mmol/L (23-31); Chloride 99 mmol/L (98-107); Globulin 2.7 g/dL (2.4-3.5); Glucose 174 mg/dL (80-115); Lipase 4 U/L (8-78); Potassium 5.3 mmol/L (3.5-5.1); Protein, Total 5.7 g/dL (5.8-8.1); Sodium 139 mmol/L (136-145)
[2020-10-15] MEDS ORDERED: Sodium Bicarb 50 MEQ/50 ML Abboject 8.4% SYRINGE ONE (10:48)
[2020-10-15] MEDS ORDERED: Vancomycin 1 GM/200 ML BAG ONE (10:57)
[2020-10-15 10:59] LABS: #Monocytes 0.1 thou/uL (0.11-0.59); #Neutrophils 2.6 thou/uL (1.40-6.50); %Basophils 0.4 % (0.0-1.0); %Eosinophils 0.1 % (0.0-10.0); %Lymphocytes 26.6 % (21.0-51.0); %Monocytes 2.1 % (0.0-10.0); %Neutrophils 70.9 % (42.0-75.0); Band 20 % (5-11); Hemoglobin 11.6 g/dL (12.0-16.0); Lymphocytes 26 % (21-51); MDiff Complete? YES; Macrocytosis SLIGHT = 6-15 cells (100X) (0-5/hpf); Mean Corpuscular HGB CONC 32.4 g/dL (32.0-36.0); Mean Corpuscular Hemoglobin 35.5 pg (27.0-31.0); Mean Platelet Volume 8.1 fL (7.4-10.4); Metamyelocyte 1 % (0-0); Monocytes 2 % (0-10); Neutrophil 51 % (42-75); Platelet Count 119 thou/uL (130-400); Platelet Morphology Comment Appears Decreased; Polychromasia SLIGHT = 2-3 cells (100X) (0-2/hpf); RBC Distribution Width 14.2 % (11.5-14.5); Red Blood Cell (RBC) Count 3.28 mill/uL (4.20-5.40); White Blood Cell (WBC) Count 3.7 thou/uL (4.8-10.8)
[2020-10-15] MEDS ORDERED: Calcium Chloride 1 GM in Sodium Chloride 0.9% 100 ML IVP SCH (11:00)
[2020-10-15 11:03] LABS: CKMB 2.8 ng/mL (0-6.6)
[2020-10-15 11:10] LABS: Bilirubin Negative (Negative); Blood, Urine 2+ (Negative); Clarity Clear (Clear); Glucose, Urine (Dipstick) 200 mg/dL (Negative); Ketone, Urine Negative (Negative); Leukocyte Negative Leu/uL (Negative); Nitrite Negative (Negative); Protein, Urine (Dipstick) 600 mg/dL (Neg-Trace); RBC/HPF 21-50 HPF (0-3); Specific Gravity, Urine 1.016 (1.002-1.036); Urobilinogen Normal mg/dL (Less than 2); WBC/HPF 0-3 HPF (0-3)
[2020-10-15] MEDS ORDERED: DISCONTINUE PREVIOUS NARCOTIC PAIN MEDICATIONS AND BENZODIAZEPINES FS SCH (11:15)
[2020-10-15] MEDS ORDERED: Fentanyl CADD 100 ML IV SCH ×2 (11:15→13:45)
[2020-10-15 11:22] LABS: Bacteria/HPF 1+ HPF (None Seen)
[2020-10-15 11:42] LABS: SARS-CoV-2 NAA Rapid Test Not Detected (NotDetected)
[2020-10-15 11:51] LABS: PTT 66.5 sec (22.9-36.1); Prothrombin Time 47.9 sec (12.0-14.7)
[2020-10-15] MEDS ORDERED: Acetaminophen 325 MG Suppository PR PRN (13:10)
[2020-10-15] MEDS ORDERED: Acetaminophen 325 MG/10.15 ML UDCUP PO PRN (13:10)
[2020-10-15] MEDS ORDERED: Norepinephrine 8 MG/0.9% NS 250 ML IVPB PRN (13:10)
[2020-10-15] MEDS ORDERED: Acetaminophen 325 MG TAB PO PRN (13:13)
[2020-10-15] MEDS ORDERED: Ventilator Sedation Protocol 1 EACH FS SCH (13:15)
[2020-10-15] MEDS ORDERED: Nitroglycerin 0.4 MG TAB (25 Tab Bottle) SL PRN (13:15)
[2020-10-15] MEDS ORDERED: ZOSYN IVPB PRN (13:17)
[2020-10-15] MEDS ORDERED: WARFARIN PO SCH (13:30)
[2020-10-15] MEDS ORDERED: Fentanyl BOLUS 250 ML IVPB PRN (13:45)
[2020-10-15] MEDS ORDERED: Propofol 1,000 MG/100 ML VIAL IV PRN (13:45)
[2020-10-15] MEDS ORDERED: Lorazepam 2 MG/ML VIAL SLOW IVP PRN (13:45)
[2020-10-15] MEDS ORDERED: Morphine 2 MG/ML VIAL SLOW IVP PRN (13:45)
[2020-10-15] MEDS ORDERED: Propofol BOLUS 1,000 MG/100 ML VIAL IV PRN (13:45)
[2020-10-15] MEDS ORDERED: Phytonadione 5 MG in Sodium Chloride 0.9% 50 ML IVPB SCH (14:00)
[2020-10-15 14:18] LABS: Anion Gap 21 mmol/L (10-20); BUN (Urea Nitrogen) 74 mg/dL (9.8-20.1); Calc. Creatinine Clearance 0 mL/min (70-130); Calcium 9.6 mg/dL (7.8-10.44); Carbon Dioxide 20 mmol/L (23-31); Chloride 99 mmol/L (98-107); Glucose 98 mg/dL (80-115); Potassium 4.1 mmol/L (3.5-5.1); Sodium 136 mmol/L (136-145)
[2020-10-15 14:30] LABS: Lactic Acid 4.4 mmol/L (0.5-2.2)
[2020-10-15] MEDS: cefTRIAXone\\ROCEPHIN 1 GM in Sodium Chloride 0.9% 100 ML IVPB SCH (14:45)
[2020-10-15] MEDS: Sodium Bicarbonate 150 MEQ in Dextrose 5% in Water 1,000 ML IV SCH (15:55)
[2020-10-15] MEDS: Piperacillin/Tazobactam 2.25 GM in Sodium Chloride 0.9% 100 ML IVPB SCH (16:46)
[2020-10-15 17:21] LABS: CKMB 5.5 ng/mL (0-6.6)
[2020-10-15] MEDS: Hydrocortisone Sod Succ/PF 100 mg/2 ml Vial IVP SCH (17:44)
[2020-10-15 19:57] LABS: INR-International Normal Ratio 3.1; Prothrombin Time 32.9 sec (12.0-14.7)
[2020-10-15 19:58] LABS: PTT 57.1 sec (22.9-36.1)
[2020-10-15 20:45] LABS: Anion Gap 25 mmol/L (10-20); BUN (Urea Nitrogen) 82 mg/dL (9.8-20.1); Calc. Creatinine Clearance 6 mL/min (70-130); Calcium 9.8 mg/dL (7.8-10.44); Carbon Dioxide 19 mmol/L (23-31); Chloride 98 mmol/L (98-107); Glucose 115 mg/dL (80-115); Sodium 137 mmol/L (136-145)
[2020-10-15] MEDS ORDERED: Famotidine/PF 20 mg/2ml Vial SLOW IVP SCH (21:00)
[2020-10-15] MEDS ORDERED: Heparin 5,000 UNITS/ML VIAL SC SCH (21:00)
[2020-10-15] MEDS ORDERED: Famotidine 20 MG TAB PO SCH (21:00)
[2020-10-16] MEDS: Hydrocortisone Sod Succ/PF 100 mg/2 ml Vial IVP SCH ×5 (00:15→23:54)
[2020-10-16] MEDS: Piperacillin/Tazobactam 2.25 GM in Sodium Chloride 0.9% 100 ML IVPB SCH ×2 (03:02→16:08)
[2020-10-16 04:36] LABS: INR-International Normal Ratio 2.1; Prothrombin Time 24.3 sec (12.0-14.7)
[2020-10-16 04:50] LABS: Anion Gap 27 mmol/L (10-20); BUN (Urea Nitrogen) 88 mg/dL (9.8-20.1); Calc. Creatinine Clearance 6 mL/min (70-130); Calcium 8.9 mg/dL (7.8-10.44); Carbon Dioxide 19 mmol/L (23-31); Chloride 97 mmol/L (98-107); Glucose 110 mg/dL (80-115); Potassium 5.6 mmol/L (3.5-5.1); Sodium 137 mmol/L (136-145)
[2020-10-16 04:56] LABS: Band 22 % (5-11); Hemoglobin 8.8 g/dL (12.0-16.0); Hypochromia SLIGHT = 6-15 cells (100X) (0-5/hpf); Lymphocytes 16 % (21-51); MDiff Complete? YES; Macrocytosis SLIGHT = 6-15 cells (100X) (0-5/hpf); Mean Corpuscular HGB CONC 32.6 g/dL (32.0-36.0); Mean Corpuscular Hemoglobin 35.5 pg (27.0-31.0); Mean Platelet Volume 8.9 fL (7.4-10.4); Metamyelocyte 2 % (0-0); Monocytes 34 % (0-10); Neutrophil 26 % (42-75); Platelet Count 99 thou/uL (130-400); Platelet Morphology Comment Appears Decreased; RBC Distribution Width 14.2 % (11.5-14.5); Red Blood Cell (RBC) Count 2.48 mill/uL (4.20-5.40); White Blood Cell (WBC) Count 2.1 thou/uL (4.8-10.8)
[2020-10-16 07:47] LABS: Actual Bicarbonate (HCO3a) 19.5 mEq/L (22-28); Base Excess (BEa) -4.2 mEq/L (-2.0 to +3.0); CO2 Tension 30.7 mmHg (35.0-45.0); Calcium, Ionized (arterial) 1.08 mmol/L (1.12-1.30); Carboxyhemoglobin (COHb) 0.6 gm% (0.0-3.0); O2 Tension (PaO2), arterial 101.6 mmHg (> 80.0); Potassium - ABG Lab 5.75 mmol/L (3.70-5.30); pH, Arterial 7.42 (7.35-7.45)
[2020-10-16 07:51] LABS: ALV-art Gradient 145.225 mmHg (0-20); Puncture Site LRA
[2020-10-16] MEDS ORDERED: Aspirin 300 MG Suppository PR SCH (09:00)
[2020-10-16] MEDS: Sodium Bicarbonate 150 MEQ in Dextrose 5% in Water 1,000 ML IV SCH (12:14)
[2020-10-16] MEDS: cefTRIAXone\\ROCEPHIN 1 GM in Sodium Chloride 0.9% 100 ML IVPB SCH (14:13)
[2020-10-16] MEDS ORDERED: FLU VACC QS2020-21(65YR UP)/PF 240 MCG/0.7 ML SYRINGE IM ONE (18:00)
[2020-10-17] MEDS: Piperacillin/Tazobactam 2.25 GM in Sodium Chloride 0.9% 100 ML IVPB SCH (05:14)
[2020-10-17] MEDS: Hydrocortisone Sod Succ/PF 100 mg/2 ml Vial IVP SCH ×3 (05:14→21:52)
[2020-10-17] MEDS: Insulin Regular 300 UNITS/3 ML VIAL SC PRN ×3 (05:17→22:02)
[2020-10-17 05:20] LABS: INR-International Normal Ratio 1.8; Prothrombin Time 21.5 sec (12.0-14.7)
[2020-10-17 05:43] LABS: Hemoglobin 8.4 g/dL (12.0-16.0); Mean Corpuscular HGB CONC 33.7 g/dL (32.0-36.0); Mean Corpuscular Hemoglobin 36.5 pg (27.0-31.0); Mean Platelet Volume 8.7 fL (7.4-10.4); Platelet Count 121 thou/uL (130-400); RBC Distribution Width 14.2 % (11.5-14.5); White Blood Cell (WBC) Count 8.5 thou/uL (4.8-10.8)
[2020-10-17 05:48] LABS: Anion Gap 25 mmol/L (10-20); BUN (Urea Nitrogen) 51 mg/dL (9.8-20.1); Calc. Creatinine Clearance 9 mL/min (70-130); Calcium 8.3 mg/dL (7.8-10.44); Carbon Dioxide 27 mmol/L (23-31); Chloride 91 mmol/L (98-107); Glucose 182 mg/dL (80-115); Potassium 5.1 mmol/L (3.5-5.1); Sodium 138 mmol/L (136-145)
[2020-10-17 06:24] LABS: Band 48 % (5-11); Lymphocytes 11 % (21-51); MDiff Complete? YES; Metamyelocyte 2 % (0-0); Monocytes 11 % (0-10); Neutrophil 28 % (42-75); Platelet Morphology Comment Appears Decreased
[2020-10-17 07:22] LABS: Actual Bicarbonate (HCO3a) 29.9 mEq/L (22-28); Base Excess (BEa) 7.6 mEq/L (-2.0 to +3.0); CO2 Tension 32.9 mmHg (35.0-45.0); Calcium, Ionized (arterial) 0.96 mmol/L (1.12-1.30); Carboxyhemoglobin (COHb) 0.2 gm% (0.0-3.0); Hemoglobin (Hb) 7.9 g/dL (12.0-16.0); O2 Tension (PaO2), arterial 97.6 mmHg (> 80.0); Potassium - ABG Lab 4.68 mmol/L (3.70-5.30)
[2020-10-17 07:28] LABS: ALV-art Gradient 75.175 mmHg (0-20); Puncture Site LRA; pH, Arterial 7.58 (7.35-7.45)
[2020-10-17] MEDS ORDERED: Aspirin 81 mg Enteric Coated Tablet PO SCH (09:00)
[2020-10-17] MEDS ORDERED: Warfarin Sodium 2 MG TAB PO SCH (09:00)
[2020-10-17] MEDS ORDERED: Warfarin Sodium 7.5 MG TAB PO SCH (09:00)
[2020-10-17] MEDS ORDERED: Levothyroxine Sodium 88 MCG TAB PO SCH (09:30)
[2020-10-17] MEDS: Carvedilol 6.25 MG TAB PO SCH ×2 (09:39→21:51)
[2020-10-17] MEDS ORDERED: Heparin 10,000 UNITS/ 10 ML VIAL ONE (11:45)
[2020-10-17] MEDS: cefTRIAXone\\ROCEPHIN 1 GM in Sodium Chloride 0.9% 100 ML IVPB SCH (15:31)
[2020-10-18 04:53] LABS: INR-International Normal Ratio 1.6; Prothrombin Time 19.4 sec (12.0-14.7)
[2020-10-18 05:11] LABS: Anion Gap 19 mmol/L (10-20); BUN (Urea Nitrogen) 40 mg/dL (9.8-20.1); Calc. Creatinine Clearance 14 mL/min (70-130); Calcium 8.6 mg/dL (7.8-10.44); Carbon Dioxide 29 mmol/L (23-31); Chloride 93 mmol/L (98-107); Glucose 203 mg/dL (80-115); Potassium 4.3 mmol/L (3.5-5.1); Sodium 137 mmol/L (136-145)
[2020-10-18 05:15] LABS: Band 19 % (5-11); Hemoglobin 7.2 g/dL (12.0-16.0); Lymphocytes 3 % (21-51); MDiff Complete? YES; Macrocytosis SLIGHT = 6-15 cells (100X) (0-5/hpf); Mean Corpuscular HGB CONC 32.9 g/dL (32.0-36.0); Mean Corpuscular Hemoglobin 35.7 pg (27.0-31.0); Mean Platelet Volume 9.1 fL (7.4-10.4); Monocytes 2 % (0-10); Neutrophil 76 % (42-75); Platelet Count 89 thou/uL (130-400); Platelet Morphology Comment Appears Decreased; RBC Distribution Width 14.3 % (11.5-14.5); Red Blood Cell (RBC) Count 2.02 mill/uL (4.20-5.40); White Blood Cell (WBC) Count 12.1 thou/uL (4.8-10.8)
[2020-10-18] MEDS ORDERED: Levothyroxine Sodium 88 MCG TAB PO SCH (06:00)
[2020-10-18] MEDS: Insulin Regular 300 UNITS/3 ML VIAL SC PRN (06:11)
[2020-10-18 07:52] LABS: Actual Bicarbonate (HCO3a) 30.7 mEq/L (22-28); Base Excess (BEa) 7.7 mEq/L (-2.0 to +3.0); Calcium, Ionized (arterial) 1.07 mmol/L (1.12-1.30); Carboxyhemoglobin (COHb) 0.5 gm% (0.0-3.0); Hemoglobin (Hb) 7.4 g/dL (12.0-16.0); O2 Tension (PaO2), arterial 107.1 mmHg (> 80.0); Potassium - ABG Lab 3.99 mmol/L (3.70-5.30)
[2020-10-18 07:54] LABS: Puncture Site LRA; pH, Arterial 7.55 (7.35-7.45)
[2020-10-18 08:36] LABS: Hemoglobin 7.1 g/dL (12.0-16.0); Platelet Count 84 thou/uL (130-400)
[2020-10-18] MEDS ORDERED: Aspirin Chewable 81 MG TAB PO SCH (09:00)
[2020-10-18] MEDS: Hydrocortisone Sod Succ/PF 100 mg/2 ml Vial IVP SCH ×2 (09:44→23:26)
[2020-10-18] MEDS: Carvedilol 6.25 MG TAB PO SCH ×2 (09:44→23:26)
[2020-10-18] MEDS: Pantoprazole 40 MG VIAL IVP SCH ×2 (09:44→23:26)
[2020-10-18 12:44] VITALS: BMI 25.9
[2020-10-18] MEDS: cefTRIAXone\\ROCEPHIN 1 GM in Sodium Chloride 0.9% 100 ML IVPB SCH (14:19)
[2020-10-19] MEDS ORDERED: Acetaminophen 325 MG TAB PO PRN (12:23)
[2020-10-19] MEDS ORDERED: Guaifenesin DM 100-10/5 ML UDCUP PO PRN (12:23)
[2020-10-19] MEDS ORDERED: Bisacodyl 10 MG SUPP PR PRN (12:23)
[2020-10-19] MEDS ORDERED: Senokot S 8.6-50 MG TAB PO PRN (12:23)
[2020-10-19] MEDS ORDERED: Ventilator Sedation Protocol 1 EACH FS SCH (12:26)
[2020-10-19] MEDS ORDERED: Morphine 2 MG/ML VIAL SLOW IVP PRN (12:45)
[2020-10-19] MEDS ORDERED: Lorazepam 2 MG/ML VIAL SLOW IVP PRN (12:45)
[2020-10-19] MEDS ORDERED: DISCONTINUE PREVIOUS NARCOTIC PAIN MEDICATIONS AND BENZODIAZEPINES FS SCH (12:45)
[2020-10-19] MEDS ORDERED: Propofol 1,000 MG/100 ML VIAL IV PRN (12:45)
[2020-10-19] MEDS ORDERED: Propofol BOLUS 1,000 MG/100 ML VIAL IV PRN (12:45)
[2020-10-19] MEDS ORDERED: Fentanyl CADD 100 ML IV SCH (12:45)
[2020-10-19] MEDS ORDERED: Fentanyl BOLUS 250 ML IVPB PRN (12:45)
[2020-10-19] MEDS ORDERED: cefTRIAXone\\ROCEPHIN 1 GM in Sodium Chloride 0.9% 100 ML IVPB SCH (14:00)
[2020-10-19] MEDS: cefTRIAXone\\ROCEPHIN 2 GM in Sodium Chloride 0.9% 100 ML IVPB SCH (15:50)
[2020-10-19] MEDS: Carvedilol 3.125 MG TAB PO SCH (15:51)
[2020-10-19] MEDS: methylPREDNISolone Sod Succ 40 MG VIAL IVP SCH ×2 (15:51→21:24)
[2020-10-19] MEDS ORDERED: Heparin 5,000 UNITS/ML VIAL SC SCH (21:00)
[2020-10-20] MEDS: methylPREDNISolone Sod Succ 40 MG VIAL IVP SCH ×3 (06:04→22:29)
[2020-10-20] MEDS: Levothyroxine Sodium 88 MCG TAB PO SCH (06:04)
[2020-10-20 06:25] LABS: Anion Gap 21 mmol/L (10-20); BUN (Urea Nitrogen) 75 mg/dL (9.8-20.1); Calc. Creatinine Clearance 11 mL/min (70-130); Calcium 8.6 mg/dL (7.8-10.44); Carbon Dioxide 24 mmol/L (23-31); Chloride 97 mmol/L (98-107); Glucose 239 mg/dL (80-115); Hemoglobin 7.8 g/dL (12.0-16.0); Mean Corpuscular Hemoglobin 34.4 pg (27.0-31.0); Mean Platelet Volume 9.8 fL (7.4-10.4); Platelet Count 104 thou/uL (130-400); Potassium 5.2 mmol/L (3.5-5.1); RBC Distribution Width 14.5 % (11.5-14.5); Red Blood Cell (RBC) Count 2.26 mill/uL (4.20-5.40); Sodium 137 mmol/L (136-145); White Blood Cell (WBC) Count 13.8 thou/uL (4.8-10.8)
[2020-10-20 06:29] LABS: Fibrinogen 571 mg/dL (253-463)
[2020-10-20 06:30] LABS: D-Dimer Test 2.89 *mcg/mL (0.27-0.43)
[2020-10-20 06:31] LABS: INR-International Normal Ratio 1.5; PTT 40.8 sec (22.9-36.1); Prothrombin Time 18.4 sec (12.0-14.7)
[2020-10-20 07:04] LABS: Band 18 % (5-11); Lymphocytes 1 % (21-51); MDiff Complete? YES; Macrocytosis SLIGHT = 6-15 cells (100X) (0-5/hpf); Monocytes 2 % (0-10); Neutrophil 79 % (42-75); Platelet Morphology Comment Appears Decreased
[2020-10-20] MEDS: Carvedilol 3.125 MG TAB PO SCH ×2 (09:05→17:26)
[2020-10-20] MEDS: Pantoprazole 40 MG GRANULES PACKET PO SCH (09:05)
[2020-10-20] MEDS: Saccharomyces boulardii 250 MG CAP PO SCH (09:06)
[2020-10-20 11:05] LABS: FSP-Qualitative ABNORMAL (Normal); FSP-Semiquantitative >=5 & <20 mcg/mL (Less than 5)
[2020-10-20 11:07] LABS: Platelet Count 102 thou/uL (130-400)
[2020-10-20] MEDS: cefTRIAXone\\ROCEPHIN 2 GM in Sodium Chloride 0.9% 100 ML IVPB SCH (14:23)
[2020-10-21 05:09] LABS: Anion Gap 25 mmol/L (10-20); BUN (Urea Nitrogen) 95 mg/dL (9.8-20.1); Calc. Creatinine Clearance 9 mL/min (70-130); Calcium 8.8 mg/dL (7.8-10.44); Carbon Dioxide 23 mmol/L (23-31); Chloride 94 mmol/L (98-107); Glucose 292 mg/dL (80-115); Potassium 5.7 mmol/L (3.5-5.1); Sodium 136 mmol/L (136-145)
[2020-10-21 05:56] LABS: Band 12 % (5-11); Hemoglobin 8.2 g/dL (12.0-16.0); Lymphocytes 1 % (21-51); MDiff Complete? YES; Macrocytosis SLIGHT = 6-15 cells (100X) (0-5/hpf); Mean Corpuscular HGB CONC 33.1 g/dL (32.0-36.0); Mean Corpuscular Hemoglobin 35.7 pg (27.0-31.0); Mean Platelet Volume 9.5 fL (7.4-10.4); Monocytes 1 % (0-10); Neutrophil 86 % (42-75); Platelet Count 180 thou/uL (130-400); RBC Distribution Width 14.6 % (11.5-14.5); Red Blood Cell (RBC) Count 2.29 mill/uL (4.20-5.40); White Blood Cell (WBC) Count 16.2 thou/uL (4.8-10.8)
[2020-10-21] MEDS: methylPREDNISolone Sod Succ 40 MG VIAL IVP SCH (06:31)
[2020-10-21] MEDS: Levothyroxine Sodium 88 MCG TAB PO SCH (06:31)
[2020-10-21] MEDS: Pantoprazole 40 MG GRANULES PACKET PO SCH (09:38)
[2020-10-21] MEDS: Saccharomyces boulardii 250 MG CAP PO SCH (09:38)
[2020-10-21] MEDS: Carvedilol 3.125 MG TAB PO SCH ×2 (09:39→17:12)
[2020-10-21] MEDS ORDERED: Dextrose 5% in Water 1,000 ML IV PRN (14:32)
[2020-10-21] MEDS ORDERED: Dextrose 50% Abboject 50 ML SYRINGE SLOW IVP PRN (14:32)
[2020-10-21] MEDS: cefTRIAXone\\ROCEPHIN 2 GM in Sodium Chloride 0.9% 100 ML IVPB SCH (15:59)
[2020-10-21] MEDS: HumaLOG 300 UNITS/3 ML VIAL SC PRN ×2 (16:28→22:12)
[2020-10-22 04:56] LABS: Anion Gap 22 mmol/L (10-20); Calc. Creatinine Clearance 8 mL/min (70-130); Calcium 8.1 mg/dL (7.8-10.44); Carbon Dioxide 25 mmol/L (23-31); Chloride 96 mmol/L (98-107); Glucose 127 mg/dL (80-115); Potassium 5.6 mmol/L (3.5-5.1); Sodium 137 mmol/L (136-145)
[2020-10-22 05:07] LABS: BUN (Urea Nitrogen) 119 mg/dL (9.8-20.1)
[2020-10-22] MEDS: Levothyroxine Sodium 88 MCG TAB PO SCH (05:45)
[2020-10-22 06:11] LABS: Band 9 % (5-11); Hemoglobin 7.6 g/dL (12.0-16.0); Lymphocytes 2 % (21-51); MDiff Complete? YES; Mean Corpuscular HGB CONC 32.9 g/dL (32.0-36.0); Mean Corpuscular Hemoglobin 35.3 pg (27.0-31.0); Monocytes 1 % (0-10); Neutrophil 88 % (42-75); Platelet Count 172 thou/uL (130-400); RBC Distribution Width 14.9 % (11.5-14.5); Red Blood Cell (RBC) Count 2.14 mill/uL (4.20-5.40); White Blood Cell (WBC) Count 19.5 thou/uL (4.8-10.8)
[2020-10-22] MEDS: Pantoprazole 40 MG GRANULES PACKET PO SCH (08:40)
[2020-10-22] MEDS: Carvedilol 3.125 MG TAB PO SCH (08:40)
[2020-10-22] MEDS: Saccharomyces boulardii 250 MG CAP PO SCH (08:41)
[2020-10-22] MEDS ORDERED: methylPREDNISolone Sod Succ 40 MG VIAL IVP SCH (09:00)
[2020-10-22 10:42] VITALS: BP 140/62
[2020-10-22 13:01] VITALS: TEMP 98.7
== END 2020-10-22 13:51 | disposition hospice, inpatient (51) | DRG 870 ==
LOC: ERS 09:49 → CCU 09:59 → UNDODISIN 10-18 22:00
PROVIDERS: ADMIT Internal Medicine; ATTEND Family Medicine
PROC: 5A1955Z Respiratory Ventilation, Greater than 96 Consecutive Hours (ICD-10-PCS; principal; 2020-10-15)
PROC: 30283B1 Transfusion of Nonautologous 4-Factor Prothrombin Complex Concentrate into Vein, Percutaneous Approach (ICD-10-PCS; 2020-10-15)
PROC: 02HV33Z Insertion of Infusion Device into Superior Vena Cava, Percutaneous Approach (ICD-10-PCS; 2020-10-15)
PROC: 5A1D70Z Performance of Urinary Filtration, Intermittent, Less than 6 Hours Per Day (ICD-10-PCS; 2020-10-15)
DX: A41.51 Sepsis due to Escherichia coli [E. coli] (principal); N18.6 End stage renal disease; J96.01 Acute respiratory failure with hypoxia; J69.0 Pneumonitis due to inhalation of food and vomit; I46.9 Cardiac arrest, cause unspecified; S22.43XA Multiple fractures of ribs, bilateral, initial encounter for closed fracture; I12.0 Hypertensive chronic kidney disease with stage 5 chronic kidney disease or end stage renal disease; E87.2 Acidosis; G93.1 Anoxic brain damage, not elsewhere classified; D61.818 Other pancytopenia; I25.810 Atherosclerosis of coronary artery bypass graft(s) without angina pectoris; D68.9 Coagulation defect, unspecified; M48.55XA Collapsed vertebra, not elsewhere classified, thoracolumbar region, initial encounter for fracture; Z51.5 Encounter for palliative care; Z66 Do not resuscitate; E78.5 Hyperlipidemia, unspecified; E11.22 Type 2 diabetes mellitus with diabetic chronic kidney disease; I48.0 Paroxysmal atrial fibrillation; E03.9 Hypothyroidism, unspecified; D63.1 Anemia in chronic kidney disease; E87.5 Hyperkalemia; D69.6 Thrombocytopenia, unspecified; I08.2 Rheumatic disorders of both aortic and tricuspid valves; Z87.891 Personal history of nicotine dependence; Z95.0 Presence of cardiac pacemaker; Z22.39 Carrier of other specified bacterial diseases; Z95.1 Presence of aortocoronary bypass graft; Z98.41 Cataract extraction status, right eye; Z98.42 Cataract extraction status, left eye; Z90.49 Acquired absence of other specified parts of digestive tract; Z99.2 Dependence on renal dialysis; Z79.82 Long term (current) use of aspirin; Z79.4 Long term (current) use of insulin; Z79.01 Long term (current) use of anticoagulants; Z95.5 Presence of coronary angioplasty implant and graft
CPT/HCPCS: 0240U; 36415; 36416; 36600; 70450; 71045; 71275; 80048; 80053; 81003; 81015; 82533; 82550; 82553; 82805; 83605; 83690; 83735; 83880; 84436; 84484; 85025; 85049; 85300; 85362; 85379; 85384; 85610; 85730; 86850; 86900; 86901; 87040; 87045; 87046; 87077; 87149; 87186; 87427; 87449; 90935; 93005; 93306; 94002; 94003; 94640; 95712; 95819; 95957; C9113; G0257; J0696; J1644; J1720; J1815; J1956; J2543; J2920; J3010; J3370; J3430; J3490; J7070; J7620; S0028

== ENCOUNTER 2020-10-22 13:58 | Inpatient (IN) | payer OTHER ==
[2020-10-22] MEDS ORDERED: Morphine 2 MG/ML VIAL SLOW IVP PRN ×2 (14:17→14:21)
[2020-10-22] MEDS ORDERED: Lorazepam 2 MG/ML VIAL SLOW IVP PRN ×3 (14:17→14:21)
[2020-10-22] MEDS ORDERED: Dexamethasone 4 mg/ml Vial SLOW IVP PRN (14:19)
[2020-10-22] MEDS ORDERED: Ondansetron PF 4 MG/2 ML Vial IVP PRN (14:19)
[2020-10-22] MEDS ORDERED: Haloperidol Lactate 5 MG/ML VIAL SLOW IVP PRN (14:20)
[2020-10-22] MEDS ORDERED: diphenhydrAMINE 50 MG/ML VIAL IVP PRN (14:22)
[2020-10-22] MEDS ORDERED: Acetaminophen 650 MG Suppository PR PRN (14:22)
[2020-10-22] MEDS ORDERED: Scopolamine 1.5 mg/72 hour Patch TOP SCH (14:30)
[2020-10-22 15:25] VITALS: BMI 26.1
[2020-10-23] MEDS ORDERED: Scopolamine 1.5 mg/72 hour Patch TOP SCH (01:45)
[2020-10-23 08:26] VITALS: BP 158/70; TEMP 97.6
== END 2020-10-23 19:10 | disposition hospice, home (50) | DRG 951 ==
LOC: CCU 13:58 → ONC 18:32
PROVIDERS: ADMIT Internal Medicine Nephrology; ATTEND Internal Medicine Nephrology
DX: Z51.5 Encounter for palliative care (principal); N18.6 End stage renal disease; I46.9 Cardiac arrest, cause unspecified; I12.0 Hypertensive chronic kidney disease with stage 5 chronic kidney disease or end stage renal disease; G93.1 Anoxic brain damage, not elsewhere classified; Z66 Do not resuscitate; I25.10 Atherosclerotic heart disease of native coronary artery without angina pectoris; E78.5 Hyperlipidemia, unspecified; I48.0 Paroxysmal atrial fibrillation; E03.9 Hypothyroidism, unspecified; D53.9 Nutritional anemia, unspecified; E11.22 Type 2 diabetes mellitus with diabetic chronic kidney disease; Z95.1 Presence of aortocoronary bypass graft; Z79.82 Long term (current) use of aspirin; Z79.4 Long term (current) use of insulin; Z79.899 Other long term (current) drug therapy; Z90.49 Acquired absence of other specified parts of digestive tract; Z79.01 Long term (current) use of anticoagulants; Z95.0 Presence of cardiac pacemaker; Z87.891 Personal history of nicotine dependence; Z99.2 Dependence on renal dialysis
CPT/HCPCS: J2060; J2270